=== PATIENT | female | born 1965 | race Hispanic/Latino ===

== ENCOUNTER 2017-10-03 14:13 | Observation (INO) | payer OTHER, SELFPAY ==
[2017-10-03] MEDS ORDERED: ASPIRIN 81 MG CHEWABLE TABLET ONE (14:41)
--- NOTE | 2017-10-03 14:57 | RAD REPORT ---
EXAM DESCRIPTION: RAD - Chest Single View - 10/03/2017 2:45 pm CLINICAL HISTORY: Chest pain. COMPARISON: 02/19/2015 FINDINGS: Portable technique limits examination quality. The lungs are grossly clear. The heart is normal in size. No displaced fractures. IMPRESSION: No acute intrathoracic process suspected.
[2017-10-03 15:01] LABS: Absolute Lymphocytes (CBC) 1.8 K/uL (0.7-4.9); Absolute Monocytes 0.7 K/uL (0.1-1.3); Basophils % 0.8 % (0-1.3); MCH 25.3 pg (27.0-35.0); MPV 9.6 fL (7.6-11.3); Monocytes % 6.7 % (3.3-12.3)
[2017-10-03 15:02] LABS: Protime INR 0.97
[2017-10-03 15:08] LABS: CKMB Creatine Kinase MB 1.6 ng/ml (0.3-4.0)
[2017-10-03 15:15] LABS: Potassium 3.5 mEq/L (3.6-5.0)
--- NOTE | 2017-10-03 15:52 | RAD REPORT ---
EXAM DESCRIPTION: CT - Chest For Pe Angio - 10/03/2017 3:45 pm CLINICAL HISTORY: Chest pain. COMPARISON: Recent chest radiograph. TECHNIQUE: CT angiogram of the pulmonary arteries was performed with MIP. All CT scans are performed using dose optimization technique as appropriate and may include automated exposure control or mA/KV adjustment according to patient size. FINDINGS: No evidence of pulmonary thromboembolism. No acute aortic finding demonstrated. The lungs are clear. The extreme lung bases are excluded on this study. No significant pericardial or pleural fluid. No concerning bony finding. Small hiatal hernia. IMPRESSION: No evidence of pulmonary thromboembolism.
[2017-10-03] MEDS ORDERED: NA CHLORIDE 0.9% 1,000 ML ONE (15:55)
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
--- NOTE | 2017-10-03 16:00 | ER ---
Nurse's Notes [facility] Name: Yas Fischer Age: 52 yrs Sex: Female : 1965 Arrival Date: 10/03/2017 Time: 14:16 Bed 17 Private MD: Diagnosis: Chest pain, unspecified Presentation: 10/03 14:20 Presenting complaint: Patient states: I have been having a dull chest pain since la1 yesterday, it started while I was working in the yard but went away thins morning, now its back. Transition of care: patient was not received from another setting of care. Onset of symptoms was October 03, 2017. Care prior to arrival: None. 14:20 Method Of Arrival: Ambulatory la1 14:20 Acuity: STARLA 3 la1 COPYRIGHT EXPERT: 15:16 Patient states she is experiencing menopause ae1 Historical: - Allergies: 14:21 No Known Allergies; la1 - PMHx: 14:21 Hypertension; Anxiety; la1 - Immunization history:: Adult Immunizations up to date. - Social history:: Smoking status: Patient/guardian denies using tobacco. Screenin:17 Abuse screen: Denies threats or abuse. Nutritional screening: No deficits noted. ae1 Tuberculosis screening: No symptoms or risk factors identified. Fall Risk None identified. Assessment: 13:30 General: Appears uncomfortable, Behavior is cooperative, anxious, restless. Pain: ae1 Complains of pain in chest Pain does not radiate. Quality of pain is described as aching, dull, Pain began gradually, 1 day ago. Neuro: Level of Consciousness is awake, alert, obeys commands, Oriented to person, place, time, situation. Cardiovascular: Heart tones S1 S2 present Patient's skin is warm and dry. Rhythm is regular. Respiratory: Airway is patent Respiratory effort is even, unlabored, Respiratory pattern is regular, symmetrical, Breath sounds are clear bilaterally. 13:35 Reassessment: Radiology at bedside obtaining chest x-ray. ae1 13:40 Reassessment: systems protection technician at bedside obtaining EKG reading. ae1 15:15 Reassessment: Patient states feeling better. Patient states symptoms have improved. ae1 15:53 Reassessment: Provider, Samara Holliday NP at bedside discussing plan of care. ae1 17:12 Reassessment: Patient and/or family updated on plan of care and expected duration. Pain ae1 level reassessed. Patient states "I'm feeling much better." Patient states feeling better. Patient states symptoms have improved. Vital Signs: 14:22 BP 162 / 94; Pulse 108; Resp 19; Temp 98.6(TE); Pulse Ox 98% on R/A; Weight 72.57 kg; la1 Height 5 ft. 0 in. (152.40 cm); 15:07 BP 147 / 80; Pulse 88; Resp 15; Pulse Ox 100% on R/A; mh5 15:51 BP 134 / 80; Pulse 88; Resp 15; Pulse Ox 100% on R/A; ae1 17:11 BP 152 / 79; Pulse 87; Resp 15; Pulse Ox 100% on R/A; ae1 14:22 Body Mass Index 31.25 (72.57 kg, 152.40 cm) la1 ED Course: 14:16 Patient arrived in ED. tw3 14:21 Triage completed. la1 14:22 Arm band placed on right wrist. la1 14:23 Bryant Gallego, RADHA is Primary Nurse. ae1 14:24 Clotilde Hloliday FNP-C is PHCP. kb 14:24 Jax Acosta MD is Attending Physician. kb 14:40 Initial lab(s) drawn, by me, sent to lab. Inserted saline lock: 20 gauge in right 5 antecubital area, using aseptic technique. Blood collected. 14:42 X-ray completed. Portable x-ray completed in exam room. Patient tolerated procedure sw well. 14:42 Patient has correct armband on for positive identification. Bed in low position. Side 5 rails up X 1. Warm blanket given. pvc monitor on. Pulse ox on. NIBP on. 14:43 XRAY Chest (1 view) In Process Unspecified. EDMS 14:43 Magnesium Sent. 5 14:43 Basic Metabolic Panel Sent. [facility] 14:43 BNP Sent. 5 14:43 CBC with Diff Sent. 5 14:43 Ckmb Sent. [facility] 14:43 PT-INR Sent. [facility] 14:43 Ptt, Activated Sent. [facility] 14:43 Troponin (emerg Dept Use Only) Sent. 5 14:47 EKG done, by cardiology technologist. reviewed by Clotilde Mg CONTAINER REPAIRER-C. at1 15:05 Urine collected: clean catch specimen, clear. mh5 15:06 Magnesium Sent. mh5 15:06 BNP Sent. mh5 15:16 Patient maintains SpO2 saturation greater than 95% on room air. ae1 15:44 CT Chest For PE Angio In Process Unspecified. EDMS 15:50 Patient moved back from CT. ae1 15:59 La Bryant MD is Hospitalizing Provider. kb 17:30 No provider procedures requiring assistance completed. Patient admitted, IV remains in iw place. Administered Medications: 14:42 Drug: Aspirin 162 mg Route: PO; ae1 15:50 Follow up: Response: No adverse reaction ae1 15:57 Drug: NS 0.9% 1000 ml Route: IV; Rate: 1000 ml; Site: right antecubital; ae1 17:00 Follow up: IV Status: Completed infusion iw Outcome: 15:59 Decision to Hospitalize by Provider. kb 17:30 Admitted to Tele Report called to RADHA Araujo iw 17:30 Condition: good 17:30 Discharge instructions given to patient, Instructed on the need for admit. 17:41 Patient left the ED. ae1 Signatures: Dispatcher [employer] EDLA Clotilde Holliday, CONTAINER REPAIRER-C CONTAINER REPAIRER-CkDonna Arevalo, RN RN iw Mojgan urrutia, account resolution analyst EKG TatKin Ayala RN RN Miya Villa Andrea, RN RN tate1 Brigitte Mclain 5 Stephen, Tia tw3
[2017-10-03] MEDS ORDERED: ACETAMINOPHEN 500 MG TAB PO PRN (16:45)
[2017-10-03] MEDS ORDERED: ONDANSETRON 4 MG (ODT) TAB PO PRN (16:45)
[2017-10-03 18:09] LABS: Urine Blood TRACE (NEG); Urine Glucose NEGATIVE (NEG); Urine Protein NEGATIVE (NEG); Urine Specific Gravity 1.015 (1.005-1.030)
[2017-10-03 18:10] VITALS: BMI 31.2
[2017-10-03] MEDS: NA CHLORIDE 0.9% 1,000 ML IV SCH (18:12)
--- NOTE | 2017-10-03 18:17 | P.HP ---
Certification for Inpatient Patient admitted to: Observation With expected LOS: <2 Midnights Patient will require the following post-hospital care: None Practitioner: I am a practitioner with admitting privileges, knowledge of patient current condition, hospital course, and medical plan of care. Services: Services provided to patient in accordance with Admission requirements found in Title 42 Section 412.3 of the Code of Federal Regulations Patient History Date of Service: 10/03/17 Primary Care Provider: Peg Solorio Reason for admission: Chest Pain History of Present Illness: This is a 52-year-old female with significant past medical history of anxiety and hypertension who presented to the ED complaining of having some left-sided chest pain. Patient stated that her pain started yesterday while she was mowing a lawn and she had associated symptoms of nausea. Patient stated that the chest pain was radiating down to her left arm as well. Pain was more pressure like and was 7/10 in waiting. Patient stated that she has had more episodes in the past and was told that it is her anxiety and thus was given anxiety medication. This time however she states that her chest pain is different and it is concerning for her. Currently she is compliant with her medication. Denies having any shortness of breath, vomiting abdominal pain or any other associated symptoms. Allergies No Known Drug Allergies Allergy (Unverified 03/09/15 02:01) Unknown No Known Allergies Allergy (Uncoded 10/03/17 17:44) Unknown - Past Medical/Surgical History Has patient received pneumonia vaccine in the past: No Diabetic: No -: Generalized Anxiety -: Hypertension -: Tubal Ligation - Family History Mother History Unknown: Yes -: Hypertension Father -: Hypertension Brother -: Hypertension - Social History Smoking Status: Never smoker Alcohol use: Yes CD- Drugs: No Caffeine use: No Place of Residence: Home Review of Systems General: As per HPI Physical Examination - Vital Signs Temperature: 98.6 F Blood Pressure: 152/79 Pulse: 87 Respirations: 15 - Physical Exam General: Alert, In no apparent distress, Other (Appears Anxious) HEENT: Atraumatic Neck: Supple Respiratory: Clear to auscultation bilaterally, Normal air movement Cardiovascular: Regular rate/rhythm, Normal S1 S2 Gastrointestinal: Normal bowel sounds, No tenderness Musculoskeletal: No tenderness Integumentary: No rashes Neurological: Normal speech, Normal strength at 5/5 x4 extr, Normal tone Lymphatics: No axilla or inguinal lymphadenopathy - Studies Laboratory Data (last 24 hrs) 10/03/17 14:30: PT 11.4, INR 0.97, APTT 27.5 10/03/17 14:30: WBC 10.7, Hgb 12.7, Hct 40.0, Plt Count 353 10/03/17 14:30: B-Natriuretic Peptide 11 10/03/17 14:30: Sodium 132 L, Potassium 3.5 L, BUN 12, Creatinine 1.19 H, Glucose 147 H, Magnesium 2.0 D Assessment and Plan - Problems (Diagnosis) (1) Chest pain Current Visit: Yes Status: Acute Plan: Atypical Chest pain. Most likely 2.2 to anxiety however cannot rule out ACS -Troponin x 1 negative with no EKG changes. -Echo Pending -Cardiology consulted. Awaiting reccs -Will repeat troponin -ASA, Statin and BB Qualifiers: Chest pain type: unspecified Qualified Code(s): R07.9 - Chest pain, unspecified (2) Anxiety Current Visit: Yes Status: Chronic (3) HTN (hypertension) Current Visit: Yes Status: Chronic Qualifiers: Hypertension type: essential hypertension Qualified Code(s): I10 - Essential (primary) hypertension Discharge Plan: Home Plan to discharge in: 24 Hours - Advance Directives Does patient have a Living Will: No Does patient have a Durable POA for Healthcare: No - Code Status/Comfort Care Code Status Assessed: Yes Critical Care: No
[2017-10-03] MEDS ORDERED: POTASSIUM 25 MEQ EFFERV TAB PO ONE (19:00)
[2017-10-03 20:18] VITALS: O2SAT 96
[2017-10-03] MEDS ORDERED: ATORVASTATIN 40 MG TAB PO SCH (21:00)
[2017-10-04] MEDS: NA CHLORIDE 0.9% 1,000 ML IV SCH (03:09)
[2017-10-04 05:12] LABS: Absolute Lymphocytes (CBC) 1.7 K/uL (0.7-4.9); Absolute Monocytes 0.7 K/uL (0.1-1.3); Basophils % 0.6 % (0-1.3); Lymphocytes % 19.6 % (15.3-44.8); MCV 79.6 fL (80-100); MPV 9.4 fL (7.6-11.3); Monocytes % 8.4 % (3.3-12.3); RBC Red Blood Cell Count 4.53 M/uL (3.86-4.86)
[2017-10-04 05:33] LABS: Albumin 3.7 g/dL (3.2-5.5); Bilirubin Total 0.5 mg/dL (0.3-1.2); Magnesium 2.1 mg/dL (1.8-2.5); Phosphorus 3.6 mg/dL (2.5-4.3); Potassium 4.4 mEq/L (3.6-5.0); Protein, Total 7.1 g/dL (6.0-8.3)
[2017-10-04] MEDS ORDERED: METOPROLOL TAR 25 MG TAB PO SCH (06:00)
[2017-10-04] MEDS ORDERED: ASPIRIN 81 MG CHEWABLE TABLET PO SCH (09:00)
[2017-10-04 13:15] VITALS: BP 132/77; TEMP 98.3
--- NOTE | 2017-10-04 14:32 | P.SSS ---
Patient History Date of Service: 10/04/17 Primary Care Provider: [facility] Reason for admission: Chest Pain History of Present Illness: This is a 52-year-old female with significant past medical history of anxiety and hypertension who presented to the ED complaining of having some left-sided chest pain. Patient stated that her pain started yesterday while she was mowing a lawn and she had associated symptoms of nausea. Patient stated that the chest pain was radiating down to her left arm as well. Pain was more pressure like and was 7/10 in waiting. Patient stated that she has had more episodes in the past and was told that it is her anxiety and thus was given anxiety medication. This time however she states that her chest pain is different and it is concerning for her. Currently she is compliant with her medication. Denies having any shortness of breath, vomiting abdominal pain or any other associated symptoms. Allergies No Known Drug Allergies Allergy (Verified 10/03/17 19:48) Unknown No Known Allergies Allergy (Uncoded 10/03/17 17:44) Unknown Home Medications: Amlodipine Besylate 10 mg PO DAILY 10/04/17 Aspirin Chewable [Aspirin Chewable*] 81 mg PO DAILY #30 tab.chew 10/04/17 Atorvastatin Calcium [Lipitor] 40 mg PO BEDTIME #30 tab 10/04/17 Buspirone HCl [Buspar] 10 mg PO BID 10/04/17 Lisinopril/Hydrochlorothiazide [Lisinopril-Hctz 20-12.5 mg Tab] 2 tab PO DAILY 10/04/17 Pantoprazole [Protonix Tab*] 40 mg PO DAILY 10/04/17 - Past Medical/Surgical History Has patient received pneumonia vaccine in the past: No Diabetic: No -: Generalized Anxiety -: Hypertension -: Tubal Ligation - Family History Mother History Unknown: Yes -: Hypertension Father -: Hypertension Brother -: Hypertension - Social History Smoking Status: Never smoker Alcohol use: Yes CD- Drugs: No Caffeine use: No Place of Residence: Home Review of Systems 10-point ROS is otherwise unremarkable Physical Examination - Vital Signs Temperature: 98.3 F Blood Pressure: 132/77 Pulse: 77 Respirations: 18 Pulse Ox (%): 98 - Physical Exam General: Alert, In no apparent distress, Oriented x3 HEENT: Atraumatic, PERRLA, Mucous membr. moist/pink, EOMI, Sclerae nonicteric Neck: Supple, 2+ carotid pulse no bruit, No LAD, Without JVD or thyroid abnormality Respiratory: Clear to auscultation bilaterally, Normal air movement Cardiovascular: Regular rate/rhythm, Normal S1 S2 Gastrointestinal: Normal bowel sounds, No tenderness Musculoskeletal: No tenderness Integumentary: No rashes Neurological: Normal gait, Normal speech, Normal strength at 5/5 x4 extr, Normal tone, Normal affect Lymphatics: No axilla or inguinal lymphadenopathy - Studies Laboratory Data (last 24 hrs) 10/03/17 14:30: PT 11.4, INR 0.97, APTT 27.5 10/03/17 14:30: WBC 10.7, Hgb 12.7, Hct 40.0, Plt Count 353 10/03/17 14:30: B-Natriuretic Peptide 11 10/03/17 14:30: Sodium 132 L, Potassium 3.5 L, BUN 12, Creatinine 1.19 H, Glucose 147 H, Magnesium 2.0 D - Diagnosis (Problem(s)) (1) Chest pain Status: Acute Plan: Atypical Chest pain. Most likely 2.2 to anxiety -Troponin x 3 negative with no EKG changes. -Echo WNL -Cardiology consulted. -Reccs DC home with F/u in 1 week for outpt Stress test. -ASA, Statin and BB Qualifiers: Chest pain type: unspecified Qualified Code(s): R07.9 - Chest pain, unspecified (2) Anxiety Status: Chronic (3) HTN (hypertension) Status: Chronic Qualifiers: Hypertension type: essential hypertension Qualified Code(s): I10 - Essential (primary) hypertension - Disposition Disposition: ROUTINE DISCHARGE Condition: GOOD Patient Discharge Instructions: Please f/u with Dr Kathleen in the clinic in 1 week post discharge. New medication. ASA 81mg. Lipitor 40mg daily Diet: Regular Activity: Ad elidia
--- NOTE | 2017-10-04 17:48 | CON ---
Date of Consultation: 10/04/2017 Admitted on 10/03/[address] Bryant. I saw the patient on 10/04/2017. Reason For Admission: Chest pain. History Of Present Illness: Ms. Fischer is a 52-year-old black [place] woman I have done a stress t est and echocardiogram in my office couple years ago, both of which were negative. She has a history of hypertension, gastroesophageal reflux disease. She came in with nausea, palpitation, and atypica l chest pain after walking in the yard for few hours. Denied PND, orthopnea, pedal edema, or syncope . Denied any fever or chills. Her chest pain was atypical. It was pleuritic. It increased when sh e took a deep breath. Her CPKs, troponin, MBs, chest x-ray, and EKG were all normal. Allergies: NONE. Review of Systems: Negative. Social History: Negative. Family History: Negative. Medications: At home include BuSpar, Norvasc, fluconazole, fosinopril, and hydrochlorothiazide. She is also on Bactrim for now. Physical Examination: Vital Signs: Stable. She was afebrile. HEENT: Negative. Neck: Supple. No bruit. Chest: Clear to auscultation and percussion. CARDIAC: Revealed regular rhythm and rate without any murmurs, gallops, or rubs. Abdomen: Benign. Extremities: Revealed no clubbing, cyanosis, or edema. Diagnostic Data: All normal. She had an echocardiogram yesterday, which was normal. She did have s lightly increased cholesterol of 214, LDL of 144. Impression And Plan: 1.Atypical chest pain, most likely musculoskeletal or pleuritic. 2.Palpitations that have resolved. 3.Nausea. 4.Gastroesophageal reflux disease. 5.Hypertension that is stable. The patient had a normal echo. Also had a negative cardiac workup i n the past. She has some mixed dyslipidemia, and I suggested a dietary program, but apparently she i s already on diet and has recently lost 12 pounds. I would not initiate therapy at this point. She needs to have that checked in about 3 months. I can see her in the office as needed. She can go javier e whenever it is okay with Dr. Bryant. CARLO/SHELTON Voice ID: [id number] Report ID: [id number]
--- NOTE | 2017-10-05 22:43 | EKG ---
Test Date: 2017-10-03 Test Time: 14:41:34 Drying Supervisor: DEJAN MEASUREMENT RESULTS: Intervals: Rate: 108 MN: 140 QRSD: 88 QT: 324 QTc: 434 Trail: P: 47 MN: 140 QRS: -12 T: 23 INTERPRETIVE STATEMENTS: Sinus tachycardia Otherwise normal ECG Compared to ECG 02/19/2015 22:17:42 Sinus rhythm no longer present Electronically Signed On 10-05-17 22:42:28 CDT by Mayco Rooney
--- NOTE | 2017-10-06 07:49 | ECHO ---
HEIGHT: 5 ft 0 in WEIGHT: 160 lb 0 oz DATE OF STUDY: 10/03/[address]: Clotilde Holliday 2-DIMENSIONAL: YES M.MODE: YES DOPPLER: YES COLOR FLOW: YES TDS: NO PORTABLE: NO DEFINITY: NO BUBBLE STUDY: NO DIAGNOSIS: CHEST PAIN CARDIAC HISTORY: CATHERIZATION: NO SURGERY: NO PROSTHETIC VALVE: NO PACEMAKER: NO MEASUREMENTS (cm) DIASTOLIC (NORMALS) SYSTOLIC (NORMALS) IVSd 1.0 (0.6-1.2) LA Diam 3.3 (1.9-4.0) LVEF 74% LVIDd 4.4 (3.5-5.7) LVIDs 2.5 (2.0-3.5) %FS 43% LVPWd 1.0 (0.6-1.2) Ao Diam 2.6 (2.0-3.7) 2 DIMENSIONAL ASSESSMENT: RIGHT ATRIUM: NORMAL LEFT ATRIUM: NORMAL RIGHT VENTRICLE: NORMAL LEFT VENTRICLE: NORMAL TRICUSPID VALVE: NORMAL MITRAL VALVE: NORMAL PULMONIC VALVE: NORMAL AORTIC VALVE: NORMAL PERICARDIAL EFFUSION: NONE AORTIC ROOT: NORMAL LEFT VENTRICULAR WALL MOTION: NORMAL DOPPLER/COLOR FLOW: MILD TRICUSPID REGURGITATION. COMMENTS: MILD TRICUSPID REGURGITATION. NORMAL LEFT VENTRICULAR SIZE AND FUNCTION. NO WALL MOTION ABNORMALITY. TECHNOLOGIST: Jelly CARUSO
== END 2017-10-04 13:34 | disposition home or self-care (01) ==
LOC: ER 14:13 → ERHOLD 16:00 → 4TH 17:26
PROVIDERS: ADMIT Family Medicine; ATTEND Family Medicine
DX: R07.89 Other chest pain (principal); I10 Essential (primary) hypertension; K21.9 Gastro-esophageal reflux disease without esophagitis; F41.9 Anxiety disorder, unspecified; Z79.82 Long term (current) use of aspirin
CPT/HCPCS: 36415; 71045; 71275; 80048; 80053; 80061; 81003; 81025; 82553; 83735; 83880; 84100; 84443; 84484; 85025; 85610; 85730; 93005; 93306; 96360; 99285; G0378; J7030

== ENCOUNTER 2019-03-05 13:44 | Emergency (ER) | payer BC, OTHER ==
[2019-03-05] MEDS ORDERED: MEPERIDINE HCL 25 MG/0.5 ML ONE (14:03)
[2019-03-05] MEDS ORDERED: DIAZEPAM 2 MG TABLET ONE (14:04)
[2019-03-05 14:14] LABS: Absolute Lymphocytes (CBC) 4.3 K/uL (0.7-4.9); Basophils % 0.8 % (0-1.3); Hematocrit 44.8 % (36.0-45.0); Lymphocytes % 49.4 % (15.3-44.8); MPV 10.4 fL (7.6-11.3); RBC Red Blood Cell Count 5.01 M/uL (3.86-4.86)
[2019-03-05 14:19] LABS: Protime INR 0.91
--- NOTE | 2019-03-05 14:31 | RAD REPORT ---
EXAM DESCRIPTION: Arleen Single View03/05/2019 2:18 pm CLINICAL HISTORY: Chest pain COMPARISON: 2018 FINDINGS: The lungs appear clear of acute infiltrate. The heart is normal size IMPRESSION: No acute abnormalities displayed
[2019-03-05 14:35] LABS: ALT/SGPT 241 U/L (12-78); AST/SGOT 120 U/L (15-37); Albumin 4.1 g/dL (3.4-5.0); Alkaline Phosphatase 123 U/L (45-117); BUN Blood Urea Nitrogen 13 mg/dL (7-18); Bicarbonate 26 mmol/L (21-32); Bilirubin Direct 0.1 mg/dL (0-0.2); Bilirubin Total 0.4 mg/dL (0.2-1.0); Glucose Level 157 mg/dL (74-106); Magnesium 2.1 mg/dL (1.8-2.4); NT PRO-BNP 11 pg/mL (<125); Potassium 3.5 mmol/L (3.5-5.1); Protein, Total 8.3 g/dL (6.4-8.2); Sodium Level 140 mmol/L (136-145); Troponin (Emerg Dept Use Only) < 0.02 ng/mL (0.0-0.045)
[2019-03-05 14:43] LABS: Blood Morphology Comment NOT SEEN (NOT SEEN); Platelet Estimate ADEQ
--- NOTE | 2019-03-05 16:09 | RAD REPORT ---
EXAM DESCRIPTION: US - Abdomen Exam Limited - 03/05/2019 4:02 pm CLINICAL HISTORY: chest pain, elevated LFTs COMPARISON: No comparisons FINDINGS: The gallbladder demonstrates no gallstones. No pericholecystic fluid or gallbladder wall t hickening. The common bile duct is normal measuring 4 mm. The liver demonstrates no findings of intrahepatic biliary dilatation. IMPRESSION: Unremarkable examination.
--- NOTE | 2019-03-05 16:30 | ER ---
Nurse's Notes [facility] Name: Yas Fischer Age: 54 yrs Sex: Female : 1965 Arrival Date: 03/05/2019 Time: 13:45 Bed 4 Private MD: Diagnosis: Chest pain, unspecified;Fatty (change of) liver, not elsewhere classified Presentation: 03/05 13:45 Presenting complaint: Sudden substernal chest pain that radiates to left arm and SOB hb while talking on phone to family member. Transition of care: patient was not received from another setting of care. Onset of symptoms was March 05, 2019 at 12:30. Risk Assessment: Do you want to hurt yourself or someone else? Patient reports no desire to harm self or others. Initial Sepsis Screen: Does the patient meet any 2 criteria? No. Patient's initial sepsis screen is negative. Does the patient have a suspected source of infection? No. Patient's initial sepsis screen is negative. Care prior to arrival: None. 13:45 Method Of Arrival: Ambulatory hb 13:45 Acuity: STARLA 3 hb Historical: - Allergies: 13:47 Amoxicillin; hb - Home Meds: 13:47 Lisinopril Oral [Active]; amlodipine oral [Active]; hb - PMHx: 13:47 Anxiety; Hypertension; hb - PSHx: 13:47 Tubal ligation; hb - Immunization history:: Adult Immunizations up to date. - Social history:: Smoking status: Patient/guardian denies using tobacco. - Ebola Screening: : No symptoms or risks identified at this time. - Family history:: not pertinent. - Hospitalizations: : No recent hospitalization is reported. Screenin:49 Abuse screen: Denies threats or abuse. Denies injuries from another. Nutritional mg2 screening: No deficits noted. Tuberculosis screening: No symptoms or risk factors identified. Assessment: 14:09 General: Appears in no apparent distress. comfortable, Behavior is cooperative, mg2 anxious. Pain: Complains of pain in chest Pain radiates to back Pain currently is 5 out of 10 on a pain scale. Quality of pain is described as aching, pressure, Pain began suddenly, 2 hours ago. Is continuous. Neuro: Level of Consciousness is awake, alert, obeys commands, Oriented to person, place, time, situation. Cardiovascular: Capillary refill < 3 seconds Patient's skin is warm and dry. Respiratory: Airway is patent Respiratory effort is even, unlabored, Respiratory pattern is regular, symmetrical, Breath sounds are clear bilaterally. in mediastinum, right upper lobe and left upper lobe. GI: No signs and/or symptoms were reported involving the gastrointestinal system. : No signs and/or symptoms were reported regarding the genitourinary system. EENT: No signs and/or symptoms were reported regarding the EENT system. Derm: Skin is intact, is healthy with good turgor, Skin is pink, warm \T\ dry. normal. Musculoskeletal: Circulation, motion, and sensation intact. Capillary refill < 3 seconds. 16:45 Reassessment: Patient denies pain at this time. Patient states feeling better. Patient mg2 states symptoms have improved. Vital Signs: 13:47 BP 170 / 103; Pulse 106; Resp 16; Temp 97.4; Pulse Ox 99% on R/A; Weight 74.84 kg; hb Height 5 ft. (152.40 cm); Pain 8/10; 14:11 BP 146 / 62; Pulse 103; Resp 18; Pulse Ox 97% on R/A; mg2 15:15 BP 130 / 75; Pulse 99; Resp 18; Pulse Ox 94% on R/A; mg2 16:45 BP 131 / 80; Pulse 90; Resp 18; Temp 98; Pulse Ox 100% on R/A; mg2 13:47 Body Mass Index 32.22 (74.84 kg, 152.40 cm) hb ED Course: 13:45 Patient arrived in ED. hb 13:46 Triage completed. hb 13:47 Arm band placed on. hb 13:48 Nilson Stewart, RN is Primary Nurse. mg2 13:54 Papito Estrella MD is Attending Physician. rn 13:55 EKG done, by vascular technologist. reviewed by Papito Estrella MD. at1 14:07 XRAY Chest (1 view) In Process Unspecified. EDMS 14:10 Patient has correct armband on for positive identification. alarm security or surveillance monitor on. Pulse mg2 ox on. NIBP on. Door closed. Warm blanket given. 14:10 No provider procedures requiring assistance completed. Inserted saline lock: 20 gauge mg2 in right forearm, using aseptic technique. Blood collected. Patient maintains SpO2 saturation greater than 95% on room air. 16:08 US Abdomen Limited In Process Unspecified. EDMS 16:45 IV discontinued, intact, bleeding controlled, No redness/swelling at site. Pressure mg2 dressing applied. Administered Medications: 14:09 Drug: Demerol 25 mg Route: IVP; Site: right forearm; mg2 16:34 Follow up: Response: No adverse reaction; Marked relief of symptoms mg2 14:09 Drug: Valium 2 mg Route: PO; mg2 16:34 Follow up: Response: No adverse reaction; Marked relief of symptoms mg2 Outcome: 16:28 Discharge ordered by . rn 16:45 Discharged to home ambulatory, with family. mg2 16:45 Condition: stable 16:45 Discharge instructions given to patient, family, Instructed on discharge instructions, follow up and referral plans. Demonstrated understanding of instructions, follow-up care. 16:46 Patient left the ED. mg2 Signatures: Dispatcher [employer] EDMS Papito Estrella MD MD rn Gonzales, Amanda, design engineering intern EKG Tat1 Gladys Hammonds RN RN Nilson Stewart RN RN mg2 Corrections: (The following items were deleted from the chart) 16:45 16:45 BP 131 / 80; Pulse 90bpm; Resp 18bpm; Pulse Ox 100% RA; mg2 mg2
--- NOTE | 2019-03-05 16:31 | EDPHYS ---
Physician Documentation [facility] Name: Yas Fischer Age: 54 yrs Sex: Female : 1965 Arrival Date: 03/05/2019 Time: 13:45 Bed 4 Private MD: ED Physician Papito Estrella HPI: 03/05 14:38 This 54 yrs old Female presents to ER via Ambulatory with complaints of Chest rn Pain. 14:38 The patient or guardian reports chest pain that is located primarily in the substernal rn area. Onset: 2 hour(s) ago. The pain does not radiate. Associated signs and symptoms: Pertinent negatives: abdominal pain, diaphoresis, dizziness, headache, lower extremity pain, lower extremity swelling, lightheadedness, nausea, near syncope, palpitations, recent travel, shortness of breath, syncope, vomiting. The chest pain is described as a heaviness. Duration: The patient or guardian reports a single episode, that is still ongoing. Severity of pain: At its worst the pain was moderate in the emergency department the pain has improved. The patient has not experienced similar symptoms in the past. Reports talking to family member on phone, sudden onset of chest pain, non-radiating, no fever, no trauma, no hx of dvt/pe. No abd pain. Reports has hx of anxiety and has been under a lot of stress. . Historical: - Allergies: 13:47 Amoxicillin; hb - Home Meds: 13:47 Lisinopril Oral [Active]; amlodipine oral [Active]; hb - PMHx: 13:47 Anxiety; Hypertension; hb - PSHx: 13:47 Tubal ligation; hb - Immunization history:: Adult Immunizations up to date. - Social history:: Smoking status: Patient/guardian denies using tobacco. - Ebola Screening: : No symptoms or risks identified at this time. - Family history:: not pertinent. - Hospitalizations: : No recent hospitalization is reported. ROS: 14:38 Constitutional: Negative for fever, chills, and weight loss, Eyes: Negative for injury, rn pain, redness, and discharge, Cardiovascular: Negative for palpitations, and edema, Respiratory: Negative for wheezing, and pleuritic chest pain, Abdomen/GI: Negative for abdominal pain, nausea, vomiting, diarrhea, and constipation, MS/Extremity: Negative for injury and deformity, Skin: Negative for injury, rash, and discoloration, Neuro: Negative for headache, weakness, numbness, tingling, and seizure. Exam: 14:38 Constitutional: This is a well developed, well nourished patient who is awake, alert, rn and in no acute distress. Head/Face: Normocephalic, atraumatic. ENT: MMM Cardiovascular: Tachycardic, regular, no murmur Respiratory: Lungs have equal breath sounds bilaterally, clear to auscultation. No increased work of breathing, no retractions or nasal flaring. Abdomen/GI: soft, non-tender MS/ Extremity: Pulses equal, no cyanosis. Neurovascular intact. Full, normal range of motion. Equal circumference. Neuro: Awake and alert, GCS 15, oriented to person, place, time, and situation. Cranial nerves II-XII grossly intact. Motor strength 5/5 in all extremities. Sensory grossly intact. Cerebellar exam normal. Vital Signs: 13:47 BP 170 / 103; Pulse 106; Resp 16; Temp 97.4; Pulse Ox 99% on R/A; Weight 74.84 kg; hb Height 5 ft. (152.40 cm); Pain 8/10; 14:11 BP 146 / 62; Pulse 103; Resp 18; Pulse Ox 97% on R/A; mg2 15:15 BP 130 / 75; Pulse 99; Resp 18; Pulse Ox 94% on R/A; mg2 16:45 BP 131 / 80; Pulse 90; Resp 18; Temp 98; Pulse Ox 100% on R/A; mg2 13:47 Body Mass Index 32.22 (74.84 kg, 152.40 cm) hb MDM: 13:54 Patient medically screened. rn 16:26 Differential diagnosis: acute myocardial infarction, acute pericarditis, anxiety, rn coronary artery disease chest wall pain, cholecystitis, Cholelithiasis costochondritis, esophagitis, gastritis, gastroesophageal reflux disease (GERD), pericarditis, pleurisy, pneumonia, pneumothorax. Data reviewed: vital signs, nurses notes, lab test result(s), EKG, radiologic studies, plain films, ultrasound, and as a result, I will discharge patient. Counseling: I had a detailed discussion with the patient and/or guardian regarding: the historical points, exam findings, and any diagnostic results supporting the discharge/admit diagnosis, lab results, radiology results, the need for outpatient follow up, to return to the emergency department if symptoms worsen or persist or if there are any questions or concerns that arise at home. Special discussion: Based on the patient's history, exam, and Dx evaluation, there is no indication for emergent intervention or inpatient Tx. It is understood by the patient/guardian that if the Sx's persist or worsen they need to return immediately for re-evaluation. I discussed with the patient/guardian in detail that at this point there is no indication for admission to the hospital. It is understood, however, that if the symptoms persist or worsen the patient needs to return immediately for re-evaluation. ED course: Recommend decreased ETOH intake and better diet/weight loss. Neg trop, neg u/s, no acute findings. Patient states under a lot of stress and recently diagnosed with ALS. . 03/05 13:49 Order name: Basic Metabolic Panel; Complete Time: 14:48 mg2 03/05 13:49 Order name: CBC with Diff; Complete Time: 14:48 mg2 03/05 13:49 Order name: LFT's; Complete Time: 14:48 mg2 03/05 13:49 Order name: Magnesium; Complete Time: 14:48 mg2 03/05 13:49 Order name: NT PRO-BNP; Complete Time: 14:48 mg2 03/05 13:49 Order name: PT-INR; Complete Time: 14:48 mg2 03/05 13:49 Order name: Troponin (emerg Dept Use Only); Complete Time: 14:48 mg2 03/05 13:49 Order name: XRAY Chest (1 view); Complete Time: 14:48 mg2 03/05 13:49 Order name: EKG; Complete Time: 13:50 mg2 03/05 13:49 Order name: Cardiac monitoring; Complete Time: 14:00 mg2 03/05 14:23 Order name: Manual Differential; Complete Time: 14:48 EDMS 03/05 14:49 Order name: US Abdomen Limited; Complete Time: 16:17 rn 03/05 13:49 Order name: EKG - Nurse/Tech; Complete Time: 14:00 mg2 03/05 13:49 Order name: IV Saline Lock; Complete Time: 14:00 mg2 03/05 13:49 Order name: Labs collected and sent; Complete Time: 14:00 mg2 03/05 13:49 Order name: O2 Per Protocol; Complete Time: 14:00 mg2 03/05 13:49 Order name: O2 Sat Monitoring; Complete Time: 14:00 mg2 Administered Medications: 14:09 Drug: Demerol 25 mg Route: IVP; Site: right forearm; mg2 16:34 Follow up: Response: No adverse reaction; Marked relief of symptoms mg2 14:09 Drug: Valium 2 mg Route: PO; mg2 16:34 Follow up: Response: No adverse reaction; Marked relief of symptoms mg2 Disposition: 03/05/19 16:28 Discharged to Home. Impression: Chest pain, unspecified, Fatty (change of) liver, not elsewhere classified. - Condition is Stable. - Discharge Instructions: Nonspecific Chest Pain, Nonalcoholic Fatty Liver Disease Diet. - Medication Reconciliation Form, Thank You Letter, Antibiotic Education, Prescription Opioid Use form. - Follow up: Private Physician; When: As needed; Reason: Recheck today's complaints, Re-evaluation by your physician. - Problem is new. - Symptoms have improved. Signatures: Dispatcher [employer] EDMS Papito Estrella MD MD rn Baxter, Heather, RN RN Nilson Stewart RN RN mg2 Corrections: (The following items were deleted from the chart) 16:46 16:28 03/05/2019 16:28 Discharged to Home. Impression: Chest pain, unspecified; Fatty mg2 (change of) liver, not elsewhere classified. Condition is Stable. Forms are Medication Reconciliation Form, Thank You Letter, Antibiotic Education, Prescription Opioid Use. Follow up: Private Physician; When: As needed; Reason: Recheck today's complaints, Re-evaluation by your physician. Problem is new. Symptoms have improved. rn
--- NOTE | 2019-03-05 20:18 | EKG ---
Test Date: 2019-03-05 Test Time: 13:55:34 Manager Care: [place] MEASUREMENT RESULTS: Intervals: Rate: 92 TX: 140 QRSD: 88 QT: 340 QTc: 420 [place]: P: 66 TX: 140 QRS: -6 T: 32 INTERPRETIVE STATEMENTS: Normal sinus rhythm Normal ECG Compared to ECG 10/03/2017 14:41:34 Sinus tachycardia no longer present Electronically Signed On 03-05-19 20:18:16 CDT by Nima Kathleen
== END 2019-03-05 16:46 | disposition home or self-care (01) ==
LOC: ER 13:44
DX: K76.0 Fatty (change of) liver, not elsewhere classified (principal); I10 Essential (primary) hypertension; F41.9 Anxiety disorder, unspecified; Z88.1 Allergy status to other antibiotic agents
CPT/HCPCS: 93005; 85025; 80048; 36415; 83735; 85610; 80076; 84484; 83880; 71045; 76705; 96374; 99285; J2175

== ENCOUNTER 2019-04-09 13:44 | Emergency (ER) | payer BC ==
--- NOTE | 2019-04-09 14:35 | RAD REPORT ---
EXAM DESCRIPTION: Arleen Single View04/09/2019 2:20 pm CLINICAL HISTORY: Chest pain COMPARISON: February 2019 FINDINGS: The lungs appear clear of acute infiltrate. The heart is normal size IMPRESSION: No acute abnormalities displayed
[2019-04-09 14:37] LABS: Absolute Lymphocytes (CBC) 2.3 K/uL (0.7-4.9); Basophils % 0.5 % (0-1.3); Hematocrit 43.2 % (36.0-45.0); Lymphocytes % 30.5 % (15.3-44.8); MPV 10.5 fL (7.6-11.3); RBC Red Blood Cell Count 4.84 M/uL (3.86-4.86)
[2019-04-09 14:48] LABS: ALT/SGPT 259 U/L (12-78); AST/SGOT 83 U/L (15-37); Alkaline Phosphatase 118 U/L (45-117); BUN Blood Urea Nitrogen 20 mg/dL (7-18); Bicarbonate 26 mmol/L (21-32); Bilirubin Direct 0.2 mg/dL (0-0.2); Bilirubin Total 0.4 mg/dL (0.2-1.0); Glucose Level 118 mg/dL (74-106); Magnesium 2.1 mg/dL (1.8-2.4); NT PRO-BNP 11 pg/mL (<125); Potassium 3.7 mmol/L (3.5-5.1); Sodium Level 139 mmol/L (136-145); Troponin (Emerg Dept Use Only) < 0.02 ng/mL (0.0-0.045)
[2019-04-09 14:51] LABS: Protime INR 0.95
--- NOTE | 2019-04-09 15:26 | ER ---
Nurse's Notes [facility] Name: Yas Fischer Age: 54 yrs Sex: Female : 1965 Arrival Date: 04/09/2019 Time: 13:45 Bed 6 Private MD: Diagnosis: Chest pain, unspecified Presentation: 04/09 13:52 Presenting complaint: Patient states: intermittent, sharp, L sided CP that began ss suddenly while lifting a heavy trash can to empty it 1 hour ago. Transition of care: patient was not received from another setting of care. Onset of symptoms was April 09, 2019. Risk Assessment: Do you want to hurt yourself or someone else? Patient reports no desire to harm self or others. Initial Sepsis Screen: Does the patient meet any 2 criteria? HR > 90 bpm. Does the patient have a suspected source of infection? No. Patient's initial sepsis screen is negative. 13:52 Method Of Arrival: Ambulatory ss 13:52 Acuity: STARLA 3 ss 15:09 Care prior to arrival: None. ph Historical: - Allergies: 13:54 No Known Drug Allergies; ss - Home Meds: 13:54 amlodipine 10 mg tab 1 tab once daily [Active]; lisinopril 20 mg Oral tab 1 tab once ss daily [Active]; - PMHx: 13:54 Anxiety; Hypertension; ss - PSHx: 13:54 Tubal ligation; ss - Immunization history:: Adult Immunizations up to date. - Social history:: Smoking status: Patient/guardian denies using tobacco. - Ebola Screening: : Patient denies exposure to infectious person Patient denies travel to an Ebola-affected area in the 21 days before illness onset. Screenin:03 Abuse screen: Denies threats or abuse. Denies injuries from another. Nutritional ph screening: No deficits noted. Tuberculosis screening: No symptoms or risk factors identified. Fall Risk None identified. Assessment: 14:00 General: Appears in no apparent distress. uncomfortable, Behavior is calm, cooperative, ph appropriate for age. Pain: Complains of pain in anterior aspect of left upper chest Pain does not radiate. Quality of pain is described as sharp, Pain began suddenly, 1 hour ago. Neuro: Level of Consciousness is awake, alert, obeys commands, Oriented to person, place, time, situation. Cardiovascular: Reports chest pain, Denies fatigue, lightheadedness, nausea, palpitations, shortness of breath, Capillary refill < 3 seconds in bilateral fingers Patient's skin is warm and dry. Rhythm is sinus rhythm. Respiratory: Airway is patent Respiratory effort is even, unlabored, Respiratory pattern is regular, symmetrical. GI: No signs and/or symptoms were reported involving the gastrointestinal system. Derm: Skin is intact, is healthy with good turgor, Skin is pink, warm \T\ dry. Musculoskeletal: Circulation, motion, and sensation intact. Range of motion: intact in all extremities. 15:08 Reassessment: Patient appears in no apparent distress at this time. Patient and/or ph family updated on plan of care and expected duration. Pain level reassessed. Patient is alert, oriented x 3, equal unlabored respirations, skin warm/dry/pink. Pt resting quietly, VSS. Vital Signs: 13:54 BP 144 / 91; Pulse 98; Resp 16; Temp 98.0(TE); Pulse Ox 100% on R/A; Weight 76.2 kg; ss Height 5 ft. 0 in. (152.40 cm); Pain 7/10; 14:54 BP 135 / 76; Pulse 80; Resp 18; Pulse Ox 99% on R/A; ph 13:54 Body Mass Index 32.81 (76.20 kg, 152.40 cm) ED Course: 13:45 Patient arrived in ED. as 13:47 Reece Perla PA is PHCP. jr8 13:47 Fabrice Reeves MD is Attending Physician. jr8 13:54 Triage completed. ss 13:54 Arm band placed on right wrist. ss 13:58 Brigitte Chinchilla, RN is Primary Nurse. ph 14:12 EKG done, by printer repair technician. reviewed by Reece SHARP. at1 14:19 XRAY Chest (1 view) In Process Unspecified. EDMS 14:20 Inserted saline lock: 22 gauge in right antecubital area, using aseptic technique. ph Blood collected. 15:08 No provider procedures requiring assistance completed. ph 15:09 Patient has correct armband on for positive identification. Placed in gown. Bed in low ph position. Call light in reach. Side rails up X 1. manager of quality on. Pulse ox on. NIBP on. 15:09 Patient maintains SpO2 saturation greater than 95% on room air. ph 15:40 IV discontinued, intact, bleeding controlled, No redness/swelling at site. Pressure ph dressing applied. Administered Medications: No medications were administered Outcome: 15:25 Discharge ordered by . gaurav 15:39 Discharged to home ambulatory, with family. ph 15:39 Condition: good 15:39 Discharge instructions given to patient, Instructed on discharge instructions, follow up and referral plans. Demonstrated understanding of instructions, follow-up care. 15:40 Patient left the ED. ph Signatures: Dispatcher [employer] EDLizbeth Forrest Shelby, RN RN ss Reece Perla PA PA jr8 Mojgan Leo, marketing communications coordinator EKG Tat1 Brigitte Chinchilla, RN RN ph
--- NOTE | 2019-04-09 15:27 | EDPHYS ---
Physician Documentation [facility] Name: Yas Fischer Age: 54 yrs Sex: Female : 1965 Arrival Date: 04/09/2019 Time: 13:45 Bed 6 Private MD: ED Physician Fabrice Reeves HPI: 04/09 14:00 This 54 yrs old Female presents to ER via Ambulatory with complaints of Chest jr8 Pain. 14:00 Onset: The symptoms/episode began/occurred 1 hour(s) ago. Associated signs and jr8 symptoms: Pertinent negatives: sore throat, vomiting, wheezing. Modifying factors: The patient symptoms are alleviated by nothing, the patient symptoms are aggravated by nothing. The patient has experienced similar episodes in the past. Pt reports she lifted a heavy trash can and began having pain in the left side of her chest. Denies associated SOB, dizziness, nausea, or diaphoresis. Historical: - Allergies: 13:54 No Known Drug Allergies; ss - Home Meds: 13:54 amlodipine 10 mg tab 1 tab once daily [Active]; lisinopril 20 mg Oral tab 1 tab once ss daily [Active]; - PMHx: 13:54 Anxiety; Hypertension; ss - PSHx: 13:54 Tubal ligation; ss - Immunization history:: Adult Immunizations up to date. - Social history:: Smoking status: Patient/guardian denies using tobacco. - Ebola Screening: : Patient denies exposure to infectious person Patient denies travel to an Ebola-affected area in the 21 days before illness onset. ROS: 14:01 Constitutional: Negative for fever, chills, and weight loss, Eyes: Negative for injury, jr8 pain, redness, and discharge, ENT: Negative for injury, pain, and discharge, Neck: Negative for injury, pain, and swelling, Respiratory: Negative for shortness of breath, cough, wheezing, and pleuritic chest pain, Abdomen/GI: Negative for abdominal pain, nausea, vomiting, diarrhea, and constipation, Back: Negative for injury and pain, MS/Extremity: Negative for injury and deformity, Neuro: Negative for headache, weakness, numbness, tingling, and seizure. 14:01 Cardiovascular: Positive for chest pain, Negative for edema, orthopnea, palpitations, paroxysmal nocturnal dyspnea. Exam: 14:01 Constitutional: This is a well developed, well nourished patient who is awake, alert, jr8 and in no acute distress. Head/Face: Normocephalic, atraumatic. Eyes: Pupils equal round and reactive to light, extra-ocular motions intact. Lids and lashes normal. Conjunctiva and sclera are non-icteric and not injected. Cornea within normal limits. Periorbital areas with no swelling, redness, or edema. ENT: Mucous membranes moist. Neck: Trachea midline, no thyromegaly or masses palpated, and no cervical lymphadenopathy. Supple, full range of motion without nuchal rigidity, or vertebral point tenderness. No Meningismus. Chest/axilla: Normal chest wall appearance and motion. Nontender with no deformity. No lesions are appreciated. Cardiovascular: Regular rate and rhythm with a normal S1 and S2. No gallops, murmurs, or rubs. Normal PMI, no JVD. No pulse deficits. Respiratory: Lungs have equal breath sounds bilaterally, clear to auscultation No rales, rhonchi or wheezes noted. No increased work of breathing, no retractions or nasal flaring. Abdomen/GI: Soft, non-tender, with normal bowel sounds. No distension or tympany. No guarding or rebound. No evidence of tenderness throughout. Back: No spinal tenderness. No costovertebral tenderness. Full range of motion. MS/ Extremity: Pulses equal, no cyanosis. Neurovascular intact. Full, normal range of motion. Neuro: Awake and alert, GCS 15, oriented to person, place, time, and situation. Cranial nerves II-XII grossly intact. Motor strength 5/5 in all extremities. Sensory grossly intact. Cerebellar exam normal. Normal gait. Vital Signs: 13:54 BP 144 / 91; Pulse 98; Resp 16; Temp 98.0(TE); Pulse Ox 100% on R/A; Weight 76.2 kg; ss Height 5 ft. 0 in. (152.40 cm); Pain 7/10; 14:54 BP 135 / 76; Pulse 80; Resp 18; Pulse Ox 99% on R/A; ph 13:54 Body Mass Index 32.81 (76.20 kg, 152.40 cm) MDM: 13:47 Patient medically screened. [facility] 15:24 Data reviewed: vital signs, nurses notes, old medical records, lab test result(s), EKG, jr8 radiologic studies, and as a result, I will discharge patient. Data interpreted: Pulse oximetry: on room air is 99 %. Interpretation: normal. Counseling: I had a detailed discussion with the patient and/or guardian regarding: the historical points, exam findings, and any diagnostic results supporting the discharge/admit diagnosis, the presence of at least one elevated blood pressure reading (>120/80) during this emergency department visit, lab results, radiology results, the need for outpatient follow up, a family practitioner. ED course: Pt is chest pain free, ambulatory to bathroom without assistance, normal trop, ecg, and CXR. Pt to FU with PCP. 04/09 13:58 Order name: Basic Metabolic Panel; Complete Time: 14:57 jr8 04/09 13:58 Order name: CBC with Diff; Complete Time: 14:57 jr8 04/09 13:58 Order name: LFT's; Complete Time: 14:57 jr8 04/09 13:58 Order name: Magnesium; Complete Time: 14:57 jr8 04/09 13:58 Order name: NT PRO-BNP; Complete Time: 14:57 jr8 04/09 13:58 Order name: PT-INR; Complete Time: 14:57 jr8 04/09 13:57 Order name: EKG; Complete Time: 13:57 ss 04/09 13:57 Order name: EKG - Nurse/Tech; Complete Time: 13:57 ss 04/09 13:58 Order name: Troponin (emerg Dept Use Only); Complete Time: 14:57 jr8 04/09 13:58 Order name: XRAY Chest (1 view); Complete Time: 14:38 jr8 04/09 13:58 Order name: Cardiac monitoring; Complete Time: 14:49 jr8 04/09 13:58 Order name: IV Saline Lock; Complete Time: 14:49 jr8 04/09 13:58 Order name: Labs collected and sent; Complete Time: 14:49 jr8 04/09 13:58 Order name: O2 Per Protocol; Complete Time: 14:49 jr8 04/09 13:58 Order name: O2 Sat Monitoring; Complete Time: 14:49 jr8 Administered Medications: No medications were administered Disposition: 04/10 15:08 Co-signature as Attending Physician, Fabrice Reeves MD. Disposition: 04/09/19 15:25 Discharged to Home. Impression: Chest pain, unspecified. - Condition is Stable. - Discharge Instructions: Nonspecific Chest Pain. - Medication Reconciliation Form, Thank You Letter, Family Work Release form. - Follow up: Private Physician; When: 2 - 3 days; Reason: Recheck today's complaints, Re-evaluation by your physician. - Problem is new. - Symptoms have improved. Signatures: Dispatcher [employer] EDMS Dacia Castillo RN RN ss Reece Perla PA PA jr8 Brigitte Chinchilla RN RN ph ReevesFabrice MD MD gs Corrections: (The following items were deleted from the chart) 04/09 15:40 15:25 04/09/2019 15:25 Discharged to Home. Impression: Chest pain, unspecified. ph Condition is Stable. Forms are Medication Reconciliation Form, Thank You Letter, Antibiotic Education, Prescription Opioid Use. Follow up: Private Physician; When: 2 - 3 days; Reason: Recheck today's complaints, Re-evaluation by your physician. Problem is new. Symptoms have improved. jr8
[2019-04-09 15:57] VITALS: TEMP 98
[2019-04-09 15:58] VITALS: BP 135/76; O2SAT 99
--- NOTE | 2019-04-09 17:19 | EKG ---
Test Date: 2019-04-09 Test Time: 13:50:59 Ventilating Expert: BEVERLY MEASUREMENT RESULTS: Intervals: Rate: 89 MT: 150 QRSD: 90 QT: 364 QTc: 442 [place]: P: 53 MT: 150 QRS: -31 T: 10 INTERPRETIVE STATEMENTS: Normal sinus rhythm Left axis deviation Pulmonary disease pattern Abnormal ECG Compared to ECG 03/05/2019 13:55:34 Left-axis deviation now present Electronically Signed On 04-09-19 17:18:15 CDT by Mayco Rooney
== END 2019-04-09 15:40 | disposition home or self-care (01) ==
LOC: ER 13:44
DX: R07.9 Chest pain, unspecified (principal); I10 Essential (primary) hypertension; F41.9 Anxiety disorder, unspecified
CPT/HCPCS: 36415; 71045; 80048; 80076; 83735; 83880; 84484; 85025; 85610; 93005; 99285

== ENCOUNTER 2019-07-04 13:59 | Emergency (ER) | payer BC ==
[2019-07-04] MEDS ORDERED: ASPIRIN 81 MG CHEWABLE TABLET ONE (14:53)
[2019-07-04] MEDS ORDERED: HYDROCODONE/CHLORPHEN 5 ML/OSYR ONE (14:53)
--- NOTE | 2019-07-04 15:15 | RAD REPORT ---
EXAM DESCRIPTION: RAD - Chest Pa And Lat (2 Views) - 07/04/2019 2:44 pm CLINICAL HISTORY: CHEST PAIN Chest pain. COMPARISON: Chest Single View dated 04/09/2019; Chest Single View dated 03/05/2019; Chest Single View dated 10/03/2017; CHEST SINGLE VIEW dated 02/19/2015 FINDINGS: The lungs are clear. The heart is normal in size. No displaced fractures. IMPRESSION: No acute or concerning finding suspected.
--- NOTE | 2019-07-04 16:17 | ER ---
Nurse's Notes [facility] Name: Yas Fischer Age: 54 yrs Sex: Female : 1965 Arrival Date: 07/04/2019 Time: 14:00 Bed 20 Private MD: Diagnosis: Chest pain, unspecified;Cough Presentation: 07/04 14:02 Presenting complaint: Patient states: Chest pain since yesterday. Patient reports cough aj1 and congestion for the past 2 weeks. Patient reports subjective fever. Transition of care: patient was not received from another setting of care. Onset of symptoms was July 04, 2019. Risk Assessment: Do you want to hurt yourself or someone else? Patient reports no desire to harm self or others. Initial Sepsis Screen: Does the patient meet any 2 criteria? HR > 90 bpm. No. Patient's initial sepsis screen is negative. Does the patient have a suspected source of infection? No. Patient's initial sepsis screen is negative. Care prior to arrival: None. 14:02 Method Of Arrival: Ambulatory aj1 14:02 Acuity: STARLA 3 aj1 Triage Assessment: 14:04 General: Appears in no apparent distress. comfortable, Behavior is calm, cooperative, aj1 appropriate for age. Pain: Complains of pain in chest Pain currently is 8 out of 10 on a pain scale. EENT: Reports nasal congestion nasal discharge. Neuro: Level of Consciousness is awake, alert, obeys commands, Oriented to person, place, time, situation. Cardiovascular: Reports chest pain, Patient's skin is warm and dry. Respiratory: Airway is patent Respiratory effort is even, unlabored, Respiratory pattern is regular, symmetrical. 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 - Social history:: Smoking status: Patient/guardian denies using tobacco. - Ebola Screening: : Patient denies travel to an Ebola-affected area in the 21 days before illness onset. Screenin:09 Abuse screen: Denies threats or abuse. Nutritional screening: No deficits noted. tw2 Tuberculosis screening: No symptoms or risk factors identified. Fall Risk None identified. Assessment: 14:08 Pain: Pain does not radiate. Pain Pain began 1 day ago. tw2 14:10 General: Appears in no apparent distress. comfortable, Behavior is calm, cooperative, rb1 Reports fever for. Pain: Complains of pain in chest Pain currently is 7 out of 10 on a pain scale. Aggravated by coughing. Neuro: Level of Consciousness is awake, alert, obeys commands, Oriented to person, place, time, situation. Cardiovascular: Capillary refill < 3 seconds is brisk in bilateral fingers. Respiratory: Airway is patent Respiratory effort is even, unlabored, Respiratory pattern is regular, symmetrical. Respiratory: Reports cough that is productive, green sputum Denies shortness of breath. GI: Reports diarrhea. : No signs and/or symptoms were reported regarding the genitourinary system. Derm: Skin is pink, warm \T\ dry. 15:10 Reassessment: Patient appears in no apparent distress at this time. Patient and/or rb1 family updated on plan of care and expected duration. Pain level reassessed. Patient is alert, oriented x 3, equal unlabored respirations, skin warm/dry/pink. 16:00 Reassessment: Patient appears in no apparent distress at this time. No changes from rb1 previously documented assessment. Vital Signs: 14:04 BP 157 / 89; Pulse 98; Resp 18; Temp 97.1; Pulse Ox 98% on R/A; Weight 75.75 kg (R); aj1 Height 5 ft. 0 in. (152.40 cm) (R); Pain 7/10; 15:00 BP 136 / 65; Pulse 96; Resp 17; Pulse Ox 99% on R/A; rb1 16:00 BP 144 / 82; Pulse 82; Resp 18; Pulse Ox 99% ; rb1 14:04 Body Mass Index 32.61 (75.75 kg, 152.40 cm) aj1 ED Course: 14:00 Patient arrived in ED. as 14:03 Triage completed. aj1 14:04 Arm band placed on Patient placed in an exam room. aj1 14:05 Bed in low position. Call light in reach. monitor worker on. Pulse ox on. NIBP on. tw2 14:08 Patient maintains SpO2 saturation greater than 95% on room air. tw2 14:09 Lucrecia Gonzalez, RN is Primary Nurse. rb1 14:16 Ada Aparicio FNP-C is [facility]. snw 14:16 Papito Estrella MD is Attending Physician. snw 14:41 Chest Pa And Lat (2 Views) XRAY In Process Unspecified. EDMS 16:33 No provider procedures requiring assistance completed. Patient did not have IV access rb1 during this emergency room visit. Administered Medications: 14:52 Drug: Aspirin Chewable Tablet 324 mg Route: PO; rb1 15:29 Follow up: Response: No adverse reaction rb1 14:52 Drug: Tussionex Pennkinetic ER 5 ml Route: PO; rb1 15:29 Follow up: Response: No adverse reaction rb1 Outcome: 16:16 Discharge ordered by . snw 16:33 Patient left the ED. rb1 16:33 Discharged to home ambulatory, with family. rb1 16:33 Condition: stable 16:33 Discharge instructions given to patient, Instructed on discharge instructions, follow up and referral plans. medication usage, Demonstrated understanding of instructions, follow-up care, medications, Prescriptions given X 1. Signatures: Dispatcher [employer] EDME Azalea Tilley RN RN aj1 Ada Aparicio FNP-C MATERIALS INSPECTOR-Lizbeth Henao as Lucrecia Gonzalez, RN RN rb1 Gricel Teresa RN RN tw2
--- NOTE | 2019-07-04 16:17 | EDPHYS ---
Physician Documentation [facility] Name: Yas Fischer Age: 54 yrs Sex: Female : 1965 Arrival Date: 07/04/2019 Time: 14:00 Bed 20 Private MD: ED Physician Papito Estrella HPI: 07/04 14:49 This 54 yrs old Female presents to ER via Ambulatory with complaints of Chest snw Pain. 14:49 The patient or guardian reports cough, described as moderate. Onset: The snw symptoms/episode began/occurred suddenly, 2 week(s) ago, and became persistent. Severity of symptoms: At their worst the symptoms were moderate. Associated signs and symptoms: Pertinent positives: chest pain, pt had fever at onset of cough 2 weeks ago. It is unknown whether or not the patient has had similar symptoms in the past. It is unknown whether or not the patient has recently seen a physician. 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 - Social history:: Smoking status: Patient/guardian denies using tobacco. - Ebola Screening: : Patient denies travel to an Ebola-affected area in the 21 days before illness onset. ROS: 14:48 Constitutional: Negative for fever, chills, and weight loss, Eyes: Negative for injury, snw pain, redness, and discharge, ENT: Negative for injury, pain, and discharge, Neck: Negative for injury, pain, and swelling, Abdomen/GI: Negative for abdominal pain, nausea, vomiting, diarrhea, and constipation, Back: Negative for injury and pain, : Negative for injury, bleeding, discharge, and swelling, MS/Extremity: Negative for injury and deformity, Skin: Negative for injury, rash, and discoloration, Neuro: Negative for headache, weakness, numbness, tingling, and seizure, Psych: Negative for depression, anxiety, suicide ideation, homicidal ideation, and hallucinations. 14:48 Cardiovascular: Positive for chest pain, with cough. 14:48 Respiratory: Positive for cough, with no reported sputum. Exam: 14:48 Constitutional: This is a well developed, well nourished patient who is awake, alert, snw and in no acute distress. Head/Face: Normocephalic, atraumatic. Eyes: Pupils equal round and reactive to light, extra-ocular motions intact. Lids and lashes normal. Conjunctiva and sclera are non-icteric and not injected. Cornea within normal limits. Periorbital areas with no swelling, redness, or edema. ENT: Nares patent. No nasal discharge, no septal abnormalities noted. Tympanic membranes are normal and external auditory canals are clear. Oropharynx with no redness, swelling, or masses, exudates, or evidence of obstruction, uvula midline. Mucous membranes moist. Neck: Trachea midline, no thyromegaly or masses palpated, and no cervical lymphadenopathy. Supple, full range of motion without nuchal rigidity, or vertebral point tenderness. No Meningismus. Chest/axilla: Normal chest wall appearance and motion. Nontender with no deformity. No lesions are appreciated. Cardiovascular: Regular rate and rhythm with a normal S1 and S2. No gallops, or rubs. Normal PMI, no JVD. No pulse deficits. Grade 1 systolic murmur Respiratory: Lungs have equal breath sounds bilaterally, clear to auscultation and percussion. No rales, rhonchi or wheezes noted. No increased work of breathing, no retractions or nasal flaring. Abdomen/GI: Soft, non-tender, with normal bowel sounds. No distension or tympany. No guarding or rebound. No evidence of tenderness throughout. Back: No spinal tenderness. No costovertebral tenderness. Full range of motion. Skin: Warm, dry with normal turgor. Normal color with no rashes, no lesions, and no evidence of cellulitis. MS/ Extremity: Pulses equal, no cyanosis. Neurovascular intact. Full, normal range of motion. Neuro: Awake and alert, GCS 15, oriented to person, place, time, and situation. Cranial nerves II-XII grossly intact. Motor strength 5/5 in all extremities. Sensory grossly intact. Cerebellar exam normal. Normal gait. Psych: Awake, alert, with orientation to person, place and time. Behavior, mood, and affect are within normal limits. Vital Signs: 14:04 BP 157 / 89; Pulse 98; Resp 18; Temp 97.1; Pulse Ox 98% on R/A; Weight 75.75 kg (R); aj1 Height 5 ft. 0 in. (152.40 cm) (R); Pain 7/10; 15:00 BP 136 / 65; Pulse 96; Resp 17; Pulse Ox 99% on R/A; rb1 16:00 BP 144 / 82; Pulse 82; Resp 18; Pulse Ox 99% ; rb1 14:04 Body Mass Index 32.61 (75.75 kg, 152.40 cm) aj1 MDM: 14:55 Patient medically screened. snw 16:17 Data reviewed: vital signs, nurses notes. Data interpreted: Pulse oximetry: on room air snw is 99 %. Interpretation: normal. Counseling: I had a detailed discussion with the patient and/or guardian regarding: the historical points, exam findings, and any diagnostic results supporting the discharge/admit diagnosis, the presence of at least one elevated blood pressure reading (>120/80) during this emergency department visit, lab results, radiology results, the need for outpatient follow up, to return to the emergency department if symptoms worsen or persist or if there are any questions or concerns that arise at home. Response to treatment: the patient's symptoms have markedly improved after treatment. Special discussion: Based on the patient's history, exam, and Dx evaluation, there is no indication for emergent intervention or inpatient Tx. It is understood by the patient/guardian that if the Sx's persist or worsen they need to return immediately for re-evaluation. I have referred the patient to see his PCP for further evaluation of high blood pressure. Based on the history and exam findings, there is no indication for further emergent testing or inpatient evaluation. I discussed with the patient/guardian the need to see the primary care provider for further evaluation of the symptoms. 07/04 15:17 Order name: Troponin (emerg Dept Use Only); Complete Time: 16:09 snw 07/04 14:17 Order name: Chest Pa And Lat (2 Views) XRAY; Complete Time: 15:18 snw 07/04 14:17 Order name: EKG; Complete Time: 14:17 snw 07/04 14:17 Order name: EKG - Nurse/Tech; Complete Time: 14:34 snw 07/04 15:12 Order name: Misc. Order: repeat EKG at 1600; Complete Time: 16:17 snw Administered Medications: 14:52 Drug: Aspirin Chewable Tablet 324 mg Route: PO; rb1 15:29 Follow up: Response: No adverse reaction rb1 14:52 Drug: Tussionex Pennkinetic ER 5 ml Route: PO; rb1 15:29 Follow up: Response: No adverse reaction rb1 Disposition: 16:34 Co-signature as Attending Physician, Papito Estrella MD. rn Disposition: 07/04/19 16:16 Discharged to Home. Impression: Chest pain, unspecified, Cough. - Condition is Stable. - Discharge Instructions: Nonspecific Chest Pain, Chest Wall Pain, Hypertension, Cool Mist Vaporizer, Cough, Adult, [id number], Aspirin and Your Heart. - Prescriptions for Tessalon Perles 100 mg Oral Capsule - take 1 capsule by ORAL route every 8 hours As needed; 15 capsule. - Work release form, Medication Reconciliation Form, Thank You Letter, Antibiotic Education, Prescription Opioid Use form. - Follow up: Emergency Department; When: As needed; Reason: Worsening of condition. Follow up: Private Physician; When: 2 - 3 days; Reason: Recheck today's complaints, Continuance of care, Re-evaluation by your physician. Signatures: Dispatcher [employer] Azalea Gray RN RN aj1 Ada Aparicio, NURSES AIDE-C NURSES AIDE-Csnw Papito Estrella MD MD rn Barber, Rebecca, RN RN rb1 Corrections: (The following items were deleted from the chart) 16:33 16:16 07/04/2019 16:16 Discharged to Home. Impression: Chest pain, unspecified; Cough. rb1 Condition is Stable. Forms are Medication Reconciliation Form, Thank You Letter, Antibiotic Education, Prescription Opioid Use. Follow up: Emergency Department; When: As needed; Reason: Worsening of condition. Follow up: Private Physician; When: 2 - 3 days; Reason: Recheck today's complaints, Continuance of care, Re-evaluation by your physician. snw
[2019-07-04 17:19] VITALS: TEMP 97.1
[2019-07-04 17:29] VITALS: O2SAT 99
[2019-07-04 17:30] VITALS: BP 144/82
--- NOTE | 2019-07-05 10:24 | EKG ---
Test Date: 2019-07-04 Test Time: 16:08:29 Water Commissioner: MARIAM MEASUREMENT RESULTS: Intervals: Rate: 79 TN: 152 QRSD: 88 QT: 364 QTc: 417 [place]: P: 65 TN: 152 QRS: -15 T: 17 INTERPRETIVE STATEMENTS: Normal sinus rhythm Cannot rule out Anterior infarct, age undetermined Abnormal ECG Compared to ECG 07/04/2019 14:25:58 No significant changes Electronically Signed On 07-05-19 10:24:06 MECHANOTHERAPIST by Mayco Rooney
--- NOTE | 2019-07-05 10:25 | EKG ---
Test Date: 2019-07-04 Test Time: 14:25:58 Coil Spring Assembler: MARIAM MEASUREMENT RESULTS: Intervals: Rate: 90 VT: 146 QRSD: 88 QT: 362 QTc: 442 [place]: P: 62 VT: 146 QRS: -17 T: 23 INTERPRETIVE STATEMENTS: Normal sinus rhythm Cannot rule out Anterior infarct, age undetermined Abnormal ECG Compared to ECG 04/09/2019 13:50:59 Myocardial infarct finding now present Left-axis deviation no longer present Electronically Signed On 07-05-19 10:24:29 SUPPLIER QUALITY by Mayco Rooney
== END 2019-07-04 16:33 | disposition home or self-care (01) ==
LOC: ER 13:59
DX: R05 Cough (principal); I10 Essential (primary) hypertension; F41.9 Anxiety disorder, unspecified; Z79.82 Long term (current) use of aspirin; Z88.1 Allergy status to other antibiotic agents
CPT/HCPCS: 36415; 71046; 84484; 93005; 99285

== ENCOUNTER → 2020-01-12 | Day surgery (SDC) | payer OTHER ==
--- NOTE | 2020-01-12 11:32 | RAD REPORT ---
EXAM DESCRIPTION: Ultrasound-guided vacuum assisted right breast core biopsy CLINICAL HISTORY: Breast mass N64.59 COMPARISON: No comparisons FINDINGS: Informed consent was obtained and time-out was performed. The patient's right breast was prepped and draped in the usual sterile fashion. 1% lidocaine was use d for local anesthetic purposes. Utilizing aseptic technique and ultrasound guidance, a 12 gauge vacuum assisted core biopsy device wa s used to obtain 2 core specimens through the 4 cm mass of interest 6 o'clock position right breast. A post biopsy clip was then placed. All collected material was sent for cytology. Patient tolerated procedure well. IMPRESSION: Successful ultrasound guided vacuum assisted right breast mass biopsy.
--- NOTE | 2020-01-12 11:38 | RAD REPORT ---
EXAM DESCRIPTION: Ultrasound-guided vacuum assisted left breast core biopsy CLINICAL HISTORY: Breast mass BILAT BREAST MASSES COMPARISON: Breast Vac Assist BX w/US Guid dated 01/12/2020 FINDINGS: Informed consent was obtained and time-out was performed. The patient's left breast was prepped and draped in the usual sterile fashion. 1% lidocaine was used for local anesthetic purposes. Utilizing aseptic technique and ultrasound guidance, a 12 gauge vacuum assisted core biopsy device wa s used to obtain 2 core specimens through the 15 mm mass of interest left breast 11 o'clock position. A post biopsy clip was then placed. All collected material was sent for cytology. Patient tolerated procedure well. IMPRESSION: Successful ultrasound guided vacuum assisted left breast mass biopsy.
== END ==
LOC: DS 01-10 09:19
PROVIDERS: ATTEND Specialist
PROC: 0HBV3ZX Excision of Bilateral Breast, Percutaneous Approach, Diagnostic (ICD-10-PCS; principal; 2020-01-12)
DX: C50.912 Malignant neoplasm of unspecified site of left female breast (principal); Z17.0 Estrogen receptor positive status [ER+]; N60.91 Unspecified benign mammary dysplasia of right breast
CPT/HCPCS: 76942; 88305

== ENCOUNTER 2020-05-01 22:39 | Emergency (ER) | payer OTHER, SELFPAY ==
--- OUTSIDE RECORDS SUMMARY | 2020-05-01 22:43 | XMS REPORT | Continuity of Care Document ---
:1965 Author Organization [facility] t Address [address] Andrade [address] [place] [address] Care Team Providers Name Role Phone ANNE-MARIE Primary Care Physician Unavailable ANNE-MARIE Attending Clinician Unavailable Tara LEMON Attending Clinician Unavailable SYSTEM, NOT IN Attending Clinician Unavailable Leeann Vera MD Attending Clinician Heber Ray APN Attending Clinician Vijay GARCIA, F Attending Clinician Reji SHARP Attending Clinician Avelino Mckeon MD Attending Clinician Gabriela [facility] Attending Clinician Mike GARCIA Attending Clinician Unavailable Vernon GARCIA Attending Clinician Kenny Pacheco, T Attending Clinician Annette SHARP Attending Clinician Cory GARCIA, F Attending Clinician Unavailable Levar CHRISTENSEN Attending Clinician Anne-Marie CHRISTENSEN Attending Clinician Shanno CHRISTENSEN Attending Clinician Madhu Tovar CRNA A Attending Clinician Unavailable Gil RN Attending Clinician Unavailable Jerald GARCIA, M Attending Clinician Unavailable Jarrod GARCIA, M Attending Clinician Unavailable Jag HARO Attending Clinician KAREY Attending Clinician Unavailable Karey CHRISTENSEN Attending Clinician Anthony EDWARDS Attending Clinician Jojo CHRISTENSEN Attending Clinician Sanjiv CHRISTENSEN Attending Clinician ANNETTE Attending Clinician Unavailable Carroll GARCIA M Attending Clinician Unavailable LEVAR Attending Clinician Unavailable Erica Richey Attending Clinician Unavailable Tara Lemon MD Attending Clinician Haven Rg MD Attending Clinician Malini Chatman Attending Clinician Unavailable Nicole GARCIA Attending Clinician Unavailable ANNE-MARIE Admitting Clinician Unavailable Payers Payer Name Policy Type Policy Number Effective Date Expiration Date S ource GENERIC [id number] 2019 00:00:00 Problems Condition Condition Condition Status Onset Resolution Last Treating Co mments Source Name Details Category Date Date Treatment Clinician Date 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 Sorenson outer outer Tonja quadrant quadrant Amado of right of right is a 55 female female y.o. 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 [facility] by surgical oncologis t Dr. Mauricio, and she was recommend ed a possibili ty of anterior margin re-excisi on plus chemother apy and radiation versus completio n mastectom y and chemother apy without radiation . She prefers completio n mastectom y which is currently scheduled for 03/17/2020 . She presents today as a new patient to discuss adjuvant treatment . Clinical informati on, pertinent images and pertinent pathology data was reviewed and shared with the patient. Imaging shows stable postop changes after excision. For this reason the plan for Ms. Yas Grace is to proceed with completio n mastectom y on 03/17/2020 . She will return to clinic 1 month after surgery for postop follow up with routine labs. 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 Per patient, she is nervous today. BP better controlle d at home. 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 Family History Family Member Diagnosis Comments Start Date Stop Date Source Paternal grandfather Leukemia MD Malini ray Family member Breast cancer MD Ryan son Family member Cancer MD Guerra Family member Ovarian cancer MD Wilfredo randolph Social History Social Habit Start Date Stop Date Quantity Comments Source History [facility] MD Guerra Alcohol Std Drinks History [facility] MD Guerra Alcohol Binge Sex Assigned At MD Lyle on Exposure to Not sure MD Guerra SARS-CoV-2 (event) Tobacco use and 2020-04-17 2020-04-17 Never used MD Lyle on exposure 00:00:00 00:00:00 Alcohol intake 2020-04-17 2020-04-17 Lifetime MD Stephanie hansen 00:00:00 00:00:00 non-drinker (finding) History [facility] 2020-01-27 2020-01-27 1 MD Guerra Alcohol Frequency 00:00:00 00:00:00 Smoking Status Start Date Stop Date Source Never smoker MD Guerra Medications Ordered Filled Start Stop Current Ordering Indication Dosage Frequency Signature Comments Components Source Medication Medication Date Date Medication? Clinician (SIG) Name Name amLODIPine 2019-06 Yes 10mg Take 10 mg M D (NORVASC) 0-28 by mouth Valdo o 10 mg 10:23: daily. n tablet 43 multivitami 2019-06 Yes 1{tbl} Take 1 MD n 0-28 tablet by Andersmelissa (THERAGRAN) 10:23: mouth n tablet 43 daily. busPIRone 2019-06 Yes 10mg Take 10 mg MD (BUSPAR) 10 0-28 by mouth 2 An derso mg tablet 10:23: (two) n 43 times a day as needed (for anxiety). acetaminoph 2019-06 Yes 500mg Take 500 M D en 0-28 mg by Andersmelissa (TYLENOL) 10:23: mouth as n 500 mg 43 needed. tablet ondansetron 2019-06 Yes [facility] of 8mg Take 1 MD (Zofran) 8 0-26 central tablet (8 A nderso mg tablet 00:00: portion of mg) by n 00 right mouth female every 8 breast (eight) hours as needed for nausea or vomiting. prochlorper 2019-06 Yes [facility]coma of 10mg Take 1 MD azine 0-26 central tablet (10 Connor so (Compazine) 00:00: portion of mg) by n 10 mg 00 right mouth tablet female every 6 breast (six) hours as needed for nausea or vomiting. sodium 2019-06 Yes Sarcoma of 10mL Swish and MD chloride-so 0-26 central spit 10 mL Anderso dium 00:00: portion of every 4 n bicarbonate 00 right (four) (SALT AND female hours SODA) breast while mouthwash awake. Dissolve 2 teaspoon in 1 quart of water. sodium 2019-06 Yes [facility]coma of 10mL Infuse 10 MD chloride 0-26 central mL Anderso (NS) 0.9% 00:00: portion of intravenou n injection 00 right sly daily. flush female Use 10 mL syringe breast to flush each lumen of central venous catheter daily as directed. sucralfate 2019-06 Yes Sarcoma of 1000mg Swish and MD (Carafate) 0-26 central swallow 10 Anderso 100 mg/mL 00:00: portion of mL (1,000 n suspension 00 right mg) 4 female (four) breast times a day. senna-docus 2019-06 Yes Sarcoma of 2{tbl} Take 2 MD ate 0-26 central tablets by Valdo o (SENOKOT-S) 00:00: portion of mouth n 8.6 mg-50 00 right twice mg tablet female daily. breast May adjust dose based on bowel function. oxyCODONE 2019-06 Yes Neoplasm 5mg Take 1 MD (Roxicodone 0-26 related tablet (5 Anderso ) 5 mg 00:00: pain mg) by n immediate 00 (acute) mouth release (chronic) every 6 tablet (six) hours as needed for severe pain. lidocaine 2019-06 Yes Neoplasm of Apply MD (XYLOCAINE) 0-07 uncertain topically Anderso 2% jelly 00:00: behavior of to n 00 connective affected tissue of area(s) right every 8 breast (eight) hours as needed for moderate pain. traMADol Yes Infiltratin 50mg Take 1 MD (ULTRAM) 50 8-20 g duct tablet (50 Anderso mg tablet 00:00: carcinoma mg) by n 00 of upper mouth inner every 6 quadrant of (six) left female hours as breast needed for severe pain. Please do not take this until after surgery on 02/18/20. aspirin 81 Yes DAILY MD mg chewable 4-14 Anderso tablet 00:00: n 00 lisinopriL- Yes 2{tbl} Take 2 MD hydrochloro 4-14 tablets by An derso thiazide 00:00: mouth n (PRINZIDE,Z 00 every ESTORETIC) morning. 20-12.5 mg per tablet pantoprazol Yes 40mg Take 40 mg MD e 4-14 by mouth Anderso (PROTONIX) 00:00: daily. n 40 mg EC 00 tablet Vital Signs Vital Name Observation Time Observation Value Comments Source HEIGHT 2020-01-27 10:48:00 154 cm WEIGHT 2020-01-27 10:48:00 82.1 kg HEIGHT 2020-01-27 10:48:00 154 cm WEIGHT 2020-01-27 10:48:00 82.1 kg Systolic blood pressure 2020-05-01 13:55:08 139 mm[Hg] MD Guerra Diastolic blood pressure 2020-05-01 13:55:08 85 mm[Hg] MD Guerra Heart rate 2020-05-01 13:55:08 84 /min MD yRan son Body temperature 2020-05-01 13:55:08 36.78 Zahra MD Malini ray Respiratory rate 2020-05-01 13:55:08 20 /min MD Malini ray Oxygen saturation in 2020-05-01 13:55:08 96 /min MD Guerra Arterial blood by Pulse oximetry Body height 2020-05-01 13:52:00 152.5 cm MD Connor urena Body weight 2020-05-01 13:52:00 83.6 kg MD Connor urena BMI 2020-05-01 13:52:00 35.95 kg/m2 MD Connor urena Procedures Procedure Date / Time Performed Performing Clinician [facility] e XR CHEST 2 VW POST IMPLANT 2020-04-28 19:45:31 Tasha Ray MD XR CHEST 2 VW 2020-04-27 21:19:58 Yumiko Mendoza MD VASCULAR ACCESS ULTRASOUND 2020-04-27 19:27:39 Yumiko Mendoza [place] CHG US GUIDE, VASCULAR 2020-04-27 18:40:00 Herb Mckeon MD ACCESS Avelino COMPLETE BLOOD COUNT W/ 2020-04-27 18:34:00 Herb Mckeon MD DIFFERENTIAL Avelino COMPREHENSIVE METABOLIC PANEL 2020-04-27 18:34:00 Herb Mckeon MD PROTHROMBIN TIME 2020-04-27 18:34:00 Herb Mckeon MD PARTIAL THROMBOPLASTIN TIME 2020-04-27 18:34:00 Herb Mckeon MD Results CBC 2020-04-27 18:34:00 Brigitte Vera MD MANUAL DIFFERENTIAL 2020-04-27 18:34:00 Brigitte Vera MD And erson GLUCOSE LEVEL 2020-04-27 18:34:00 Brigitte Vera MD n ELECTROLYTE PANEL 2020-04-27 18:34:00 Brigitte Vera MD SERUM CREATININE 2020-04-27 18:34:00 Brigitte Vera MD Valdo on .GLOMERULAR FILTRATION RATE 2020-04-27 18:34:00 Brigitte Vera MD CALCIUM LEVEL TOTAL 2020-04-27 18:34:00 Brigitte Vera MD And erson ALBUMIN LEVEL 2020-04-27 18:34:00 Brigitte Vera MD ALKALINE PHOSPHATASE 2020-04-27 18:34:00 Brigitte Vera MD ALANINE AMINOTRANSFERASE 2020-04-27 18:34:00 Brigitte Vera ASPARTATE AMINOTRANSFERASE 2020-04-27 18:34:00 Brigitte Vera MD TOTAL PROTEIN 2020-04-27 18:34:00 Brigitte Vera MD Andtariqo jade FRACTIONATED BILIRUBIN 2020-04-27 18:34:00 Brigitte Vera MD BLOOD UREA NITROGEN 2020-04-27 18:34:00 Brigitte Vera MD And erson MRI ABDOMEN W WO CONTRAST 2020-04-17 14:41:00 Tasha Ray MD COMPREHENSIVE METABOLIC PANEL 2020-04-17 12:26:00 Yusuf Ray MD PHOSPHORUS LEVEL 2020-04-17 12:26:00 Tasha Ray MD Valdo on MAGNESIUM LEVEL 2020-04-17 12:26:00 Tasha Ray MD Andtariqo jade COMPLETE BLOOD COUNT W/ 2020-04-17 12:26:00 Tasha Ray MD DIFFERENTIAL GLUCOSE LEVEL 2020-04-17 12:26:00 Tasha Ray MD Andtariqo jade BLOOD UREA NITROGEN 2020-04-17 12:26:00 Tasha Ray MD And erson ELECTROLYTE PANEL 2020-04-17 12:26:00 Tasha Ray MD Connor son SERUM CREATININE 2020-04-17 12:26:00 Tasha Ray MD Valdo on .GLOMERULAR FILTRATION RATE 2020-04-17 12:26:00 Tasha Ray MD CALCIUM LEVEL TOTAL 2020-04-17 12:26:00 Tasha Ray MD And erson ALBUMIN LEVEL 2020-04-17 12:26:00 Tasha Ray MD Andtariqo n ALKALINE PHOSPHATASE 2020-04-17 12:26:00 Tasha Ray MD ALANINE AMINOTRANSFERASE 2020-04-17 12:26:00 Tasha Ray ASPARTATE AMINOTRANSFERASE 2020-04-17 12:26:00 Tasha Ray MD TOTAL PROTEIN 2020-04-17 12:26:00 Tasha Ray MD Andtariqo n FRACTIONATED BILIRUBIN 2020-04-17 12:26:00 Tasha Ray MD Results CBC 2020-04-17 12:26:00 Tasha Ray MD Andtariqo jade MANUAL DIFFERENTIAL 2020-04-17 12:26:00 Tasha Ray MD And erson PATHOLOGY SURGICAL 2020-03-17 19:51:00 Naveed Mauricio MD Connor son INTERPRETATION TOTAL MASTECTOMY 2020-03-17 18:15:00 Naveed Mauricio MD ECHOCARDIOGRAM 2D COMPLETE 2020-03-16 15:24:17 Nuzhat Cristobal HC COVID19 AUTOMATED PCR 2020-03-16 12:24:00 Gómez Marques NM BONE SCAN WHOLE BODY 2020-03-08 16:33:19 Nuzhat Cristobal MD nderson CT CHEST ABDOMEN PELVIS W 2020-03-08 14:41:30 Nuzhat Cristobal MD CONTRAST POC GLUCOSE SCREEN 2020-02-18 20:39:00 Naveed Mauricio MD Connor son NM DOSING APPOINTMENT 2020-02-18 17:54:40 Heaven Bryant MD And erson PATHOLOGY SURGICAL 2020-02-18 17:49:49 Naveed Mauricio MD Connor son INTERPRETATION SEGMENTAL MASTECTOMY - SEED 2020-02-18 16:37:00 Naveed Mauricio MD LOC INTRAOPERATIVE LYMPHATIC 2020-02-18 16:37:00 Naveed Mauricio MD MAPPING ISOTOPE INJECTION FOR 2020-02-18 16:37:00 Naveed Mauricio MD SENTINEL NODE BIOPSY SENTINEL NODE BIOPSY - AXILLA 2020-02-18 16:37:00 Radha Mauricio MD EXCISIONAL BIOPSY OF BREAST 2020-02-18 16:37:00 Naveed Mauricio MD LESION BREAST SPECIMEN RADIOGRAPH 2020-02-18 14:30:11 Heaven Bryant BREAST SPECIMEN RADIOGRAPH 2020-02-18 14:30:10 Heaven Bryant XR CHEST 2 VW 2020-02-16 14:41:19 Heaven Bryant MD MAMMO POST PROCEDURE RIGHT 2020-02-16 14:25:55 Heaven Bryant MAMMO GUIDED SEED PLACEMENT 2020-02-16 14:25:38 Heaven Bryant MD LEFT US GUIDED BREAST SEED 2020-02-16 13:45:00 Heaven Bryant MD And erson PLACEMENT RIGHT HC COVID19 AUTOMATED PCR 2020-02-16 12:16:00 Anne-Marie, Naveed Guerra COMPLETE BLOOD COUNT W/ 2020-02-10 16:55:00 Anne-Marie, Naveed Guerra DIFFERENTIAL BASIC METABOLIC PANEL, 2020-02-10 16:55:00 Miggins, Naveed Nayak nderson CALCIUM IONIZED HEPATIC FUNCTION PANEL 2020-02-10 16:55:00 Dontes, Naveed hustonrson PROTHROMBIN TIME 2020-02-10 16:55:00 Miggins, Naveed hansen HEMOGLOBIN A1C 2020-02-10 16:55:00 Heaven Bryant MD Results CBC 2020-02-10 16:55:00 Dontes, Naveed Guerra MANUAL DIFFERENTIAL 2020-02-10 16:55:00 Robbiegins, Naveed Villalobos rson GLUCOSE LEVEL 2020-02-10 16:55:00 Miggins, Naveed Guerra BLOOD UREA NITROGEN 2020-02-10 16:55:00 Miggins, Naveed CHRISTENSEN Wilfredo rson ELECTROLYTE PANEL 2020-02-10 16:55:00 Miggins, Naveed Royers on SERUM CREATININE 2020-02-10 16:55:00 Miggins, Naveed Lyleo n .GLOMERULAR FILTRATION RATE 2020-02-10 16:55:00 Robbiegins, Naveed Guerra ALBUMIN LEVEL 2020-02-10 16:55:00 Miggins, Naveed Guerra ALKALINE PHOSPHATASE 2020-02-10 16:55:00 Miggins, Naveed Roy ersnoemi ALANINE AMINOTRANSFERASE 2020-02-10 16:55:00 Miggins, Naveed Guerra ASPARTATE AMINOTRANSFERASE 2020-02-10 16:55:00 Miggins, Naveed Guerra TOTAL PROTEIN 2020-02-10 16:55:00 Miggins, Naveed Guerra FRACTIONATED BILIRUBIN 2020-02-10 16:55:00 Anne-Marie, Naveed hustonrson US CHEST 2020-01-26 19:06:16 Heaven Bryant MD US BREAST COMPLETE BILATERAL 2020-01-26 19:06:16 Heaven Bryant MD MAMMO DIGITAL DIAGNOSTIC 2020-01-26 17:24:16 Heaven Bryant MD BILATERAL W [facility] 2019-NCOV COVID-19 2020-01-24 23:27:00 Naveed Mauricio MD OSI US BREAST BIOPSY 2020-01-12 17:32:31 Naveed Mauricio MD And erson PATHOLOGY OUTSIDE 2020-01-12 00:00:00 Indu Rg MD INTERPRETATION OSI MAMMO BILATERAL 2020-01-05 17:33:01 Naveed Mauricio MD Wilfredo rson OSI US BREAST 2020-01-05 17:32:47 Naveed Mauricio MD Charlie Encounters Start End Encounter Admission Attending Care Care Encounter Source Date/Time Date/Time Type Type Clinicians Facility Department ID 2020-02-07 Outpatient ANNE-MARIE, [facility] Breast Kwadwo [id number] 12:19:36 NAVEED hansen 2020-02-02 Outpatient BIA LEMON, MDA MDA [id number] 13:19:19 ESTHER hansen 2020-01-21 Outpatient [facility], MDA MDA [id number] 16:39:13 PROVIDER Valdo hansen 2020-03-02 2020-03-02 Outpatient KAREY, MDA MDA [id number] 00:00:00 00:00:00 KUSH Lyle o jade 2020-02-17 2020-02-17 Outpatient EL IRENEUTU, MDA MDA [id number] MD 00:00:00 00:00:00 HEAVEN Ryan so jade 2020-02-17 2020-02-17 Outpatient EL IRENEUTU, MDA MDA [id number] MD 00:00:00 00:00:00 HEAVEN Ryan so jade 2020-02-17 2020-02-17 Outpatient EL SZUTU, MDA MDA [id number] MD 00:00:00 00:00:00 HEAVEN Ryan so jade 2020-02-17 2020-02-17 Outpatient EL SZUTU, MDA MDA [id number] MD 00:00:00 00:00:00 HEAVEN hansen 2020-02-17 2020-02-17 Outpatient EL SZUTU, MDA MDA [id number] MD 00:00:00 00:00:00 HEAVEN hansen 2020-02-16 2020-02-16 Outpatient EL LEVAR, MDA MDA [id number] MD 00:00:00 00:00:00 NUZHAT hansen 2020-02-10 2020-02-10 Outpatient EL MIGGINS, MDA MDA [id number] MD 00:00:00 00:00:00 NAVEED Curryers o n 2020-02-10 2020-02-10 Outpatient EL MIGGINS, MDA MDA [id number] MD 00:00:00 00:00:00 NAVEED Curryers o n 2020-02-02 2020-02-02 Outpatient LEVAR, MDA MDA [id number] MD 00:00:00 00:00:00 NUZHAT Curryers o n 2020-01-28 2020-01-28 Outpatient EL TASHIU, MDA MDA [id number] MD 13:00:16 13:00:16 HEAVEN Ryan so jade 2020-01-27 2020-01-27 Outpatient EL MIGGINS, MDA MDA [id number] MD 10:35:15 12:08:54 NAVEED Lyle o n 2020-01-27 2020-01-27 Outpatient EL MDA MDA [id number] MD 10:31:52 10:32:00 Valdo o jade 2020-01-26 2020-01-26 Outpatient EL MDA MDA [id number] MD 12:35:52 12:35:52 Valdo o jade 2020-01-26 2020-01-26 Outpatient EL MIGGINS, MDA MDA [id number] MD 12:31:31 12:31:31 NAVEED Curryers o n 2020-01-26 2020-01-26 Outpatient EL MIGGINS, MDA MDA [id number] MD 12:31:27 12:31:27 NAVEED Curryers o n 2020-01-26 2020-01-26 Outpatient EL MIGGINS, MDA MDA [id number] MD 12:31:19 12:31:19 NAVEED Valdo o n 2020-01-26 2020-01-26 Outpatient EL MIGGINS, MDA MDA [id number] MD 12:31:13 12:31:13 NAVEED Valdo o n 2020-01-26 2020-01-26 Outpatient EL MDA MDA [id number] MD 11:32:56 11:32:56 Valdo o jade 2020-01-26 2020-01-26 Outpatient EL MDA MDA [id number] MD 11:32:31 11:32:39 Valdo o n 2020-01-26 2020-01-26 Outpatient EL MDA MDA [id number] 00:00:00 00:00:00 Valdo hansen 2020-01-24 2020-01-24 Outpatient [facility] [id number] 18:16:51 18:16:51 Valdo hansen Results Test Description Test Time Test Comments Results Result Sourc e Comments XR Chest 2 View 2020-04-28 No complication MD Nayak nderson Post Implant 19:46:47 associated with central venous catheter placement. Interface, Radiology Results In - 04/28/2020 1:49 PM CSTFULL RESULT:Examination : XR CHEST 2 VW POST IMPLANT, 04/28/2020 1:45 PM.Clinical History: Breast malignancy.Indicat ion: Central venous catheter placement.Comparis on: Chest 04/27/2020.Techniqu e: Posteroanterior, lateral and dual-energy radiographs of the chest.Findings:1. A right peripherally inserted central venous catheter has its tip in the superior vena cava.2. The mediastinal contours and cardiac silhouette are normal.3. There are no focal abnormal pulmonary opacities.IMPRESSI ON:No complication associated with central venous catheter placement. XR Chest 2 Views 2020-04-27 Increased opacity MD Guerra 21:24:08 in the left lower thorax is likely partly atelectasis although more diffuse opacity is suspected to be due to asymmetric overlying soft tissues. No central venous access catheter appreciated. Clinical correlation advised. Interface, Radiology Results In - 04/27/2020 3:26 PM CSTFULL RESULT:Examination : XR CHEST 2 VW, 04/27/2020 3:19 PMClinical History: Encounter for adjustment and management of vascular access deviceIndication: Check Central Line placementCompariso n: 02/16/2020Technique : Posteroanterior, lateral and dual-energy radiographs of the chest.Findings:Pos toperative changes of the left breast. Interval right mastectomy.Left retrocardiac atelectasis is suspected. More diffuse increased opacity over the left hemithorax inferiorly is suspected to reflect overlying soft tissue thickening.There is no pleural effusion or pneumothorax. There is no mediastinal or hilar adenopathy. Cardiac silhouette is normal. No central venous access catheter is appreciated.IMPRES URSZULA:Increased opacity in the left lower thorax is likely partly atelectasis although more diffuse opacity is suspected to be due to asymmetric overlying soft tissues. No central venous access catheter appreciated. Clinical correlation advised. Fractionated Bilirubin 2020-04-27 19:40:40 Test Item Value Reference Range Interpretation Comme nts Bili Total (test code = 0.6 mg/dL <=1.2 Indo cyanine Green (ICG) may cause 5096) falsely elevate d bilirubin results. Total and direct bilirubin must not be measured from samples co ntaining indocyanine gre en. False elevation of to johnnie bilirubin can be seen in clayton ents with IgG concentrations above 28 g/L. Bili Direct (test code = <0.2 <=0.3 mg/dL Ind ocyanine Green (ICG) may cause 5094) falsely elevate d bilirubin results. Total and direct bilirubin must not be measured from samples co ntaining indocyanine gre en. Bili Indirect (test code = See Note 0-0.9 U nable to calculate Indirect 5095) Bilirubin resul t due to some parameters are outside reportable range MD GuerraTotal [id number] 19:40:39 Test Item Value Reference Range Interpretation Comments Total Protein (test code = 7649) 8.1 g/dL 6.4-8.3 MD GuerraCalcium [id number] 19:40:38 Test Item Value Reference Range Interpretation Comments Calcium Lvl (test code = 5258) 9.9 mg/dL 8.4-10.2 MD [id number] 19:40:37 Test Item Value Reference Range Interpretation Comments ALT (test code = 4705) 204 U/L <=33 H Lab Interpretation (test code = Abnormal 85612-2) MD [id number] 19:40:36 Test Item Value Reference Range Interpretation Comments BUN (test code = 5055) 15 mg/dL 6-23 MD GuerraGlucose [id number] 19:40:35 Test Item Value Reference Range Interpretation Comments Glucose Level (test code 114 mg/dL 70-99 H Ref erence range is = 5699) valid for fasti ng specimens only. Guidelines established by the [place] [employer]ab[employer] es [employer] guidelines (Standards of Medical Care in Diabetes 2016. Diabetes Care 2 016; 39: S13-22) are that a fasting gluco se of greater than or equal to 126 mg /dL or a random glu cose greater than or equal to 200 mg /dL with symptoms, that are confirmed b y repeat testing on a different day, meet the criteria fo r diabetes mellit us. Lab Interpretation (test Abnormal code = 95757-9) MD GuerraGlomerular Filtration [id number] 19:40:33 Test Item Value Reference Range Interpretation Comments eGFR-AA (test 80 >=60 mL/min/1.73 sq. Normal eGFR: >= 60 code = 8062) m mL/min/1.73 m2N ote: The eGFR is calcula filiberto using the CKD-EPI equ ation. The eGFR declines w ith age. eGFR <60 mL/min /1.73 m2 is considered as " decreased". This equation s hould only be used for pat ients 18 and older. Acco rding to the National dney Foundation's dney Disease Outcome Quality Initiative (KDO QI) classification and 2012 Kidney Disease Improving Global Outcomes (KDIGO) Clinical Practi ce Guideline, the stage of CKD should be c ategorized based on estima filiberto GFR. Stage Descripti on GFR mL/min/1.73 m21 Normal or high GFR >=902 Mildly de creased GFR 60-893a Mildly to moder ately decreased GFR 45-593b Moderately to s everely decreased GFR 30-444 Severely decrea sed GFR 15-295 Kidney failure <15 eGFR-LUIS ALBERTO (test 69 >=60 mL/min/1.73 sq. Brittney l eGFR: >= 60 code = 8063) m mL/min/1.73 m2N ote: The eGFR is calcula filiberto using the CKD-EPI equ ation. The eGFR declines w ith age. eGFR <60 mL/min /1.73 m2 is considered as " decreased". This equation s hould only be used for pat ients 18 and older. Acco rding to the National dney Foundation's dney Disease Outcome Quality Initiative (KDO QI) classification and 2012 Kidney Disease Improving Global Outcomes (KDIGO) Clinical Practi ce Guideline, the stage of CKD should be c ategorized based on estima filiberto GFR. Stage Descripti on GFR mL/min/1.73 m21 Normal or high GFR >=902 Mildly de creased GFR 60-893a Mildly to moder ately decreased GFR 45-593b Moderately to s everely decreased GFR 30-444 Severely decrea sed GFR 15-295 Kidney failure <15 MD GuerraAlkaline [id number] 19:40:32 Test Item Value Reference Range Interpretation Comments Alk Phos (test code = 4768) 104 U/L 35-104 MD GuerraAlbumin [id number] 19:40:30 Test Item Value Reference Range Interpretation Comments Albumin Lvl (test code = 4763) 4.6 3.5- 5.2 gm/dL MD GuerraElectrolyte [id number] 19:40:29 Test Item Value Reference Range Interpretation Comments Sodium Lvl (test code = 7355) 140 136- 145 mEq/L Potassium Lvl (test code = 6854) 3.7 3.5- 5.1 mEq/L Chloride (test code = 5279) 101 98- 107 mEq/L CO2 (test code = 5227) 26 22- 29 mEq/L Anion Gap (test code = 9325) 13 4- 14 mEq/L MD GuerraAspartate Ikgbfnbndehuibnf9546-55-17 19:40:28 Test Item Value Reference Range Interpretation Comments AST (test code = 4731) 182 U/L <=32 H Lab Interpretation (test code = Abnormal 38912-3) MD Guerra.Serum Ezwhlfuqmm8174-44-20 19:40:26 Test Item Value Reference Range Interpretation Comments Creatinine (test code = 5399) 0.93 mg/dL 0.51-0.95 MD GuerraVascular Access [id number] 19:27:39This procedure requires no interpretation from the radiologist.MD GuerraPartial Thromboplastin Time 2020-04-27 19:24:32 Test Item Value Reference Range Interpretation Comments PTT (test code = 27.5 24.2- 36.0 second(s) 6773) JONO (test code = This lab cannot be JONO) scheduled at the following locations due to collection/proccessing restrictions: [facility] and [facility]. MD GuerraProthrombin Time with [id number] 19:24:31 Test Item Value Reference Range Interpretation Comments PT (test code = 12.6 12.0- 14.3 second(s) 6746) INR (test code = 1.00 0.90-1.10 5973) JONO (test code = This lab cannot be JONO) scheduled at the following locations due to collection/proccessing restrictions: [facility] and [facility]. MD GuerraVhwbjttqElzktgqkgmfc8873-83-08 19:01:19 Test Item Value Reference Range Interpretation Comments Neutrophil % (test code = 49.1 % 42-66 67455-3) Lymphocyte % (test code = 39.3 % 24-44 737-7) Monocyte % (test code = 8.7 % 2-7 H 744-3) Eosinophil % (test code = 2.1 % 1-4 713-8) Basophil % (test code = 0.5 % 0-1 707-0) IGRE % (test code = 0.3 % 0-0.4 IGRE % c ount 66674-1) includes Metamyelocytes, Myelocytes, and Promyelocytes. Neutrophil Abs (test code 3.78 K/uL 1.7-7.3 = 753-4) Lymphocyte Abs (test code 3.02 K/uL 1-4.8 = 732-8) Monocyte Abs (test code = 0.67 K/uL 0.08-0.7 743-5) Eosinophil Abs (test code 0.16 K/uL 0.04-0.4 = 712-0) Basophil Abs (test code = 0.04 K/uL 0-0.1 705-4) IG Abs (test code = 0.02 K/uL 0-0.04 80053-7) Lab Interpretation (test Abnormal code = 65316-6) MD Guerra.[id number] 19:01:14 Test Item Value Reference Range Interpretation Comments WBC (test code = 7.7 K/uL 4-11 6690-2) RBC (test code = 789-8) 5.16 4.00- 5.50 M/uL Hgb (test code = 718-7) 14.9 12.0- 16.0 gm/dL Hct (test code = 45.4 % 37-47 4544-3) MPV (test code = 787-2) 11.5 fL 4-10.4 H MCH (test code = 785-6) 28.9 pg 27-31 MCHC (test code = 32.8 31.0- 36.0 gm/dL 786-4) RDW-SD (test code = 44.7 fL 35.1-46.3 86959-3) RDW-CV (test code = 13.9 % 12-15.5 788-0) Platelet count (test 228 K/uL 140-440 code = 777-3) INRBC (test code = 0.0 % <=0.0 The INRBC (instrument 5974) NRBC) value ref lects the enumeration of nucleated red b lood cells contained in a 200uL sampleof whole blood analyzed by the instrument. Thi s value maydiffer from the NRBC value reported in a m anual differential,wh ich is based on a 100 cell differential. Lab Interpretation Abnormal (test code = 46288-4) MD Pabon Vascular Access Device: Non-Tunneled [id number] 18:40:00 ARON Escobar 04/27/2020 3:46 PMProcedure: central venous catheter placement Date/Time: 04/27/2020 1:43 PM Provider Information:Performed by: FAINA Escobaruthorized by: Herb Mckeon MD Silk Soaker present: no Patient Diagnosis:Pre-operative diagnosis: Breast CaPost-operative diagnosis: unchanged Indications:Indications: vascular access Pre-Procedure Note:Patient examined pre-procedure: yesChart reviewed pre-procedure, including labs, images, history and physical exam: yesMedical paraprofessional interpreter: paraprofessional interpreter not needed Pre- procedure patient condition: alert Anesthesia:Anesthesia: local infiltrationLocal anesthetic: lidocaine 1% without epinephrineAnesthetic total (ml): 6 Sedation:Patient sedated?: no Central Venous Catheter Placement:Preparation: equipment and IV tubing prepared, patient ready for procedure, insertion site prepped and cleaned with aseptic technique and insertion site area shavedSkin prep agent dried: skin prep agent completely dried prior to procedureSterile barriers: maximum sterile barriers were used: cap, mask, sterile gown, sterile gloves, and large sterilesheetHand hygiene: hand hygiene performed prior to central venous catheter insertionLocation: right subclavianPatient position: TrendelenburgCatheter type: double lumenInstruments used: central venous catheter trayPre-procedure: landmarks identifiedUltrasound guidance: yesSterile ultrasound techniques: sterile gel and probe cover used in ultrasound-guided central venous catheter insertionNeedle introduced into anesthetized area: yesSterile Seldinger technique used: Seldinger technique usedMicroIntroducer with sheath inserted: yesDrip test performed: yesDilator inserted gently over guidewire: yesDilator with peel away sheath inserted: yesCatheter inserted: yesIV tubing attached to catheter: yesReverse Trendelenburg position discontinued: yes Each lumen evacuated of air and flushed with sterile saline: yesCatheter size: 6 Fr (@ 19 cm)Number of attempts: 1Successful placement: noEstimated blood loss: none Post-procedure:Patient condition: patient tolerated the procedure well with no immediate complications, patient remained hemodynamically stable throughout the procedure, patient is warm and wellperfused and patient does not report adverse symptomsResponsiveness: awake and alertPatient disposition: discharge to home Comments:I attempted to access the SC vessel however, I was unsuccessful at pl acing my wire. When attempting a second time to access the vessel, the vessel was smaller and difficult to observe on US. The pt also had low pulse ox reading of 88-89% which was likely caused by herthickened nail. A pulsometer was placed on pt forehead and her O2 was 100% on room air. A decision was made by Noah Rivas NP and I to abort and attempt Rt IJ tomorrow. A CXR was obtained and a b/l USwas ordered prior to CVC insertion. The CXR showed no pneumothorax. MD [facility] Abdomen with and without [id number] 20:01:021. Baseline [facility] MRI evaluation.2. 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 Scattered subcentimeter hepatic cysts. Background of hepatic steatosis.3. No definite evidence of metastatic disease. [This document was created using a voice recognition transcribingsystem. Incorrect words or phrases may have been missed during proof reading. 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 Right mastectomy, 03/17/2020.Indication: Evaluation Comparison: No previous MRI for comparison. Comparison was made to a preoperative contrast-enhanced CT dated 03/08/2020.Technique: Coronal SSFSE, axial T2-weighted fat-suppressed, axial diffusion-weighted, axial in/out of pha se, axial T1-weighted without and with IV gadolinium, the latter employing a 3-D dynamic protocol, images of the abdomen.Findings: There is loss of signal on out of phase images in the liver, consistent with fatty infiltration. There are scattered subcentimeter nonenhancing T2 hyperintensities in the liver (series 5 image 12, 32), consistent with cysts. There is a 1.5 cm hypervascular focus in segment VIII (dynamic series 100 image 28), not clearly appreciated on other sequences, likely related to FNH. There are multiple other tiny hypervascular foci in the liver (for example series 100 image 20, 32, 35, 57), again not appreciated on other sequences, likely other foci of FNH and/or perfusion change s. The spleen and pancreas remain unremarkable. No focal splenic lesions or splenomegaly. The gallbladder appears grossly unremarkable. No evidence of biliary or pancreatic duct dilatation.The adrenals remain unremarkable.Both kidneys remain unremarkable. No hydronephrosis.No abnormally enlarged retro crural, anterior diaphragmatic, retroperitoneal, or mesenteric nodes are identified.A previous rightmastectomy is noted.The visualized skeleton is unremarkable.IMPRESSION:1. Baseline [facility] MRI evaluation.2. 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 Scattered sub centimeter hepatic cysts. Background of hepatic steatosis.3. No definite evidence of metastatic disease.[This document was created using a voice recognition transcribing system. Incorrect words or phrases may have been missed during proof reading. Please interpret accordingly or contact me for clarifi cation if necessary.][facility] [id number] 20:21:00 Test Item Value Reference Range Interpretation Comments Diagnosis (test code = 34) a3vmqZEyXFWnnTP9MWO zAYZpj0pgt4LojJVrlT VyBUtblKCxnfMeqq54p VO7mG25ZD9jZXLbWyR1 FOBuokC1Iqh4VMUeBYW ibQSqQ558w5mnf6iosg VlxBG4bVjxEFMbEJGpD YefMQDtQrCeXQ3jPbYj BMC8BXSWsAsdgRbvNS7 HCUurLACEHICKHP8QCE pccGFyXGxpNzIwXGxpb cdzJZENPY9pR42vFtNs LRD7IODkw4G5JZP7rEE tMGItdAF5SGUgGKUlwL MgbWludXRlIGludHJhZ ZRdrDUaDRCtuEzugY7x HO0ewNPvHFHdo1VzsPD whXCilpKovSUsS4MdCV qrS0o8JWnaDuAiZIGmk mBwyt4nyJPxWKmxFK83 mPX5rW0lCYCse4D8JQs cXgnzxs6oiPXdSERalu KNhGXdc3CatMBiOpieB SVxs75sDFYdPWCafjNu tL9jIDCsh8VkLVDny47 hg8m9xRZnUR0jS76wUy TdAJX2QDFph0H5VL1zk KBvEP0ugGMjFUKlvyIz x8ztjcokguSqXQVmqxU wZd1wBWYkmgCxyr4bHQ 5ccGFyIFNrZWxldGFsI G17b0ExRUigbdQaCEKc vlWtVl9bWWSudhEjsg4 mCE3bcJDzETjdHWlckP 4wIEIuIEJyZWFzdCwgU ekclDYfBECTYIFDWS5O INRHFLFRAMIGWY7EEUV KF6gCZFXJYYCCTVEMYQ MUGZR8XJWomamqjPwgX XwvbY33CpUlRgcewd4d QBmvs8CcKJQty2X1YPq jmbWpLSTglgFnQa0iZH LkrhEcqq7nOI1mlZGfH HBhclxsaTBcbGluMFxw YXJ9 Gross Description (test z8ahpHHoFROch9upPCO code = [id number]) hNbXzWCFOv4sis635cO YzAPoxMqWnBmC5jXOlH DWfvYRjk7Z1CSrepQHt IrJZsloirVc0a3tbZ9k cte8jDN0oRnShEYIqVW QwXGZwcnEyIFRpbWVzI U9gyuWEn95bcuf9w3aw DGsrtN8hZDBjBKSkxTA wq6T9GIqelOUnPNNLl9 EidZLrOH6nltp7f5glL Hatr5nnf8RcNbXrAOMq ZXQwXGZwcnEyIEFyaWF kHZ6qtdYmtwq2e6brRK AgNs8gPKMtkposW2tcn jSjiREmXkFeyVRkC381 vvqqlgb2f6pbMRDxBu1 uxTneN3kxvzVyzQRzSp BycTIgVHJveSBNaWNyb mQgaAD7bCybQaLqINCl g31ubhtqF9fyzqCpcPZ iYqFbwIQbL3igKr2bI9 37BRAuEWcwt6bse8ZpU mNoYXJzZXQwXGZwcnEy HDIqC06cBDWQC674MXH jFFSkHMEeg9wpx6hkI2 hhcnNldDBcZnBycTIgQ EJsLCk9cJ1Yl9ffg8cy siMyiLU6MPHdPGFdV3J eIL1xAURmtLTzK9guUH EhTRweszXbpjJ8CXNjg QJoWLupetMkHqQvS9Lf VN7sQRkhsBHoCsS8DRR uNZX0SSaaHGJjHCjvCk w2KGI5D2ajLHH7B7nph sZwbdBdWETgeHL5Gjqj hyXxRgkwI4VgUE82DQy dsUFvOhm5KQUfPRq1II ccKKKwFCGjQuv7RRk7M 4uxZQJnVJVzJ5KqMR5q LDXgBlm1PVJwJCpdqxX yLTE4NBxsNLFuXAU3KQ GkiPPiZud4YLHsNFU0L 0ykglRimlD2C8sxbVCn TFBwN5noMLLfAAuiA7W gKV5eTOmvEoc5KYB5JJ bgodFnQWt1MVbeYBEvI En9ZEMroVEaApL0LZEw LLE0WLzwgiUyhzU3FJs apDEaGQuwM1hrNPTxYB jyP8JxXL9dXTbaRki6C TIwNztccmVkMjIzXGdy ZWVuMjIzXGJsdWUyMjM 7XHJlZDIzOVxncmVlbj AvZOnlgJWpEiI4U9xdG JBjQBNuD0NuBK8hLYIm Rbr2MRQ9AEteihRbENx rtyQawjQdGpi0DIW4ZQ y3Mpdkn3S3tSIqkCHtv HtcczEgaGVhZGluZyAx H345PKOjWBabCUXathd vRvp9k0qaWfEnOZWmeP 6iQVE0sZanwlUhpNCiU IgpWqM1Y517UZZ3TCiv COPnvuugREb6r5ouSjL yJCJnuK5eNVZ1gL3SLx uwJQIzofolYYn1PFmdL DZyrclvZbB5EMkhQRHd jVo3LSkkOMSxreR9Dbv tYXJndDcyMFxtYXJnYj omPBznJWNlTHH3EdCcP LKta9Udpzc6JmPtGyAa HYMYFnjpjSHrRLO8ZMN 0ZjFcZXBpYzkxMDFcYW 3ynDvuwDh3zXdkNTJdu cN0sVBkLYhpn9ywYIW5 a9lwpcvsEQTyKJpeTu3 udHRibHtcZjAgQXJpYW w0fR19DDYfyA3uwWQlX Zx8IEHgfvFipXxvdO9w KzYnPORWFbDDizAxz4F iTDJdB4g4OGIWXTxUVV HWC4IYBMVQSHBSNSUGY 12MUWRhgS2klTRxaGr9 O2sft6FlXAQea6PpGPy skolku9GkeDGwNKegtX VyYWwgICAgIEFDQiBPU jImJMR7COPjoWPdlUDe iE0xyOSuqCUebI7rqiR 1xBC1DY7kVZY3vcGjGW B3ArObY84pGkYapABel IKpvzneuxH7akWetsHd evqukzkkXy18LSZuVZI me59yaGOhqGItMUPjLV retOEvYVqiAUKlVSN2D kqqO04gTeBluQWpayVt drgvdbK4mjPvd7D3XJW ig0IvQW7oCLxkEH0frB IrtLSnQPU5HTCyUCEye KUnDI0tFCcitAbbAJUs aC0jiHFapGt6R6giaRR nx3Nfs8PeBPWiq1WeFV qxstcbb3McyFZjUR9sd mtzIGxhdGVyYWwuIFRo CUBwiLJoeL1dofV5DHt cfGUqDBRbZXsnAG4iSu QYxDAas1OpT8yzHR6bs OHyaKXieJp3JGK3qkIt L2DhTZQ6AVHmDSxxWWW 8WGQfSaSvH45ySAbfoQ BzZSBvZiBwYWxlXGVuZ BLeaJAawiD6UNdzcD9c iDPiFHGowA0sCTpiU5Z 8XHMld61hmBdcUAR2zh NfS7Lwx9BnxMspSPOdi C5jtYKiAM0dKGGudvDi DWUloKJjtVJdy9Nrtb7 1bmRlZCBieSBhIHJpbS BvZiBhcmVvbGEgdGhhd CBtZWFzdXJlIDEuNCBh tcNpXs9gSRRoTJfbLCM gBJ0vnUXsJTDvVJGwMG O5pHRihQtrVALAgSTwg 5TaG2izYV1fhREkv1Gv aXQehFrat6OqkYgjzjJ fPMAhc70gePU4CLKbqO W1ssIxSWDcTVsusP23i yAxNyBzbGljZXMuICBU aGUgbmlwcGxlIGlzIGx aU1P9AVRztH2tl4roW6 UgIzEwLiBcbGluZVxsa N9vEZefjSacxbIwbYxx LYXnEnUuOW3qMUFvFBK xDDDyaHC1dQGcCsbnsy Vrl8bjIvNaP7Fsy7VuS PGhj9o4iE9pZAZnIBDl KDM2VHUtMVK0FDFkFgI oaPZ3DOppb5ppCI0uET MfWHyaPQopRmgmjq96f OCbMPWwXNZlp24ibEN3 HJ67IEuywIrbjHQktsn uaWOdt9LgwPCeeASwDW 9fh9MlR7OmwEohqZggu LTao41axcT6mzR9cXEo uH4iZj2nIYGiUSNcu68 osBkfMEZ0vHWifP2eLS 9ydbnejxageOStnuD5m EWdCPAqYRUonGIazs8p IHRoZSBpbmZlcmlvciB dYHTqkQ0uSPItCEVaJb usB49jUeXghVC6oAChB CBwtHEzXBJpzU0kICJH iOBsV4D9YZY3fyUxC9U sn1KuaZtrGFFeJuPmjR ljIGFyZWEgaXMgeWVsb Z72ROKkMWZcwIRewvO6 BBoptDqltE9bw9dgiXZ nCp7vJPswnmEufv1xwR MuXHBhclxwYXIgUmVtY LtuzA6hIXT8gQZgePMt MRXvmtZqbeGhS30piM4 fXDRng7ZiEgThUTeklL qaevIaz4R0oLE6KYLlE FTbgH5pBCM2uQOsmWJi LW8jRCA8UJHjJR3vAJN 2vTm7HIRleRJkn7BuRB Ijq0Z2JY1aDNpjeS5rO YowoeIbK46cXUM0aPDo kAJkoWMmVTAeVQ8yW5y 3XI9cyF2pqROee9NaLv IafxBym9GznsYyQXHnW 1osbGMzuG8dLTYmNGnw rpGjtTgcIGQXEfpwQ35 UZQyyVze5RK6uL6ZxJC Bbq7O0FW7iTO2oAV0nX R8kGQFey7B6KYLkDHOx LSBEZWVwXGxpbmVccGF oUNQZG4QKH91bJ16TPB ogQTEsIHNsaWNlICMxM CwgbmlwcGxlLCBzZXJp YWrqrDSqLHH9eL0sAlP FJasvl5pcE6KiZrEtKQ Q2uYIbSlLqTCSmBgY4d GUgbmlwcGxlOyBBMywg e5kqL3WhLSBhBNVdKsG krXIzcDsri4CyTRLplf BbzEtvgLltHX2owWDyQ FreFTSzGM3mFBHfCKD4 LCBzbGljZSAjMTAsIG1 fIPjgtIQam8G4oN8rGM HjsKAny5CykUF1sIJlU RUrb5ZzPWKuP9Vup21c y9UdcVanZMNnZeWzpBe jIGFyZWEgZnJvbSBhbn GpnqgxohS4deTbs5L6E MUdd8GjDUxwGQX8tM4d IHdpdGggdGhlIGluZmV zdO0yZT1yxxnadjzxXC csIHNsaWNlICMxMCwgZ wydzw13dADhPFHeCLV2 bWOiLQRuf1XgntzvvtL uTXRbkX55UXD6JORxxI ljZSAjMTEsIGluZmVya B9iTLIkstWki89eUBJm N8Xeu12mSZMuLGAtejB vjE2uiPnkTGIqRoKufE ljIGFyZWEgYXQgdGhlI HNwZWNpbWVuIHNsaWNl JKPnBTejVEG4IXHkILU zaCBBIDEwLCBzbGljZS HyNMnswE5uTVBom7Ndo G8zyMugkjhvcpAdojAn OK87VVQahiCnZ0Byj5Q ga0AfeErifkJxKeB2rW WvWwhdin06yDWpWZCkR SP1jLMsWHykKeZglX7h QZ2xdixwmqbiSXIfHHf xqxIwx7uyYGUvRmxko2 pjC9CoTkliSCjzZqIhs A9uVQDubxRmd73dUCWz tDVdb7QrdGZ3hYHjXGP pn9BxESUyO7Gjg34wa1 YgdGhlIGZpYnJvdGljI EJmPKT1DNKaLHAwDU9d YXNoIEEgMTQsIHNsaWN zWCY1ACEkifLolesjvk Qzz6X6tX5aQJBulQJii 5McbID3vJEjQPHkO3Xv d01ls5FobCfqLPOaZrL uvZiqYCQdVLL6RNNyBL MqVV9bQQKzGTSzLTLaU HXahZJtHMY8GYOwhvYl edywanYje6S7rQ5pTKO gHILiHNBgmiAacUl7CS Fhcr9oyx8eBQU1yQ4kU C4qYGIeJPAsqYFlr6Jw JqEsfpCnXwHKTIB5QSZ nnFnuXIUxRJddpN4oMW Lpl3VlfQ3rpDhdiqjnT YJcNTIzzuPtkR7bcPwe IGZpYnJvdGljIGFyZWE gb0tzW4VxUfZ1STQwYY xsAVHfhKPeLTV5JTPzb iHtludhfqFhh7P9fS5j WAVimZKtq9EdCUKkl6Q 3YXduIRNjMBpzj5mxZ6 KvIzSvOAV0wACffG4sK WLxeaOgr87tNRXthLIa NC15rHKsNKE4COUvDM1 0OyBBIDIwLCBzbGljZS OpAWRzQXJ9tBIotE0eC RBvneMnn95fFYErgMIf CLmbpbNmJDZ3NUKkBF2 0LlxwYXJccHJvdGVjdF oriu43ODV6QDHJPAhyu b93ROK9CGUpdAtixN2j XgCnTOkcRCV7TGStal1 9AEXcntFud9libRElBQ VwqGD4ZTZbVBXvf5amn 3BsdHBncGFyXGpleHBh roMzyw86aVN7mK43FU7 wJKDwQfS7VZAjguT9Aw q4KHSoZSZzvLWxW529m 0wna6sgpkLrbBA5iSwy YXJkXHBsYWluXGZzMjA rId7hKmPbNDA2HGZMaZ auaEmgCHINUSEjC3JQP VIgUVVBRFJBTlQgUklH CYOpIwRBINBTYUZSA0E VRSxjbGlwcyBtYXJrIH SjfXPnkDXmI5rkKXQ7F YGxUK07GZqxKs1eGLsj Xc7oBPGzQJTgqeKkl56 lp1UaSmxpzx8tJNquj5 LrILBro3R1NWS6rSF9A RdgME0rgZDloZHlJQQ8 KNRrCVRbmDMoIJ8qTYo ssYxpY4lxuROms25cjQ pfAHQrtWRqjPPzR1jcP iAgVGhlIHRydWUgbWFy X5otBDyaAVmci0PwVVK csHKcPV4xRYJuVNIzxX ZwuG8lnuUzlqRwVDH1r X4eFLFmILDKnFRgj9Mf ZmFjZXMgYXJlIGNvbXB yh2SoWJ3wHDEiUIJpuB mqZW66vDitiORidK57P GxvYnVsYXRlZCBhZGlw x6LlBHSic1M3NXW6vMV lJTAjJBIrAH9wKXDjwh NlIHdoaXRlIGZpYnJvd EUefPdaa0MeFipsnQ5x FTzyuwQkK7BRDAuJEeQ NF7UIYwDNVXgmmgCeb6 ytQpWlWIGpySKsf9Vfd OU1wUIkWIZlI0Iea12f b1JqtJizSSNkFGPbyMA qBQQwQOTzSF5hnAU3wD JtOGFsJCXbVTC9wtPpP I4mrijkzxwbINQouLNd MBKqdlxxuq31OEW1FLJ tf4FpQ0FyJMaNBWSsq7 YyR7BpIUoprOMshlkxk bIlMCJvme7heQEmkWi6 Food Preparation Supervisor(s) (test code = p1yauDLeEFKnlWZ2IRG 9833) jBCRjj5qnm9CumYZnqG SaTRipxRAxhaKmeg96x CO2rD64NQ5xABCjXgX0 NGUnehL7Xzl9YUUcAJE rcKBaR006u7fmq1zoei RggRD7jPnkSNSaUIEvY WluXGZzMjAgWVdccGFy fQ== Disclaimer (test code = g4gilWMeVJLdoMRzRiW 9844) vBXSoWDKtk3udWQDcoC FuZzEwMzNcZnRuYmpcd LFwUHElUkDbm0cpu454 oLPsb0nrEORjUjO1qSZ dIQLbuPHhV522LCZjGO uqa5bbz0RaUUOcsEAfs 0J9HNCPgigfrUx3yEhu I14fk6J3XsmrQ8dtQVY tZLBfQ3WwGS0pRBZzCt r6SII1UZN0CBUsUYFeA 8BsIS2nPYXpqDDhWKf2 r1xniQmkZXToBZI8b4c qHCdpdvEoDU9bje0pnU n1b6fnhhKcJMNsCNCxw SMKXMJcX7NjlLwcFe6i tJi2hWixTdkbABR3Ods 9TJ8yzb08gpa7nNenPN EdxlkqArP3VUlqOMRzw hbhSTn7JNgiLRTdnDW6 EMComOZfV2GhLNWrMN4 vwvn5FIG2DXsfCYPmJw H5KFBtaLMmROYtgYruC Lnpq828STQ5PyTcAN8o F3Iib1I8oT7vfOKoQUE kgUCcJfZoWKJdum8xwL XfMIdnp0KsDNB5meY3o PYsdFXtFRHuSG20Sddp x5TvEkphDSI7EYVylaO mn0Lxe5ynKjOsqcIeW6 xjY1DeIIOgJYZfOUUcA tMocqShy8Qqq7GooUMi kOp3o6cbUBOiBTQlsKz kp3fxNVZ5TSStF3O1iP Ytq4myNMguBAEgmGO4j zC8RPHktLEqM8LzqX0e EDYuLY1pkxu3f9rxUFJ 6XFrnVBPgVvO9yqE0JQ BcaGVhZGVyeTcyMFxmb 827NGC3WcYqRETam1Hv N5PaoHphK97aaYfiT46 uNLXpdGiltO6pbWautU 5cZjBcZnMyNFxxbFxwb ZOyqzseHNgvrzP5ERgr mixuKDJqVXcbO3abShN eSVDdeVhvUEpeg2RyMB FvQULbQmxzezR9YOHYv 41aQCQap4YxCOPluX1g bBCkHAvrtqRhaHW9WVk hdmUgYmVlbiBkZXZlbG 5yVOLdTE9lQGXeblBcq k7nkmZwAHQxZJYeU8Of cmlzdGljcyBkZXRlcm1 ncoSxLVE3TOQXZQ5KPY FjHHWcu78rGIGruGorl E4avZMylfNkNUIdb0Lf hH8vzDBUSGKpU2gmUR4 uNHscn6DrfGSyjDTlxW B8XUFiv7IlHuKkcuIsz PEsnTJiZ5GxqHroM3hb RLEqJXOmbjPscKYrz4N lHBAjlHA9iVOtEU0YNg VDk12pDZDcTIVCahSuQ CUmwZcalXH1epQ4kV6m LiBJZiBhcHBsaWNhYmx dRZVvm702in7senH6TX LnXFRxcegpg0QwIEDbD IYwpB08DUOrRMTjqy9h vqnxiAWqbnJwM1Toeti 8qR7lSUFjRFtjBAFxKD ZzMjJcbGFuZzEwMzNca GljaFxmMVxkYmNoXGYx ZIiyH1zfYbUhMvFcYse wYXJ9 MD GuerraCOVID-19 (SARS-CoV-2) PCR-Asymptomatic [id number] 20:19:42 Test Item Value Reference Range Interpretation Comments COVID19 (SARS Not Detected Not Detected This test is a CoV-2) Result qualitative (test code = reverse-transcr iptase 83175-5) polymerase carlos n reaction (RT-PC R) developed for t he [employer]ARST[employer] 680 0 system and inte nded for the detecti on of SARS CoV-2 RNA in human nasophary ngeal specimens from patients who me et COVID-19 clinic al and/or epidemiological criteria. This assay has been approv ed by the FDA for use only under Emergency Use Authorization ( EUA) in laboratories that have been CLIA-certified to perform moderate-comple xity and high-comple xity tests. The performance characteristics of this assay were verified by the Microbiology Laboratory at [facility] [place], CLIA Accreditation # : [id number] and CAP Accreditation # : [id number]. Result s must be interpreted within the context of all relevant clinic al and laboratory find ings and should not form the sole basis for a diagnosis or treatment decis ion. "Presumptive Positive" resul ts are due to partial amplification o f SARS-CoV-2 targ ets and indicates l ow amounts of viru s present in the specimen at or near the limit of detection. Regardless, individuals wit h "Presumptive Positive" resul ts should be manag ed per institutional guidelines as individuals pos itive for SARS-CoV-2 virus, including use o f appropriate inf ection control protoco ls. Internal contro ls are included to ass ess for possible amplification inhibitors. If inhibition is detected, testi ng is repeated and if inhibition is confirmed the specimen is res ulted as "Invalid". W hen an "Invalid" resul t occur, it is recommended to wait 3 days before submitting a ne w specimen for te sting if clinically indicated. COVID19 SARS BAKELITE [employer]OL[employer] Swab Source (test code = 05520) COVID19 SARS Pre-OR Procedure Indication (test code = 26584) MD GuerraCT Chest Abdomen Pelvis with [id number] 22:25:06 The mass is within the breasts have been removed. Nonspecific right axillary lymph nodes are noted.There is diffuse hepatic steatosis. Perfusion abnormalities noted within the liver. Indeterminate low-attenuation lesion is noted within the liver, for which an MRI is recommended to exclude metastaticdisease. Interface, Radiology Results In - 03/09/2020 5:27 PM CDTFULL RESULT:Examination: CT CHESTABDOMEN PELVIS W CONTRAST, 03/08/2020 9:41 AMClinical History: Infiltrating duct carcinoma of bilateral female breastsInfiltrating duct carcinoma of bilateral female breastsIndication: bi lateral breastcancers for stagingComparison: NoneTechnique: CT of the chest, abdomen, and pelvis was performed with intravenous contrast.Findings: Chest: The heart is normal size. There is no hilar adenopathy. Diffuse thickening of the left breast skin is noted. Clips are noted within the left breast. Small amount of fluid is noted within the left axillary region. Postoperative changes are noted within the right breast. Nonspecific prominent right axillary and retropectoral lymph nodes are noted and measure less than 5 mm. No lung nodules are noted to suggest metastatic disease.Abdomen and pelvis: There is diffuse hepatic steatosis. Perfusion changes are noted within the right liver. There is no intrahepatic or extrahepatic biliary ductal dilation. A low-attenuation lesion is noted within the liver (series 3 image 175) and represents a cyst. A low-attenuation lesion is noted within the liver (series 3 image 137) is indeterminate and MRI is recommended for further evaluation and exclude metastatic disease. The spleen the adrenal glands are normal. A tiny cystic lesion is noted within the pancreas (series 3 image 166).The kidneys demonstrate symmetric contrast enhancement and there is no evidence of hydronephrosis. There is no retroperitoneal adenopathy.Sections through the pelvis demonstrate no fluid collections. There is no pelvic or inguinal adenopathy. The uterus is identified. No adnexal masses are noted.IMPRESSION:The mass is within the breasts have been removed. Nonspecific right axillary lymph nodes are noted.There is diffuse hepatic steatosis.Perfusion abnormalities noted within the liver.Indeterminate low- attenuation lesion is noted within the liver, for which an MRI is recommended to excludemetastatic disease.MD GuerraGA Bone Scan Whole [id number] 16:40:51 1. No evidence of osseous metastatic disease. Interface, Radiology Results In 03/08/2020 11:43AM CDTFULL RESULT:Examination: Whole-Body Bone Scan, 03/08/2020 11:33 AMClinical History: A 55-year-old female with breast cancerIndication: Staging for osseous metastatic diseaseComparison: CT chest abd omen and pelvis dated 03/08/2020Technique: Following the intravenous administration of 20.3 mCi of technetium-99m MDP, anterior and posterior delayed whole body planar images were acquired.Findings: There is expected and normal biodistribution of radiotracer uptake in the axial and appendicular skeleton. Physiologic uptake and excretion are seen in the kidneys and bladder.No focal abnormal radiotraceruptake is seen to suggest osseous metastatic disease. Diffusely increased radiotracer uptake in the frontal skull is seen, likely hyperostosis. IMPRESSION:1. No evidence of osseous metastatic disease. [facility] Glucose [id number] 20:40:27 Test Item Value Reference Range Interpretation Comments POC Glucose (test code = 127 mg/dL 70-99 H [place] blood 55659-0) samples, e.g. obtained by fingerstick, ma y have inaccurate results in [place] ents with decreased peripheral bloo d flow. PO Sample Type (test Capillary code = 9554) Lab Interpretation (test Abnormal code = 91069-7) MD GuerraMammography Breast [id number] 18:53:43removal of the localized lesion(s). Radiography confirms removal of 1 [employer] localizer. [facility], Radiology Results In 02/18/2020 1:53 PM CDTExamination: Specimen Radiograph Right 02/18/2020.Indication: Breast Mass Technique: Right breast specimen submitted for review. There is a total of 2radiographic images. The en bloc specimen is imaged on the first radiographicimage. There are 6 sliced specimens on the second radiographic image. Findings: Findings were electronically annotated and discussed with thepathologist Dr. Curiel at the time of this dictation. IMPRESSION: As discussed above, the specimen radiographs confirm the surgicalIMPRESSION:removal of the localized lesion(s). Radiography confirms removal of 1 [employer] Operator localizer.MD GuerraNM Dosing [id number] 17:56:47Radiocolloid injection for intraoperative sentinel lymph node localization. Interface, Radiology Results In 02/18/2020 12:58 PM CDTFULL RESULT:Examination: Dosing Appointment, 02/18/2020 12:54 PMClinical History: Breast cancerIndication: Lymphatic mapping for intraoperative sentinel lymph node localization.Comparison: None.Technique: Filtered technetium-99m sulfur colloid, 0.55 mCi, was dispensed to Dr. Naveed Mauricio for injection into the left breast.Findings: No imaging was acquired.IMPRESSION:Radiocolloid injection for intraoperative sentinel lymph node localization.MD GuerraMammography Guided Seed Placement [id number] 17:06:01Interface, Radiology Results In 02/16/2020 12:31 PM CDTClinical Indication: Patient is a 55 year old female seen for left breast cancer. MAMMO GUIDED [employer] APPRENTICE PLACEMENT LEFT Comparison: Serial breast ultrasound and mammograms dating back to 01/05/2020 Technique: The patient was positioned in the mammography unit and the lesion inquestion was identified on one view. Findings: Mass in the left breast 11 o'clock position, 8 cm from the nipple. Procedures(s): Mammography-Guided [employer] Operator Reflector L ocalization - left breast Primary Proceduralist: Dr. Mabel Rubio Silk Soaker(s): None Consent: The consent for [employer] reflector placement was performed by thereferring surgical team. The presence of the signed consent form in thepatient's electronic health record was confirmed prior to the proce dure. Theconsent includes a written commitment to have the reflector(s) surgicallyremoved. Procedure(s) in Detail: A time-out was performed prior to the start of theprocedure and the correct patient, procedure, presence of consent, site, andside were confirmed with all members of the team. The skin was prepped in theusual sterile fashion with chlorhexidine. Lidocaine 1% was administered forlocal anesthesia. Two [employer] Operator reflectors were advanced into the targetedarea, bracketing the mass and associated calcifications. The approach was medialto lateral. After adjustment of the needle tip(s), reflector deployment wasperformed. After the procedure, a console and a handheld probe were used toconfirmdetectable signal from the implanted reflector(s). Post- procedure Mammography: Post-procedure mammography was performed andreflector locations were confirmed. A diagram was drawn depicting therelationship of the two reflectors to the localized lesion. The diagram wasuploaded in the patient's electronic health record. Estimated Blood Loss: Minimal Specimen(s) Removed: No Immediate Complications: NonePost-procedure diagnosis: Breast cancer Disposition: The patient was discharged from Breast Imaging to the next clinicalappointment in good condition. Impression: Technically successful mammography guided [employer] Operator reflector localization ofthe mass in the left breast 11 o'clock position, 8 cm from the nipple. 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 ULTRASOUND GUIDED [employer] APPRENTICE PLACEMENT RIGHT Comparison: Review is made of serial breast and mammography examinations datingback to 01/05/2020 Technique: Targeted ultrasound was performed of the lesion(s) of interest toguide localization. Findings: Mass in the right breast 6 to 7 o'clock position, 7 cm from the nipple. Procedures(s): Ultrasound-Guided [employer] Operator Reflector Localization - right breast Primary Proceduralist: Dr. Mabel Rubio Silk Soaker(s): None Consent: The consent for [employer] Operator reflector placement was performed by thereferringsurgical team. The presence of the signed consent form in thepatient's electronic health record was confirmed prior to the procedure. Theconsent includes a written commitment to have the reflector(s)surgicallyremoved. Procedure(s) in Detail: A time-out was performed prior to the start of theprocedure and the correct patient, procedure, presence of consent, site, andside were confirmed with all members of the team. The skin was prepped in theusual sterile fashion with chlorhexidine. Lidocaine 1% was administered forlocal anesthesia. One [employer] Operator reflector was advanced into the lesion ofinterest. After adjustment of the needle tip(s), reflector deployment wasperformed. After the procedure, a co nsole and a handheld probe were used toconfirm detectable signal from the implanted reflector(s). Post-procedure Mammography: Post-procedure mammography was performed andreflector location(s) was confirmed. A diagram was drawn depicting therelationship of the reflector(s) and the localized lesion(s). The diagram wasuploaded in the patient's electronic health record. Estimated Blood Loss: Minimal Specimen(s) Removed: No Immediate Complications: None Disposition: The patient was discharged from Breast Imaging to the next clinicalappointment in good condition. Impression: Technically successful ultras ound guided [employer] Operator reflector localization ofthe mass in the right breast 6 to 7 o'clock position, 7 cm from the nipple. Onereflector was placed at the time of localization. Examination: Post Procedure Mammogram <> 02/16/2020. Clinical Indication: Patient is a 55 years old female and is seen for postprocedure mammogram. 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 ULTRASOUND GUIDED [employer] APPRENTICE PLACEMENT RIGHT Comparison: Review is made of serial breast and mammography examinations datingback to 01/05/2020 Technique: Targeted ultrasound was performed of the lesion(s) of interest toguide localization. Findings: Mass in the right breast 6 to 7 o'clock position, 7 cm from the nipple. Procedures(s): Ultrasound-Guided [employer] Operator Reflector Localization - right breast Primary Proceduralist: Dr. Mabel Rubio Silk Soaker(s): None Consent: The consent for [employer] Operator reflector placement was performed by thereferringsurgical team. The presence of the signed consent form in thepatient's electronic health record was confirmed prior to the procedure. Theconsent includes a written commitment to have the reflector(s)surgicallyremoved. Procedure(s) in Detail: A time-out was performed prior to the start of theprocedure and the correct patient, procedure, presence of consent, site, andside were confirmed with all members of the team. The skin was prepped in theusual sterile fashion with chlorhexidine. Lidocaine 1% was administered forlocal anesthesia. One [employer] Operator reflector was advanced into the lesion ofinterest. After adjustment of the needle tip(s), reflector deployment wasperformed. After the procedure, a co nsole and a handheld probe were used toconfirm detectable signal from the implanted reflector(s). Post-procedure Mammography: Post-procedure mammography was performed andreflector location(s) was confirmed. A diagram was drawn depicting therelationship of the reflector(s) and the localized lesion(s). The diagram wasuploaded in the patient's electronic health record. Estimated Blood Loss: Minimal Specimen(s) Removed: No Immediate Complications: None Disposition: The patient was discharged from Breast Imaging to the next clinicalappointment in good condition. Impression: Technically successful ultras ound guided [employer] Operator reflector localization ofthe mass in the right breast 6 to 7 o'clock position, 7 cm from the nipple. Onereflector was placed at the time of localization. Examination: Post Procedure Mammogram <> 02/16/2020. Clinical Indication: Patient is a 55 years old female and is seen for postprocedure mammogram. Findings: See <> biopsy report done same date.MD GuerraPathology Outside [id number] 17:26:00 Test Item Value Reference Range Interpretation Comments Materials Received (test [id number] code = 9973) TVQtCZCym4hrUXSbzEIx ZzEwMzNcZnRuYmpcdWMx TKDqLpJcd4oxl294wWMo g8vrAKZgXtI4sSJjCMWe uLXaC531LRZyQLeuv9fi p0BaUQHnuEWwy6X1TOOF gmpwhGc2tPrhR71nb2F1 WihuO7liXIKpDFKtE4Wp BM9pSGHtTjb7ZZD0CKW4 OSAwJMZqS4YsHG0eNNIe oVWbJMf3m6marIkhVJWz QDO4i2icDBqrnbXaZS4q jm1fwBo2s0tsbwYsQKKg VKGicUSHJFHcI5IlpYag Yq9aoKl9yTseUxslKNS9 Nvy9IN2slg04hcf1yAoo SRKynfkrBzF1FJcjHJNo wqdxWOc5WLhuIYRflGxf MFxtYXJncjcyMFxtYXJn xNA5QPZpeQEwT5HiPXOd AVfmPMDlqns7VvCwQd2p kWPgrUzuMZdfn3lbx4tt iZPpIbh1KKNyKzPeRnih ESyfa0Xuc5ixGEJzsz4t OZO0qYCrpYlhu1I8fSBu QLUsbHPxshWxVYXgkg63 ePPyiSPogEGioy7ruyGn oWFwuXQjJEN8rGQyytJo NLGxbXXbHFNpVN1ydNPx CARfmQ2tdvjrJLQgHgNe yejpGRYzzJvjuzYuSk2k yZscTET3YXahI5nnaE9o QaY3AXtjP1tgrF5yOGe7 WMsaoVC3KXNfzN7jGG9u zvzhv8krKlMlCK0gijhk m8xdNcTgBW0aald4m0ww QKK8IIjhFLMoGnG7qnK6 NDBcaGVhZGVyeTcyMFxm m255GYI1RaNbDDEqh9Fa Q6BjoUpgL54bdUyoE87e CAKnkIpfkZ0phCdctC2h HuTtThNjMJa0wn33SIe6 jlpdhOrlOBn8zzSaXSDe MOD1UOUsiBKxYNEbS4m5 dtTjZMRsEKO5KSAdsIQh RPBlQ5r9zzIwROR8WRi0 cnBhZGRmdDNcdHJwYWRk YjBcdHJwYWRkZmIzXHRy zNHwdDBavZTkyY0hmNen PRTdpDBkkE6mJKM7CQFj cmgzMjBcdHJoZHJcbHRy gg16EBPfitEhcJFpbCmh cFYrFRQ8QFJlSPHeIMZz NKX9YNUgFhUkgxIoQRwn bGJyZHJiXGJyZHJzXGJy BFC5FPEoPyVnncGrMRpq bGJyZHJsXGJyZHJzXGJy RHZ0AMYyEbLwrfWuOCsj bGJyZHJyXGJyZHJzXGJy IMF0ODVcQpRrbfXoBJrx bHBhZHQxMFxjbHBhZGZ0 H3yydGJfXGGpGFyemJDi RASeX6fplLJsQAtiOWUy cGFkZmwzXGNscGFkYjBc D6rsTNNwScZdY9OkzGv6 MDAwXGNsdmVydGFsdFxj mXWzTCW2QGEiGBMoFPCn MMQ7ZRCtXdHqddYgDLtr bGJyZHJiXGJyZHJzXGJy OTP4XHWsNuEshfArWXlr bGJyZHJsXGJyZHJzXGJy AUE7JMTcWgEyqhKxURll bGJyZHJyXGJyZHJzXGJy CWF7OICwKqMmzoEuJGkf bHBhZHQxMFxjbHBhZGZ0 O8oqjXTsSCBrUNvndKTc MGFyQ5theMYzOOeyHYPq cGFkZmwzXGNscGFkYjBc K6shVFXpOsGfG0QkbSq2 NjAwXGNsdmVydGFsdFxj uYVvHON3IALdTTXrRKZv IIO6XSScLxPgsgBqTTbc bGJyZHJiXGJyZHJzXGJy LXM6ECJjNyXaykIyLEwl bGJyZHJsXGJyZHJzXGJy MJK7BZAyCfVexfArMFan bGJyZHJyXGJyZHJzXGJy TOC5MQLyHbZujnPpNHui bHBhZHQxMFxjbHBhZGZ0 W8ujbVZpEMHlLSrprQIr OQJjS1nspGWiMXxpULYr cGFkZmwzXGNscGFkYjBc L6vwRKMxXiWnE8LqqXe5 RrKxPYMogeWsdD26Pctl q9HzNIVhVUW5WSpkQWcc bFxwbGFpblxmMVxmczIw LDxrzoewNZJbKGmoW5gd WgEzZSMaiQorZZdib9Hb XGYxXGNmMlxmczIwXGIg XPUbLDZbzV7zTxxbX8Tk gU3kBXhsVdcoS4mxYMXt c7GxqO7yHFwrwGPlyevp MVxmczIwXGxhbmcxMDMz NUixV5wsUgRxKCRxfHro GQvjl7ZlETKeNJRsEodu waCbLRj3zkNiICOxnZug dUWtGWgseyVrvQzqa2Mv ivMseMarXFQdZEs2gdAr ypjkzFd4xJVbkNneLCEv pLrkmO7aZqYcHlEiHFeq bGFpblxmMVxmczIwXGxh yguwRTKoXVpdC1plWaGh YERkfLfkLPjqd8GaWNDl XOJgKlnlqdCaRHWbF36k bGVjdGVkXHBsYWluXGYx XGZzMjBcbGFuZzEwMzNc aGljaFxmMVxkYmNoXGYx XCdyQ6ckFaOsC4HuFJQo CrItqMXvD5dnO7YmvCsn YXJkXGludGJsXHNzcGFy QAU5eFUmhqCvpCLwtIIb SKShWGciPXA1gIByhyzc dEGwowjeYDvflwP7STDs YWluXGYxXGZzMjBcbGFu ZzEwMzNcaGljaFxmMVxk YrUrGVXaXNfaB2mfCrSp I5EdLGRmBsDwOjMFSAWp aXZlZFxwbGFpblxmMVxm czIwXGxhbmcxMDMzXGhp J3ulHlTxJOWfzYtjEKss o1SzWUUkOXOcCtntwwFb LDo0uyIqCGYlwGblpJ88 Elzmqe46DYZll4zvQYMz I2XwaWQhWFTdsVRoHLcl MDhcdHJwYWRkZmwzXHRy cGFkZHIxMDhcdHJwYWRk ZnIzXHRycGFkZHQwXHRy sQGuOEK8F2e7xkZmJIHm GAs2bfIsOJRiHsLsjFAa YIH9SYc4VcncgxU7fTEv Z6m9LipoehFoMFfefWXy zg44PWEolbFrxYQhhBhp pLVxQJQ8IKSjOOWgESGz XAJ2FPQgZrEnbsDaMZfs bGJyZHJiXGJyZHJzXGJy BAV6FDBoNaIadaFoRAii bGJyZHJsXGJyZHJzXGJy OQM1OTMjZvPnwrBbHWeh bGJyZHJyXGJyZHJzXGJy DHY2HTSgHmRpttKcGJhh bHBhZHQxMFxjbHBhZGZ0 G3rllIShGXCqIHmumMRh VYSoZ9mmuEJdDExiJPPo cGFkZmwzXGNscGFkYjBc F7flVECsTnFtZ0DsmEb4 MDAwXGNsdmVydGFsdFxj eTLfLNB0NDJwNCJlUUWa RMT2YZRlMxCtdyFbLBxn bGJyZHJiXGJyZHJzXGJy KGJ6WCVdPcKysmJzECnu bGJyZHJsXGJyZHJzXGJy SMT8KXGbIrFxrfTuSQpf bGJyZHJyXGJyZHJzXGJy JFK5KWXnUvMmpmTpSFua bHBhZHQxMFxjbHBhZGZ0 W2hxdBMaOGNsVCiuyCRh NQRlI0zbgIChOYsbXWFa cGFkZmwzXGNscGFkYjBc Z1bqGCApPdNaF3ZxbQd1 NjAwXGNsdmVydGFsdFxj rTAyQZE9VDKeECMsXCUe OBI7MQLxKcFdajSyZIyy bGJyZHJiXGJyZHJzXGJy MRD5YFNkWdDeafQkBYay bGJyZHJsXGJyZHJzXGJy IOA2MJIuOfRvsvHjOIzu bGJyZHJyXGJyZHJzXGJy DRS0UAMjSgPdgfOvMUlo bHBhZHQxMFxjbHBhZGZ0 V3ctwZDoGXXsPItcmILv DDHoT8jakQKeAXffALIt cGFkZmwzXGNscGFkYjBc C7uxQXFvIkXtM0PuwAm1 FdJiSUGjrtPxhJ87Qikm k9TqABWiNEV4ZQvgUKgx bFxwbGFpblxmMFxmczI0 XHBsYWluXGYxXGZzMjBc bGFuZzEwMzNcaGljaFxm QPjeZkInQHFaCPtdO3iz LsPfY1FeRLPaKcUjHC2m MpJ9MMD6STDxEXA8TVHL MQQxCAGIS7AYOysaZRBI T9OceLamoA1qFzPjCkFn QXvsBL3tIDBlL9tkfOLf TAHwPPBtA2bhZtPtbM6r aFxmMVxjZjJcZnMyMFxs dHJjaFxjZWxsXHBhcmRc vI06Rpsij0XqZGOlXLI0 MFxzMFxxbFxwbGFpblxm MVwrlxE1YZXkFWneOFFe XGZzMjBcbGFuZzEwMzNc aGljaFxmMVxkYmNoXGYx BOwtE9qlZdOqB1CmYVQi KoGuIz7sUh9hRSYcIZXa YWluXGYxXGZzMjBcbGFu ZzEwMzNcaGljaFxmMVxk UcHgAPGeEJvhR6zlDgFn H5LeXYAlReAuxRMwL6zv V0OojEspJHGmBJnpcFJm BOWtoZRpZUK2vZGcydTz pHnllTzeuB3rFvXbLmOv NFxwbGFpblxmMVxmczIw NEpjrcisODLdGYtrT6vy RrQsHNEhzUajTFkwo3Cs XGYxXGNmMlxmczIwIDgv MTIvMjAyMFxwbGFpblxm MVxmczIwXGxhbmcxMDMz SVnfK4lcFrVlBVUinDnv FVnkp9NhTZMpDBCqHsdx xuJtPKc0uaXjQEXgfCrd mU86Hnambc75OFXsobPb b5LcKPEzNOT0GEnpJDyv bFxwbGFpblxmMFxmczI0 XHBsYWluXGYxXGZzMjBc bGFuZzEwMzNcaGljaFxm GQqhKgHkYWLuHMblY4fq ZjFcZnMyMFxwYXJ9 Diagnosis (test code = d1qobOXzWLKrjRU0FWNc 34) SJJip1nij0YjsYWtjYAn TCdveBScqxEzop66hVL9 dC35CP5aVIDcXsC1DBIs rjH9Bef7XIOyWJGbcSHi O967i1cpl4wykzGsmVW5 xXnxUUNmXQG3GqsbNQyx fMZeqskdrvHePN7nkcE7 ENObTK01tAPdHJBli3kl BWZrUXqxJDzHDtu8Uarq ZGVzaWduYXRlZCBhcyBm b8oxr1yaTygdXKKemUSt XGxpNzIwXGxpbjcyMCBB LiAgUmlnaHQgYnJlYXN0 UVG8lVVvJNPfnK7rOIa0 lICiCTQwg4XlQWLim6Sf eTpccGFyXHBhclxsaTIx NjBcZmktNzIwXGxpbjIx BfTbS0KSHxLYKZFMKCoQ LJASHQ5FGSjMSEHpB12p bWVudCAjMSlccGFyXHBh clxsaTcyMFxmaTBcbGlu YeZoGYVjELJOCMY4DEVv ZGNizHkytRf8dbTfw2Nu OE7vzUflHJGqC88tWEJi oL7eb3f6MRCeatgdMBXq bGkyMTYwXGZpLTcyMFxs sU6kWTEmTJfPPrIEROBK GIPRD6YJPYLTIMTUDG1Q LIVdFBrBC2rbSaGHWIKL HzUNAjQRCYvsXr4PEQzA O8oESADRUWMCL8yFB1nJ IEdSQURFIDMuXHBhclxs tAT1SIRwMbffBWjasuD4 JQWysHNvEYefBjP4IEaw jB38OhVkgZqwUoK2OTPQ CPVAKIulP8BVX4rIZ87H IElOIFNJVFUgKERDSVMp VHVKQYfKWR6JY1yNWBYp L9QSLFUyHZBTOKKTSOPY Vw2mGI8FPKYHFObBIEDQ NHYVEv7VDEyXJIdoN51K JJYFGkIMFh5SARYgKJ1O JT7HA3TAK5NZF6uNCQTJ QKpSWqFrNAsOPJQsU72B TUVOVCAjMilccGFyXHBh yiIJCP2JGB1RMPJDNOhY LbAMLgROQ8nDPqQVFPDV VElGSUVELiBccGFyXGxp MFxmaTBcbGluMFxwYXJc kQCkOSk4gPefRYn1nPP8 IPGczGvcMAKkVAH2Ulq2 IAg0xQI0ZSQejQl8RoIx QIC6HSM7OMa6uQZ6BlGn hVx9DWpyWVN9ZsIqGHl7 oOi6LjQoxPz9OhNfREI6 PEL7WBw2bECbOXocGBsL AX0QEFktGEIceTJyWYqj pPSboqkvIGrdgzPqVU7e Gx7nLMWbJUO1YKagJX2n cGFyfQ== Comment (test code = u3qgbGPeKFHgpDB8NXTl 9898) NUJau3uaj2CnnLQkbBWy VPuxkFWhdbStsn13eDW3 fV17TL0bJMXcEuA1RMRt esO1Dmf6PIDbBZWwkPSx S989o2lip6ylrxVypYK0 zJboKdewkJO0rFVqsLY1 HJljl1VwtIdeaHmsHPrx sJV7uOJoiGtlrIGuAA2e b0duiTB9laGsWBL9eGlt iXG9nPitheyhq9tbwVR5 jTQ8XDspjHW2ZEotBcAc XGxldmVsbmZjbjBcbGV2 CJdlTsZfuSX0ERxbmZIu jLT0XUumwSN3CXp2BJu0 LLvbSyytOCHaJ513VVwr mhDmecFbVmXmx1adYIZ2 zOsdlUL1GGdffE3jOdM3 g0tzcOG3jTN1TWdtlBP9 NPmaQjA8LXynbcEhobZv ibMbxEX4ZTvxIdTcuYF5 RRapoNMicSG2EKtgeKH6 OXm3KDw4MZrjHlnrULDr O532WLkiokVxpuUbWtYm n4pgNJA5oUhouLFjKLUi ZmktMzYwfXtcbGlzdGxl dmVsXGxldmVsbmZjMlxs HCRjaM3cE01xXPxmreBj xfGpBXeubeQtr2YjtvXg zYQ9YMwgfwQekQI4wWcs QCXbPlQvSpa7j4fwENAu tW25xBEdcfQbMsOoH09c pAxuRYRmIUMtAUK1QL43 JKenp6KbELBixWicWIXz oR0cHnPncPQ5CJwlNvRa MFxsZXZlbGpjMFxsZXZl kQY6GSF2LUOiy5anTKCr kDFfiNEjDcNkDUybLp24 lToydON4DItlxL3vKCGl TSwqJWn8XSylOoNnQWbg wX1xBiJ6l7orjDG9iWY3 ZQjyfQB0UFezWcR7EKtv ksYnqvHamoHmlQT4SAyw HbKtcSR1AFtobQUxxYQ7 FAnhwEX3DFj7FXh4VSdx OmqhRIVrI268LCxgcnTq zhFdQyUpx0xfNCB7fRwz aTMyNDBcZmktMzYwfXtc bGlzdGxldmVsXGxldmVs omHrFkorLQErmD0jJ37s XGxldmVsamMyXGxldmVs c1EguxZoyKT6HQkcejJl eNI9eQipMRStQqO6Eei1 y8omRQWoiC08mPKzbhMy XkRxO19ffHymITOcMBYr GSU5VK40VRgqa8QgFKQs oYsuZRGshO5nXmUbbMJ1 ZWxuZmNuMFxsZXZlbGpj UWcmALZwrMV2BJX8AKRz o8esCEShaVKyyIRuEeVp VRtoPu81qNdmqVP1BOhd hJ9lWZTeHVpdLMj3EXap JXT9LKemmD6zLtH7i0rd yZW3hOQ4JIbprSG7MXbk XvB2EFxbbwUqdbTmubKq mPL6HKjvIuUcgQT5XVrr iGSxzBG0UMishLS2WJh6 DYn0UBkvDvxsMNjdF299 XEyrgcRbegCbAvQax4rj LMA0mEwlwXR3HOClWhel MzYwfXtcbGlzdGxldmVs XGxldmVsbmZjMlxsZXZl pC1pW48aPQkuefAqohEl WVskfhSaj8VakaVkpES1 UIxdysYmzVE4gLduWUFs DkZ0Xgz8k7qtFHTqxC20 pIOxosWqXbArR56iuIu3 XYZoTCDxQEN7DP14eTxr EhcdaFA2g8JglpCrLZX4 DXZqYTshLcymjLS8t3Dk cnJpZGVcbGlzdGlkMFxs tOT6o8IhuwUjDRFen1Yl rJKunVBovD2piDQuPIoa wGE6DPtstN4xQfXfsVgm MzYwXGxzMVxwbGFpblxm yfCoAAN8Ko3qnTIoIQJs wS81kq5tcUD6k3LpEH3g C6SxLVT3LVdsORBls6mu LVZhDF1lTCEuh8XbWIMq LDAzNLUiplctd8KqUrCV gIBwi6HbujVfOFPwCZtb ERJ3fC0gNTxrVUHph6r2 aXZlIGZvciBiZXRhLWNh eOEudX6bPLUcQAD3MTDp HVKrcXYdXSGsEWO2NKil yH2wRAaxi5cajHNsumOc OPEcrsZrXm2cFHVazuT3 dL8uYYQolDhdQAQFFP2j EW3lOBDSTST7LHLIMABn LCBTMTAwIGFuZCBEZXNt iY0zBDTdnzYpKEAlteDj IEhNVyBDSyBhbmQgRVJH MUJaTUUsKNnwtKo4WAHg ciJmWJ5ppQHbcDftPQEp fZumBJShz64xPP8niFUw vt92jWIqMPNlj5IcayD6 uRG5QW7cUKrqEH9mxG74 aWMgZmlndXJlcyBpcyB1 nQY7pbQ1XpPsMBnFWoEh HABncMKiN7U4QV4acuOd dMKkYRJbOUU5iFGbd5Go a11yjUGaIKPqk53vj92j ZmVhdHVyZSBpbiBmaWJy t52ltQ8mZLQcUZ9yMPaq IHRoZSBzdHJvbWFsIGNv bXBvbmVudCBvZiBwaHls rD9pJVSkjODdl8Eidfwd QmU6EG0qpDHidKIfOSTn VY7qx4AybiRgAPpnVH2z dGFwbGFzdGljIGJyZWFz gKWpUHRhrT5miIEtIim+ BLCYITQkspn6fLXgRObc s1HrnL1clSCrN6rae1Mo XdsjYHCwi31bxMQxVCZn NDYhVQFwuR39jWgrobE1 nEM3JQ0wRNPiWBPepYPg j4WyUMGnHUZgyFAiSFXe zkEPoEHcoTC0VGKczL5x vH0lxHtimD1plICkrAHh bCBzdGFpbmVkIHNsaWRl euRuaxRxrZ7rnaWEPWKd JAJbNIHhCTzgIM8nCIpm WIqxkvTjrBCiIDV2kL4y IZvrYDM9ak4rA2s7QFIs WOQlmFZleGYzsHnkcH9a jZDpghCnHz0lFZAwuJMg U9OoZDLyX6TfqG0uYCta TNUrJQNynhUiwVLfJ0Bl xOWjm76fMSZkE4HyaD1k KAr4DXGhPKU4sFhpJEZr mINngx6uEHqyMb7xETgC Rd4xEPsaWmpsYOdNSdZv RklTSCBpcyBuZWdhdGl2 DURyAVEQYtceEr6oX7Gn pBm0YLeOFmPkE5LYRPzz atS7zR13JFRdCMjsXQZy EIUvnu9tjVFddiM6gX6u IHJhdGUgYXMgYXNzZXNz VAVuWovzK2rdNlevi8Ig jL1yfhpnoNKeaKspdGJm SDBwma84eE4jgZPlvHL0 DOPdRdUSYuMgJU6rDZWc s721qRGwcZMviJWazRcn a2mpSCszX0rboGhysLYi dG3nyTh2hOWxmARsVKDk bGxzLiBccGFyfQ== Disclaimer (test code = [id number] [id number]) HVVmPBHwm5inOOEsoZTo ZzEwMzNcZnRuYmpcdWMx ULBcRnEuj6ybl099wRGl e1vhHREwTmG7lSWbPKLd qNUwS281GIIrRIxbc8lx r9KjXQLouALon6E8XZJE vwdilOw2hPioU93sf9I7 WlusW0kfQBOaGKJuC9Be YJ1pILUpIlr1STA8JKY4 ICPoRYBiC6QzSW6tSSKp wIEuPXa8d7tdyOhqTSVw VFK3v3giAXssuyFnZZ9z ze3ppXs0e5gsevIvVPBb SWJmeRUQSCDbP6BxlMqt Qo2hqRh3xQeiLfjdKUW3 Vfg9AQ4wrs97hog6bRgq XXJdrepxSnP7ZQcgBISs grmmOVv3INkuAUMidGT2 CKWcmBJzU0OtRJEjVF0d pja2CTG2ULeqZIEyWxP9 NDBcaGVhZGVyeTcyMFxm n548EXA0QlCmEW6vH8Vv z4M0eF4jrEJcZPFstDJy KzGdDDMiro5rmYLaKMno r2WgKLB8uiS4zUGxzSKt TXTjEM16Zrzco5KhLbky JBC2GVEnieTwz4Odc6lu DzHmzcAeB5loP9UrBGZa VTWuRLSoSbJasvJtq4Ej b0BjfAGktOs1d4prQVLb BWZhcNoww0apYEJ1FKQr S8Z5vNIgf4zrNIlaHPUx hHN6laA0JHPxlXIcF0Hz pC2dWTZdAA2tgbg8v5mr WZX5OLjdUNYdKrZ1ibW6 NDBcaGVhZGVyeTcyMFxm x198GIL2ZbJdJNFzp1Cu D4AgvOiiW66vaHnfW21g ZCWodEynpO8isTkkwL3v ZjBcZnMyNFxxbFxwbGFp yclmIZjrarX6WNxqeffw BTKuYJleW2foBcZqVVWl pLqgPQaug2LcCKFpCGZq BjgxfvA7UUPFi64zRIQh l8XqHGHurJ3voKLeICzc gwSlfPR8VYbfauGyLuKj obCiBFYwjE8sQXHmJI2k NRVluhCass2dwpFcZERe CZYfL3EiqbnatIauvmZw XBAbgb4bbrFvAKC3BDPG EF0MQBSuUBTot92gLUXt wRaksV7rqTJospCxGMHb g8DtiA4swJFJGCDfC2wv PK2qJGiqg7CkxOTinOBs vZR1MJUpe5VoCuVzboCr lKMgbEUcD0KtuVgjI2ix WUIrLPNqymHnfMVpv5Vx KKCazWH9nSWzLY8LYxNQ w18bVQYuUIBAbeWbFTCq lEusuYA2csU7jD1iXsTN ZiBhcHBsaWNhYmxlLCBj d232po7ockP0OPYcNCIf ozzmv6YcPPOvYNZztE19 LVOzCNLgvo2mtejsuQTc lhFxO2Kqlgs5nX3aASZu YWluXGYxXGZzMjJcbGFu ZzEwMzNcaGljaFxmMVxk GcGxTLLoDDgtG7maNcFx ZnMyMlxwYXJ9 MD [facility] Breast Complete - [id number] 19:07:03 Test Item Value Reference Interpretation Comments Range IMP (test code = 1: Mass in the right IMP) breast lower hemisphere at 6 to 7 o'clock located 7centimeters from the nipple is known biopsy-proven malignancy. 2: Mass in the left breast upper inner quadrant at 11 o'clock located 7centimeters from the nipple is known biopsy-proven malignancy. BI-RADS Category 6:Known Biopsy Proven Malignancy PXN (test code = Interface, Radiology PXN) Results In - 01/26/2020 2:07 PM CDTCLINICAL INDICATION:Patient is a 55 year old female and is seen for new bilateral malignancy, leftIDC and right spindle cell neoplasm. FILMS COMPAREDPrior imaging studies performed at an outside location on 03/30/2018 and01/05/2020, and at [facility] on 01/26/2020 werereviewed. Images were obtained in multiple scanning planes. The breast tissue composition shows a homogeneous background echotexture whichis almost entirely fat. Real-time sonographic imaging of both breasts (including all 4 quadrants andretroareolar region) was performed. Real-time sonographic imaging of bilateralregional mino basins including the axillary (level I,II,III) and internalmammary regions was performed. 1: There is a mass measuring 4 x 3.9 x 3 centimeters in the right breast lowerhemisphere at 6 to 7 o'clock located 7 centimeters from the nipple. Associatedfindings include clip. This mass represents the spindle cell neoplasm atoutside facility biopsy. Right regional mino basin:No suspicious axillary levels I, II, III(infraclavicular) or internal mammary lymph node is identified. 2: There is an irregular mass measuring 1.6 x 1.6 x 1.4 centimeters in the leftbreast upper inner quadrant at 11 o'clock located 7 centimeters from the nipple.The clip placed at outside facility biopsy is not visible sonographically and onmammography is anterior to the mass. Mammography also demonstrates associatedpleomorphic calcifications within the mass as well as in the surrounding breasttissue, both anterior and posterior to the mass. Total extent is givendescribed in today's mammography report. The index carcinoma measures 1.6 x1.6 x 1.4 centimeters on today's ultrasound. Left regional mino basin: No suspicious axillary levels I, II, III(infraclavicular) or internal mammary lymph node is identified. IMPRESSION:1: Mass in the right breast lower hemisphere at 6 to 7 o'clock located 7centimeters from the nipple is known biopsy-proven malignancy. 2: Mass in the left breast upper inner quadrant at 11 o'clock located 7centimeters from the nipple is known biopsy-proven malignancy. BI-RADS Category 6:Known Biopsy Proven Malignancy Lab Interpretation Abnormal (test code = 56929-7) [facility] [id number] 19:07:03 Test Item Value Reference Interpretation Comments Range IMP (test code = 1: Mass in the right IMP) breast lower hemisphere at 6 to 7 o'clock located 7centimeters from the nipple is known biopsy-proven malignancy. 2: Mass in the left breast upper inner quadrant at 11 o'clock located 7centimeters from the nipple is known biopsy-proven malignancy. BI-RADS Category 6:Known Biopsy Proven Malignancy PXN (test code = Interface, Radiology PXN) Results In - 01/26/2020 2:07 PM CDTCLINICAL INDICATION:Patient is a 55 year old female and is seen for new bilateral malignancy, leftIDC and right spindle cell neoplasm. FILMS COMPAREDPrior imaging studies performed at an outside location on 03/30/2018 and01/05/2020, and at [facility] on 01/26/2020 werereviewed. Images were obtained in multiple scanning planes. The breast tissue composition shows a homogeneous background echotexture whichis almost entirely fat. Real-time sonographic imaging of both breasts (including all 4 quadrants andretroareolar region) was performed. Real-time sonographic imaging of bilateralregional mino basins including the axillary (level I,II,III) and internalmammary regions was performed. 1: There is a mass measuring 4 x 3.9 x 3 centimeters in the right breast lowerhemisphere at 6 to 7 o'clock located 7 centimeters from the nipple. Associatedfindings include clip. This mass represents the spindle cell neoplasm atoutside facility biopsy. Right regional mino basin:No suspicious axillary levels I, II, III(infraclavicular) or internal mammary lymph node is identified. 2: There is an irregular mass measuring 1.6 x 1.6 x 1.4 centimeters in the leftbreast upper inner quadrant at 11 o'clock located 7 centimeters from the nipple.The clip placed at outside facility biopsy is not visible sonographically and onmammography is anterior to the mass. Mammography also demonstrates associatedpleomorphic calcifications within the mass as well as in the surrounding breasttissue, both anterior and posterior to the mass. Total extent is givendescribed in today's mammography report. The index carcinoma measures 1.6 x1.6 x 1.4 centimeters on today's ultrasound. Left regional mino basin: No suspicious axillary levels I, II, III(infraclavicular) or internal mammary lymph node is identified. IMPRESSION:1: Mass in the right breast lower hemisphere at 6 to 7 o'clock located 7centimeters from the nipple is known biopsy-proven malignancy. 2: Mass in the left breast upper inner quadrant at 11 o'clock located 7centimeters from the nipple is known biopsy-proven malignancy. 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 2: Mass in the left breast upper inner quadrant at 11 o'clock is knownbiopsy-proven IDC malignancy. BI-RADS Category 6:Known biopsy-proven Malignancy PXN (test code = PXN) Interface, Radiology Results In - 01/26/2020 1:39 PM CDTCLINICAL INDICATION:Patient is a 55 year old female and is seen for staging of new bilateral breastcancer. MAMMO DIGITAL DIAGNOSTIC BILATERAL W TOMODigital Mammogram evaluated with Computer Aided Detection (CAD). COMPARISON:The present examination has been compared to prior imaging studies performed atan outside location on 03/30/2018 and 01/05/2020. FINDINGS:There are scattered areas of fibroglandular density. 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. On subsequently performedultrasound, this mass measures 4.0 x 3.9 x 3.0 cm with no associated regionaladenopathy on the right side. 2: In the left breast upper inner quadrant at 11 o'clock, 8 cm from the nipple,there is an irregular mass with associated pleomorphic calcifications. Thebiopsy clip from outside facility is anterior to the mass. The area ofcalcifications, both anterior and posterior to the mass extend over an areameasuring 3.9 cm x 3.7 cm x 2.4 centimeters. 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 Thepathology has not been reviewed at [facility] On subsequently performed ultrasound, this mass measures 1.6 x 1.6x 1.4 cmwith no associated regional adenopathy. Please see separate ultrasound report. Tomosynthesis performed in CC and MLO projections. 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 2: Mass in the left breast upper inner quadrant at 11 o'clock is knownbiopsy-proven IDC malignancy. BI-RADS Category 6:Known biopsy-proven Malignancy Lab Interpretation Abnormal (test code = 65044-3) MD Garcia [id number] 17:33:09For comparison only. No interpretation requested.MD Garcia US [id number] 17:32:54For comparison only. No interpretation requested.MD Radha NO Breast [id number] 17:32:39For comparison only. No interpretation requested.MD Cheng COVID-19 (ASHLEY-CoV-2) PCR [id number] 21:36:39 Test Item Value Reference Interpretation Comments Range COVID19 SARS New Patient Indication (test code = 32672) COVID19 SARS Result Not Detected Not Detected (test code = 54178-2) COVID19 SARS SARS-CoV-2 NOT Detected. Interpretation (test Reference Range: Not code = 92429) Detected Methodology: The Mustafa RealTime SARS-CoV-2 assay is a qualitative real-time reverse electric arc furnace operator polymerase chain reaction (child care attendant [employer]-PCR) test to detect RNA from SARS-CoV-2 in nasal, nasopharyngeal and oropharyngeal swabs from patients with signs and symptoms of infection who are suspected of COVID-19 by their health care provider. The Mustafa RealTime SARS-CoV-2 performed on the Validas000 System is a dual target assay with primers and probes for the RdRp and N genes. Results must be interpreted within the context of all relevant clinical and laboratory findings, and epidemiological risk factors. Positive results are indicative of the presence of SARS-CoV-2 RNA; clinical correlation with patient history and other diagnostic information is necessary to determine patient infection status. Positive results do not rule out bacterial infection or co-infection with other viruses. Negative results do not preclude SARS-CoV-2 infection and should not be used as the sole basis for patient management decisions. The Must[employer] RealTime SARS-CoV-2 assay is for in vitro diagnostic use under FDA Emergency Use Authorization only. Testing is limited to laboratories certified under the Clinical Laboratory Improvement Amendments of 1988 (CLIA), 42U.S.C. 263a, to perform high complexity tests. The Test was performed by the CLIA-certified, high-complexity Molecular Diagnostics Laboratory (M[facility]) at [facility] under the Food and Drug Administration (FDA) s Emergency Use Authorization. Factsheet for patients: https://www.[facility].org/ AbbottFactSheetPatientsFact sheet for healthcare providers: [email or web address] AbbottFactSheetHCP Test performed by:[facility] [place] [facility] [id number] [place] [address] MD [facility]
[2020-05-01] MEDS ORDERED: NA CHLORIDE 0.9% 1,000 ML ONE (23:29)
[2020-05-01] MEDS ORDERED: METOPROLOL TARTRATE 5 MG/5 ML INJ IV ONE (23:29)
[2020-05-01 23:30] LABS: Absolute Lymphocytes (CBC) 1.1 K/uL (0.7-4.9); Basophils % 0.5 % (0-1.3); Hematocrit 43.1 % (36.0-45.0); Lymphocytes % 14.9 % (15.3-44.8); MPV 10.6 fL (7.6-11.3); RBC Red Blood Cell Count 4.91 M/uL (3.86-4.86)
[2020-05-01 23:33] LABS: Protime INR 0.94
[2020-05-01 23:35] LABS: Arterial Blood Carboxyhemoglob 1.2 % (0-1.5); Blood Gas Oxyhemoglobin 95.3 % (94-97); Blood O2 Saturation 97.2 % (92-98.5)
[2020-05-01 23:47] LABS: ALT/SGPT 145 U/L (12-78); AST/SGOT 43 U/L (15-37); Albumin 3.9 g/dL (3.4-5.0); Alkaline Phosphatase 106 U/L (45-117); BUN Blood Urea Nitrogen 15 mg/dL (7-18); Bicarbonate 23 mmol/L (21-32); Bilirubin Direct < 0.1 mg/dL (0-0.2); Bilirubin Total 0.3 mg/dL (0.2-1.0); Glucose Level 187 mg/dL (74-106); Magnesium 2.4 mg/dL (1.8-2.4); NT PRO-BNP 98 pg/mL (<125); Potassium 3.9 mmol/L (3.5-5.1); Protein, Total 8.2 g/dL (6.4-8.2); Sodium Level 138 mmol/L (136-145); Troponin (Emerg Dept Use Only) < 0.02 ng/mL (0.0-0.045)
--- NOTE | 2020-05-02 00:08 | EDPHYS ---
Physician Documentation [facility] Name: Yas Fischer Age: 55 yrs Sex: Female : 1965 Arrival Date: 05/01/2020 Time: 22:40 Bed 7 Private MD: ED Physician Darwin Lemus HPI: 05/01 23:09 This 55 yrs old Female presents to ER via Ambulatory with complaints of pkl Breathing Difficulty, Chest Pain, Reaction to chemo. 23:09 The patient has shortness of breath at rest. Onset: The symptoms/episode began/occurred pkl just prior to arrival, 2 hour(s) ago. Associated signs and symptoms: Pertinent positives: chest pain, palpitations. Patient had her first chemo at [facility] this morning for bilateral breast cancer. Historical: - Allergies: 22:54 Amoxicillin; mg2 - Home Meds: 22:54 amlodipine 10 mg tab 1 tab once daily [Active]; aspirin 81 mg Oral chew 1 tab once mg2 daily [Active]; lisinopril 20 mg Oral tab 1 tab once daily [Active]; pantoprazole oral oral [Active]; - PMHx: 22:54 Anxiety; Hypertension; right breast cancer; mg2 - PSHx: 22:54 right breast mastectomy; mg2 - Immunization history:: Flu vaccine is not up to date. - Social history:: Smoking status: Patient denies any tobacco usage or history of. Patient uses alcohol, occasionally. Patient/guardian denies using street drugs, IV drugs. ROS: 23:09 Eyes: Negative for injury, pain, redness, and discharge, ENT: Negative for injury, pkl pain, and discharge, Neck: Negative for injury, pain, and swelling. 23:09 Cardiovascular: Positive for chest pain. 23:09 Respiratory: Positive for shortness of breath. 23:09 Abdomen/GI: Negative for abdominal pain, nausea, vomiting, and diarrhea. 23:09 Back: Negative for acute changes. 23:09 : Negative for urinary symptoms. 23:09 MS/extremity: Negative for acute changes. 23:09 Skin: Negative for rash. 23:09 Neuro: Negative for altered mental status, loss of consciousness. Exam: 23:09 Head/Face: Normocephalic, atraumatic. Eyes: Pupils equal round and reactive to light, pkl extra-ocular motions intact. Lids and lashes normal. Conjunctiva and sclera are non-icteric and not injected. Cornea within normal limits. Periorbital areas with no swelling, redness, or edema. ENT: Nares patent. No nasal discharge, no septal abnormalities noted. Tympanic membranes are normal and external auditory canals are clear. Oropharynx with no redness, swelling, or masses, exudates, or evidence of obstruction, uvula midline. Mucous membranes moist. Neck: Trachea midline, no thyromegaly or masses palpated, and no cervical lymphadenopathy. Supple, full range of motion without nuchal rigidity, or vertebral point tenderness. No Meningismus. Chest/axilla: Normal chest wall appearance and motion. Nontender with no deformity. No lesions are appreciated. Cardiovascular: Regular rate and rhythm with a normal S1 and S2. No gallops, murmurs, or rubs. Normal PMI, no JVD. No pulse deficits. Respiratory: Lungs have equal breath sounds bilaterally, clear to auscultation and percussion. No rales, rhonchi or wheezes noted. No increased work of breathing, no retractions or nasal flaring. Abdomen/GI: Soft, non-tender, with normal bowel sounds. No distension or tympany. No guarding or rebound. No evidence of tenderness throughout. Back: No spinal tenderness. No costovertebral tenderness. Full range of motion. Skin: Warm, dry with normal turgor. Normal color with no rashes, no lesions, and no evidence of cellulitis. MS/ Extremity: Pulses equal, no cyanosis. Neurovascular intact. Full, normal range of motion. Neuro: Awake and alert, GCS 15, oriented to person, place, time, and situation. Cranial nerves II-XII grossly intact. Motor strength 5/5 in all extremities. Sensory grossly intact. Cerebellar exam normal. Normal gait. Vital Signs: 22:52 BP 147 / 104; Pulse 109; Resp 18; Temp 97.9; Pulse Ox 100% on R/A; Weight 72.57 kg; mg2 Height 5 ft. 0 in. (152.40 cm); 23:27 BP 147 / 73; Pulse 74; Resp 18; Pulse Ox 98% on R/A; mg2 22:52 Body Mass Index 31.25 (72.57 kg, 152.40 cm) mg2 MDM: 22:44 Patient medically screened. pkl 05/02 00:01 Data reviewed: vital signs, nurses notes, lab test result(s), EKG, radiologic studies, pkl plain films. ED course: Patient feeling better. Discussed lab, EKG and X"rays results with patient. Advised patient to keep her appt. with her Oncologist tomorrow. Patient understood instructions. 05/01 22:51 Order name: Basic Metabolic Panel; Complete Time: 23:59 mg2 05/01 22:51 Order name: CBC with Diff; Complete Time: 23:42 mg2 05/01 22:51 Order name: LFT's; Complete Time: 23:59 mg2 05/01 22:51 Order name: Magnesium; Complete Time: 23:59 mg2 05/01 22:51 Order name: NT PRO-BNP; Complete Time: 23:59 mg2 05/01 22:51 Order name: PT-INR; Complete Time: 23:42 mg2 05/01 22:51 Order name: Troponin (emerg Dept Use Only); Complete Time: 23:59 mg2 05/01 22:51 Order name: XRAY Chest (1 view) mg2 05/01 22:51 Order name: EKG; Complete Time: 22:52 mg2 05/01 22:51 Order name: Cardiac monitoring; Complete Time: 23:14 mg2 05/01 22:51 Order name: EKG - Nurse/Tech; Complete Time: 23:14 mg2 05/01 23:08 Order name: ABG; Complete Time: 23:42 pkl 05/01 22:51 Order name: IV Saline Lock; Complete Time: 23:14 mg2 05/01 22:51 Order name: Labs collected and sent; Complete Time: 23:14 mg2 05/01 22:51 Order name: O2 Per Protocol; Complete Time: 23:14 mg2 05/01 22:51 Order name: O2 Sat Monitoring; Complete Time: 23:14 mg2 Administered Medications: 05/01 23:26 Drug: NS 0.9% 1000 ml Route: IV; Rate: 125 ml/hr; Site: right forearm; mg2 05/02 00:15 Follow up: Response: No adverse reaction; IV Status: Completed infusion; IV Intake: ea 100ml 05/01 23:26 Drug: Lopressor 5 mg Route: IVP; Site: right forearm; mg2 05/02 00:15 Follow up: Response: No adverse reaction ea Disposition: 05/02/20 00:06 Discharged to Home. Impression: Chest pain. Dyspnea. Bilateral breast cancer. - Condition is Stable. - Medication Reconciliation Form, Thank You Letter, Antibiotic Education, Prescription Opioid Use form. - Follow up: Private Physician; When: Tomorrow; Reason: Re-evaluation by your physician. - Problem is new. - Symptoms have improved. Signatures: Dispatcher [employer] EDLA Darwin Lemus MD MD pkl Antunez, Elena, RN RN ea Gardose, Michele, RN RN mg2 Corrections: (The following items were deleted from the chart) 00:15 00:06 05/02/2020 00:06 Discharged to Home. Impression: Chest pain. Dyspnea. Bilateral ea breast cancer. Condition is Stable. Forms are Medication Reconciliation Form, Thank You Letter, Antibiotic Education, Prescription Opioid Use. Follow up: Private Physician; When: Tomorrow; Reason: Re-evaluation by your physician. Problem is new. Symptoms have improved. pkl
--- NOTE | 2020-05-02 00:08 | ER ---
Nurse's Notes [facility] Name: Yas Fischer Age: 55 yrs Sex: Female : 1965 Arrival Date: 05/01/2020 Time: 22:40 Bed 7 Private MD: Diagnosis: Chest pain. Dyspnea. Bilateral breast cancer Presentation: 05/01 22:52 Chief complaint: Patient states: i began to have chest pain and shortness of breath 2 mg2 hours ago. i had my first chemo thru my PICC line this morning at [facility] for right breast Cancer. Coronavirus screen: Client denies travel out of the [place] in the last 14 days. Ebola Screen: No symptoms or risks identified at this time. Initial Sepsis Screen: Does the patient meet any 2 criteria? No. Patient's initial sepsis screen is negative. Does the patient have a suspected source of infection? No. Patient's initial sepsis screen is negative. Risk Assessment: Do you want to hurt yourself or someone else? Patient reports no desire to harm self or others. Onset of symptoms was May 01, 2020 at 21:00. 22:52 Method Of Arrival: Ambulatory mg2 22:52 Acuity: STARLA 3 mg2 Triage Assessment: 22:55 General: Appears in no apparent distress. comfortable, Behavior is calm, cooperative. mg2 Pain: Complains of pain in chest. EENT: No signs and/or symptoms were reported regarding the EENT system. Neuro: Level of Consciousness is awake, alert, obeys commands, Oriented to person, place, time, situation. Cardiovascular: Capillary refill < 3 seconds Patient's skin is warm and dry. Respiratory: Reports shortness of breath at rest Onset: The symptoms/episode began/occurred gradually, the patient has mild shortness of breath. GI: No signs and/or symptoms were reported involving the gastrointestinal system. : No signs and/or symptoms were reported regarding the genitourinary system. Derm: Skin is intact, is healthy with good turgor, Skin is pink, warm \T\ dry. normal. Musculoskeletal: Circulation, motion, and sensation intact. Capillary refill < 3 seconds. Historical: - Allergies: 22:54 Amoxicillin; mg2 - Home Meds: 22:54 amlodipine 10 mg tab 1 tab once daily [Active]; aspirin 81 mg Oral chew 1 tab once mg2 daily [Active]; lisinopril 20 mg Oral tab 1 tab once daily [Active]; pantoprazole oral oral [Active]; - PMHx: 22:54 Anxiety; Hypertension; right breast cancer; mg2 - PSHx: 22:54 right breast mastectomy; mg2 - Immunization history:: Flu vaccine is not up to date. - Social history:: Smoking status: Patient denies any tobacco usage or history of. Patient uses alcohol, occasionally. Patient/guardian denies using street drugs, IV drugs. Screenin:55 Abuse screen: Denies threats or abuse. Denies injuries from another. Nutritional mg2 screening: No deficits noted. Tuberculosis screening: No symptoms or risk factors identified. Fall Risk IV access (20 points). Assessment: :55 Reassessment: see triage note. mg2 22:56 Cardiovascular: Rhythm is. Respiratory: Airway is patent Respiratory effort is even, mg2 unlabored, 23:26 Reassessment: RT at bedside doing ABG. mg2 05/02 00:13 Reassessment: Patient and/or family updated on plan of care and expected duration. Pain ea level reassessed. Patient is alert, oriented x 3, equal unlabored respirations, skin warm/dry/pink. Discharge instruction given to patient, verbalized the understanding of instruction. Vital Signs: 05/01 22:52 BP 147 / 104; Pulse 109; Resp 18; Temp 97.9; Pulse Ox 100% on R/A; Weight 72.57 kg; mg2 Height 5 ft. 0 in. (152.40 cm); 23:27 BP 147 / 73; Pulse 74; Resp 18; Pulse Ox 98% on R/A; mg2 22:52 Body Mass Index 31.25 (72.57 kg, 152.40 cm) mg2 ED Course: 22:40 Patient arrived in ED. bp1 22:44 Darwin Lemus MD is Attending Physician. pkl 22:51 Nilson Stewart, RADHA is Primary Nurse. mg2 22:53 Triage completed. mg2 22:55 Arm band placed on. mg2 22:56 Patient has correct armband on for positive identification. aging department supervisor on. Pulse mg2 ox on. NIBP on. 22:56 No provider procedures requiring assistance completed. EKG done, by ED staff, reviewed mg2 by Darwin Lemus MD. 23:15 Inserted saline lock: 20 gauge in right antecubital area, using aseptic technique. ds4 Blood collected. 23:44 XRAY Chest (1 view) In Process Unspecified. EDMS 05/02 00:00 IV discontinued, intact, bleeding controlled, No redness/swelling at site. Pressure ea dressing applied. Administered Medications: 05/01 23:26 Drug: NS 0.9% 1000 ml Route: IV; Rate: 125 ml/hr; Site: right forearm; mg2 05/02 00:15 Follow up: Response: No adverse reaction; IV Status: Completed infusion; IV Intake: ea 100ml 05/01 23:26 Drug: Lopressor 5 mg Route: IVP; Site: right forearm; mg2 05/02 00:15 Follow up: Response: No adverse reaction ea Intake: 00:15 IV: 100ml; Total: 100ml. ea Outcome: 00:06 Discharge ordered by . cortez 00:13 Discharged to home ambulatory, with family. ea 00:13 Condition: stable 00:13 Discharge instructions given to patient, Instructed on discharge instructions, follow up and referral plans. Demonstrated understanding of instructions, follow-up care. 00:15 Patient left the ED. ea Signatures: Dispatcher [employer] Darwin Krause MD MD pkl Swanson, Donovan ds4 Bertha White RN RN Nilson Altamirano RN RN mg2 Paniauga, Brittany bp1
--- NOTE | 2020-05-02 08:29 | RAD REPORT ---
EXAM DESCRIPTION: RAD - Chest Single View - 05/01/2020 11:43 pm CLINICAL HISTORY: CHEST PAIN Chest pain. COMPARISON: Chest Pa And Lat (2 Views) dated 07/04/2019; Chest Single View dated 04/09/2019; Chest Si ngle View dated 03/05/2019; Chest Single View dated 10/03/2017; 3D DIAG [place] BILAT W/CAD dated 01/05/2020 ; Follow Up Breast Axilla Comp dated 01/05/2020 FINDINGS: Portable technique limits examination quality. The lungs are grossly clear. The heart is normal in size. No displaced fractures.Right PICC line has tip in the SVC. IMPRESSION: No acute intrathoracic process suspected.
[2020-05-02 08:40] VITALS: TEMP 97.9
[2020-05-02 08:42] VITALS: BP 147/73; O2SAT 98
--- NOTE | 2020-05-02 12:04 | EKG ---
Test Date: 2020-05-01 Test Time: 22:53:17 Statistics Intern: BUTCH MEASUREMENT RESULTS: Intervals: Rate: 116 ME: 174 QRSD: 86 QT: 326 QTc: 453 [place]: P: 52 ME: 174 QRS: -24 T: 9 INTERPRETIVE STATEMENTS: Sinus tachycardia Otherwise normal ECG Compared to ECG 07/04/2019 16:08:29 Sinus rhythm no longer present Myocardial infarct finding no longer present Electronically Signed On 05-02-20 12:03:04 PHYSICAL EDUCATION PROFESSOR by Nima Kathleen
== END 2020-05-02 00:15 | disposition home or self-care (01) ==
LOC: ER 22:39
DX: R07.9 Chest pain, unspecified (principal); C50.912 Malignant neoplasm of unspecified site of left female breast; C50.911 Malignant neoplasm of unspecified site of right female breast; I10 Essential (primary) hypertension; F41.9 Anxiety disorder, unspecified; Z79.82 Long term (current) use of aspirin; Z88.1 Allergy status to other antibiotic agents; Z90.11 Acquired absence of right breast and nipple
CPT/HCPCS: 36415; 71045; 80048; 80076; 82805; 83735; 83880; 84484; 85025; 85610; 93005; 96361; 96374; 99284; J7030

== ENCOUNTER 2020-05-10 13:15 | Emergency (ER) | payer OTHER, SELFPAY ==
--- OUTSIDE RECORDS SUMMARY | 2020-05-10 13:19 | XMS REPORT | Continuity of Care Document ---
:1965 Author Organization [facility] t Address [address] [place] [address] Dr. Andrade [address] [place] [id number] Care Team Providers Name Role Phone ANNE-MARIE Primary Care Physician Unavailable ANNE-MARIE Attending Clinician Unavailable Tara LEMON Attending Clinician Unavailable SYSTEM, NOT IN Attending Clinician Unavailable Do GARCIA, Amber Newell Attending Clinician Cory LEE M Attending Clinician Leeann Vera MD Attending Clinician Gabriela VALLEJO Attending Clinician Vijay GARCIA, F Attending Clinician Reji SHARP Attending Clinician Avelino Mckeon MD Attending Clinician Mike GARCIA Attending Clinician Unavailable Vernon GARCIA Attending Clinician Kenny HannonD, T Attending Clinician Annette SHARP Attending Clinician Cory GARCIA, F Attending Clinician Unavailable Levar CHRISTENSEN Attending Clinician Anne-Marie CHRISTENSEN Attending Clinician Shanon CHRISTENSEN Attending Clinician Madhu Tovar CRNA A Attending Clinician Unavailable Gil GARCIA Attending Clinician Unavailable Jerald GARCIA, M Attending Clinician Unavailable Jarrod GARCIA, M Attending Clinician Unavailable Jag HARO Attending Clinician KAREY Attending Clinician Unavailable Karey CHRISTENSEN Attending Clinician Anthony EDWARDS Attending Clinician Jojo CHRISTENSEN Attending Clinician Sanjiv CHRISTENSEN Attending Clinician ANNETTE Attending Clinician Unavailable Carroll GARCIA, M Attending Clinician Unavailable LEVAR Attending Clinician Unavailable Erica Richey Attending Clinician Unavailable Tara Lemon MD Attending Clinician Haven Rg MD Attending Clinician Malini Chatman Attending Clinician Unavailable Nicole GARCIA Attending Clinician Unavailable ANNE-MARIE Admitting Clinician Unavailable Payers Payer Name Policy Type Policy Number Effective Date Expiration Date S lise GENERIC [id number] 2019 00:00:00 Problems Condition Condition Condition Status [...] Conferenc e by surgical oncologis t Dr. Xie, and she was recommend ed a possibili [...] d at home. 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 Family History Family Member Diagnosis Comments Start Date Stop Date Source Paternal grandfather Leukemia MD Nayak ndeagustín Family member Breast cancer MD Ryan son Family member Cancer MD Guerra Family member Ovarian cancer MD Villalobos rsnoemi Social History Social Habit Start Date Stop Date Quantity Comments Source History [facility] MD Guerra Alcohol Std Drinks History [facility] MD uGerra Alcohol Binge Sex Assigned At MD Lyle on Exposure to Not sure MD Guerra SARS-CoV-2 (event) Tobacco use and 2020-04-17 2020-04-17 Never used MD Lyle on exposure 00:00:00 00:00:00 Alcohol intake 2020-04-17 2020-04-17 Lifetime MD Stephanie hansen 00:00:00 00:00:00 non-drinker (finding) History [facility] 2020-01-27 2020-01-27 1 MD Guerra Alcohol Frequency 00:00:00 00:00:00 Smoking Status Start Date Stop Date Source Never smoker MD Guerra Medications Ordered Filled Start Stop Current Ordering Indication Dosage Frequency Signature Comments Components Source Medication Medication Date Date Medication? Clinician (SIG) Name Name sodium 2019-06 Yes Malignant 650mg Take 1 MD bicarbonate 1-17 phyllodes tablet A nderso 650 mg 00:00: tumor of (650 mg) n tablet 00 lower outer by mouth 4 quadrant of (four) right times a female day. breast amLODIPine 2019-06 Yes 10mg Take 10 mg M D (NORVASC) 0-28 by mouth Valdo o 10 mg 10:23: daily. n tablet 43 multivitami 2019- Yes 1{tbl} Take 1 MD n 0-28 tablet by Anderso (THERAGRAN) 10:23: mouth n tablet 43 daily. busPIRone 2019-06 Yes 10mg Take 10 mg MD (BUSPAR) 10 0-28 by mouth 2 An derso mg tablet 10:23: (two) n 43 times a day as needed (for anxiety). acetaminoph 2019-06 Yes 500mg Take 500 M D en 0-28 mg by Anderso (TYLENOL) 10:23: mouth as n 500 mg [...] 1 MD azine 0-26 central tablet (10 Ocnnor so (Compazine) 00:00: portion of mg) by [...] 2020-01-27 10:48:00 82.1 kg Systolic blood pressure 2020-05-05 19:44:00 112 mm[Hg] MD Guerra Diastolic blood pressure 2020-05-05 19:44:00 76 mm[Hg] MD Guerra Heart rate 2020-05-05 19:44:00 95 /min MD Connor urena Body temperature 2020-05-05 19:44:00 36.78 Zahra MD Malini ray Respiratory rate 2020-05-05 19:44:00 18 /min MD Malini ray Oxygen saturation in 2020-05-05 19:44:00 99 /min MD Guerra Arterial blood by Pulse oximetry Body weight 2020-05-05 19:41:00 84.7 kg MD Connor urena BMI 2020-05-05 19:41:00 36.42 kg/m2 MD Connor urena Body height 2020-05-01 13:52:00 152.5 cm MD Connor urena Procedures Procedure Date / Time Performed Performing Clinician [facility] e COMPLETE BLOOD COUNT W/ 2020-05-09 15:24:00 Herb Mckeon MD DIFFERENTIAL Avelino COMPREHENSIVE METABOLIC PANEL 2020-05-09 15:24:00 Herb Mckeon MD Results CBC 2020-05-09 15:24:00 Herb Mckeon MD MANUAL DIFFERENTIAL 2020-05-09 15:24:00 Herb Mckeon MD GLUCOSE LEVEL 2020-05-09 15:24:00 Herb Mckeon MD BLOOD UREA NITROGEN 2020-05-09 15:24:00 Herb Mckeon MD ELECTROLYTE PANEL 2020-05-09 15:24:00 Herb Mckeon MD SERUM CREATININE 2020-05-09 15:24:00 Herb Mckeon MD .GLOMERULAR FILTRATION RATE 2020-05-09 15:24:00 Herb Mckeon MD CALCIUM LEVEL TOTAL 2020-05-09 15:24:00 Herb Mckeon MD ALBUMIN LEVEL 2020-05-09 15:24:00 Herb Mckeon MD ALKALINE PHOSPHATASE 2020-05-09 15:24:00 Herb Mckeon MD ALANINE AMINOTRANSFERASE 2020-05-09 15:24:00 Herb Mckeon MD ASPARTATE AMINOTRANSFERASE 2020-05-09 15:24:00 Herb Mckeon TOTAL PROTEIN 2020-05-09 15:24:00 Herb Mckeon MD FRACTIONATED BILIRUBIN 2020-05-09 15:24:00 Herb Mckeon MD COMPLETE BLOOD COUNT W/ 2020-05-04 16:22:00 Brigitte Vera MD DIFFERENTIAL COMPREHENSIVE METABOLIC PANEL 2020-05-04 16:22:00 Brigitte Vera MD MAGNESIUM LEVEL 2020-05-04 16:22:00 Brigitte Vera MD PHOSPHORUS LEVEL 2020-05-04 16:22:00 Brigitte Vera MD Valdo on Results CBC 2020-05-04 16:22:00 Brigitte boothe MD Andnataly hansen MANUAL DIFFERENTIAL 2020-05-04 16:22:00 Brigitte Vera MD And erson GLUCOSE LEVEL 2020-05-04 16:22:00 Brigitte Vera MD Andtariqo n BLOOD UREA NITROGEN 2020-05-04 16:22:00 Brigitte Vera MD And erson ELECTROLYTE PANEL 2020-05-04 16:22:00 Brigitte Vera MD Connor son SERUM CREATININE 2020-05-04 16:22:00 Brigitte Vera MD Valdo on .GLOMERULAR FILTRATION RATE 2020-05-04 16:22:00 Brigitte Vera MD CALCIUM LEVEL TOTAL 2020-05-04 16:22:00 Brigitte Vera MD And erson ALBUMIN LEVEL 2020-05-04 16:22:00 Brigitte Vera MD ALKALINE PHOSPHATASE 2020-05-04 16:22:00 Brigitte Vera MD ALANINE AMINOTRANSFERASE 2020-05-04 16:22:00 Brigitte Vera ASPARTATE AMINOTRANSFERASE 2020-05-04 16:22:00 Brigitte Vera MD TOTAL PROTEIN 2020-05-04 16:22:00 Brigitte Vera MD FRACTIONATED BILIRUBIN 2020-05-04 16:22:00 Brigitte Vera MD COMPLETE BLOOD COUNT W/ 2020-05-02 12:55:00 Herb Mckeon MD DIFFERENTIAL Avelino COMPREHENSIVE METABOLIC PANEL 2020-05-02 12:55:00 Herb Mckeon MD Results CBC 2020-05-02 12:55:00 Herb Mckeon MD MANUAL DIFFERENTIAL 2020-05-02 12:55:00 Herb Mckeon MD GLUCOSE LEVEL 2020-05-02 12:55:00 Herb Mckeon MD BLOOD UREA NITROGEN 2020-05-02 12:55:00 Herb Mckeon MD ELECTROLYTE PANEL 2020-05-02 12:55:00 Herb Mckeon MD SERUM CREATININE 2020-05-02 12:55:00 Herb Mckeon MD .GLOMERULAR FILTRATION RATE 2020-05-02 12:55:00 Herb Mckeon MD CALCIUM LEVEL TOTAL 2020-05-02 12:55:00 Herb Mckeon MD ALBUMIN LEVEL 2020-05-02 12:55:00 Herb Mckeon MD ALKALINE PHOSPHATASE 2020-05-02 12:55:00 Herb Mckeon MD ALANINE AMINOTRANSFERASE 2020-05-02 12:55:00 Herb Mckeon MD ASPARTATE AMINOTRANSFERASE 2020-05-02 12:55:00 Herb Mckeon TOTAL PROTEIN 2020-05-02 12:55:00 Herb Mckeon MD FRACTIONATED BILIRUBIN 2020-05-02 12:55:00 Herb Mckeon MD XR CHEST 2 VW POST IMPLANT 2020-04-28 19:45:31 Tasha Ray MD VERIFY CATHETER TIP PLACEMENT 2020-04-28 13:20:00 Hussain Villatoro MD XR CHEST 2 VW 2020-04-27 21:19:58 Yumiko Mendoza MD VASCULAR ACCESS ULTRASOUND 2020-04-27 19:27:39 Yumiko Mendoza [place] CHG US GUIDE, VASCULAR 2020-04-27 18:40:00 Herb Mckeon MD COMPLETE BLOOD COUNT W/ 2020-04-27 18:34:00 Herb Mckeon MD DIFFERENTIAL Avelino COMPREHENSIVE METABOLIC PANEL 2020-04-27 18:34:00 Herb Mckeon MD PROTHROMBIN TIME 2020-04-27 18:34:00 Herb Mckeon MD PARTIAL THROMBOPLASTIN TIME 2020-04-27 18:34:00 Herb Mckeon MD Results CBC 2020-04-27 18:34:00 Brigitte Vera MD MANUAL DIFFERENTIAL 2020-04-27 18:34:00 Brigitte Vera MD And erson GLUCOSE LEVEL 2020-04-27 18:34:00 Brigitte Vera MD ELECTROLYTE PANEL 2020-04-27 18:34:00 Brigitte Vera MD Connor son SERUM CREATININE 2020-04-27 18:34:00 Brigitte Vera MD Valdo on .GLOMERULAR FILTRATION RATE 2020-04-27 18:34:00 Brigitte Vera MD CALCIUM LEVEL TOTAL 2020-04-27 18:34:00 Brigitte Vera MD And erson ALBUMIN LEVEL 2020-04-27 18:34:00 Brigitte Vera MD ALKALINE PHOSPHATASE 2020-04-27 18:34:00 Brigitte Vera MD ALANINE AMINOTRANSFERASE 2020-04-27 18:34:00 Brigitte Vera ASPARTATE AMINOTRANSFERASE 2020-04-27 18:34:00 Brigitte Vera MD TOTAL PROTEIN 2020-04-27 18:34:00 Brigitte Vera MD FRACTIONATED BILIRUBIN 2020-04-27 18:34:00 Brigitte Vera MD BLOOD UREA NITROGEN 2020-04-27 18:34:00 Brigitte Vera MD And erson MRI ABDOMEN W WO CONTRAST 2020-04-17 14:41:00 Tasha Ray MD COMPREHENSIVE METABOLIC PANEL 2020-04-17 12:26:00 Yusuf Ray MD PHOSPHORUS LEVEL 2020-04-17 12:26:00 Tasha Ray MD Valdo on MAGNESIUM LEVEL 2020-04-17 12:26:00 Tasha Ray MD COMPLETE BLOOD COUNT W/ 2020-04-17 12:26:00 Tasha Ray MD DIFFERENTIAL GLUCOSE LEVEL 2020-04-17 12:26:00 Tasha Ray MD BLOOD UREA NITROGEN 2020-04-17 12:26:00 Tasha Ray MD And erson ELECTROLYTE PANEL 2020-04-17 12:26:00 Tasha Ray MD Connor son SERUM CREATININE 2020-04-17 12:26:00 Tasha Ray MD Valdo on .GLOMERULAR FILTRATION RATE 2020-04-17 12:26:00 Tasha Ray MD CALCIUM LEVEL TOTAL 2020-04-17 12:26:00 Tasha Ray MD And erson ALBUMIN LEVEL 2020-04-17 12:26:00 Tasha Ray MD ALKALINE PHOSPHATASE 2020-04-17 12:26:00 Tasha Ray MDson ALANINE AMINOTRANSFERASE 2020-04-17 12:26:00 Tasha Ray ASPARTATE AMINOTRANSFERASE 2020-04-17 12:26:00 Tasha Ray MD TOTAL PROTEIN 2020-04-17 12:26:00 Tasha Ray MD FRACTIONATED BILIRUBIN 2020-04-17 12:26:00 Tasha Ray MD Results CBC 2020-04-17 12:26:00 Tasha Ray MD MANUAL DIFFERENTIAL 2020-04-17 12:26:00 Tasha Ray MD And erson PATHOLOGY SURGICAL 2020-03-17 19:51:00 Naveed Xie MD Connor son INTERPRETATION TOTAL MASTECTOMY 2020-03-17 18:15:00 Naveed Xie MD ECHOCARDIOGRAM 2D COMPLETE 2020-03-16 15:24:17 Nuzhat Cristobal HC COVID19 AUTOMATED PCR 2020-03-16 12:24:00 Gómez Marques NM BONE SCAN WHOLE BODY 2020-03-08 16:33:19 Nuzhat Cristobal MD nderson CT CHEST ABDOMEN PELVIS W 2020-03-08 14:41:30 Nuzhat Cristobal MD CONTRAST POC GLUCOSE SCREEN 2020-02-18 20:39:00 Naveed Xie MD Connorpamela urena NM DOSING APPOINTMENT 2020-02-18 17:54:40 Heaven Bryant MD And erson PATHOLOGY SURGICAL 2020-02-18 17:49:49 Naveed Xie MD Connorpamela urena INTERPRETATION SEGMENTAL MASTECTOMY - SEED 2020-02-18 16:37:00 Naveed Xie MD LOC INTRAOPERATIVE LYMPHATIC 2020-02-18 16:37:00 Naveed Xie MD MAPPING ISOTOPE INJECTION FOR 2020-02-18 16:37:00 Naveed Xie MD SENTINEL NODE BIOPSY SENTINEL NODE BIOPSY - AXILLA 2020-02-18 16:37:00 Radha Xie MD EXCISIONAL BIOPSY OF BREAST 2020-02-18 16:37:00 Naveed Xie MD LESION BREAST SPECIMEN RADIOGRAPH 2020-02-18 14:30:11 Heaven Bryant BREAST SPECIMEN RADIOGRAPH 2020-02-18 14:30:10 Heaven Bryant XR CHEST 2 VW 2020-02-16 14:41:19 Heaven Bryant MD MAMMO POST PROCEDURE RIGHT 2020-02-16 14:25:55 Heaven Bryant MAMMO GUIDED SEED PLACEMENT 2020-02-16 14:25:38 Heaven Bryant MD LEFT US GUIDED BREAST SEED 2020-02-16 13:45:00 Heaven Bryant erson PLACEMENT RIGHT HC COVID19 AUTOMATED PCR 2020-02-16 12:16:00 Naveed Xie MD COMPLETE BLOOD COUNT W/ 2020-02-10 16:55:00 Naveed Xie MD DIFFERENTIAL BASIC METABOLIC PANEL, 2020-02-10 16:55:00 Naveed Xie MDrson CALCIUM IONIZED HEPATIC FUNCTION PANEL 2020-02-10 16:55:00 Naveed Xie MD nderson PROTHROMBIN TIME 2020-02-10 16:55:00 Naveed Xie MD HEMOGLOBIN A1C 2020-02-10 16:55:00 Heaven Bryant MD Results CBC 2020-02-10 16:55:00 Naveed Xie MD MANUAL DIFFERENTIAL 2020-02-10 16:55:00 Naveed Xie MD rson GLUCOSE LEVEL 2020-02-10 16:55:00 Naveed Xie MD BLOOD UREA NITROGEN 2020-02-10 16:55:00 Naveed Xie MD rson ELECTROLYTE PANEL 2020-02-10 16:55:00 Naveed Xieers on SERUM CREATININE 2020-02-10 16:55:00 Naveed Xie MD n .GLOMERULAR FILTRATION RATE 2020-02-10 16:55:00 Naveed Xie MD ALBUMIN LEVEL 2020-02-10 16:55:00 Naveed Xie MD ALKALINE PHOSPHATASE 2020-02-10 16:55:00 Naveed Xie MD And erson ALANINE AMINOTRANSFERASE 2020-02-10 16:55:00 Naveed Xie MD ASPARTATE AMINOTRANSFERASE 2020-02-10 16:55:00 Naveed Xie MD TOTAL PROTEIN 2020-02-10 16:55:00 Naveed Xie MD FRACTIONATED BILIRUBIN 2020-02-10 16:55:00 Naveed Xie MD nderson US CHEST 2020-01-26 19:06:16 Heaven Bryant MD US BREAST COMPLETE BILATERAL 2020-01-26 19:06:16 Heaven Bryant MD MAMMO DIGITAL DIAGNOSTIC 2020-01-26 17:24:16 Heaven Bryant MD BILATERAL W [facility]MER HC 2019-NCOV COVID-19 2020-01-24 23:27:00 Naveed Xie MD An derson OSI US BREAST BIOPSY 2020-01-12 17:32:31 Naveed Xie MD And erson PATHOLOGY OUTSIDE 2020-01-12 00:00:00 Indu Rg MD Andnataly n INTERPRETATION OSI MAMMO BILATERAL 2020-01-05 17:33:01 Naveed Xie MD Wilfredo rson OSI US BREAST 2020-01-05 17:32:47 Naveed Xie MD Encounters Start End Encounter Admission Attending Care Care Encounter Source Date/Time Date/Time Type Type Clinicians Facility Department ID 2020-02-07 Outpatient ANNE-MARIE, MDA Breast Kwadwo [id number] 12:19:36 NAVEED hansen 2020-02-02 Outpatient BIA LEMON, MDA MDA [id number] 13:19:19 ESTHER hansen 2020-01-21 Outpatient AME, MDA MDA [id number] 16:39:13 OPAL hansen 2020-03-02 2020-03-02 Outpatient BIA DODSON, MDA MDA [id number] 00:00:00 00:00:00 KUSH hansen 2020-02-17 2020-02-17 Outpatient EL TASHIU, MDA MDA [id number] MD 00:00:00 00:00:00 HEAVEN hansen 2020-02-17 2020-02-17 Outpatient EL ANNETTE, MDA MDA [id number] MD 00:00:00 00:00:00 HEAVEN Connorpamela hansen 2020-02-17 2020-02-17 Outpatient EL ANNETTE, MDA MDA [id number] MD 00:00:00 00:00:00 HEAVEN hansen 2020-02-17 2020-02-17 Outpatient EL ANNETTE, MDA MDA [id number] MD 00:00:00 00:00:00 HEAVEN hansen 2020-02-17 2020-02-17 Outpatient EL ANNETTE, MDA MDA [id number] MD 00:00:00 00:00:00 HEAVEN hansen 2020-02-16 2020-02-16 Outpatient LEVAR, MDA MDA [id number] MD 00:00:00 00:00:00 NUZHAT hansen 2020-02-10 2020-02-10 Outpatient EL MARICHUYS, MDA MDA [id number] MD 00:00:00 00:00:00 NAVEED Lyle o jade 2020-02-10 2020-02-10 Outpatient EL KOLEGINS, MDA MDA [id number] MD 00:00:00 00:00:00 NAVEED Lyle o jade 2020-02-02 2020-02-02 Outpatient LEVAR, MDA MDA [id number] MD 00:00:00 00:00:00 NUZHAT hansen 2020-01-28 2020-01-28 Outpatient TASHIU, MDA MDA [id number] MD 13:00:16 13:00:16 HEAVEN hansen 2020-01-27 2020-01-27 Outpatient EL MARICHUYS, MDA MDA [id number] MD 10:35:15 12:08:54 NAVEED Lyle o jade 2020-01-27 2020-01-27 Outpatient EL MDA MDA [id number] MD 10:31:52 10:32:00 Valdo hansen 2020-01-26 2020-01-26 Outpatient EL MDA MDA [id number] MD 12:35:52 12:35:52 Valdo hansen 2020-01-26 2020-01-26 Outpatient EL MIGGINS, MDA MDA [id number] 12:31:31 12:31:31 NAVEED Valdo o n 2020-01-26 2020-01-26 Outpatient BIA XIE, MDA MDA [id number] 12:31:27 12:31:27 NAVEED Valdo o n 2020-01-26 2020-01-26 Outpatient BIA XIE, MDA MDA [id number] 12:31:19 12:31:19 NAVEED Valdo o n 2020-01-26 2020-01-26 Outpatient BIA XIE, MDA MDA [id number] 12:31:13 12:31:13 NAVEED Valdo o n 2020-01-26 2020-01-26 Outpatient EL MDA MDA [id number] 11:32:56 11:32:56 Valdo o n 2020-01-26 2020-01-26 Outpatient EL MDA MDA [id number] MD 11:32:31 11:32:39 Valdo o n 2020-01-26 2020-01-26 Outpatient EL MDA MDA [id number] MD 00:00:00 00:00:00 Valdo o n 2020-01-24 2020-01-24 Outpatient EL MDA MDA [id number] MD 18:16:51 18:16:51 Valdo o n Results Test Description Test Test Results Result Source Time Comments Comments XR Chest 2 View 2020-04- No complication MD Malini hustonrson Post Implant 06 associated with central 19:46:47 venous catheter placement. Interface, Radiology Results In - 04/28/2020 1:49 PM CSTFULL RESULT:Examination: XR CHEST 2 VW POST IMPLANT, 04/28/2020 1:45 PM.Clinical History: Breast malignancy.Indication: Central venous catheter placement.Comparison: Chest 04/27/2020.Technique: Posteroanterior, lateral and dual-energy radiographs of the chest.Findings:1. A right peripherally inserted central venous catheter has its tip in the superior vena cava.2. The mediastinal contours and cardiac silhouette are normal.3. There are no focal abnormal pulmonary opacities.IMPRESSION:No complication associated with central venous catheter placement. Tip Verification 2020-04- Hussain Villatoro RN MD [facility] 06 05/10/2020 2:08 Access Device 13:20:00 [facility] Vascular Access Device Tip Verification Performed by: Hussain Villatoro, RNAuthorized by: Tasha Ray APN CVAD PropertiesDate device placed: 04/28/2020 Placed by: Ginger Kimball placement location: [facility] Type: PICC Catheter lumen: Double lumenVein location: BasilicLaterality: Right Tip Verification PropertiesDiagnostic image available: Chest xrayWritten diagnostic report available: Yes Tip location per report: Superior vena cava Tip in good position and cleared for infusion XR Chest 2 Views 2020-04- Increased opacity in MD Charlie 05 the left lower thorax is 21:24:08 likely partly atelectasis although more diffuse opacity is suspected to be due to asymmetric overlying soft tissues. No central venous access catheter appreciated. Clinical correlation advised. Interface, Radiology Results In - 04/27/2020 3:26 PM CSTFULL RESULT:Examination: XR CHEST 2 VW, 04/27/2020 3:19 PMClinical History: Encounter for adjustment and management of vascular access deviceIndication: Check Central Line placementComparison: 02/16/2020Technique: Posteroanterior, lateral and dual-energy radiographs of the chest.Findings:Postopera tive changes of the left breast. Interval right mastectomy.Left retrocardiac atelectasis is suspected. More diffuse increased opacity over the left hemithorax inferiorly is suspected to reflect overlying soft tissue thickening.There is no pleural effusion or pneumothorax. There is no mediastinal or hilar adenopathy. Cardiac silhouette is normal. No central venous access catheter is appreciated.IMPRESSION:I ncreased opacity in the left lower thorax is likely partly atelectasis although more diffuse opacity is suspected to be due to asymmetric overlying soft tissues. No central venous access catheter appreciated. Clinical correlation advised. Vascular Access 2020-04- This procedure requires MD Guerra Ultrasound 05 no interpretation from 19:27:39 the radiologist. Partial Thromboplastin Time 2020-04-27 19:24:32 Test Item Value Reference Range Interpretation Comme nts PTT (test code = 6773) 27.5 24.2- 36.0 second(s) JONO (test code = JONO) This lab cannot be scheduled at the following locations due to collection/proccessing restrictions: [facility] and [facility]. MD GuerraProthrombin Time with [id number] 19:24:31 Test Item Value Reference Range Interpretation Comments PT (test code = 12.6 12.0- 14.3 second(s) 6746) INR (test code = 1.00 0.90-1.10 5973) JONO (test code = This lab cannot be JONO) scheduled at the following locations due to collection/proccessing restrictions: [facility] and [facility]. MD Pabon Vascular Access Device: Non-Tunneled [id number] 18:40:00 ARON Escobar 04/27/2020 3:46 PMProcedure: central venous catheter placement Date/Time: 04/27/2020 1:43 PM Provider Information:Performed by: FAINA Escobaruthorized by: Herb Mckeon MD Heel Scorer present: no Patient Diagnosis:Pre-operative diagnosis: Breast CaPost-operative diagnosis: unchanged Indications:Indications: vascular access Pre-Procedure Note:Patient examined pre-procedure: yesChart reviewed pre-procedure, including labs, images, history and physical exam: yesMedical sorting and folding supervisor: sorting and folding supervisor not needed Pre- procedure patient condition: alert [...] insertion. The CXR showed no pneumothorax. [facility] Abdomen with and without [id number] 20:01:021. [facility]. Scattered small hypervascular foci in [...] is noted.The visualized skeleton is unremarkable.IMPRESSION:1. Baseline [facility] MRI evaluation.2. 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 Scattered sub centimeter hepatic cysts. Background of hepatic steatosis.3. No definite evidence of metastatic disease.[This document was created using a voice recognition transcribing system. Incorrect words or phrases may have been missed during proof reading. Please interpret accordingly or contact me for clarifi cation if necessary.][facility] [id number] 20:21:00 Test Item Value Reference Range Interpretation Comments Diagnosis (test code = 34) g4ximHHkEKWpqTT3SLR fBSMiy6qxs8JpzSZljF TmOKessHRperEgrh71u RS4cX72HO1lDHRoQaA0 MGPuqyO3Kgx9OJJgTET faQLzO720c3lfd3hwxc IewFR4lGjmTVAbAXYdL OueFHEeQyCzML5yHfZq HZH5SMCKvHzluGduDL1 FTVvuPSQSWADFFT4ZLK pccGFyXGxpNzIwXGxpb lhxBRHHXM4xL16wJhPo JQM7SNKaa8V7BVC0pMZ jTZJskMQ4OMLgQMVbbD MgbWludXRlIGludHJhZ ERqsIOwWYKriPxysI4l VM6xxJUyBKOvn6YzaQG qjYNhqwPduZSqL3RjRV foL1b2GHunXrVuVYTeq yDamr0qbUHpAQbbWQ87 bAM5uH5cARXnx5Y1HSa aOdogbd5mdJThYQMetd QBhLYzb7PlhWPnOorsJ AMqe65lLXQzTOGflrWx vM3jFRAul9IxELKjr54 ti5w0qXPjFZ7mM05cJr UvGPH4DQVdo2P5JI5hm MGqIQ9jlYLoFRWxquBm w9rjmybqrzKfMONtniO eYv1mXCNmwxAkag8fUP 5ccGFyIFNrZWxldGFsI I63t7BuJYvrnuIdJTSb lrDoHh7eIDNaboAtny7 xZU1xlDHqNXdxFJwnfB 4wIEIuIEJyZWFzdCwgU fleyXJvPLQCRKOUVR1I BPPRAHVGCRRJKI1BKHD PM1eMTPWBWWRWUSMLNV XNNPQ8XNYsxpvizNtmR XsjeI62IcSvFhnxyz0h KCxsl9BqVTVvw7D9OLz mznLfAMKxxfPdRw4wKM FvyuMvuj8kHL0knEGpA HBhclxsaTBcbGluMFxw YXJ9 Gross Description (test d7uvrQIgXKBdo3ocUXB code = [id number]) xKpPqBBKNy1vwx996gP PqJIpxGrYpMrI0aADqU OZfaUBig6R2NAcyvELo NxDBwfsuhFm6z7viZ5r zvb4dSX3tAwCwHLKsTK QwXGZwcnEyIFRpbWVzI A1mgrWJy22lwph0j0mb FChjlD9qRUXbSBSkrOX ew5V3DUwxgIJtTIDBh7 ItpJBlVE6yaum6s2cjS Ciha7wyy5XwStJrDYLb ZXQwXGZwcnEyIEFyaWF qMJ0pvbClsnk9m7lwGN BfQv5tZZRolzpkF2hfr lAyeBXsQyCebUFhK755 zwtialw7t2yfEXFhXa7 qmNwvJ4evhzMpeQEtOs BycTIgVHJveSBNaWNyb vBqnEU6kCzzEqEdYNOc j43uiwtvV2ycbxMjaGI rYpEaaTCdI3lqHu1fD0 02TRWqNFrbu0chq7YrP mNoYXJzZXQwXGZwcnEy ROFgQ53aKWRAJ850LNF uMXOnXTDqf6whc6rbN3 hhcnNldDBcZnBycTIgQ AAhDRa7aO3Wi7lhq3fg vuKbwKB2IYSbMKKdF9I eCA7dVBUptRApH6niFA UtAYcfgfCngdV9PROuk VNcOSqszeIkQfShQ6Fa RD2rWTcqhSVuWcZ5BZC bJMF4ZNjzGIEtILbuYm w1DAT1A4avJFK1X6nsl kYmdwFxKFFsoOP2Hrsn ayHgVemkV4JdLN10QFx iaYJaHba3ZKYbXBl4XH gmKNVkJTZgQki6RMd8B 0irURUqLGGsO2DiYB4c VCSeXdr3XLRdBSjsndC oOMT2RBdlPJSjYUZ7LY MmvCVmMpq6SGGzKNB9X 5rzugNljuZ3B1pnpLOj BKCfL7dwOSVmMPpsN3L kMK1yZZttAox8TRB2IS tknuJsZZb5UWiiFNVsI Ms1QXLmbSSeGrX1HGMn GJN1LOhewtStxoU8TCw kpSDfSJghB0cyJDWkGP jsH0JqZZ9jWGfyAhl7S TIwNztccmVkMjIzXGdy ZWVuMjIzXGJsdWUyMjM 7XHJlZDIzOVxncmVlbj VvVTwoeVGhDcA8J5znA WKgHXUtL4LaVT5pOFGs Hhq5KUK0AJrpxzJmVBg geoKjwmYxGkx6LJF9FN o5Kaoif3N0sFXypIHou HtcczEgaGVhZGluZyAx G610HVDvGWmkGTAymte iShe9p1poSiIaGATbbV 3sUGR4aPnrtdVjiDCfP BfeZtJ1R656ZSY5HIem OUMyxlpcBQw7q4joDqJ qQHYreE8zNUM5wG9DBk ldLBGsoopdAGp1XGkoN CUvrgyeJoO5DAkiEMSc fXw3MAbxAVJmhxN5Jom tYXJndDcyMFxtYXJnYj rnVCkeNWYrKPE1LtXzG OKdf6Rozrl6IyIuDqPu PUETNozylDUcRCN6DSY 0ZjFcZXBpYzkxMDFcYW 2wvAijhGj7aAvqTSMew wW2oTJzPSlqu5olPPK3 z5qvcqdaOTRaUCkeIx5 udHRibHtcZjAgQXJpYW c8oJ76YYFfbN8kjOOwX Ei7GDQtwpNbbOxhiC2l GkOzBDTOPxPPdyVrl8F zWZDpG6p7TUXCUTjEGW EIZ3IDIKBBTEFEQQXJQ 68WTMNceV6hjJFgnOi9 N3ewx0CvCJAbe6IaGDy fzmuyv8NkhIDmZRbzaE VyYWwgICAgIEFDQiBPU xYeEXN2OVSdlFPffEHt aI8zmXJmmXDsqW5kzeU 6rHZ0TF5rTTX1blDtUI C5RiJdG35iVqOfyGAsi ZCokidwvbY7ynBsehXw wtpdoajvUq91YENzZBP dk89nuBZajXUvCHPqKD cvnFUgJIcvPWLaRXE9V dluN12fYrFyvNWyjaJe ugegeaZ2vmFun5Y9RAN bw7LzBV4iXYqzVA0khN KrxJVlSVO3STDpOPQxn YHmFS4vGZpbfYyqRQGv kQ0lfMAlwKn4A4ikhTF dq2Bjy8YyRLIyu8ZnPB yfdynjn1NzbNWfZU6oh mtzIGxhdGVyYWwuIFRo LQOjdTChgL8bidE1PCu guGVvMOBcJWrzMI1cBz SZpNGwr9CiR4orXE5ih KMypQQveXf5JEH5ipGq A7GuSSH1NQBePKwgNHK 8JHMfGfPwM45kJPilwY BzZSBvZiBwYWxlXGVuZ WAjpBJtbqQ7NVjzcE5s gLBiCTCliO7xODtrE7J 7SEMru77hbZpeVDV0ep RpN0Guw0QqlDhyEFVpn E1qrPLmLD8bVCEzxoEq LNQrfXAycIDea7Rnym4 1bmRlZCBieSBhIHJpbS BvZiBhcmVvbGEgdGhhd CBtZWFzdXJlIDEuNCBh rgHiJq9vSCWjAGxhAHB hSN0tuRUlKOWpJEOvMO T4yMZaiGsoZCBQdISty 6ImX2lmFX9pqBPwo2Rm eEDmkUljg7YwpJmhzeC aYAIiv81gmFP4COZzdP F0hbUtQPJhOUmszR39u yAxNyBzbGljZXMuICBU aGUgbmlwcGxlIGlzIGx lP8I6QLBrsF9km2juJ4 UgIzEwLiBcbGluZVxsa J4eDDvsqWmeheJzeHzr VJFvNfEcHU2bBBIgMCQ oZSVuiXU5eLTfXvzjib Eyo0frFaVuV3Mdy1FhE INsh2l7dE0jEFAdLYHp THN0UPVdMPZ6FFNyLcQ ybYT9XOkpe6msBC9hTG JwLBikCJulQcexaw54s ZZuCUCoYTMnq38wpPW5 MW10HVfasPntwAVjsth iyNQsh2IbuZJirUHrXY 5hh3ZlF0PvfNovhOjpz UBlp30cuiJ1jlQ3xMVx zM2fQk4sOYMsBWYdj07 xzFpmHTD2gLMifS8tCD 3eosietxvfeEBwzgW1e EUlSVTqNLVrlFKkab8c IHRoZSBpbmZlcmlvciB bAYNjpL0kJRNoAGDhNn eyB51iYuUwcCN0pSTyT QOfmPBiYCSnoO8hSTUX dIVzX6Z9OEG7jnWvW0A ns6SxqRobOVGfEaOnxI ljIGFyZWEgaXMgeWVsb O89NNVdXCQlaMPhcwX7 AMfnsOaxwE3co3oojBY wWr8zETiznoYuoc5qxB MuXHBhclxwYXIgUmVtY KkbqJ8sBSA5dAJwaMZr RPExpyYtiySkE22rxX2 oBYOlt5WmEqRyHDpexS tenjQyr3T4mRD3FJEcJ ZZcxA9yKBK1yCXhsBFd HM4bQEX0VDLzLE4wTIA 1wFs6DPOszLIhp0HkRO Wks9D4ZY9zGJwgeO6eO HncurYlT28gMWI7mZIy qAVqrCSbIJMcTR1jT5n 5TP6tgO7ceDYgm3GuOm XuzeXde3SavgQiYTCiS 3gdwTDecJ7bHJUjOQzu ekQtfYpqISXNRvasY69 BMWdcHjx8JW1eW0ZbOM Klz6M3BS3fAK0vKE5oQ L7nCGNga8C7DWIaXROs LSBEZWVwXGxpbmVccGF dAMDXO3PJH73gA36WOK ogQTEsIHNsaWNlICMxM CwgbmlwcGxlLCBzZXJp INregYQsOUA1eC2pKnP ZHdohi0ebB9HrClYeMV U4wWOmYaMrLTQoEpS6d GUgbmlwcGxlOyBBMywg y6nbO2AiZMBnGJGtBcY vhFNcoPdos6TyACVvax ZwdHskiNnsCU5tgXYfM LfzZZHqPF2eWIZzNCZ1 LCBzbGljZSAjMTAsIG1 sOVjsbBZll0P4aQ0qUV MyfTQpq1KmySX3mFBvI WAua0ZcKBXhC7Lbs61d f5NivDvbPMGuXfHyfGw jIGFyZWEgZnJvbSBhbn YnsarsqcN2tmWin0F7F BRim6AuZBmhGGE2xX7j IHdpdGggdGhlIGluZmV enG2jEX8ajhfllulcEK csIHNsaWNlICMxMCwgZ leczs88nPRdBXTmRMM1 gLUwAOQso1SqaxlilaQ kQJEgnJ10CUZ1RKMuxI ljZSAjMTEsIGluZmVya X4zPRQzguAme84dYIFj D2Acf74rSQVkOCYrjkB neE3qjYgoUFYkPbFfcD ljIGFyZWEgYXQgdGhlI HNwZWNpbWVuIHNsaWNl CKPhGFewZMO5GADiJNW zaCBBIDEwLCBzbGljZS XfOBbapP9tBKQuv7Ixb Q9tmZsgthfiqnKfsuEu OP31DRFgqvQjK4Lit1I lp9PowYbowyGgJtG8oO XoNnifhx12iQXjSEZpW NW7fQByVTcbTmZmqE4w DD4kdoaeptzbQNWjPDq oqyBqf5dgSJZmCctme4 umK1UoXzesNPllZxFsz A0gYBZrveNxy67yVMJc eSPhy0KxiHR0fWKkQLM od2DaUZTgX5Euy07qs7 YgdGhlIGZpYnJvdGljI TWqLOM6HOVrPEEcTO7r YXNoIEEgMTQsIHNsaWN rWLR4SQGpkmKnshvpha Jab5O4bN8sGBKqcGOnn 2NbrJN7zWYqUWBiX4Qv g53ia8VokFjwIXDfWsS wxIjgQXOrGRP6YJDwEC YbSM6lCAWyXIYaILUuA VTqkUPgZGG8FNKlykMv sxndwyWlk6E5sL8fFPV sIMHvNSSwdrHqwFm0NV Luob1nab2wOMM4zU9sR W2rWNOaXSIbcJMyb2Fq BvBopqXaFzCHOEZ6ZYE bkVpvICOpUCzzuU6hSM Gow9ObmC7wlHkzfdhaX POoCROpvbQytB8qtKwj IGZpYnJvdGljIGFyZWE ov6upU0PkYcH6ENDiDK mtJGKhyAIkHXM5FYIyz sWycypewuFtt4G4oL3c MYIswWUwo5WuCZAoh6U 3FHkzSSDoJVvss1lrA0 OaRsJnVYT9wKDzrC1fN FJavuZaj67gHNGwtKYo IY40fQRrKMT7GIPpNH5 0OyBBIDIwLCBzbGljZS QiOJHmVKI3rDNmsO5rZ OQjxuQzx93fNJXizOBs FFvbotKhHAH2JCGmTN5 0LlxwYXJccHJvdGVjdF wwgi49FKJ6HVYWZYypz p84XNF2QAWsuScdaM4f CiFlFOztSTF6TOUdvg0 3RZCebyAng0rboWTuPL PcmNS0NQVmUHYul2oms 3BsdHBncGFyXGpleHBh oiBghl94iZS8hJ18XP4 pELDuIwY7OADmuaN9My e2IGQwKZApuHCpG913u 5mis0yngcFsxSW3mDfk YXJkXHBsYWluXGZzMjA aHp9sGeLrRDW0LJZYaV vrzUshOBLZGUXzJ5QLA VIgUVVBRFJBTlQgUklH FNJaFaVVZJFMZINWO5Z VRSxjbGlwcyBtYXJrIH MnhBYfoUSlQ6erVUB4F NSsZO98HRfcIo3aMBxz Gg7qSFLcJNExmwTod83 rb3ArPvbqcq1mUXpvw1 CrULWwt1P5YOB4fLU6L NdeMU6wnUFwpOAoBCF4 JWLoXDDsmQBkNM8gZJx csVezO4kiwQEiw69rzG wnYTVsvGJcxQMfA9prB iAgVGhlIHRydWUgbWFy H0xcMIncMWmoo9QlRJG uzSPhCA1uLFTxQBOboB RzsS9tdoVvamHtBYW6w M9mJRHpEYWVlEVil3Zt ZmFjZXMgYXJlIGNvbXB mm7UxWF1uRJZoLAKwvT daMA31jAmddJPzdJ11Y GxvYnVsYXRlZCBhZGlw h4KxVTHiv0F8JXZ4wFY iQNEcCHRcDK1lWFKosw NlIHdoaXRlIGZpYnJvd TNmjNins1OtIvomfV6l XOjyfnIpL4KBHOxFLhR PC3QQSdXOPOvznwGol7 vbDkNmEJHyxHGkm9Yyh IS0vMVnJDYbP5Cnz20u e6CxvDavGEWoIFIrnZW qGSOiOUOhOY6niFM9aH KhVRCzFXDhPGI0rpPlA E1hyxubxrwjXGWpmFPl XGAfbikzkp92DBW0BYL tx0AjS1OzKAoPTJMrs4 ZhH2TqFTrzyVMljugot kSoLVZkjd5anMYsfFo4 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(s) (test code = h8qwsZZvRHVsuOD1SJI 9886) wNLInn8thu6SljDHaqZ YmGXnouEImtcBvte60e VY5eD54QQ3xOKUdAiB6 EVRgwxU0Ncs8PGEaVSU yrUPlL809v9tok0svik QfuKJ1uLdlYQByZQFoI WluXGZzMjAgWVdccGFy fQ== Disclaimer (test code = o0vecFFpGYPpqLYjDeD 9800) tUVCvDWWoh5tjOIRcaN FuZzEwMzNcZnRuYmpcd TFcLJYpCfBvg1ooa160 oBHgy0gwJLToNyU5pIJ nTVTwzWXkR557YQNnOT ful0xeh1AiGIMlgKUka 3U6ZFUFrimzvAe3eCxy U22kz1Z5BuzoQ0yiEAW kKOJtN3SsSV1cDMIgUw j1LVY6FJN1VYDoZTGhV 8GvIS0uBZMwrOOeBSv9 z6vsjWslCROpTQN5p2h uKVlwxyPxKU8npb6quQ c6k9ihxsRkLQNoNEFhn DGNEVAtY0IsqXftVl1r rDe0jUjxDlhySIC9Sqo 6BH9mcz84swm0mXalNH QvzcjiVdI9ZZlyBSOct btlKQq0NRzkPGWapQQ4 YORvnWAlU2XmMWZmQD7 tnfd3IMV0SFveKSIiRg R2LXLzbRKfQAMsnDhrJ Aacd350JVJ2MdJdUF3u E8Ukn3W8hG0sqQAqODS fgTTqGnMuXNXbov1xsR HcRYaob9IaCUM9acE4o ATbuBAhSZHoKL90Rvgj g1ZsXkhnCGO1GGFfuwV sy4Aub7jsPbOqtpKoS1 zfI6VmFKAeXTWcFUCkE mRdpmFpp9Kvh9GckTHu pUl9r1hoPOXpTCNkrSo hv4fiPGH9DNLdQ2E4oT Jpe9kwHZnuCLSrxNP9z cY2RWZsbRIhT5XavP3g ZITcSN6trfp5j3goQDA 3TCssUHIlTkU6tnX7DV BcaGVhZGVyeTcyMFxmb 188MDV2DvMfCFOgb0Et B3MuaWtmG16etVmqA45 gCJBaiFbarP1iaSbmrC 5cZjBcZnMyNFxxbFxwb JAfpdwtRJxoeaG1KJse lfjrSBWnJRdwT8keZqV gVYXicWccQSxsm4UrUL QfMABjLcfanlF5TLBSn 27uDBOfe9QlYAOnjV7m cIXwUVoaahIoaKB5IJq hdmUgYmVlbiBkZXZlbG 0jYBZtDJ4sJTMnchEht u3cmfUcXGBjDCZzT2Zs cmlzdGljcyBkZXRlcm1 bbkElFGM2MLSAKD0VNH YfSMFfw00hJJVgqVxhg Y4ifKQyqzKgQGWjh9Xh uD8noTDBBKRkC2bnGV9 uSXqdl9RvhPFpiBCyaG K5YXQls8CrAiDrzxWyk ZOcwOPpS1XojUouO5tz VRNqDYXmzqWguFPge2D rLIPgbAX1kOSdOE1SOh DYn35mBIUeOCSVpzJpI VAezTtcrKN5poW5kI3i LiBJZiBhcHBsaWNhYmx yBACwl772fk4jbiX7RW WhEMEyeaiwz3PrGDZwP MVwmM20MYBiECKcuq0i npkcxMPlurBdJ2Eicsc 2wL6wSLUvSIpaZSHiZR ZzMjJcbGFuZzEwMzNca GljaFxmMVxkYmNoXGYx ZEsyR1diWkHuMeUuUhl wYXJ9 MD GuerraCOVID-19 (SARS-CoV-2) PCR-Asymptomatic [id number] 20:19:42 Test Item Value Reference Range Interpretation Comments COVID19 (SARS Not Detected Not Detected This test is a CoV-2) Result qualitative (test code = reverse-transcr iptase 31812-4) polymerase carlos n reaction (RT-PC R) developed [...] were verified by the Microbiology Laboratory at [facility], CLIA Accreditation # : [id number] and CAP Accreditation # : [id number]. Result s must be interpreted within the [...] te sting if clinically indicated. 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 No evidence of osseous metastatic [...] hyperostosis. IMPRESSION:1. No evidence of osseous metastatic disease.MD [facility] Glucose [id number] 20:40:27 Test Item Value Reference Range Interpretation Comments POC Glucose (test code = 127 mg/dL 70-99 H [facility] blood 68092-5) samples, e.g. obtained by fingerstick, ma y have inaccurate results in [place] ents with decreased peripheral bloo d flow. PO Sample Type (test Capillary code = 9554) Lab Interpretation (test Abnormal code = 38201-4) MD GuerraMammography Breast [id number] 18:53:43removal of the localized lesion(s). Radiography confirms removal of 1 [employer] Community Engagement Representative localizer. Interface, Radiology Results In 02/18/2020 1:53 PM CDTExamination: [...] lesion(s). Radiography confirms removal of 1 [employer] Community Engagement Representative localizer.MD GuerraNM Dosing [id number] 17:56:47Radiocolloid injection for intraoperative sentinel lymph node localization. Interface, Radiology Results In 02/18/2020 12:58 PM CDTFULL RESULT:Examination: Dosing Appointment, 02/18/2020 12:54 PMClinical History: Breast cancerIndication: Lymphatic mapping for intraoperative sentinel lymph node localization.Comparison: None.Technique: Filtered technetium-99m sulfur colloid, 0.55 mCi, was dispensed to Dr. Naveed Xie for injection into the left breast.Findings: No imaging was acquired.IMPRESSION:Radiocolloid injection for intraoperative sentinel lymph node localization.MD GuerraMammography Guided Seed Placement [id number] 17:06:01Interface, Radiology Results In 02/16/2020 12:31 PM CDTClinical Indication: Patient is a 55 year old female seen for left breast cancer. MAMMO GUIDED JOVANY YARN WASHER PLACEMENT LEFT Comparison: Serial breast ultrasound and mammograms dating back to 01/05/2020 Technique: The patient was positioned in the mammography unit and the lesion inquestion was identified on one view. Findings: Mass in the left breast 11 o'clock position, 8 cm from the nipple. Procedures(s): Mammography-Guided Jov[employer] Community Engagement Representative Reflector L ocalization - left breast Primary Proceduralist: Dr. Mabel Rubio Heel Scorer(s): None Consent: The consent for [employer] Community Engagement Representative reflector placement was performed by thereferring surgical [...] 1% was administered forlocal anesthesia. Two Jov[employer] Community Engagement Representative reflectors were advanced into the targetedarea, bracketing [...] condition. Impression: Technically successful mammography guided J[employer] Community Engagement Representative reflector localization ofthe mass in the left breast 11 o'clock position, 8 cm from the nipple. 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 ULTRASOUND GUIDED JOVANY YARN WASHER PLACEMENT RIGHT Comparison: Review is made of serial breast and mammography examinations datingback to 01/05/2020 Technique: Targeted ultrasound was performed of the lesion(s) of interest toguide localization. Findings: Mass in the right breast 6 to 7 o'clock position, 7 cm from the nipple. Procedures(s): Ultrasound-Guided J[employer] Community Engagement Representative Reflector Localization - right breast Primary Proceduralist: Dr. Mabel Rubio Heel Scorer(s): None Consent: The consent for Jov[employer] Community Engagement Representative reflector placement was performed by thereferringsurgical team. [...] 1% was administered forlocal anesthesia. One [employer] Community Engagement Representative reflector was advanced into the lesion ofinterest. [...] Impression: Technically successful ultras ound guided Jov[employer] Community Engagement Representative reflector localization ofthe mass in the right breast 6 to 7 o'clock position, 7 cm from the nipple. Onereflector was placed at the time of localization. Examination: Post Procedure Mammogram <> 02/16/2020. Clinical Indication: Patient is a 55 years old female and is seen for postprocedure mammogram. 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 ULTRASOUND GUIDED JOVANY YARN WASHER PLACEMENT RIGHT Comparison: Review is made of serial breast and mammography examinations datingback to 01/05/2020 Technique: Targeted ultrasound was performed of the lesion(s) of interest toguide localization. Findings: Mass in the right breast 6 to 7 o'clock position, 7 cm from the nipple. Procedures(s): Ultrasound-Guided Jov[employer] Community Engagement Representative Reflector Localization - right breast Primary Proceduralist: Dr. Mabel Rubio Heel Scorer(s): None Consent: The consent for [employer] Community Engagement Representative reflector placement was performed by thereferringsurgical team. [...] 1% was administered forlocal anesthesia. One [employer] Community Engagement Representative reflector was advanced into the lesion ofinterest. [...] Impression: Technically successful ultras ound guided J[employer] Community Engagement Representative reflector localization ofthe mass in the right breast 6 to 7 o'clock position, 7 cm from the nipple. Onereflector was placed at the time of localization. Examination: Post Procedure Mammogram <> 02/16/2020. Clinical Indication: Patient is a 55 years old female and is seen for postprocedure mammogram. Findings: See <> biopsy report done same date.MD GuerraPathology Outside [id number] 17:26:00 Test Item Value Reference Range Interpretation Comments Materials Received (test r0mljTKuYVMumRCrLaTe code = 9973) VSYdVMHiw7coNLIriDYd ZzEwMzNcZnRuYmpcdWMx LPUsHpTth5ney704aXZx o2iuKIYvPcC4cHWqZLCg zUIyL411FJCiDMptl0km e3AnJKPvtNFeq2I5KTVV crmqpQa0dTpeH07xw4E7 HepbO9epOLQoXOKyS2Wy OE1xXIUgWfr5YKQ3SSR7 BLNxCEFoP3XtBZ2xPIYm eOQfGYd3a8ilrDlcFZAl NUX0k6nqCTkmlxEoBD9y st0xyHt6q0lefzLcYVYt SFNseWSLUQVyP5YiyOuv Wj4jeXv9wZwtNfmrCHN0 Egz1NS3ezd00nmt3iSyp ACWbwivgJlB9EViaYLDs rxltXPj7VPfwWPRuzPcj MFxtYXJncjcyMFxtYXJn uGK4SJYdyUSyK9IeOFTn KJnjYAKzgtk0AtUcKk1l pNPtiMiaMVmvo5bdb1ln rPDfVsc3NYYgLkFhXhiv UPlbl8Epk1nnITSypj6u XUX3xEMvlWsqn5A4lCAr VLTavJGogfEpIOLruq22 fPHabTQzcTQsas3mkxIv yXMmwJMsLWO6lJMsurRu DCGqiBQyEEDiOD3lwEYf KANunZ9lbasaGFOsMtUm uwcrXMTftRdoiiPrLo8i qHztRCY9WTomW6lorT9o KdR0HSueH6qscT4lJTk5 IEnujWZ2LJBmwN4hGS1q zdhnk0abFjQfJA6wtmsi m8baXoPpJZ2hkna2d2ks MQB5MWrvWOKcNqR6mmZ7 NDBcaGVhZGVyeTcyMFxm e159GQE5UmDbUYHyl9Rz A8MrkVnrB58hlJjiQ80h GWUkrUxuiF4jwLkpxY4f DwOxDhBtOHs1ay62OEl7 npzyeJliEMt0zzDvYXYu GJM1PZWloZRuLPZtH7s2 vmUwVHVtPIP7EXAmjUVb WLRdG1j3yuSmNHN0FHi2 cnBhZGRmdDNcdHJwYWRk YjBcdHJwYWRkZmIzXHRy pGOlpRCgoMFayQ6imPoi AQWlgXVpwA8aNAZ7LCDs cmgzMjBcdHJoZHJcbHRy dw98HTOgaaGcdNBdaRbp kYKeLPP6XRLwRNYaRJBc JON8NHZwOpMazwBwGOjv bGJyZHJiXGJyZHJzXGJy ULG5OLVqSoStgcMtHPuz bGJyZHJsXGJyZHJzXGJy IWP7ZZBbHoJlcgKkYEnc bGJyZHJyXGJyZHJzXGJy ZCN4UPLfSpLuvpMzJUmz bHBhZHQxMFxjbHBhZGZ0 Q5jomMMjKULyRPssxVLa LCYuT6vemMDvVHolBRUd cGFkZmwzXGNscGFkYjBc V9arQEVxBiIrJ0DhlEa8 MDAwXGNsdmVydGFsdFxj cHCcGFE7NOBgLZXvJXWt JUR9SOTkHzFvwrYyQYzo bGJyZHJiXGJyZHJzXGJy VZK9UIUiEwSfupOtQEhc bGJyZHJsXGJyZHJzXGJy NFZ7XEIvQoHpjcStOUpn bGJyZHJyXGJyZHJzXGJy VST5EPNiRuMjreTbLSqe bHBhZHQxMFxjbHBhZGZ0 C2wymLAcIJRcNTnewFYs MBGkV8djkYVdCYprOJTi cGFkZmwzXGNscGFkYjBc N3clKWRwElOmZ2RxzZr7 NjAwXGNsdmVydGFsdFxj qLUhDFE7XKYaSWLqEFUs NCE0ZKPpYdNyywJfSMea bGJyZHJiXGJyZHJzXGJy EPC2HAXgToEvkhTxZZun bGJyZHJsXGJyZHJzXGJy VUV9DOJqQcGtacJmNExe bGJyZHJyXGJyZHJzXGJy FVN7MDJpQmKtqhHrZPxf bHBhZHQxMFxjbHBhZGZ0 W7uvkEQcQILlPOjpyQFf MDKsP4chqHZcBSqwUNRx cGFkZmwzXGNscGFkYjBc E7piBSWsGyQxV8MqaTm0 LvOkZHVvpoZbyL69Cncw a0ZaMTCoEYH2HOfgPCuh bFxwbGFpblxmMVxmczIw UZdqpexqQWTkSDeaH3xr UoXrLRHtbNbcXKnuv7At XGYxXGNmMlxmczIwXGIg PFNwGCXsfF7dEskiY0Ge zY6mUUecAfbcA4wfSOFc r9RbnB9mKVlphKDfkqjm MVxmczIwXGxhbmcxMDMz BKezE5omGtWxZNSxnLzo BSsqz1QhWZXxTACvHpev vlYpRTt6dfMgLBHxkYbs aBPuKAsybmRzuEpfx4Kd caLsxQnmAFEyRZv9vqYy evmgfKh3hDIskGdxNVJu wXvafQ9sRmHxFeGoVRxs bGFpblxmMVxmczIwXGxh sfswAYRvLZlpG2ugFgIz ODArfUsoTWxjy1OqIRNv GLIeZgbgovTrGCPhU21w bGVjdGVkXHBsYWluXGYx XGZzMjBcbGFuZzEwMzNc aGljaFxmMVxkYmNoXGYx QYutL1ayFhUtY7BbIOWr XpCbqGOeA8etX2EasZac YXJkXGludGJsXHNzcGFy YEF1uTVkwoPerUDcsUJs RRIhPLnnDWU2yLHllwkw xNBsdlnyOYgwhwJ6LQMn YWluXGYxXGZzMjBcbGFu ZzEwMzNcaGljaFxmMVxk XkKyNRUkBGsfD2peElNq G4SdHEJgXkSwUuTMKAGv aXZlZFxwbGFpblxmMVxm czIwXGxhbmcxMDMzXGhp D1ndWiIcMBGnhXpeULrp j3BhJOYvLAPdJupgbcKr HEn5ugSaHWBmiHvobV11 Dcwqla40PARgf8dvFQPv B5WyaIUyCANdnPQtPAps MDhcdHJwYWRkZmwzXHRy cGFkZHIxMDhcdHJwYWRk ZnIzXHRycGFkZHQwXHRy rVYxXWH5S3t6yyMgYFLy UOa5nwEnZJBrYoRcwTOv BXN8JXw5ZjjorvQ8jMGe A4l8LityouDtKIkkhJWf ox75CDBltpIgaUSqpUtr qPQoYQS7MEQhQHKvZHBz SWJ4QFFlSjZarwWvSNps bGJyZHJiXGJyZHJzXGJy SJE2JMPpGuXlbzOiUQoe bGJyZHJsXGJyZHJzXGJy KET6JAIaSgMvyeByOHgx bGJyZHJyXGJyZHJzXGJy TBX1BXQfShItmrCjGNdk bHBhZHQxMFxjbHBhZGZ0 H5yemLDqJZSaAVasgAOp XIKjT8myrBPoZHtwYNCc cGFkZmwzXGNscGFkYjBc G2fcZRNdJfGmL9LmvNw6 MDAwXGNsdmVydGFsdFxj mGYwGXQ0YIRjTUWeFICh BIO5CYRxWlSysgAkXMad bGJyZHJiXGJyZHJzXGJy SAK4DVUiVbTdeqJqRYdf bGJyZHJsXGJyZHJzXGJy VVG8HLFfAwOqilSyTQyw bGJyZHJyXGJyZHJzXGJy WIS8LJZzRlMmncLkVUoy bHBhZHQxMFxjbHBhZGZ0 X8hajBMpNVQoGDyppISe PCDtX3vcxJClSIxkMAAf cGFkZmwzXGNscGFkYjBc N2rdTZKcAaWnW5QmuKo5 NjAwXGNsdmVydGFsdFxj xQMnRYU3POLpFFLbGVHc USW0WSDyLrVwlnOsDSht bGJyZHJiXGJyZHJzXGJy DKW1HSNjCmPchmTjDYsx bGJyZHJsXGJyZHJzXGJy FXN0EUDkHaQgwaGmQBls bGJyZHJyXGJyZHJzXGJy WDU7QNOxHdKaklUtOXhn bHBhZHQxMFxjbHBhZGZ0 J9seqHMpDODvXVkuxJLt TDBeE8dfnMMvDVehUGYd cGFkZmwzXGNscGFkYjBc Q9ovREVwZbFrS3SgwFk7 VsOsCLDyfpXxeS17Woot n4LxVMQqNZX9OJdyLOfv bFxwbGFpblxmMFxmczI0 XHBsYWluXGYxXGZzMjBc bGFuZzEwMzNcaGljaFxm XYvpRwLtEVLgJMhfF5ov LfDjM5TrRYYmNlVhVJ8k LmT6IJJ3IIUjUHI8EORE DVSkCBXDX8NBWmtyXZWV Y3AkvPpkrN3wZzLzOkVx LNvfUY0jVHEcH4wjnYQl KJPgENOmF3geFjEzvK0u aFxmMVxjZjJcZnMyMFxs dHJjaFxjZWxsXHBhcmRc oJ19Pxqbb7JnULLzJSJ8 MFxzMFxxbFxwbGFpblxm FJxmnjW2PBYbLTdyVKTp XGZzMjBcbGFuZzEwMzNc aGljaFxmMVxkYmNoXGYx LThvT4kkJaKeO0LdQHFr WnGyBt9rKi2wYDYzPIGd YWluXGYxXGZzMjBcbGFu ZzEwMzNcaGljaFxmMVxk BiMaYMFfQBjuB0imGhZx T2IhEFHiThSgmRNfD4ed X0WqrAxkQYOzDRxteUIf KLKhvLIrBLU7pJGevpOp mSyuuLewlU3lMbJiGmHz NFxwbGFpblxmMVxmczIw LSxzgraaAZEnPRkaD8sf UiDvKDXobAjgJNuze9Wa XGYxXGNmMlxmczIwIDgv MTIvMjAyMFxwbGFpblxm MVxmczIwXGxhbmcxMDMz PZifO3haWbBuTDSigVcv WVwqb6OdEQOgFVBsFjlt sxRzHTf3qmFnQSDesZjy qP27Itvzfv82XTLhekMd h0FlJDEaUGQ9HLclHMsn bFxwbGFpblxmMFxmczI0 XHBsYWluXGYxXGZzMjBc bGFuZzEwMzNcaGljaFxm VEwmGjQkEOWbAIizJ2bh ZjFcZnMyMFxwYXJ9 Diagnosis (test code = i3uyjCNdEHHmsLX2UUHx 34) ILPqi1fmz8JveGYwvPVc AKxktKXsulOasa19vGT1 vL27NL9uYRKlAiU5DVMs bjK7Kmi1REYwIVCktHYg K789i0ubo6idhbBjkKT0 wRplWWGhLBW2EipdKKxl oRTjkjvgxeXtNN8fpiI1 CENuHL20sTPvYSAav7nk DWVqSQuyYUoLDzw8Yush ZGVzaWduYXRlZCBhcyBm i2gme6meKgbaIARcdNWl XGxpNzIwXGxpbjcyMCBB LiAgUmlnaHQgYnJlYXN0 CKZ0lBYgECRhaM1uLJc3 gGHiGUWlw4DnWZNbn7Wl eTpccGFyXHBhclxsaTIx NjBcZmktNzIwXGxpbjIx ZxUuL4LKRgVGEXBNWPhQ OKADXG4BRXjVXYOcC29h bWVudCAjMSlccGFyXHBh clxsaTcyMFxmaTBcbGlu GmPgKPCdVTDLZBG5JAXt WNDhdUjsrNc0pyYcu3Qh TU0rsUsaIBQlH03dUUZu cG0vm9p6UBYvxjcqNGIh bGkyMTYwXGZpLTcyMFxs cQ5iCLTdRHyBNmCGJCHC SHCNP0MQYUJJZMKDZM3Z SJIhRLyJQ1zpOdLGMMKC LrFHClFDFAvxXz4FNIdS J5vDRJFMMUVFB8nZG2nG IEdSQURFIDMuXHBhclxs uTO7GUSeNirfQXydreM9 EAYvoRKbKQntSdB7EOet iW19LhEcfKrgQgR9NWQX BBXAGYcdK1MEO7rLK76O IElOIFNJVFUgKERDSVMp IJJWMPfBYJ1WU3tYWYDl M5SKURSwTTDRSIKVCGEZ At6uWU9PKPZRJKkAMJQQ MNPANy7BSTuFBGrxQ19E VUBXRpTTHf8HERPvQL1B GI6VA7BMI8MZD8aYOZJX VLbZOjRpNCdMWNNlN28Q TUVOVCAjMilccGFyXHBh ysSWSH2AGX4APJBYRHgM MhPTWiDTZ5bJYuWDBYBL VElGSUVELiBccGFyXGxp MFxmaTBcbGluMFxwYXJc nSDrFFa3yTfbHVp1fVM4 CSBeeOypRNUcNIR1Wgt8 KBu7vCE4IAMxdNf6PcJs WFF1RXK8BLa3wKF2AeYh wPh8AIwmKPU2VwTpBQl3 uRq5KtNcfBk3MlOsQKV6 DEN5URg5yXKcFZqrTGlU AX8PFQpgZHWesZCsQVpw nRDyjmohTQxfwtIcMQ7z So0sYOOtTVH4UAsrMW9y cGFyfQ== Comment (test code = o4troTAjHCBmwLM4YZGp 9859) FKAdc0fyr4IudAWjmCLc YXwotFOwboVcup37wZA3 nX80NC1sGJNgEjF4ARWs prD5Lmr1PRMjTXXkuVOv W950a8mjd7nvruOalIV6 aVecLrkvsVH7kCJsxDF0 ALuto3DxvOkeoApzJJbc jQQ6jZUtwZxptOGyLV4q y4gddNM0uySpUNC1iOoa xPX3qCgyedpaq2ulbHS0 aIB7MCzgsIF1NAlpChKw XGxldmVsbmZjbjBcbGV2 GAmlDiHstKN1BDqvfMMp bHR2BKxjuUH0CTt2VJn9 XKrjMfvjKGAkT300GPea idUbmaZsKgGgr0xlJTE0 kLvbmNC2RGzojB2dCfZ5 z6tdyKI0rSS3GXbcaSZ6 NKodSnF6WVasrpAnpcFp wzUvhBQ7PHvuRyShqWK5 EFimyGTpnVD2HVbobCU8 KCh8PJo2ZYpvLyehCIIn S373OGhvuoBwmnMiPdHx p7diUFR5kSjcsPDpIQLz ZmktMzYwfXtcbGlzdGxl dmVsXGxldmVsbmZjMlxs QGKlsE8zW62uKZepruRu rmIrQRxuowLpe1OeqbXl yQB0HVwvspIukUB8eSpq AGLdKfEsJpj9c1kxGIYn qH11wZLvgwDnLsBfP73q cEjeNNFwFYPkHUB0RF74 XKfqz7CuNSIgkVrtAJSb kJ3yQbJaxMO0AHfnRgRw MFxsZXZlbGpjMFxsZXZl yMO1QDO5KFPfz7hjZKRm gSFdeYNlDfRfOChxWr49 kMghqQD3SJvudS8wGJIy HStcHLp1NHgkIlJjOKzg iR7zCjG1s8cscFR0yTR2 XEtogFN1RWojZxA4GQvm eiIsklGjxzVoxPD1IGil NxEvlNF5IFjgqYOloZH2 ZCwsqTF0SCv4GTu6LYvy PtliPQXyW723SMhqxoEv biWfRoOzw7cvGRP5rYzs aTMyNDBcZmktMzYwfXtc bGlzdGxldmVsXGxldmVs mgZdQbgmKSYxjH8xB69g XGxldmVsamMyXGxldmVs i9XxjeDqmFX0JWtnfwAm fZJ8cAtyOVKzIuR4Emz0 e5fuBPChvS54uWHaygFq NzAoI70beVerSYBjTJKs DLG6OZ44YGifi7GzMRGq vVwkWUHtlA0iExXncFW3 ZWxuZmNuMFxsZXZlbGpj DAdmYWAzoHG7JJX9VUAc m6eoYRTwaXYahNXeWcKn RDwpEa94cRtoaVU2TNqa vB6zQYJlQKenBNr4CCbk ACA5TOuliZ8kCjS1d7zw iSP0iFZ5VEkswYK6NKeo PxR0CLjbgeAqvtDhliFx nMP8ZYulMiGriWC6ILyy gCWkmYB7FTnetCP0XZj6 LWt5KAwuGgexLAqjR384 ESzqwrSbymOgVzVms1ao GLL8qFrzdCQ6HDReVykm MzYwfXtcbGlzdGxldmVs XGxldmVsbmZjMlxsZXZl fG7pM94zOIiyqcClckSq UExqskCxh9AugvYavTJ8 AAfntsIddDD0hAtkQTGm DkM2Lyf2q4kzLWXppR20 oJSiasWfObAnA31qcVa1 QKXhAQYmFPF8HO58iUzi NvpzoCV8k5FualXdBAG3 TIOcXFdsWqeelGG7q7Zd cnJpZGVcbGlzdGlkMFxs fBL4t4SzpwQuLRFnr3Mt pRVocDWekT6eiQRhIDmz qYS5CDuuzI9iPsGmyFou MzYwXGxzMVxwbGFpblxm qmChYHC7Ut0yuUOuKZBf mT81go9nuMS7c3BvMI3j Z7AqTTF9NYbrZPKzi4rl ZUCwIE0wKUEwm4IlXIEj IOZnACZgbrwnl3WmWdME dEHlv3UypmXlDMKkAKrv IZX6pZ8iWYsgADSql3b8 aXZlIGZvciBiZXRhLWNh iIQpqR9aFLEcSGF6VTCz KPPhmQLuBQKeRCM0FCdn oU1kSNevs1kjeBQpmcNb AVHwvfGpNg6hBELwypU6 lD8wOLXvwNvcAEDUHE9l RX0vZITMPQV7UAOSMMKh LCBTMTAwIGFuZCBEZXNt zZ1oLGYlpnLnPFMcazZk IEhNVyBDSyBhbmQgRVJH DVDjHDCiLPcsgEe3BYWh vjXpFV7inWMvlVshUWCv tWeoQZFpg58sPU4rwTQk pu68wIAhKENvx2HmwpB9 rIK2VU2dWWtzTV7mrS88 aWMgZmlndXJlcyBpcyB1 gCA2pbJ9TwIqONgHYjVa KPDfxYBwI9E3BZ9dvcYf rLJxLKVcYUY7lYUzk2Qi t52esFZyGPLge39wg13d ZmVhdHVyZSBpbiBmaWJy q76ugB5mRHBgPN4fZAsd IHRoZSBzdHJvbWFsIGNv bXBvbmVudCBvZiBwaHls uZ0sOCBdyMRia9Cuivhj IvK8KW6bwJAjuPEkDEWk VT7db4AljvFtAChjJL4g dGFwbGFzdGljIGJyZWFz mCGwLXCfcM2bsCRzDnr+ OCNZNPTevro7wPLxTCtu t1EevJ6yuAFqG1kgo7Cr DgazOFAny45mhKEbHLMp LZYePARuaZ63sRjphcX8 cQQ0BC3xPVSpNGDvsSOu p8ZcIAEuRYSbzQThEBGu eiTMnTQgwDD5XWWgrU1t lF8njMgzcQ6scFKvuGXy bCBzdGFpbmVkIHNsaWRl ceUrfkUxhO1lyeTOKPMl FYQzUJSyCTwhRH2kVNxy LMgsrjDqiCViUHU0xU6j IPscRMB3wb0eP7l3VHIr SFMdzQJmlAGvfNmgyY2w sSHhxvJbNk1aJXNakGVd W4IvNKThH8BefZ8oSTqv GXMpQOUcngLfhYJjB7Ws tQNyd36pKMKlQ9VdhK9y JAf7NHKtGNJ5lXvcKJCi jAXpsi4gMWeiTd3cAPbQ Ec7pIGebMsreQWhSMxBu RklTSCBpcyBuZWdhdGl2 HCGvPEXGKfabUw8vE0Xb yPj7IXbMTbCcX6WPRBin djX0gT99MQZtXLqwTXTn GQRfxz6fbQFkwaO5gG8i IHJhdGUgYXMgYXNzZXNz KOWeFahjF0zjBfwmy5Md aK6moacjrEUtzIktvJFy IYJoki20hZ4flZEzdLX1 FMXbCtYWGpDaWS6jGPFb f497kTEptCAhxEYwnGmy l1rmCGzkH4knsTjtcXCs qS1ycLx4wRBekZFrCSUn bGxzLiBccGFyfQ== Disclaimer (test code = n7zzgNNmNMZhsQOsWqFc 9844) VPCtNDPlp2mwMJXeyEIz ZzEwMzNcZnRuYmpcdWMx SECgHjZfg3lvm142uDZk x8fkKGRrLhQ3kLYnWNZn pOOnB031ALGdQExhb6qh d4ZbIXCcqIZgz7G1FGFH yewzvBv5uQivM52gu8Q9 OagcG6ghEFEwDYXnY4Ge TJ4kWMBtZov4FBL9JGJ0 DFJmBTBkC1KdIA2kAXCb rIGhVOa1t7okfVizXBJj WOB5c6yoYRasqtMcIZ7j cg8nsDm5t9niloYrQBFx LFLwyMRNMBJnW7VenZqw Ow3lqAi2vYcsVwanKIC9 Ynh8NA4tau42mqd1cJml LPVhzufnTwC8IFsyRRFb sqijLJm9OGciNGYanDQ7 VCFcxSZdN1UtLAGbOA6s pdj2EZE8EDkcNYOjKrD0 NDBcaGVhZGVyeTcyMFxm z221TPA9CbQuBD1aR6An y7R1yW7bmDSoKTSboBEi ZhQsFZWomn6vlUPzHTqq c9LoYHG7ddO5lHSxkHDk LSOfJE48Biikf2HcYmay HHH4AIAoxtKmh8Ekt9ds ZvFyblKiK7vyU1OrIEUn GEUoBIWmQnYvpfStj2Nf s1OtlJSfoPx5p2jqNEAt GKMujNztt7niAWU3LTKu W7A4fYNvp5ldRHlmHXIx kYL3cpW0JEFjgWPzU2Lx mR2eGALlJZ4aiux3j0uz VWG3MPbaGUBqWkD6gdZ2 NDBcaGVhZGVyeTcyMFxm u044DYU8LmCmVGZkv9Rn E2OobDrmZ03nsLzbV09s GALchSmdxR2sjBxpoD2a ZjBcZnMyNFxxbFxwbGFp uxzsQDvphgP9EKyfchwn HZUpLYoxW4cpLeKuPAZx yAbpDLqxg8BnCRIbWVMd TvkxjsY9MNLYf30iUKSq u1ZdIIWweB7ebAGdKLbz brTwePU5SJzqltIbMwOm skQcRKAjaE6uLKRtDX8y WHLnwkGohq6gdyRnRKWs JZUoP6DxzdhrbGebicCf SISpkk3jmqKaMBY5MAHO QF2GEWVsXKZje01fVTHj vHgquK7giLFqbnZtCGPq t2XefS2huVQHVJBnJ6uh MH9hNSraf6EslIJrkJZa sIB1SKIlk3VkEhXfduQd kEFazAYfY6LxyDlmE4fj YFUzAFMpcfVsaVAgr2Ba JYRdpBS8vQZoXY8IGtNT w17fANFzNCHTtwCkKAJo xNuvwUF8qxZ2rB7dGySB ZiBhcHBsaWNhYmxlLCBj q853ji6lvzE3VCEkKEHf mfmhq3VzRROhMRPenF14 CMZvYTWivs3lgftwxRXv tiKxB1Ojvet2bS1oXFJu YWluXGYxXGZzMjJcbGFu ZzEwMzNcaGljaFxmMVxk RlTvASOrDDssB4roYnGd ZnMyMlxwYXJ9 MD [facility] Breast Complete - [id number] 19:07:03 Test Item Value Reference Interpretation Comments [...] outside location on 03/30/2018 and01/05/2020, and at [facility] on 01/26/2020 werereviewed. Images were obtained in [...] [facility] Right [place]:No suspicious [...] Malignancy Lab Interpretation Abnormal (test code = 50459-5) [facility] [id number] 19:07:03 Test Item Value Reference Interpretation Comments [...] location on 03/30/2018 and01/05/2020, and at [facility] on 01/26/2020 werereviewed. Images were obtained [...] Malignancy Lab Interpretation Abnormal (test code = 62393-2) MD GuerraMammography Digital Diagnostic Bilateral with [id number] 18:29:43 Test Item Value Reference Range Interpretation [...] necrosis.The pathology has not been reviewed at [facility]. On subsequently performedultrasound, this mass measures [...] DCIS. Thepathology has not been reviewed at [facility] On subsequently performed ultrasound, this mass [...] Malignancy Lab Interpretation Abnormal (test code = 46277-5) MD Garcia [id number] 17:33:09For comparison only. No interpretation requested.MD Garcia US [id number] 17:32:54For comparison only. No interpretation requested.MD Garcia US Breast [id number] 17:32:39For comparison only. No interpretation requested.MD AndersonMD COVID-19 (ASHLEY-CoV-2) PCR [id number] 21:36:39 Test Item Value Reference Interpretation Comments Range COVID19 SARS New Patient Indication (test code = 14730) COVID19 SARS Result Not Detected Not Detected (test code = 79335-4) COVID19 SARS SARS-CoV-2 NOT Detected. Interpretation (test Reference Range: Not code = 44526) Detected Methodology: The Mustafa RealTime SARS-CoV-2 assay is a qualitative real-time reverse wigs salesperson polymerase chain reaction (car refinisher-PCR) test to detect RNA from SARS-CoV-2 in nasal, nasopharyngeal and oropharyngeal swabs from patients with signs and symptoms of infection who are suspected of COVID-19 by their health care provider. The Mustafa RealTime SARS-CoV-2 performed on the Jigsaw Meeting System is a dual target assay with [...] CLIA-certified, high-complexity Molecular Diagnostics Laboratory (MDL) at [facility] under the Food and Drug Administration (FDA) s Emergency Use Authorization. Factsheet for patients: https://www.[facility].org/ AbbottFactSheetPatientsFact sheet for healthcare providers: https://www.[facility].org/ AbbottFactSheetHCP Test performed by:[facility] Molecular Diagnostic [id number] [place] [address] MD Guerra
--- NOTE | 2020-05-10 14:58 | RAD REPORT ---
EXAM DESCRIPTION: Arleen Single View05/10/2020 2:47 pm CLINICAL HISTORY: Cough COMPARISON: May 01, 2020 FINDINGS: The lungs appear clear of acute infiltrate. The heart is normal size. A central venous ca theter has its tip in the superior vena cava IMPRESSION: No acute abnormalities displayed
[2020-05-10 15:13] LABS: Absolute Lymphocytes (CBC) 0.4 K/uL (0.7-4.9); Basophils % 0.6 % (0-1.3); Hematocrit 35.8 % (36.0-45.0); Lymphocytes % 85.9 % (15.3-44.8); MPV 9.7 fL (7.6-11.3); RBC Red Blood Cell Count 4.12 M/uL (3.86-4.86)
[2020-05-10 15:15] LABS: Protime INR 1.04
[2020-05-10 15:35] LABS: ALT/SGPT 93 U/L (12-78); AST/SGOT 19 U/L (15-37); Albumin 4.1 g/dL (3.4-5.0); Alkaline Phosphatase 93 U/L (45-117); Amylase 58 U/L (25-115); BUN Blood Urea Nitrogen 14 mg/dL (7-18); Bicarbonate 26 mmol/L (21-32); Bilirubin Direct 0.1 mg/dL (0-0.2); Bilirubin Total 0.6 mg/dL (0.2-1.0); CKMB Creatine Kinase MB < 1.0 ng/mL (0.3-3.6); Creatine Phosphokinase 45 U/L (26-192); Glucose Level 115 mg/dL (74-106); Lipase 180 U/L (73-393); Potassium 3.3 mmol/L (3.5-5.1); Sodium Level 133 mmol/L (136-145); Troponin (Emerg Dept Use Only) < 0.02 ng/mL (0.0-0.045)
[2020-05-10] MEDS ORDERED: ACETAMINOPHEN 500 MG TAB ONE (15:49)
[2020-05-10 15:59] LABS: Urine Bacteria <20 /HPF (<20); Urine Culture Reflex Order NOT NEEDED; Urine RBC <5 /HPF (NONE SEEN)
[2020-05-10 16:22] LABS: Urine Blood 1+ (NEG); Urine Glucose NEGATIVE (NEG); Urine Protein NEGATIVE (NEG); Urine Specific Gravity <1.005 (1.005-1.030); Urine pH 5.5 (5.0-7.0)
[2020-05-10 16:24] LABS: Blood Morphology Comment NOT SEEN (NOT SEEN); Platelet Estimate DECR
--- NOTE | 2020-05-10 16:27 | EDPHYS ---
Physician Documentation [facility] Name: Yas Fischer Age: 55 yrs Sex: Female : 1965 Arrival Date: 05/10/2020 Time: 13:16 Bed 18 Private MD: ED Physician Papito Estrella HPI: 05/10 16:24 This 55 yrs old Female presents to ER via Ambulatory with complaints of Fever. kb 16:24 The patient or guardian reports cough, that is intermittent, described as mild, with no kb sputum, flu symptoms, low-grade fever. Onset: The symptoms/episode began/occurred today. Severity of symptoms: At their worst the symptoms were mild, in the emergency department the symptoms are unchanged. Modifying factors: The symptoms are alleviated by nothing, the symptoms are aggravated by nothing. Associated signs and symptoms: Pertinent positives: fever, sore throat, Pertinent negatives: chest pain, diarrhea, ear ache, nausea, rhinorrhea, vomiting. The patient has not experienced similar symptoms in the past. The patient has been recently seen by a physician:. Pt reports she started running fever of 101 this morning. States she finished her first round of chemo for breast cancer 6 days ago. Was recently around grandson who had a cold. . 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 - Social history:: Smoking status: Patient denies any tobacco usage or history of. ROS: 16:24 Cardiovascular: Negative for chest pain, palpitations, and edema, Abdomen/GI: Negative kb for abdominal pain, nausea, vomiting, diarrhea, and constipation, Back: Negative for injury and pain, MS/Extremity: Negative for injury and deformity, Skin: Negative for injury, rash, and discoloration, Neuro: Negative for headache, weakness, numbness, tingling, and seizure. 16:24 Constitutional: Positive for fever, Negative for body aches, chills, fatigue, malaise, poor PO intake, weight loss. 16:24 ENT: Positive for sore throat. 16:24 Respiratory: Positive for cough, Negative for dyspnea on exertion, hemoptysis, orthopnea, pleurisy, shortness of breath, sputum production, wheezing. Exam: 16:24 Constitutional: This is a well developed, well nourished patient who is awake, alert, kb and in no acute distress. Head/Face: Normocephalic, atraumatic. ENT: Nares patent. No nasal discharge, no septal abnormalities noted. Tympanic membranes are normal and external auditory canals are clear. Oropharynx with no redness, swelling, or masses, exudates, or evidence of obstruction, uvula midline. Mucous membranes moist. Neck: Trachea midline, no thyromegaly or masses palpated, and no cervical lymphadenopathy. Supple, full range of motion without nuchal rigidity, or vertebral point tenderness. No Meningismus. Chest/axilla: Normal chest wall appearance and motion. Nontender with no deformity. No lesions are appreciated. Cardiovascular: Regular rate and rhythm with a normal S1 and S2. No gallops, murmurs, or rubs. Normal PMI, no JVD. No pulse deficits. Respiratory: Lungs have equal breath sounds bilaterally, clear to auscultation and percussion. No rales, rhonchi or wheezes noted. No increased work of breathing, no retractions or nasal flaring. Abdomen/GI: Soft, non-tender, with normal bowel sounds. No distension or tympany. No guarding or rebound. No evidence of tenderness throughout. Skin: Warm, dry with normal turgor. Normal color with no rashes, no lesions, and no evidence of cellulitis. MS/ Extremity: Pulses equal, no cyanosis. Neurovascular intact. Full, normal range of motion. Neuro: Awake and alert, GCS 15, oriented to person, place, time, and situation. Cranial nerves II-XII grossly intact. Motor strength 5/5 in all extremities. Sensory grossly intact. Cerebellar exam normal. Normal gait. Vital Signs: 13:42 BP 131 / 87; Pulse 129; Resp 22; Temp 100.6(O); Pulse Ox 99% on R/A; Weight 81.65 kg; dm5 Height 5 ft. 0 in. (152.40 cm); Pain 0/10; 15:03 BP 126 / 79; Pulse 110; Resp 20; Temp 102(O); Pulse Ox 100% on R/A; ca1 16:27 BP 124 / 78; Pulse 98; Resp 19 S; Temp 100.8(O); Pulse Ox 100% on R/A; ca1 17:21 BP 116 / 65; Pulse 100; Resp 18 S; Temp 98.5(O); Pulse Ox 95% on R/A; ca1 13:42 Body Mass Index 35.15 (81.65 kg, 152.40 cm) dm5 MDM: 13:58 Patient medically screened. kb 16:06 Data reviewed: vital signs, nurses notes. Data interpreted: Pulse oximetry: on room air kb is 100 %. Interpretation: normal. 16:22 Counseling: I had a detailed discussion with the patient and/or guardian regarding: the kb historical points, exam findings, and any diagnostic results supporting the discharge/admit diagnosis, lab results, radiology results, the need for outpatient follow up, oncologist, to return to the emergency department if symptoms worsen or persist or if there are any questions or concerns that arise at home. ED course: Consulted pt's oncologist, DR Vera, at [facility]. [facility] pt be given IV fluids [phone]. 05/10 14:09 Order name: Amylase, Serum; Complete Time: 15:36 kb 05/10 14:09 Order name: Basic Metabolic Panel; Complete Time: 15:36 kb 05/10 14:09 Order name: Blood Culture Adult (2) kb 05/10 14:09 Order name: CBC with Diff; Complete Time: 16:26 kb 05/10 14:09 Order name: Ckmb; Complete Time: 15:36 kb 05/10 14:09 Order name: CPK; Complete Time: 15:36 kb 05/10 14:09 Order name: Lactate; Complete Time: 16:22 kb 05/10 14:09 Order name: LFT's; Complete Time: 15:36 kb 05/10 14:09 Order name: Lipase; Complete Time: 15:36 kb 05/10 14:09 Order name: Procalcitonin; Complete Time: 15:53 kb 05/10 14:09 Order name: Protime (+inr); Complete Time: 15:19 kb 05/10 14:09 Order name: Ptt, Activated; Complete Time: 15:19 kb 05/10 14:09 Order name: Troponin (emerg Dept Use Only); Complete Time: 15:36 kb 05/10 14:09 Order name: Urine Microscopic Only; Complete Time: 16:00 kb 05/10 14:09 Order name: Chest Single View XRAY; Complete Time: 15:11 kb 05/10 14:09 Order name: Accucheck; Complete Time: 14:53 kb 05/10 14:09 Order name: Cardiac monitoring; Complete Time: 15:00 kb 05/10 14:09 Order name: EKG - Nurse/Tech; Complete Time: 15:00 kb 05/10 14:09 Order name: IV Saline Lock - Large Bore; Complete Time: 14:53 kb 05/10 14:09 Order name: Labs collected and sent; Complete Time: 14:53 kb 05/10 14:09 Order name: Flu; Complete Time: 15:31 kb 05/10 14:09 Order name: Strep; Complete Time: 15:31 kb 05/10 15:03 Order name: Glucose, Ancillary Testing; Complete Time: 15:11 EDMS 05/10 15:09 Order name: Urine Dipstick--Ancillary (enter results); Complete Time: 16:26 bd 05/10 15:31 Order name: Throat Culture EDMS 05/10 16:19 Order name: COVID-19 kb 05/10 16:24 Order name: Manual Differential; Complete Time: 16:26 EDMS 05/10 14:09 Order name: O2 Per Protocol; Complete Time: 14:53 kb 05/10 14:09 Order name: O2 Sat Monitoring; Complete Time: 14:53 kb 05/10 14:09 Order name: Urine Dipstick-Ancillary (obtain specimen); Complete Time: 15:00 kb Administered Medications: 15:39 Drug: Tylenol 1000 mg Route: PO; ca1 17:15 Follow up: Response: No adverse reaction; Temperature is decreased ca1 16:19 Drug: NS 0.9% 1000 ml Route: IV; Rate: 1000 ml; Site: left forearm; ca1 17:16 Follow up: Response: No adverse reaction; IV Status: Completed infusion; IV Intake: ca1 1000ml 16:27 Drug: Cipro 500 mg Route: PO; ca1 17:15 Follow up: Response: No adverse reaction ca1 Disposition: 18:59 Co-signature as Attending Physician, Papito Estrella MD. rn Disposition: 05/10/20 16:26 Discharged to Home. Impression: Fever, unspecified, Neutropenia. - Condition is Stable. - Discharge Instructions: Viral Respiratory Infection, Rfrh-Lc-Ayfe, Fever, Adult, Almg-kq-Iywa. - Prescriptions for Cipro 500 mg Oral Tablet - take 1 tablet by ORAL route every 12 hours for 7 days; 14 tablet. - Medication Reconciliation Form, Thank You Letter, Antibiotic Education, Prescription Opioid Use form. - Follow up: Emergency Department; When: As needed; Reason: Worsening of condition. Follow up: Private Physician; When: 2 - 3 days; Reason: Recheck today's complaints, Continuance of care, Re-evaluation by your physician. Signatures: Dispatcher [employer] EDMS Clotilde Holliday, EGG BUYER-C EGG BUYER-Ckb Papito Estrella MD MD rn AcobAbi RN RN ca1 Corrections: (The following items were deleted from the chart) 17:22 16:26 05/10/2020 16:26 Discharged to Home. Impression: Fever, unspecified; Neutropenia. ca1 Condition is Stable. Forms are Medication Reconciliation Form, Thank You Letter, Antibiotic Education, Prescription Opioid Use. Follow up: Emergency Department; When: As needed; Reason: Worsening of condition. Follow up: Private Physician; When: 2 - 3 days; Reason: Recheck today's complaints, Continuance of care, Re-evaluation by your physician. kb
--- NOTE | 2020-05-10 16:27 | ER ---
Nurse's Notes [facility] Name: Yas Fischer Age: 55 yrs Sex: Female : 1965 Arrival Date: 05/10/2020 Time: 13:16 Bed 18 Private MD: Diagnosis: Fever, unspecified;Neutropenia Presentation: 05/10 13:42 Chief complaint: Patient states: recently had first dose of Chemo that ended on last dm5 . Pt states she started running fever at home was highest recorded at home. Coronavirus screen: cough unrelated to allergies, sore throat. Ebola Screen: Patient negative for fever greater than or equal to 101.5 degrees Fahrenheit, and additional compatible Ebola Virus Disease symptoms Patient denies exposure to infectious person. Patient denies travel to an Ebola-affected area in the 21 days before illness onset. No symptoms or risks identified at this time. Initial Sepsis Screen: Does the patient meet any 2 criteria? HR > 90 bpm. Does the patient have a suspected source of infection? Yes: Other: immunocompromised, cough. Risk Assessment: Do you want to hurt yourself or someone else? Patient reports no desire to harm self or others. Onset of symptoms was May 10, 2020. 13:42 Method Of Arrival: Ambulatory dm5 13:42 Acuity: STARLA 2 dm5 Triage Assessment: 15:01 General: Appears in no apparent distress. comfortable, Behavior is calm, cooperative, ca1 appropriate for age. General: Reports fever for 0-12 hours. Pain: Denies pain. EENT: No signs and/or symptoms were reported regarding the EENT system. Neuro: Level of Consciousness is awake, alert, obeys commands, Oriented to person, place, time, situation. Cardiovascular: Heart tones S1 S2 present Capillary refill < 3 seconds Patient's skin is warm and dry. Rhythm is sinus tachycardia. Respiratory: Airway is patent Respiratory effort is even, unlabored, Respiratory pattern is regular, symmetrical, Breath sounds are clear bilaterally. GI: Abdomen is round non-distended, Bowel sounds present X 4 quads. Abd is soft and non tender X 4 quads. : No signs and/or symptoms were reported regarding the genitourinary system. Derm: Skin is intact, is healthy with good turgor, Skin is pink, warm \T\ dry. Musculoskeletal: Circulation, motion, and sensation intact. Capillary refill < 3 seconds. 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 - Social history:: Smoking status: Patient denies any tobacco usage or history of. Screenin:02 Abuse screen: Denies threats or abuse. Denies injuries from another. Nutritional ca1 screening: No deficits noted. Tuberculosis screening: No symptoms or risk factors identified. Fall Risk IV access (20 points). Assessment: 15:02 Reassessment: see triage notes. ca1 15:42 Reassessment: Patient appears in no apparent distress at this time. Patient and/or ca1 family updated on plan of care and expected duration. Pain level reassessed. Patient is alert, oriented x 3, equal unlabored respirations, skin warm/dry/pink. 16:27 Reassessment: Patient appears in no apparent distress at this time. Patient and/or ca1 family updated on plan of care and expected duration. Pain level reassessed. Patient is alert, oriented x 3, equal unlabored respirations, skin warm/dry/pink. For Discharged once IVF is completed. Vital Signs: 13:42 BP 131 / 87; Pulse 129; Resp 22; Temp 100.6(O); Pulse Ox 99% on R/A; Weight 81.65 kg; dm5 Height 5 ft. 0 in. (152.40 cm); Pain 0/10; 15:03 BP 126 / 79; Pulse 110; Resp 20; Temp 102(O); Pulse Ox 100% on R/A; ca1 16:27 BP 124 / 78; Pulse 98; Resp 19 S; Temp 100.8(O); Pulse Ox 100% on R/A; ca1 17:21 BP 116 / 65; Pulse 100; Resp 18 S; Temp 98.5(O); Pulse Ox 95% on R/A; ca1 13:42 Body Mass Index 35.15 (81.65 kg, 152.40 cm) dm5 ED Course: 13:16 Patient arrived in ED. ag5 13:44 Clotilde Holliday FNP-C [facility]. kb 13:44 Papito Estrella MD is Attending Physician. kb 13:46 Triage completed. dm5 14:22 Abi Caputo, RN is Primary Nurse. ca1 14:45 Initial lab(s) drawn, by me, sent to lab. First set of blood cultures drawn by me. ca1 14:48 Chest Single View XRAY In Process Unspecified. EDMS 14:53 Inserted saline lock: 22 gauge in left forearm, using aseptic technique. Blood ca1 collected. 15:00 Flu Sent. ca1 15:00 Strep Sent. ca1 15:01 Arm band placed on right wrist. ca1 15:02 Patient has correct armband on for positive identification. Placed in gown. Bed in low ca1 position. Call light in reach. Side rails up X2. chemical engineering technologist on. Pulse ox on. NIBP on. 17:21 No provider procedures requiring assistance completed. IV discontinued, intact, ca1 bleeding controlled, No redness/swelling at site. Pressure dressing applied. Administered Medications: 15:39 Drug: Tylenol 1000 mg Route: PO; ca1 17:15 Follow up: Response: No adverse reaction; Temperature is decreased ca1 16:19 Drug: NS 0.9% 1000 ml Route: IV; Rate: 1000 ml; Site: left forearm; ca1 17:16 Follow up: Response: No adverse reaction; IV Status: Completed infusion; IV Intake: ca1 1000ml 16:27 Drug: Cipro 500 mg Route: PO; ca1 17:15 Follow up: Response: No adverse reaction ca1 Intake: 17:16 IV: 1000ml; Total: 1000ml. ca1 Outcome: 16:26 Discharge ordered by . kb 17:21 Discharged to home ambulatory. ca1 17:21 Condition: stable 17:21 Discharge instructions given to patient, Instructed on discharge instructions, follow up and referral plans. medication usage, Demonstrated understanding of instructions, follow-up care, medications, Prescriptions given X 1. 17:22 Patient left the ED. ca1 Addendum: 05/13/2020 10:34 Addendum: COVID-19 Result: Negative result given to RN to notify pt. Left voice mail. s v 10:43 Addendum: COVID-19 Result: Negative result given to RN to notify pt. Contacted by: SV. s v Notified pt of negative COVID 19 swab results. Pt advised that even with a negative test result they should remain in isolation until symptom free for 3 days without medication. Pt also advised to return to the ED for worsening symptoms. Signatures: Dispatcher [employer] EDClotilde Jerry, CASHIER CREDIT-C CASHIER CREDIT-Winifred Ashby RN RN dm5 Linda Le RN RN sv Abi Caputo RN RN ca1 Jasiel, Birgit ag5 Corrections: (The following items were deleted from the chart) 05/10 15:08 15:03 BP 126 / 79; Pulse 110bpm; Resp 20bpm; Pulse Ox 100% RA; ca1 ca1
[2020-05-10] MEDS ORDERED: NA CHLORIDE 0.9% 1,000 ML ONE (16:30)
[2020-05-10] MEDS ORDERED: CIPROFLOXACIN HCL 500 MG TAB ONE (16:35)
[2020-05-10 22:25] VITALS: BP 116/65; TEMP 98.5; O2SAT 95
== END 2020-05-10 17:22 | disposition home or self-care (01) ==
LOC: ER 13:15
DX: D70.9 Neutropenia, unspecified (principal); Z20.828 Contact with and (suspected) exposure to other viral communicable diseases; C50.919 Malignant neoplasm of unspecified site of unspecified female breast; I10 Essential (primary) hypertension; Z88.1 Allergy status to other antibiotic agents; Z90.11 Acquired absence of right breast and nipple
CPT/HCPCS: 93005; 87040 ×2; 87070; 85025; 80048; 36415; 82150; 82550; 85610; 82947; 80076; 87081; 83605; 85730; 84484; 82553; 83690; 84145; 87804 ×2; 71045; 96360; 99284; U0002; J7030; 81003; 81015

== ENCOUNTER 2021-08-08 11:52 | Emergency (ER) | payer OTHER ==
--- OUTSIDE RECORDS SUMMARY | 2021-08-08 11:55 | XMS REPORT | Clinical Summary ---
:1965 Author Organization [facility] MD Ryan [facility] Address [address] [place] [address] Care Team Providers Name Role Phone Terrence Eagle MD Unavailable MD Hang Primary Care Provider Allergies Active Allergy Reactions Severity Noted Date Comments Adhesive Other (See Comments) 02/18/2020 redness Latex, Natural Rubber Rash Low 02/18/2020 Medications Medication Sig Dispensed Refills Start Date End Date Status aspirin 81 mg chewable DAILY 0 10/04/2017 Active tablet lisinopriL-hydrochlorot Take 2 tablets by 0 10/05/19 18 Active hiazide mouth every (PRINZIDE,ZESTORETIC) morning. 20-12.5 mg per tablet pantoprazole (PROTONIX) Take 40 mg by 0 10/04/2017 Active 40 mg EC tablet mouth daily. amLODIPine (NORVASC) 10 Take 10 mg by 0 Active mg tablet mouth daily. multivitamin Take 1 tablet by 0 Active (THERAGRAN) tablet mouth daily. traMADol (ULTRAM) 50 mg Take 1 tablet (50 10 tablet 0 02/10/20 20 Active tabletIndications: mg) by mouth Infiltrating duct every 6 (six) carcinoma of upper hours as needed inner quadrant of left for severe pain. female breast Please do not take this until after surgery on 02/18/20. Additional Information Patient not taking. Reason: No longer taking, Informant: Self, Reported on 05/24/2020 busPIRone (BUSPAR) 10 mg tablet Take 10 mg by mouth 2 (two) 0 Active times a day as needed (for anxiety). acetaminophen (TYLENOL) 500 mg Take 500 mg by mouth as 0 Active tablet needed. lidocaine (XYLOCAINE) 2% Apply topically to affected 5 mL 0 03/29/2020 Active jellyIndications: Neoplasm of area(s) every 8 (eight) uncertain behavior of hours as needed for connective tissue of right moderate pain. breast Additional Information Patient not taking. Reason: Not available, Reported on 04/05/2020 ondansetron (Zofran) 8 mg Take 1 tablet (8 mg) 30 tablet Active tabletIndications: Sarcoma of by mouth every 8 central portion of right female (eight) hours as breast needed for nausea or vomiting. prochlorperazine (Compazine) 10 Take 1 tablet (10 mg) 50 tablet 04/17/2020 Active mg tabletIndications: Sarcoma by mouth every 6 of central portion of right (six) hours as needed female breast for nausea or vomiting. sodium chloride-sodium Swish and spit 10 mL 120 g 2019 Active bicarbonate (SALT AND SODA) every 4 (four) hours mouthwashIndications: Sarcoma while awake. of central portion of right Dissolve 2 teaspoon female breast in 1 quart of water. senna-docusate (SENOKOT-S) 8.6 Take 2 tablets by 120 tablet 04/17/2020 Active mg-50 mg tabletIndications: mouth twice daily. Sarcoma of central portion of May adjust dose based right female breast on bowel function. oxyCODONE (Roxicodone) 5 mg Take 1 tablet (5 mg) 60 tablet 0 1 Active immediate release by mouth every 6 tabletIndications: Neoplasm (six) hours as needed related pain (acute) (chronic) for severe pain. Additional Information Patient not taking. Reason: Per patient request, Reported on 05/15/2020 sodium bicarbonate 650 Take 1 tablet (650 120 tablet 3 020 Active mg tabletIndications: mg) by mouth 4 Malignant phyllodes (four) times a tumor of lower outer day. quadrant of right female breast ciprofloxacin HCl Take 500 mg by 0 Active (CIPRO) 500 mg mouth twice daily. tabletIndications: Febrile neutropenia sucralfate (Carafate) 1 Take 1 tablet 120 tablet 5 05/15/2020 Active g tabletIndications: (1,000 mg) by Ulcerative oral mouth 4 (four) mucositis due to times a day. antineoplastic therapy Crush 1 tablet & mix with with 10mL of water. Swish and swallow. potassium chloride Take 1 capsule (10 30 capsule 0 05/15/2020 Active (MICRO-K) 10 mEq CR mEq) by mouth capsuleIndications: twice daily. Hypokalemia sodium chloride (NS) Infuse 10 mL 60 Syringe 6 08/31/2020 Active 0.9% flush syringe 10 intravenously mLIndications: Sarcoma daily. Use 10 mL of central portion of to flush each right female breast lumen of central venous catheter daily as directed. sodium chloride (NS) Infuse 10 mL 60 Syringe 6 06/26/202008/21 Discontinued 0.9% flush syringe 10 intravenously 07/12 (Reorder) mLIndications: Sarcoma daily. Use 10 mL 21 of central portion of to flush each right female breast lumen of central venous catheter daily as directed. Active Problems Problem Noted Date Serum creatinine raised 05/15/2020 Last Assessment & Plan: Creatinine 1.07. Pretreatment baseline 0 .83. During cycle roberta to 1.20. Patient is advised to limit caffeine intake, and maintain adequate hydration. She will receive 2 days of 2L IV hydration. Electrolyte and fluid disorders not elsewhere classifi ed 05/15/2020 Last Assessment & Plan: Hypokalemia - potassium 3.0. Patient kaci l receive IV replacement as well as prescription for KCL. Will recheck labs on tomorrow. Ulcerative oral mucositis due to antineoplastic therap y 05/15/2020 Last Assessment & Plan: Mucositis during the cycle. Patient to s tart carafate tablets for relief. She will continue salt/soda rinses. Doxorubicin changed to bolus plus zinecard. Elevated liver enzymes level 05/15/2020 Last Assessment & Plan: ALT 106, AST 67, improved. Previous MRI abdomen pelvis demonstrated hepatic steatosis. Will obtain hepatitis for evaluation as well. Febrile neutropenia 05/15/2020 Last Assessment & Plan: Fever during cycle on 05/10. Seen at Counts include [facility] beds at the [facility]. Patient to complete ciprofloxacin as prescribed. 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 Yas Fischer is a 55 y.o. 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 Overall C1 was tolerated well al though she did experience mucositis, elevated creatinine, and EC visit due to neutropenic fever. ECOG Performance Status: 0. The clinical and diagnostic information was discussed with the patient. The plan is for Ms. Yas Fischer is to receive IV hydration x 2 days due to elevated creatinine, she will have lab monitoring and plan to proceed with C2 on 05/22. Due to mucositis she will have obed julia doxorubicin plus zinecard. Due to ne phrotoxicity during the cycle she will receive ifosfamide over 5 days. She will have interim laboratory monitoring and return to clinic at end of the cycle for restaging assessment with CT CAP. 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 Per patient, she is nervous today. BP better controlled at home. 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 01/26/2020 Encounters Date Type Specialty Care Team Description 03/20/2021 Documentation Stem Cell Pasquale Molina r Transplant S, RN 10/02/2020 Orders Only Breast Surgical Heaven Bryant, Oncology PA 10/02/2020 Orders Only Radiation Oncology Selina Thakkar PA 08/31/2020 Orders Only Sarcoma [place], Sarcoma of cent ral ARON [place] portion of right female breast 08/17/2020 Clinical Support Infusion Services Tevin Mauricio MD 08/17/2020 Travel after 08/08/2020 Surgical History Surgery Date Site/Laterality Comments TUBAL LIGATION W[place] MASTECTOMY, PARTIAL 02/18/2020 Breast/Left Procedure : Left JOVANY segmental mastec dawn; Surgeon: Tevin Mauricio MD; Location: [facility]; Service: BREAST W[place] INTRAOPERATIVE SENTINEL 02/18/2020 Left Proce dure: INTRAOPERATIVE LYMPH NODE ID W DYE INJECTION LY MPHATIC MAPPING; Surgeon: Tevin Mauricio MD; Location: [facility] ; Service: BREAST W[place] IDENTIFY SENTINEL NODE 02/18/2020 Left Proced ure: ISOTOPE INJECTION FOR SENTINEL NOD E BIOPSY; Surgeon: Tevin Mauricio MD; Location: [facility]; Service: BREAST [place] BX/REMV,LYMPH NODE,DEEP 02/18/2020 Axilla/Left Proce dure: SENTINEL NODE AXILL BIOPSY - AXILLA; Surgeon: Tevin Mauricio MD; Location: [facility] ; Service: BREAST W[place] EXCISE BREAST LES W XRAY 02/18/2020 Breast/Right Proc edure: JOVANY guided MARKER EXCISIONAL BIOPS Y OF RIGHT BREAST LESION; Surgeon: Tevin Mauricio MD; Location: [facility] ; Service: BREAST W[place] MASTECTOMY, SIMPLE, 03/17/2020 Breast/Right Procedure : TOTAL MASTECTOMY; COMPLETE Surgeon: Tevin Mauricio MD; Location: [facility]; Service: BREAST Medical History Medical History Date Comments Hypertension Cancer Gastroesophageal reflux disease Family History Medical History Relation Name Comments Leukemia Paternal Grandfather dx. 80s Breast cancer Neg Hx Cancer Neg Hx Ovarian cancer Neg Hx Relation Name Status Comments Brother 1 Alive Brother 2 Alive Father Alive Maternal Aunt 1 Alive Maternal Aunt 2 Alive Maternal Cousin 1 Alive Maternal Cousin 2 Alive Maternal Cousin 3 Alive Maternal Cousin 4 Alive Maternal Cousin 5 Alive Maternal Grandfather (Age 87) Maternal Grandmother (Age 85) Maternal Uncle 1 Alive Maternal Uncle 2 Alive Maternal Uncle 3 (Age 59) d. heart iss ues Mother Alive Niece/Nephew 1 Alive Niece/Nephew 2 Alive Niece/Nephew 3 Alive Niece/Nephew 4 Alive Other 1 Alive Other 2 Alive Other 3 Alive Other 4 Alive Paternal Grandfather (Age 80s) Paternal Grandmother Alive Sister 1 Alive Sister 2 Alive Son 1 Alive Son 2 Alive Son 3 Alive Son 4 Alive Social History Tobacco Use Types Packs/Day Years Used Date Never Smoker Smokeless Tobacco: Never Used Alcohol Use Standard Drinks/Week Comments Never 0 (1 standard drink = 0.6 oz pure alcoho l) Alcohol Habits Answer Date Recorded How often do you have a drink containing alcohol? Never 01/27/2020 How many drinks containing alcohol do you have on a typical Not asked day when you are drinking? How often do you have six or more drinks on one occasion? No t asked Comment: Not asked Sex Assigned at Date Recorded Not on file Job Start Date Occupation Industry Not on file Not on file Not on file Obstetrics History Para Term AB IAB SAB Ectopic Multiple Living Live Births 5 4 Date Outcome GA Total Labor/2nd/3rd Weight Sex Delivery Anes PTL Rachel A 1 A5 Name Clin Labor Para Para Para Para Comments Age of parity: 20 Age of menarche: 12 OCP: 1 year intermittently HRT: none Fertility treatments: none : none Menopausal status: natural menopause@53y o Bra Size: 36B Last Filed Vital Signs Vital Sign Reading Time Taken Comments Blood Pressure 145/90 08/17/2020 12:05 PM [employer] Pulse 100 08/17/2020 12:05 PM [employer] Temperature 36.9 C (98.5 F) 08/17/2020 12:05 PM [employer] Respiratory Rate 20 08/17/2020 12:05 PM [employer] Oxygen Saturation 96% 08/17/2020 12:05 PM [employer] Inhaled Oxygen Concentration - - Weight - - Height - - Body Mass Index - - Plan of Treatment Health Maintenance Due Date Last Done Comments COVID-19 Vaccination (1) 1977 Results Not on fileafter 08/08/2020 Advance Directives Code Status Date Activated Date Inactivated Comments Full Code 03/17/2020 1:31 PM 03/18/2020 12:38 PM Full Code 02/18/2020 3:28 PM 02/18/2020 7:32 PM Care Teams Software Development Manager Relationship Specialty Start Date End Date Tyree Eagle PCP - External Referring Obstetrics/Gynecology 1989 MD Terrence [address] [place] [id number] Tevin Mauricio MD PCP - General Breast Surgery 01/26/[address] [place] [id number]
--- OUTSIDE RECORDS SUMMARY | 2021-08-08 11:55 | XMS REPORT | Continuity of Care Document ---
:1965 Author Organization [facility] t Address [address] [place] [address] Care Team Providers Name Role Phone [phone] Primary Care Physician Unavailable ANNE-MARIE Attending Clinician Unavailable Tara MORALES Attending Clinician Unavailable SYSTEM, NOT IN Attending Clinician Unavailable Danielito Molina RN Attending Clinician Unavailable Will KELLEY Attending Clinician Unavailable Annette SHARP Attending Clinician Bijan SHARP Attending Clinician Nurse, Surgery Faculty Attending Clinician Unavailable Will Kelley MD Attending Clinician Doctor Unassigned, Name Attending Clinician Unavailable Haven Nicole Attending Clinician Anne-Marie CHRISTENSEN Attending Clinician IVORY Attending Clinician Unavailable ANNETTE Attending Clinician Unavailable HERMAN Attending Clinician Unavailable ANNE-MARIE Admitting Clinician Unavailable Payers Payer Name Policy Type Policy Number Effective Date Expiration Date S ource GENERIC [id number] 2019 00:00:00 MULTIPLAN GENERIC [id number] 2019 00:00:00 Problems Condition Condition Condition Status Onset Resolution Last Treating Co mments Source Name Details Category Date Date Treatment Clinician Date Serum Serum Disease Active 2019-06 Last creatinine creatinine 07-15 Assessmen Valdoo raised raised 00:00: t & Plan: n 00 Formattin g of this note might be different from the original. Creatinin e 1.07. Pretreatm ent baseline 0.83. During cycle roberta to 1.20. Patient is advised to limit caffeine intake, and maintain adequate hydration . She will receive 2 days of 2L IV hydration . Electrolyt Electrolyt Disease Active 2019-06 Last M D e and e and 07-15 Assessmen Stephanie fluid fluid 00:00: t & Plan: n disorders disorders 00 Formattin not not g of this elsewhere elsewhere note classified classified might be different from the original. Hypokalem ia - potassium 3.0. Patient will receive IV replaceme nt as well as prescript ion for KCL. Will recheck labs on tomorrow. Ulcerative Ulcerative Disease Active 2019-06 Last M D oral oral 07-15 Assessmen Andtariqo mucositis mucositis 00:00: t & Plan: n due to due to 00 Formattin antineopla antineopla g of this stic stic note therapy therapy might be different from the original. Mucositis during the cycle. Patient to start carafate tablets for relief. She will continue salt/soda rinses. Doxorubic in changed to bolus plus zinecard. Elevated Elevated Disease Active 2019-06 Last liver liver 07-15 Assesssean Bronw enzymes enzymes 00:00: t & Plan: n level level 00 Formattin g of this note might be different from the original. ALT 106, AST 67, improved. Previous MRI abdomen pelvis demonstra filiberto hepatic steatosis . Will obtain hepatitis for evaluatio n as well. Febrile Febrile Disease Active 2019-06 Last neutropeni neutropeni 07-15 Assesssean Brown a a 00:00: t & Plan: n 00 Formattin g of this note might be different from the original. Fever during cycle on 05/10. Seen at local EC. Patient to complete ciproflox acin as prescribe d. Malignant Malignant Disease Active Last phyllodes phyllodes 03-13 Assessmen A nderso tumor of tumor of 00:00: t & Plan: n lower lower 00 Formattin outer outer g of this quadrant quadrant note is of right of right different female female from the breast breast original. Ms. Yas Grace is a 55 y.o. 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 Overall C1 was tolerated well although she did experienc e mucositis , elevated creatinin e, and EC visit due to neutropen ic fever. ECOG Performan ce Status: 0. The clinical and diagnosti c informati on was discussed with the patient. The plan is for Ms. Yas Grace is to receive IV hydration x 2 days due to elevated creatinin e, she will have lab monitorin g and plan to proceed with C2 on 05/22. Due to mucositis she will have bolus doxorubic in plus zinecard. Due to nephrotox icity during the cycle she will receive ifosfamid e over 5 days. She will have interim laborator y monitorin g and return to clinic at end of the cycle for restaging assessmen t with CT CAP. 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 BP 149/94 today, on Norvasc and Lisinopri l. Per patient, she is nervous today. BP better controlle d at home. Anxiety Anxiety Disease Active MD 8-10 Anderso 00:00: n 00 Infiltrati Infiltrati Disease [...] of tissue of right right breast breast No known No known Disease Unive rs active active ity of problems problems [facility] Allergies, Adverse Reactions, Alerts Allergy Allergy Status Severity Reaction(s) Onset Inactive Treating Comm ents Source Name Type Date Date Clinician Adhesive Drug Active Other - See redness Un katie Allergy comments 02-17 ity of 00:00: [address] Latex, Drug Active Rash Univers Natural Intolera 02-17 ity of Rubber nce 00:00: [address] ADHESIVE Drug Active Other-Cmnt Univ ers Class 02-17 ity of 00:00: [address] LATEX, Drug Active Low Rash Univers NATURAL Class 8-28 ity of RUBBER 00:00: [address] NO KNOWN Drug Active Univers ALLERGIE Class ity of S [facility] Family History Family Member Diagnosis Comments Start Date Stop Date Source Family member Breast cancer MD Ryan son Family member Cancer MD Guerra Family member Ovarian cancer MD Villalobos rsnoemi Paternal grandfather Leukemia MD Malini ray Social History Social Habit Start Date Stop Date Quantity Comments Source History [facility] MD Guerra Alcohol Std Drinks History [facility] MD Guerra Alcohol Binge History [facility] MD Guerra Alcohol Comment Exposure to Not sure University SARS-CoV-2 [facility] (event) Priddy Alcohol intake 2020-04-17 2020-04-17 Lifetime MD Brown n 00:00:00 00:00:00 non-drinker (finding) Tobacco use and 2020-01-27 2020-01-27 Smokeless tobacco MD Guerra exposure 00:00:00 00:00:00 non-user History [facility] 2020-01-27 2020-01-27 1 MD Guerra Alcohol Frequency 00:00:00 00:00:00 [birth year] MD Lyle on 00:00:00 00:00:00 Smoking Status Start Date Stop Date Source Unknown [facility] Never smoked tobacco MD Guerra Medications Ordered Filled Start Stop Current Ordering Indication Dosage Frequency Signature Comments Components Source Medication Medication Date Date Medication? Clinician (SIG) Name Name pantoprazol Yes 20mg Take 20 mg Univers e 3-16 by mouth ity of (PROTONIX) 18:35: daily. [place] 20 mg EC 19 Medical tablet Branch BABY Yes Take by Univers ASPIRIN 3-16 mouth. ity of ORAL 18:35: [address] pantoprazol Yes 20mg Take 20 mg Univers e 3-16 by mouth ity of (PROTONIX) 18:35: daily. [place] 20 mg EC 19 Medical tablet Branch BABY Yes Take by Univers ASPIRIN 3-16 mouth. ity of ORAL 18:35: [place] [facility] busPIRone Yes 10mg Take 10 mg Un katie 10 mg 3-16 by mouth. ity of tablet 18:27: [address] amLODIPine Yes 10mg Take 10 mg U nivers 10 mg 3-16 by mouth. ity of tablet 18:27: [address] multivitami Yes 1{tbl} Take 1 Un katie n tablet 3-16 tablet by ity of 18:27: mouth. [address] busPIRone Yes 10mg Take 10 mg Un katie 10 mg 3-16 by mouth. ity of tablet 18:27: [address] amLODIPine Yes 10mg Take 10 mg U nivers 10 mg 3-16 by mouth. ity of tablet 18:27: [address] multivitami Yes 1{tbl} Take 1 Un katie n tablet 3-16 tablet by ity of 18:27: mouth. [address] sodium Yes Sarcoma of Infuse 10 MD chloride 3-11 central mL Anderso (NS) 0.9% 00:00: portion of intravenou n flush 00 right sly daily. syringe 10 female Use 10 mL mL breast to flush each lumen of central venous catheter daily as directed. sodium Sarcoma of Infuse 10 MD chloride 1-04 03-11 central mL Anderso (NS) 0.9% 00:00: 00:00 portion of intravenou n flush 00 :00 right sly daily. syringe 10 female Use 10 mL mL breast to flush each lumen of central venous catheter daily as directed. amLODIPine 2019-06 Yes 10mg Take 10 mg M D (NORVASC) 2-02 by mouth Valdo o 10 mg 09:43: daily. n tablet 19 multivitami 2019-06 Yes 1{tbl} Take 1 MD n 2-02 tablet by Anderso (THERAGRAN) 09:43: mouth n tablet 19 daily. busPIRone 2019-06 Yes 10mg Take 10 mg MD (BUSPAR) 10 2-02 by mouth 2 An derso mg tablet 09:43: (two) n 19 times a day as needed (for anxiety). acetaminoph 2019-06 Yes 500mg Take 500 M D en 2-02 mg by Anderso (TYLENOL) 09:43: mouth as n 500 mg 19 needed. tablet ciprofloxac 2019-06 Yes Febrile 500mg Take 500 MD in HCl 2-02 neutropenia mg by Connor so (CIPRO) 500 09:43: mouth n mg tablet 19 twice daily. sucralfate 2019-06 Yes Ulcerative 1000mg Take 1 MD (Carafate) 1-23 oral tablet Anderso 1 g tablet 00:00: mucositis (1,000 mg) n 00 due to by mouth 4 antineoplas (four) tic therapy times a day. Crush 1 tablet & mix with with 10mL of water. Swish and swallow. potassium 2019-06 Yes Hypokalemia 10meq Take 1 MD chloride 1-23 capsule Anderso (MICRO-K) 00:00: (10 mEq) n 10 mEq CR 00 by mouth capsule twice daily. sodium 2019-06 Yes Malignant 650mg Take 1 MD bicarbonate 1-17 phyllodes tablet A nderso 650 mg 00:00: tumor of (650 mg) n tablet 00 lower outer by mouth 4 quadrant of (four) right times a female day. breast ondansetron 2019-06 Yes Sarcoma of 8mg Take [...] 2 teaspoon in 1 quart of water. senna-docus 2019-06 Yes Sarcoma of 2{tbl} Take [...] (six) hours as needed for severe pain. sennosides- 2019-06 Yes 2{tbl} Take 2 Un katie docusate 0-26 tablets by ity o f sodium 00:00: mouth. [place] 8.6-50 mg 00 Medical per tablet Branch sennosides- 2019-06 Yes 2{tbl} Take 2 Un katie docusate 0-26 tablets by ity o f sodium 00:00: mouth. [place] 8.6-50 mg 00 Medical per tablet Branch lidocaine 2019-06 Yes Neoplasm of Apply MD [...] until after surgery on 02/18/20. aspirin 81 2017-0 Yes DAILY MD mg chewable 4-14 Anderso [...] Name Observation Time Observation Value Comments Source Body height 2020-09-22 18:37:00 165.1 cm [facility] Body weight 2020-09-22 18:37:00 84.278 kg [facility] BMI 2020-09-22 18:37:00 30.92 kg/m2 [facility] HEIGHT 2020-01-27 10:48:00 154 cm WEIGHT 2020-01-27 10:48:00 82.1 kg Systolic blood 2020-08-17 18:05:00 145 mm[Hg] MD And erson pressure Diastolic blood 2020-08-17 18:05:00 90 mm[Hg] MD Nguyen derson pressure Heart rate 2020-08-17 18:05:00 100 /min MD Ryan son Body temperature 2020-08-17 18:05:00 36.94 Zahra MD Malini [place]on Respiratory rate 2020-08-17 18:05:00 20 /min MD Malini cov[place]on Oxygen saturation in 2020-08-17 18:05:00 96 /min MD Guerra Arterial blood by Pulse oximetry Procedures Procedure Date / Time Performed Performing Clinician Sourc e CONSENT/REFUSAL FOR 2020-09-05 18:06:24 Doctor Unassigned, No Un [facility] DIAGNOSIS AND Name [facility] TREATMENT Plan of Care Planned Activity Planned Date Details Comments Source Future Scheduled Test 1977 00:00:00 COVID-19 Vaccination MD Guerra (1) [code = COVID-19 Vaccination (1)] Encounters Start End Encounter Admission Attending Care Care Encounter Source Date/Time Date/Time Type Type Clinicians Facility Department ID 2020-02-07 Outpatient WADE XIE Breast Kwadwo [id number] 12:19:36 NAVEED hansen 2020-02-02 Outpatient EL MORALES, WADE OLVERA [id number] 13:19:19 ESTHER hansen 2020-01-21 Outpatient SYSTEM, WADE OLVERA [id number] 16:39:13 PROVIDER Valdo hansen 2021-02-13 2021-02-13 Outpatient Rosetta KELLEY [facility] [id number] Univers 13:00:00 13:00:00 [id number] 2021-02-13 Outpatient Rosetta KELLEY [facility] [id number] Univers 13:00:00 13:00:00 ADNA [facility] 2020-09-29 2020-09-29 Nurse Nurse, [facility] Surgery Faculty [facility] [id number] Univers 10:02:54 10:21:25 [id number] Gentry Snatos [id number] [address] 2020-09-29 2020-09-29 Outpatient R [facility] [id number] Univers 08:00:00 08:00:00 [id number] ity [facility] 2020-09-29 2020-09-29 Outpatient R WARREN [facility] [id number] Univers 08:00:00 08:00:00 DANA itamalia [facility] 2020-09-22 2020-09-22 Nurse Nurse, [facility] Surgery Faculty [facility] [id number] Univers 13:30:06 14:03:57 Visit Dana Kelley [id number] ity [facility] [id number] [id number] dical nal [address] [place] [address] 2020-09-22 2020-09-22 Outpatient R [facility] [id number] Univers 14:00:00 14:00:00 [id number] ity [facility] 2020-09-22 2020-09-22 Outpatient R [facility] [id number] Univers 14:00:00 14:00:00 ity [facility] 2020-09-05 2020-09-05 [facility] [id number] Univers 13:30:00 13:30:00 DANA [facility] 2020-09-05 2020-09-05 Orders Doctor BOYKIN [id number] Univers 00:00:00 00:00:00 Only Unassigned, ESTHELA [id number] ity of [facility] [id number] Michael as [id number] [address] 2020-03-02 2020-03-02 Outpatient BIA DODSON MDA MDA [id number] 00:00:00 00:00:00 KUSH hansen 2020-02-17 2020-02-17 Outpatient BIA GALAN MDA MDA [id number] 00:00:00 00:00:00 DESTINI hansen 2020-02-17 2020-02-17 Outpatient BIA GALAN MDA MDA [id number] 00:00:00 00:00:00 DESTINI hansen 2020-02-17 2020-02-17 Outpatient EL ANNETTE, MDA MDA [id number] MD 00:00:00 00:00:00 DESTINI Connorpamela hansen 2020-02-17 2020-02-17 Outpatient EL ANNETTE, MDA MDA [id number] MD 00:00:00 00:00:00 DESTININI Currypamela hansen 2020-02-17 2020-02-17 Outpatient EL ANNETTE, MDA MDA [id number] MD 00:00:00 00:00:00 DESTINI hansen 2020-02-16 2020-02-16 Outpatient EL HERMAN, MDA MDA [id number] MD 00:00:00 00:00:00 CLARE hansen 2020-02-10 2020-02-10 Outpatient EL ANNE-MARIE, MDA MDA [id number] MD 00:00:00 00:00:00 NAVEED Lyle o jade 2020-02-10 2020-02-10 Outpatient EL ANNE-MARIE, MDA MDA [id number] MD 00:00:00 00:00:00 NAVEDE Lyle o jade 2020-02-02 2020-02-02 Outpatient HERMAN, MDA MDA [id number] MD 00:00:00 00:00:00 CLARE hansen 2020-01-28 2020-01-28 Outpatient EL ANNETTE, MDA MDA [id number] MD 13:00:16 13:00:16 DESTINI hansen 2020-01-27 2020-01-27 Outpatient EL ANNE-MARIE, MDA MDA [id number] MD 10:35:15 12:08:54 NAVEED Lyle o jade 2020-01-27 2020-01-27 Outpatient EL MDA MDA [id number] MD 10:31:52 10:32:00 Valdo hansen 2020-01-26 2020-01-26 Outpatient EL MDA MDA [id number] MD 12:35:52 12:35:52 Valdo hansen 2020-01-26 2020-01-26 Outpatient EL MIGGINS, MDA MDA [id number] MD 12:31:31 12:31:31 NAVEED Lyle o jade 2020-01-26 2020-01-26 Outpatient EL KOLEGINS, MDA MDA [id number] MD 12:31:27 12:31:27 NAVEED hansen 2020-01-26 2020-01-26 Outpatient EL MIGCORNELLS, MDA MDA [id number] 12:31:19 12:31:19 NAVEED hansen 2020-01-26 2020-01-26 Outpatient EL MIGCORNELLS, MDA MDA [id number] 12:31:13 12:31:13 NAVEED hansen 2020-01-26 2020-01-26 Outpatient EL MDA MDA [id number] 11:32:56 11:32:56 Valdo hansen 2020-01-26 2020-01-26 Outpatient EL MDA MDA [id number] 11:32:31 11:32:39 Valdo hansen 2020-01-26 2020-01-26 Outpatient EL MDA MDA [id number] 00:00:00 00:00:00 Valdo hansen 2020-01-24 2020-01-24 Outpatient EL MDA MDA [id number] MD 18:16:51 18:16:51 Valdo hansen Results This patient has no known results.
--- NOTE | 2021-08-08 14:11 | RAD REPORT ---
EXAM DESCRIPTION: RAD - Chest Single View - 08/08/2021 2:02 pm CLINICAL HISTORY: CHEST PAIN COMPARISON: Chest Single View dated 05/10/2020; Chest Single View dated 05/01/2020; Chest Pa And Lat (2 Views) dated 07/04/2019; Chest Single View dated 04/09/2019; C Spine Wo Con dated 08/08/2021 FINDINGS: Lines: None. Lungs: No evidence of edema or pneumonia. Pleural: No significant pleural effusions or pneumothorax. Cardiac: Mild cardiomegaly. Bones: No acute fractures. Surgical clips in the left axilla. Other: IMPRESSION: No acute cardiopulmonary disease.
--- NOTE | 2021-08-08 14:12 | RAD REPORT ---
EXAM DESCRIPTION: CT - C Spine Wo Con - 08/08/2021 2:04 pm CLINICAL HISTORY: PAIN COMPARISON: No comparisons TECHNIQUE CT Scan was obtained of the cervical spine without contrast. Reformats were provided in th e sagittal and coronal plane. FINDINGS: No acute fracture of the cervical spine. No traumatic malalignment. No prevertebral edema. Mild to moderate degenerative changes are present at C4-5 secondary to disc height loss and uncovert ebral joint hypertrophy. Mild neural foraminal narrowing is noted. No central spinal stenosis is appr eciated. No suspicious thyroid nodules or lymphadenopathy. The lung apices are clear. IMPRESSION: No fracture or traumatic malalignment of the cervical spine.
[2021-08-08] MEDS ORDERED: methocarbamoL 500 MG TAB ONE (14:13)
[2021-08-08] MEDS ORDERED: KETOROLAC 30 MG/ML INJ ONE (14:14)
[2021-08-08] MEDS ORDERED: TRAMADOL HCL 50 MG TAB ONE (14:14)
[2021-08-08 14:29] LABS: Protime INR 0.99
[2021-08-08 14:35] LABS: Absolute Lymphocytes (CBC) 1.6 K/uL (0.7-4.9); Hematocrit 44.8 % (36.0-45.0); Lymphocytes % 17.5 % (15.3-44.8); MPV 8.2 fL (7.6-11.3); RBC Red Blood Cell Count 5.12 M/uL (3.86-4.86)
[2021-08-08 14:56] LABS: Albumin 3.9 g/dL (3.4-5.0); Bilirubin Direct 0.1 mg/dL (0-0.2); Bilirubin Total 0.4 mg/dL (0.2-1.0); Magnesium 2.2 mg/dL (1.8-2.4); Potassium 3.5 mmol/L (3.5-5.1); Protein, Total 8.4 g/dL (6.4-8.2)
--- NOTE | 2021-08-08 16:46 | EDPHYS ---
Physician Documentation [facility] Name: Yas Fischer Age: 56 yrs Sex: Female : 1965 Arrival Date: 08/08/2021 Time: 11:53 Bed 11 Private MD: ED Physician Pasquale Jackson HPI: 08/09 12:17 This 56 yrs old Female presents to ER via Ambulatory with complaints of Chest kdr Pain. 12:17 The patient or guardian reports chest pain that is located primarily in the anterior kdr chest wall, left. Onset: suddenly, Last few days. The pain radiates to the left shoulder. Associated signs and symptoms: Pertinent positives: Pertinent negatives: abdominal pain, cough, diaphoresis, dizziness, headache, lower extremity pain, lightheadedness, nausea, near syncope, palpitations. The chest pain is described as aching, dull. Duration: The patient or guardian reports a single episode, that is still ongoing, The patient or guardian reports multiple episodes, that are intermittent, that wax and wane, with no pattern. Severity of pain: At its worst the pain was mild moderate in the emergency department the pain is unchanged. The patient has experienced similar episodes in the past, several times. The patient has not recently seen a physician. Patient states that they have been having chest pain since yesterday. She thought it may have been related to lifting her who has ALS. Unfortunately the pain has become worse with movement and breathing. Patient has recently finished treatment for bilateral breast cancer with right breast mastectomy. She also has reconstructive surgery. She denies any other associated symptoms. Historical: - Allergies: 08/08 12:13 Amoxicillin; jg9 - PMHx: 12:13 Anxiety; Hypertension; right breast cancer; jg9 - Immunization history:: Client reports having NOT received the Covid vaccine. - Social history:: Smoking status: Patient denies any tobacco usage or history of. ROS: 08/09 12:17 Constitutional: Negative for fever, chills, and weight loss, Eyes: Negative for injury, kdr pain, redness, and discharge, Neck: Negative for injury, pain, and swelling, Respiratory: Negative for shortness of breath, cough, wheezing, and pleuritic chest pain, Abdomen/GI: Negative for abdominal pain, nausea, vomiting, diarrhea, and constipation, Back: Negative for injury and pain, : Negative for injury, bleeding, discharge, and swelling, MS/Extremity: Negative for injury and deformity, Skin: Negative for injury, rash, and discoloration, Neuro: Negative for headache, weakness, numbness, tingling, and seizure activity. Psych: Negative for depression, anxiety, suicide ideation, homicidal ideation, and hallucinations, Allergy/Immunology: Negative for hives, rash, and allergies, Endocrine: Negative for neck swelling, polydipsia, polyuria, polyphagia, and marked weight changes, Hematologic/Lymphatic: Negative for swollen nodes, abnormal bleeding, and unusual bruising. Cardiovascular: Positive for chest pain, Negative for edema, orthopnea, palpitations, paroxysmal nocturnal dyspnea. Exam: 12:17 Constitutional: This is a well developed, well nourished patient who is awake, alert, kdr and in no acute distress. Head/Face: Normocephalic, atraumatic. Eyes: Pupils equal round and reactive to light, extra-ocular motions intact. Lids and lashes normal. Conjunctiva and sclera are non-icteric and not injected. Cornea within normal limits. Periorbital areas with no swelling, redness, or edema. Neck: Trachea midline, no thyromegaly or masses palpated, and no cervical lymphadenopathy. Supple, full range of motion without nuchal rigidity, or vertebral point tenderness. No Meningismus. Cardiovascular: Regular rate and rhythm with a normal S1 and S2. No gallops, murmurs, or rubs. Normal PMI, no JVD. No pulse deficits. Respiratory: Lungs have equal breath sounds bilaterally, clear to auscultation and percussion. No rales, rhonchi or wheezes noted. No increased work of breathing, no retractions or nasal flaring. Abdomen/GI: Soft, non-tender, with normal bowel sounds. No distension or tympany. No guarding or rebound. No evidence of tenderness throughout. Back: No spinal tenderness. No costovertebral tenderness. Full range of motion. Skin: Warm, dry with normal turgor. Normal color with no rashes, no lesions, and no evidence of cellulitis. MS/ Extremity: Pulses equal, no cyanosis. Neurovascular intact. Full, normal range of motion. Neuro: Awake and alert, GCS 15, oriented to person, place, time, and situation. Cranial nerves II-XII grossly intact. Motor strength 5/5 in all extremities. Sensory grossly intact. Cerebellar exam normal. Normal gait. Psych: Awake, alert, with orientation to person, place and time. Behavior, mood, and affect are within normal limits. 12:17 Chest/axilla: Inspection: normal, Palpation: tenderness, that is mild, of the right lateral posterior chest and right lateral anterior chest. Vital Signs: 08/08 12:05 BP 149 / 101; Pulse 108; Resp 17 S; Temp 98.3(O); Pulse Ox 100% ; Weight 72.57 kg (R); jg9 Height 5 ft. 0 in. (152.40 cm) (R); 14:51 BP 136 / 94; Pulse 99; Resp 16; Pulse Ox 97% on R/A; ab2 16:54 BP 127 / 79; Pulse 94; Resp 16; Pulse Ox 99% on R/A; ab2 12:05 Body Mass Index 31.25 (72.57 kg, 152.40 cm) jg9 MDM: 16:46 Patient medically screened. [facility] 08/09 12:17 Data reviewed: vital signs, nurses notes, old medical records, lab test result(s), EKG, kdr radiologic studies. Counseling: I had a detailed discussion with the patient and/or guardian regarding: the historical points, exam findings, and any diagnostic results supporting the discharge/admit diagnosis, lab results, radiology results, the need for outpatient follow up. 08/08 12:43 Order name: Basic Metabolic Panel; Complete Time: 16:40 kdr 08/08 12:43 Order name: CBC with Diff; Complete Time: 16:40 kdr 08/08 12:43 Order name: LFT's; Complete Time: 16:40 kdr 08/08 12:43 Order name: Magnesium; Complete Time: 16:40 kdr 08/08 12:43 Order name: NT PRO-BNP; Complete Time: 16:40 kdr 08/08 12:43 Order name: PT-INR; Complete Time: 16:40 kdr 08/08 12:16 Order name: EKG - Nurse/Tech; Complete Time: 12:16 jg9 08/08 12:42 Order name: EKG; Complete Time: 12:43 cp 08/08 12:43 Order name: Troponin HS; Complete Time: 16:40 kdr 08/08 12:43 Order name: XRAY Chest (1 view); Complete Time: 16:40 [facility] 08/08 13:25 Order name: CT C Spine; Complete Time: 16:40 [facility] 08/08 12:43 Order name: Cardiac monitoring; Complete Time: 13:04 [facility] 08/08 12:43 Order name: IV Saline Lock; Complete Time: 13:04 [facility] 08/08 12:43 Order name: Labs collected and sent; Complete Time: 13:04 [facility] 08/08 12:43 Order name: O2 Per Protocol; Complete Time: 13:04 [facility] 08/08 12:43 Order name: O2 Sat Monitoring; Complete Time: 13:04 kdr Administered Medications: 08/08 14:18 Drug: Ketorolac 15 mg Route: IVP; Site: right hand; ab2 14:18 Drug: traMADol 50 mg Route: PO; ab2 14:18 Drug: Robaxin (methocarbamol) 750 mg Route: PO; ab2 Disposition Summary: 08/08/21 16:46 Discharge Ordered Location: Home kdr Problem: new kdr Symptoms: have improved kdr Condition: Stable kdr Diagnosis - Chest pain, unspecified kdr - Unspecified symptoms and signs involving the musculoskeletal system kdr - Left lateral neck pain kdr - Cervical disc disorder with radiculopathy kdr Followup: kdr - With: Private Physician - When: 2 - 3 days - Reason: If symptoms return, Further diagnostic work-up, Recheck today's complaints, Continuance of care, Re-evaluation by your physician Discharge Instructions: - Discharge Summary Sheet kdr - Chest Wall Pain, [id number] kdr - Nonspecific Chest Pain, Adult, [id number] kdr - Cervical Radiculopathy, [id number] kdr Forms: - Medication Reconciliation Form kdr - Thank You Letter kdr - Prescription Opioid Use kdr Prescriptions: - Ibuprofen 600 mg Oral Tablet - take 1 tablet by ORAL route every 6 hours As needed take with food; 30 tablet; kdr Refills: 0, Product Selection Permitted - Cyclobenzaprine 10 mg Oral Tablet - take 1 tablet by ORAL route every 8 hours As needed; 15 tablet; Refills: 0, kdr Product Selection Permitted - Tramadol 50 mg Oral Tablet - take 1 tablet by ORAL route every 8 hours as needed; 12 tablet; Refills: 0, kdr Product Selection Permitted - Medrol (Db) 4 mg Oral Tablets, Dose Pack - take 1 tablet by ORAL route as directed - follow package instructions; 1 kdr packet; Refills: 0, Product Selection Permitted Signatures: Dispatcher [employer] EDMS Pasquale Jackson MD MD kdr Heaven Peralta RN RN jg9 Lloyd Powers ab2 Corrections: (The following items were deleted from the chart) 12:14 12:13 Social history: Smoking status: Patient/guardian denies using tobacco, jg9 jg9 13:45 12:44 BASIC METABOLIC PANEL+C.LAB.BRZ ordered. EDMS EDMS 13:45 12:44 CBC+H.LAB.BRZ ordered. EDMS EDMS 13:45 12:44 HEPATIC FUNCTION+C.LAB.BRZ ordered. EDMS EDMS 13:45 12:44 MAGNESIUM+C.LAB.BRZ ordered. EDMS EDMS 13:45 12:44 PROBNP+C.LAB.BRZ ordered. EDMS EDMS 13:45 12:44 PROTIME (+INR)+COAG.LAB.BRZ ordered. EDMS EDMS 13:45 12:44 Troponin High Sensitivity+C.LAB.BRZ ordered. EDMS EDMS
--- NOTE | 2021-08-08 16:46 | ER ---
Nurse's Notes [facility] Name: Yas Fischer Age: 56 yrs Sex: Female : 1965 Arrival Date: 08/08/2021 Time: 11:53 Bed 11 Private MD: Diagnosis: Chest pain, unspecified;Unspecified symptoms and signs involving the musculoskeletal system;Left lateral neck pain;Cervical disc disorder with radiculopathy Presentation: 08/08 12:05 Chief complaint: Patient states: I started having chest pain yesterday but I thought it jg9 may have been related to me lifting and moving my who has ALS, pain is worse with movement and breathing, patient recently finished [place] for bilateral breast CA with r breast mastectomy-denied any other symptoms. Coronavirus screen: Vaccine status: Patient reports being unvaccinated. Ebola Screen: Patient negative for fever greater than or equal to 101.5 degrees Fahrenheit, and additional compatible Ebola Virus Disease symptoms Patient denies exposure to infectious person. Patient denies travel to an Ebola-affected area in the 21 days before illness onset. Initial Sepsis Screen: Does the patient meet any 2 criteria? HR > 90 bpm. Yes Does the patient have a suspected source of infection? No. Patient's initial sepsis screen is negative. Risk Assessment: Do you want to hurt yourself or someone else? Patient reports no desire to harm self or others. 12:05 Method Of Arrival: Ambulatory jg9 12:05 Acuity: STARLA 3 jg9 Triage Assessment: 12:14 General: Appears uncomfortable, Behavior is anxious. Pain: Complains of pain in chest. jg9 Cardiovascular: Reports chest pain, shortness of breath. Historical: - Allergies: 12:13 Amoxicillin; jg9 - PMHx: 12:13 Anxiety; Hypertension; right breast cancer; jg9 - Immunization history:: Client reports having NOT received the Covid vaccine. - Social history:: Smoking status: Patient denies any tobacco usage or history of. Screenin:14 Abuse screen: Denies threats or abuse. Denies injuries from another. Nutritional jg9 screening: No deficits noted. Tuberculosis screening: No symptoms or risk factors identified. Fall Risk None identified. Assessment: 13:45 General: Appears in no apparent distress. comfortable, Behavior is calm, cooperative, ab2 appropriate for age. Pain: Complains of pain in left clavicle and anterior aspect of left upper chest Pain does not radiate. Pain currently is 6 out of 10 on a pain scale. Pain began 1 day ago. Neuro: No deficits noted. Level of Consciousness is awake, alert, obeys commands, Oriented to person, place, time, situation, Appropriate for age Marine Water Tender are equal bilaterally Moves all extremities. Gait is steady, Speech is normal. Cardiovascular: No deficits noted. Reports Denies shortness of breath, Heart tones S1 S2 present Patient's skin is warm and dry. Rhythm is sinus rhythm. Respiratory: No deficits noted. Airway is patent Respiratory effort is even, unlabored, Respiratory pattern is regular, symmetrical. GI: No deficits noted. No signs and/or symptoms were reported involving the gastrointestinal system. Abdomen is round non-distended. : No deficits noted. No signs and/or symptoms were reported regarding the genitourinary system. EENT: No deficits noted. No signs and/or symptoms were reported regarding the EENT system. Derm: No deficits noted. No signs and/or symptoms reported regarding the dermatologic system. Skin is intact, is healthy with good turgor. Musculoskeletal: Reports pain in left clavicle and anterior aspect of left upper chest. 14:52 Reassessment: Patient appears in no apparent distress at this time. Pt states the pain ab2 medication seemed to really help a lot. Awaiting results for disposition Patient states feeling better. Patient states symptoms have improved. Vital Signs: 12:05 BP 149 / 101; Pulse 108; Resp 17 S; Temp 98.3(O); Pulse Ox 100% ; Weight 72.57 kg (R); jg9 Height 5 ft. 0 in. (152.40 cm) (R); 14:51 BP 136 / 94; Pulse 99; Resp 16; Pulse Ox 97% on R/A; ab2 16:54 BP 127 / 79; Pulse 94; Resp 16; Pulse Ox 99% on R/A; ab2 12:05 Body Mass Index 31.25 (72.57 kg, 152.40 cm) jg9 ED Course: 11:53 Patient arrived in ED. mr 12:13 Triage completed. jg9 12:14 Arm band placed on right wrist. jg9 12:43 Pasquale Jackson MD is Attending Physician. kdr 13:04 Lloyd Powers is Primary Nurse. ab2 13:46 No provider procedures requiring assistance completed. Missed attempt(s): 22 gauge in ab2 right hand. Patient maintains SpO2 saturation greater than 95% on room air. 13:47 Patient has correct armband on for positive identification. Bed in low position. Call ab2 light in reach. Side rails up X2. account planner on. Pulse ox on. NIBP on. 14:02 XRAY Chest (1 view) In Process Unspecified. EDMS 14:03 CT C Spine In Process Unspecified. EDMS 16:55 Patient did not have IV access during this emergency room visit. ab2 Administered Medications: 14:18 Drug: Ketorolac 15 mg Route: IVP; Site: right hand; ab2 14:18 Drug: traMADol 50 mg Route: PO; ab2 14:18 Drug: Robaxin (methocarbamol) 750 mg Route: PO; ab2 Outcome: 16:46 Discharge ordered by MD. kdr 16:55 Discharged to home ambulatory. ab2 16:55 Condition: good 16:55 Discharge instructions given to patient, Instructed on discharge instructions, follow up and referral plans. medication usage, Demonstrated understanding of instructions, follow-up care, medications, Prescriptions given X 4. 16:55 Patient left the ED. ab2 Signatures: Dispatcher [employer] EDMS Pasquale Jackson MD MD kdr Rivera, Malinda mr PeraltaHeaven, RN RN jg9 Lloyd Powers ab2 Corrections: (The following items were deleted from the chart) 12:14 12:13 Social history: Smoking status: Patient/guardian denies using tobacco, jg9 jg9 13:45 13:05 Troponin High Sensitivity+C.LAB.BRZ drawn and sent. ab2 EDMS 13:45 13:05 PROTIME (+INR)+COAG.LAB.BRZ drawn and sent. ab2 EDMS 13:45 13:05 PROBNP+C.LAB.BRZ drawn and sent. ab2 EDMS 13:45 13:05 MAGNESIUM+C.LAB.BRZ drawn and sent. ab2 EDMS 13:45 13:05 HEPATIC FUNCTION+C.LAB.BRZ drawn and sent. ab2 EDMS 13:45 13:05 CBC+H.LAB.BRZ drawn and sent. ab2 EDMS 13:45 13:05 BASIC METABOLIC PANEL+C.LAB.BRZ drawn and sent. ab2 EDMS
[2021-08-08 17:09] VITALS: TEMP 98.3
[2021-08-08 17:11] VITALS: BP 127/79; O2SAT 99
== END 2021-08-08 16:55 | disposition home or self-care (01) ==
LOC: ER 11:52
DX: R07.9 Chest pain, unspecified (principal); R29.898 Other symptoms and signs involving the musculoskeletal system; M50.10 Cervical disc disorder with radiculopathy, unspecified cervical region; I10 Essential (primary) hypertension; Z88.1 Allergy status to other antibiotic agents
CPT/HCPCS: 36415; 71045; 72125; 80048; 80076; 83735; 83880; 84484; 85025; 85610; 93005; 96374; 99285

== ENCOUNTER 2021-09-30 07:57 | Emergency (ER) | payer OTHER, SELFPAY ==
--- OUTSIDE RECORDS SUMMARY | 2021-09-30 08:32 | XMS REPORT | Clinical Summary ---
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 neutropenia sucralfate (Carafate) 1 g Take 1 tablet (1,000 120 tablet 5 Active tabletIndications: Ulcerative mg) by mouth 4 (four) oral mucositis due to times a day. Crush 1 antineoplastic therapy tablet & mix with with 10mL of water. Swish and swallow. potassium chloride (MICRO-K) Take 1 capsule (10 mEq) 30 capsule 0 05/15/2020 Active 10 mEq CR capsuleIndications: by mouth twice daily. Hypokalemia sodium chloride (NS) 0.9% Infuse 10 mL 60 Syringe 6 08/31/2020 Active flush syringe 10 intravenously daily. mLIndications: Sar[place] of Use 10 mL to flush each central portion of right lumen of central venous female breast catheter daily as directed. Active Problems Problem [...] Fever during cycle on 05/10. Seen at [facility]. Patient to complete ciprofloxacin as prescribed. Malignant [...] Care Team Description 03/20/2021 Documentation Stem Cell Transplant Pasquale Molina RN LDA cutover 10/02/2020 Orders Only Breast Surgical Oncology Heaven Bryant PA 10/02/2020 Orders Only Radiation Oncology Selina Thakkar PA after 09/30/2020 Surgical History Surgery Date Site/Laterality Comments TUBAL LIGATION ND MASTECTOMY, PARTIAL 02/18/2020 Breast/Left Procedure : Left JOVANY segmental mastec dawn; Surgeon: Tevin Mauricio MD; Location: [facility]; Service: BREAST ND INTRAOPERATIVE SENTINEL 02/18/2020 Left Proce dure: INTRAOPERATIVE LYMPH NODE ID W DYE INJECTION LY MPHATIC MAPPING; Surgeon: Tevin Mauricio MD; Location[facility]; Service: BREAST ND IDENTIFY SENTINEL NODE 02/18/2020 Left Proced ure: ISOTOPE INJECTION FOR SENTINEL NOD E BIOPSY; Surgeon: Tevin Mauricio MD; Location: [facility]; Service: BREAST ND BX/REMV,LYMPH NODE,DEEP 02/18/2020 Axilla/Left Proce dure: SENTINEL NODE AXILL BIOPSY - AXILLA; Surgeon: Tevin Mauricio MD; Location: [facility] ; Service: BREAST ND EXCISE BREAST LES W XRAY 02/18/2020 Breast/Right Proc edure: JOVANY guided MARKER EXCISIONAL BIOPS Y OF RIGHT BREAST LESION; Surgeon: Tevin Mauricio MD; Location: [facility] ; Service: BREAST ND MASTECTOMY, SIMPLE, 03/17/2020 Breast/Right Procedure : TOTAL MASTECTOMY; COMPLETE Surgeon: Tevin Mauricio MD; Location: [facility]; Service: BREAST Medical History Medical History Date [...] Bra Size: 36B Last Filed Vital Signs Not on file Plan of Treatment Health Maintenance Due Date Last Done Comments COVID-19 Vaccination (1) 1977 Results Not on fileafter 09/30/2020 Advance Directives Code Status Date Activated Date Inactivated Comments Full Code 03/17/2020 1:31 PM 03/18/2020 12:38 PM Full Code 02/18/2020 3:28 PM 02/18/2020 7:32 PM Care Teams Health Policy Manager Relationship Specialty Start Date End Date Tyree Eagle PCP - External Referring Obstetrics/Gynecology 1989 MD [address] [place] [address] Tevin Mauricio MD PCP - General Breast Surgery 01/26/[address] [place] [id number]
--- OUTSIDE RECORDS SUMMARY | 2021-09-30 08:33 | XMS REPORT | Continuity of Care Document ---
:1965 Author Organization [facility] t Address [address] [place] [address] Care Team Providers Name Role Phone [phone] Primary Care Physician Unavailable ANNE-MARIE Attending Clinician Unavailable Tara MORALES Attending Clinician Unavailable SYSTEM, NOT IN Attending Clinician Unavailable Danielito Molina RN Attending Clinician Unavailable Will KELLEY Attending Clinician Unavailable Annette SHARP Attending Clinician Bijan SHARP Attending Clinician Nurse, Surgery Faculty Attending Clinician Unavailable Will Kelley MD Attending Clinician Doctor Unassigned, Name Attending Clinician Unavailable IVORY Attending Clinician Unavailable ANNETTE Attending Clinician Unavailable HERMAN Attending Clinician Unavailable ANNE-MARIE Admitting Clinician Unavailable Payers Payer Name Policy Type Policy Number Effective Date Expiration Date S ource GENERIC [id number] 2019 00:00:00 MULTIPLAN GENERIC [id number] 2019 00:00:00 Problems Condition Condition Condition Status Onset Resolution Last Treating Co mments Source Name Details Category Date Date Treatment Clinician Date Serum Serum Disease Active 2019-06 Last MD creatinine creatinine 07-15 Assessmen Anderso raised raised 00:00: t & Plan: n [...] D e and e and 07-15 Assessmen Anderso fluid fluid 00:00: t & Plan: n disorders disorders 00 Formattin not not g of this elsewhere elsewhere note classified classified might be different from the original. Hypokalem ia - potassium 3.0. Patient will receive IV replaceme nt as well as prescript ion for KCL. Will recheck labs on tomorrow. Ulcerative Ulcerative Disease Active 2019-06 Last M D oral oral 07-15 Assesssaen Andnataly mucositis mucositis 00:00: t & Plan: n due to due to 00 Formattin antineopla antineopla g of this stic stic note therapy therapy might be different from the original. Mucositis during the cycle. Patient to start carafate tablets for relief. She will continue salt/soda rinses. Doxorubic in changed to bolus plus zinecard. Elevated Elevated Disease Active 2019-06 Last liver liver 07-15 Assesssean Andnataly enzymes enzymes 00:00: t & Plan: n level level 00 Formattin g of this note might be different from the original. ALT 106, AST 67, improved. Previous MRI abdomen pelvis demonstra filiberto hepatic steatosis . Will obtain hepatitis for evaluatio n as well. Febrile Febrile Disease Active 2019-06 Last neutropeni neutropeni 07-15 Assessmen Anderso a a 00:00: t & Plan: n [...] CAP. 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 Anxiety Anxiety Disease Active MD 8- Anderso 00:00: n 00 Infiltrati Infiltrati Disease [...] rs active active ity of problems problems [facility] Allergies, Adverse Reactions, Alerts Allergy Allergy Status Severity Reaction(s) Onset Inactive Treating Comm ents Source Name Type Date Date Clinician Adhesive Drug Active Other - See 0 redness Un katie Allergy comments 02-17 ity of 00:00: [place] [facility] Latex, Drug Active Rash 2019-0 Univers Natural Intolera 02-17 ity of Rubber nce 00:00: [place] [facility] ADHESIVE Drug Active Other-Cmnt 2019-0 Univ ers Class - ity of 00:00: [address] LATEX, Drug Active Low Rash 2020-0 Univers NATURAL Class 8- ity of RUBBER 00:00: [address] NO KNOWN Drug Active Univers ALLERGIE Class ity of S [facility] Family History Family Member Diagnosis Comments Start Date Stop Date Source Paternal grandfather Leukemia MD Malini ary Family member Breast cancer MD Ryan son Family member Cancer MD Guerra Family member Ovarian cancer MD Wilfredo randolph Social History Social Habit Start Date Stop Date Quantity Comments Source History [facility] MD Guerra Alcohol Std Drinks History [facility] MD Guerra Alcohol Binge History [facility] MD Guerra Alcohol Comment Exposure to Not sure University of SARS-CoV-2 [facility] (event) Branch Alcohol intake 2020-04-17 2020-04-17 Lifetime MD Brown n 00:00:00 00:00:00 non-drinker (finding) Tobacco use and 2020-01-27 2020-01-27 Smokeless tobacco MD Guerra exposure 00:00:00 00:00:00 non-user History [facility] 2020-01-27 2020-01-27 1 MD Guerra Alcohol Frequency 00:00:00 00:00:00 Sex [birth year] MD Lyle on 00:00:00 00:00:00 Smoking Status Start Date Stop Date Source Unknown if ever smoked Universit y [facility] Never smoked tobacco MD Guerra Medications Ordered [...] ASPIRIN 3-16 mouth. ity of ORAL 18:35: [address] pantoprazol Yes 20mg Take 20 mg Univers e 3-16 by mouth ity of (PROTONIX) 18:35: daily. [place] 20 mg EC 19 Medical tablet Branch BABY Yes Take by Univers ASPIRIN 3-16 mouth. ity of ORAL 18:35: [address] busPIRone Yes 10mg Take 10 mg Un katie 10 mg 3-16 by mouth. ity of tablet 18:27: [address] amLODIPine Yes 10mg Take 10 mg U nivers 10 mg 3-16 by mouth. ity of tablet 18:27: [address] multivitami Yes 1{tbl} Take 1 Un katie n tablet 3-16 tablet by ity of 18:27: mouth. [address] busPIRone Yes 10mg Take 10 mg Un katie 10 mg 3-16 by mouth. ity of tablet 18:27: [address] amLODIPine Yes 10mg Take 10 mg U nivers 10 mg 3-16 by mouth. ity of tablet 18:27: [address] multivitami Yes 1{tbl} Take 1 Un katie n tablet 3-16 tablet by ity of 18:27: mouth. [address] sodium Yes Sarcoma of Infuse 10 [...] Branch lidocaine 2019-06 Yes Neoplasm of Apply (XYLOCAINE) 0-07 uncertain topically Anderso 2% jelly [...] Source Body height 2020-09-22 18:37:00 165.1 cm [facility] Body weight 2020-09-22 18:37:00 84.278 kg [facility] BMI 2020-09-22 18:37:00 30.92 kg/m2 [facility] HEIGHT 2020-01-27 10:48:00 154 cm WEIGHT 2020-01-27 10:48:00 82.1 kg Procedures Procedure Date / Time Performed Performing Clinician [facility] CONSENT/REFUSAL FOR 2020-09-05 18:06:24 Doctor Unassigned, No Un [facility] DIAGNOSIS AND Name [facility] TREATMENT Plan of Care Planned Activity Planned Date Details Comments Source Future Scheduled Test 1977 00:00:00 COVID-19 Vaccination MD Guerra (1) [code = COVID-19 Vaccination (1)] Encounters Start End Encounter Admission Attending Care Care Encounter Source Date/Time Date/Time Type Type Clinicians Facility Department ID 2020-02-07 Outpatient WADE XIE Breast Kwadwo [id number] 12:19:36 NAVEED hansen 2020-02-02 Outpatient BIA MORALES, MDA MDA [id number] 13:19:19 ESTHER hansen 2020-01-21 [facility]patient [facility], MDA MDA [id number] 16:39:13 PROVIDER Valdo hansen 2021-02-13 2021-02-13 [facility] [id number] Univers 13:00:00 13:00:00 DANA [id number] [facility] 2021-02-13 2021-02-13 [facility] [id number] Univers 13:00:00 13:00:00 DANA [facility] 2020-09-29 2020-09-29 Nurse Nurse, [facility] Surgery Faculty [facility] [id number] Univers 10:02:54 10:21:25 Visit Dana Kelley [id number] ity [id number] [phone] [address] 2020-09-29 2020-09-29 Outpatient [facility] [id number] Univers 08:00:00 08:00:00 [id number] [facility] 2020-09-29 2020-09-29 [facility] [id number] Univers 08:00:00 08:00:00 DANA [facility] 2020-09-22 2020-09-22 Nurse Nurse, [facility] Surgery Faculty [facility] [id number] Univers 13:30:06 14:03:57 Visit Dana Kelley [id number] ity [id number] [phone] [place] [address] 2020-09-22 2020-09-22 Outpatient [facility] [id number] Univers 14:00:00 14:00:00 [id number] [facility] 2020-09-22 2020-09-22 Outpatient [facility] [id number] Univers 14:00:00 14:00:00 ity [facility] 2020-09-05 2020-09-05 Outpatient R WARREN [facility] [id number] Univers 13:30:00 13:30:00 [facility] 2020-09-05 2020-09-05 Orders Doctor BOYKIN [id number] Univers 00:00:00 00:00:00 Only Unassigned, ESTHELA [id number] ity [facility] [id number] Michael as [phone] [address] 2020-03-02 2020-03-02 Outpatient EL IVORY, MDA MDA [id number] MD 00:00:00 00:00:00 KUSH hansen 2020-02-17 2020-02-17 Outpatient EL IRENEUTU, MDA MDA [id number] MD 00:00:00 00:00:00 DESTINI hansen 2020-02-17 2020-02-17 Outpatient EL SZUTU, MDA MDA [id number] MD 00:00:00 00:00:00 DESTINI hansen 2020-02-17 2020-02-17 Outpatient EL SZUTU, MDA MDA [id number] MD 00:00:00 00:00:00 DESTINI hansen 2020-02-17 2020-02-17 Outpatient EL IRENEUTU, MDA MDA [id number] MD 00:00:00 00:00:00 DESTINI hansen 2020-02-17 2020-02-17 Outpatient EL IRENEUTU, MDA MDA [id number] MD 00:00:00 00:00:00 DESTINI hansen 2020-02-16 2020-02-16 Outpatient EL HERMAN, MDA MDA [id number] MD 00:00:00 00:00:00 CLARE hansen 2020-02-10 2020-02-10 Outpatient EL MIGGINS, MDA MDA [id number] MD 00:00:00 00:00:00 NAVEED hansen 2020-02-10 2020-02-10 Outpatient EL MIGGINS, MDA MDA [id number] MD 00:00:00 00:00:00 NAVEED hansen 2020-02-02 2020-02-02 Outpatient HERMAN, MDA MDA [id number] MD 00:00:00 00:00:00 CLARE Curryers o jade 2020-01-28 2020-01-28 Outpatient EL ANNETTE, MDA MDA [id number] MD 13:00:16 13:00:16 DESTINI Connor so jade 2020-01-27 2020-01-27 Outpatient EL KOLEGINS, MDA MDA [id number] MD 10:35:15 12:08:54 NAVEED Curryers o n 2020-01-27 2020-01-27 Outpatient EL MDA MDA [id number] MD 10:31:52 10:32:00 Valdo o n 2020-01-26 2020-01-26 Outpatient EL MDA MDA [id number] MD 12:35:52 12:35:52 Valdo o jade 2020-01-26 2020-01-26 Outpatient EL MIGGINS, MDA MDA [id number] MD 12:31:31 12:31:31 NAVEED Lyle o n 2020-01-26 2020-01-26 Outpatient EL MIGGINS, MDA MDA [id number] MD 12:31:27 12:31:27 NAVEED Lyle o n 2020-01-26 2020-01-26 Outpatient EL MIGGINS, MDA MDA [id number] MD 12:31:19 12:31:19 NAVEED Curryers o n 2020-01-26 2020-01-26 Outpatient EL MIGGINS, MDA MDA [id number] MD 12:31:13 12:31:13 NAVEED Curryers o n 2020-01-26 2020-01-26 Outpatient EL MDA MDA [id number] MD 11:32:56 11:32:56 Valdo o n 2020-01-26 2020-01-26 Outpatient EL MDA MDA [id number] MD 11:32:31 11:32:39 Valdo o n 2020-01-26 2020-01-26 Outpatient EL MDA MDA [id number] MD 00:00:00 00:00:00 Valdo o jade 2020-01-24 2020-01-24 Outpatient EL MDA MDA [id number] MD 18:16:51 18:16:51 Valdo o n Results This patient has no known results.
[2021-09-30 09:12] LABS: SARS-COV-2 RT PCR NEGATIVE (NEGATIVE)
--- NOTE | 2021-09-30 09:42 | RAD REPORT ---
EXAM DESCRIPTION: RAD - Chest Single View - 09/30/2021 9:10 am CLINICAL HISTORY: cough. sob COMPARISON: Chest Single View dated 08/08/2021; Chest Single View dated 05/10/2020; Chest Single View dated 05/01/2020; Chest Pa And Lat (2 Views) dated 07/04/2019 FINDINGS: Widened superior mediastinum which is eccentric to the left extends down to the medial irish g base. The aortic knob is widened. The right lung is clear. Hazy opacities in the left lung. Heart s ize is partially obscured. IMPRESSION: Findings concerning for thoracic aortic dissection. Recommend emergent CTA of the chest, abdomen, and pelvis. Discussed with Deedee Han by Dr. Baldwin at [id number]
[2021-09-30 10:00] LABS: Absolute Lymphocytes (CBC) 1.2 K/uL (0.7-4.9); Hematocrit 42.1 % (36.0-45.0); Lymphocytes % 10.5 % (15.3-44.8); MPV 8.2 fL (7.6-11.3); RBC Red Blood Cell Count 4.82 M/uL (3.86-4.86)
[2021-09-30 10:06] LABS: Protime INR 1.12
[2021-09-30 10:19] LABS: Albumin 3.6 g/dL (3.4-5.0); Bilirubin Total 0.7 mg/dL (0.2-1.0); Potassium 3.4 mmol/L (3.5-5.1); Protein, Total 8.5 g/dL (6.4-8.2); Troponin High Sensitivity 8.7 pg/mL (<58.9)
--- NOTE | 2021-09-30 10:42 | RAD REPORT ---
EXAM DESCRIPTION: CTAngio Aorta For Dissection - 09/30/2021 10:03 am CLINICAL HISTORY: abnormal cxr COMPARISON: Chest Abdomen Pelvis W Cont dated 11/03/2020; C Spine Wo Con dated 08/08/2021 TECHNIQUE: CTA of the chest, abdomen, and pelvis was performed using a dissection protocol with cont rast. Reformats were performed. . All CT scans are performed using dose optimization technique as appropriate and may include automated exposure control or mA/KV adjustment according to patient size. FINDINGS: Thorax: Chest Wall: Postoperative changes in the left breast. Right mastectomy. Lungs: Interval development of a highly vascular mass almost dumbbell-shaped mass in the left upper l obe measuring approximately 13 cm by 7.4 cm. 7 mm right lower lobe pulmonary nodule on image 35, seri es for 2. Pleura: Small left effusion which is nonspecific but could be malignant. . Carol/Mediastinum: No lymphadenopathy. Mild circumferential thickened distal esophagus may reflect eso phagitis. Aorta/Pulmonary Arteries: Unremarkable Heart: Normal size. Abdomen/Pelvis: Liver: Hepatic steatosis. Too small to characterize liver lesions which are likely benign. Biliary: No biliary ductal dilatation. Stomach: No significant focal abnormality. Duodenum: No significant focal abnormality. Pancreas: No significant abnormality. Spleen: No significant abnormality. Adrenal: No suspicious lesions. Kidney/ureter: No hydronephrosis. No renal calculi. Retroperitoneum: No retroperitoneal adenopathy. Vascular: No aneurysm. Bowel: No significant focal abnormality. Normal appendix. Peritoneum: No ascites or free air. Bladder: Grossly unremarkable. Reproductive: No adnexal masses. Bones: No acute fracture. Multilevel degenerative changes are present in the spine. Other: n/a IMPRESSION: 1. No evidence of aortic dissection, aneurysm, or pulmonary embolus. 2. New large hypervascular left upper lobe lung mass. Though the patient has history breast cancer, t his is an atypical appearance of a metastatic lesion. It was not present in the July 2021 and so is likely highly aggressive. This could represent either a primary lung neoplasm or possibly a less c ommon neoplasm such as a sarcoma or neurogenic tumor. 3. New right lower lobe pulmonary nodule is suspicious for metastatic disease. This would be more typ ical of the patient's breast cancer. 4. Small nonspecific left pleural effusion which could be malignant. .
--- NOTE | 2021-09-30 11:28 | ER ---
Nurse's Notes [facility] Name: Yas Fischer Age: 56 yrs Sex: Female : 1965 Arrival Date: 09/30/2021 Time: 07:59 Bed 5 Private MD: Diagnosis: Thoracic Mass Presentation: 09/30 08:02 Chief complaint: Patient states: Cough for 5-6 days. No fever, some diarrhea. Family ll1 members also had a cough. Coronavirus screen: Vaccine status: Patient reports being unvaccinated. Client denies travel out of the [place] in the last 14 days. cough unrelated to allergies, diarrhea, fatigue, muscle pain, Client presents with at least one sign or symptom that may indicate coronavirus-19. Standard/surgical mask placed on the client. Ebola Screen: Patient denies travel to an Ebola-affected area in the 21 days before illness onset. Initial Sepsis Screen: Does the patient meet any 2 criteria? HR > 90 bpm. No. Patient's initial sepsis screen is negative. Does the patient have a suspected source of infection? Yes: Productive cough/pneumonia. Risk Assessment: Do you want to hurt yourself or someone else? Patient reports no desire to harm self or others. Onset of symptoms was September 25, 2021. 08:02 Method Of Arrival: Ambulatory ll1 08:02 Acuity: STARLA 3 ll1 Triage Assessment: 08:09 General: Appears in no apparent distress. Behavior is calm, cooperative, appropriate ll1 for age. Pain: Complains of pain in trunk Quality of pain is described as aching. Neuro:. Neuro: No deficits noted. Respiratory: Reports cough that is pain with cough Airway is patent Trachea midline Respiratory effort is even, unlabored, Respiratory pattern is regular, symmetrical. Historical: - Allergies: 08:06 Amoxicillin; ll1 - PMHx: 08:06 Anxiety; Hypertension; right breast cancer; ll1 - PSHx: 08:06 R mastectomy; ll1 - Immunization history:: Client reports having NOT received the Covid vaccine. - Social history:: Smoking status: Patient denies any tobacco usage or history of. Screenin:31 Abuse screen: Denies threats or abuse. Denies injuries from another. Nutritional ph screening: No deficits noted. Tuberculosis screening: No symptoms or risk factors identified. Fall Risk None identified. Assessment: 08:47 General: Appears in no apparent distress. comfortable, Behavior is calm, cooperative, ph appropriate for age. Pain: Denies pain. Neuro: Level of Consciousness is awake, alert, obeys commands, Oriented to person, place, time, situation. Cardiovascular: Capillary refill < 3 seconds in bilateral fingers Patient's skin is warm and dry. Respiratory: Reports cough that is non-productive, Airway is patent Respiratory effort is even, unlabored, Breath sounds are clear bilaterally. GI: Reports diarrhea, Patient currently denies abdominal pain, nausea. Derm: Skin is intact, is healthy with good turgor, Skin is pink, warm \T\ dry. Musculoskeletal: Circulation, motion, and sensation intact. Range of motion: intact in all extremities. 09:19 Reassessment: Patient appears in no apparent distress at this time. No changes from vg1 previously documented assessment. Patient and/or family updated on plan of care and expected duration. Pain level reassessed. Patient is alert, oriented x 3, equal unlabored respirations, skin warm/dry/pink. 10:14 Reassessment: Patient appears in no apparent distress at this time. Patient and/or ph family updated on plan of care and expected duration. Pain level reassessed. Patient is alert, oriented x 3, equal unlabored respirations, skin warm/dry/pink. Pt returned from CT, awaiting results. 10:53 Reassessment: Patient appears in no apparent distress at this time. Patient and/or vg1 family updated on plan of care and expected duration. Pain level reassessed. Patient is alert, oriented x 3, equal unlabored respirations, skin warm/dry/pink. Rome SHARP at pt bedside, gave pt CT results of possible malignant mass and the need to be transfer to another hospital; pt upset of results. Patient denies pain at this time. 12:17 Reassessment: Attempted to call report to [facility], receiving nurse unavailable, ph transfer center said that she will call back. 13:06 Reassessment: Report called to RADHA Cancino. 13:36 Reassessment: Patient appears in no apparent distress at this time. Patient and/or ph family updated on plan of care and expected duration. Pain level reassessed. Patient is alert, oriented x 3, equal unlabored respirations, skin warm/dry/pink. Pt transferred to [facility] in the [facility]. Vital Signs: 08:02 BP 131 / 88; Pulse 117; Resp 18; Temp 97.7; Pulse Ox 95% on R/A; Weight 72.57 kg; ll1 Height 5 ft. 0 in. (152.40 cm); Pain 2/10; 09:19 BP 116 / 52; Pulse 103; Resp 17; Pulse Ox 95% on R/A; vg1 10:45 BP 124 / 86; Pulse 120; Resp 20; Pulse Ox 100% ; vg1 12:18 BP 132 / 88; Pulse 124; Resp 21; Temp 97.4; Pulse Ox 97% on R/A; ph 13:05 BP 121 / 80; Pulse 109; Resp 20; ss 08:02 Body Mass Index 31.25 (72.57 kg, 152.40 cm) ll1 Vitals: 12:18 Cardiac Rhythm Assessment Sinus tach. ph ED Course: 07:59 Patient arrived in ED. rg4 08:00 Arm band placed on Patient placed in an exam room, on a stretcher. ll1 08:01 Rome Han PA is PHCP. [facility] 08:02 Derrick Guerra MD is Attending Physician. [facility] 08:09 Triage completed. ll1 08:31 Brigitte Chinchilla, RADHA is Primary Nurse. ph 08:32 Patient has correct armband on for positive identification. Bed in low position. Call ph light in reach. Side rails up X 1. Pulse ox on. NIBP on. Door closed. Noise minimized. 09:11 Chest Single View XRAY In Process Unspecified. EDMS 09:55 Inserted saline lock: 20 gauge in left forearm, using aseptic technique. Blood mb7 collected. 09:56 Warm blanket given. mb7 10:00 CBC with Diff Sent. mb7 10:00 CMP Sent. mb7 10:00 Troponin High Sensitivity Sent. mb7 10:00 PT-INR Sent. mb7 10:00 EKG done, by endoscope technician. reviewed by Rome SHARP. mb7 10:05 CT Aorta for Dissection In Process Unspecified. EDMS 10:54 initiated a transfer with Koko from the [facility]. eb 11:34 administrative approval given by Koko Avina Rn/ patient has been accepted to [facility] bed 1111/ Dr. Torres Martinez has accepted the patient in transfer/ report to be called to [phone]. 13:36 No provider procedures requiring assistance completed. Patient transferred, IV remains ph in place. Administered Medications: 11:57 Drug: Lactated Ringers Solution 1000 ml Route: IV; Rate: 150 ml/hr; Site: left antecubital; 12:08 Follow up: IV Status: Infusion continued upon transfer ph 11:58 Not Given (Hemodynamic Parameters): Esmolol 0.25 mg/kg IV at calculated rate once ph Outcome: 11:28 ER care complete, transfer ordered by MD. wiseman 13:36 Transferred by ground EMS [facility]. ph 13:36 Condition: stable 13:36 Instructed on the need for transfer. 13:37 Patient left the ED. ph Signatures: Dispatcher [employer] EDMS Rome Han PA PA jmm Smirch, Shelby, RN RN Brigitte Rincon RN RN Jemma Orosco4 Teresa John Victoria RN RN vg1 Adolfo Ghosh RN RN ll1 Malinda Mojica mb7 Corrections: (The following items were deleted from the chart) 10:56 10:53 Reassessment: Patient appears in no apparent distress at this time. Patient vg1 and/or family updated on plan of care and expected duration. Pain level reassessed. Patient is alert, oriented x 3, equal unlabored respirations, skin warm/dry/pink. Patient denies pain at this time. vg1
--- NOTE | 2021-09-30 11:28 | EDPHYS ---
Physician Documentation [facility] Name: Yas Fischer Age: 56 yrs Sex: Female : 1965 Arrival Date: 09/30/2021 Time: 07:59 Bed 5 Private MD: Derrick Estevez HPI: 09/30 08:19 This 56 yrs old Female presents to ER via Ambulatory with complaints of Cough. [facility] 08:19 The patient or guardian reports cough. Onset: The symptoms/episode began/occurred jmm gradually, 6 day(s) ago. Modifying factors: The symptoms are alleviated by nothing, the symptoms are aggravated by nothing. Associated signs and symptoms: Pertinent positives: sore throat. It is unknown whether or not the patient has had similar symptoms in the past. Historical: - Allergies: 08:06 Amoxicillin; ll1 - PMHx: 08:06 Anxiety; Hypertension; right breast cancer; ll1 - PSHx: 08:06 R mastectomy; ll1 - Immunization history:: Client reports having NOT received the Covid vaccine. - Social history:: Smoking status: Patient denies any tobacco usage or history of. ROS: 08:19 Constitutional: Negative for fever, chills, and weight loss. jmm 08:19 ENT: Positive for sore throat. 08:19 Respiratory: Positive for cough. 08:19 Abdomen/GI: Negative for vomiting. 08:19 All other systems are negative. Exam: 08:19 Constitutional: This is a well developed, well nourished patient who is awake, alert, jmm and in no acute distress. Head/Face: atraumatic. Eyes: EOMI, no conjunctival erythema appreciated 08:19 Neck: Trachea midline, Supple Chest/axilla: Normal chest wall appearance and motion. Cardiovascular: Regular rate and rhythm. No edema appreciated Respiratory: Normal respirations, no respiratory distress appreciated Abdomen/GI: Non distended, soft Back: Normal ROM Skin: General appearance color normal MS/ Extremity: Moves all extremities, no obvious deformities appreciated, no edema noted to the lower extremities Neuro: Awake and alert Psych: Behavior is normal, Mood is normal, Patient is cooperative and pleasant 08:19 ENT: Posterior pharynx: erythema, that is mild. Vital Signs: 08:02 BP 131 / 88; Pulse 117; Resp 18; Temp 97.7; Pulse Ox 95% on R/A; Weight 72.57 kg; ll1 Height 5 ft. 0 in. (152.40 cm); Pain 2/10; 09:19 BP 116 / 52; Pulse 103; Resp 17; Pulse Ox 95% on R/A; vg1 10:45 BP 124 / 86; Pulse 120; Resp 20; Pulse Ox 100% ; vg1 12:18 BP 132 / 88; Pulse 124; Resp 21; Temp 97.4; Pulse Ox 97% on R/A; ph 13:05 BP 121 / 80; Pulse 109; Resp 20; ss 08:02 Body Mass Index 31.25 (72.57 kg, 152.40 cm) ll1 MDM: 08:07 Patient medically screened. [facility] 11:25 Data reviewed: vital signs, nurses notes. Counseling: I had a detailed discussion with [facility] the patient and/or guardian regarding: the historical points, exam findings, and any diagnostic results supporting the discharge/admit diagnosis, radiology results, the need to transfer to another facility. ED course: I discussed the patient with Dr. Martinez and Dr. Solis whom accepted the patient for transfer. . 09/30 08:06 Order name: COVID-19/FLU A+B (Document "Date of Onset" if Symptomatic); Complete Time: [facility] 09:15 09/30 08:06 Order name: Strep; Complete Time: 09:54 [facility] 09/30 09:36 Order name: CBC with Diff; Complete Time: 10:06 [facility] 09/30 09:36 Order name: CMP; Complete Time: 10:20 [facility] 09/30 09:36 Order name: Troponin High Sensitivity; Complete Time: 10:20 [facility] 09/30 09:36 Order name: PT-INR; Complete Time: 10:06 [facility] 09/30 08:15 Order name: Chest Single View XRAY; Complete Time: 09:46 [facility] 09/30 09:36 Order name: Saline Lock; Complete Time: 10:07 [facility] 09/30 09:36 Order name: CT Aorta for Dissection; Complete Time: 10:47 [facility] 09/30 09:36 Order name: EKG - Nurse/Tech; Complete Time: 10:00 [facility] 09/30 09:52 Order name: Throat Culture [facility] 09/30 10:00 Order name: Cardiac monitoring; Complete Time: 10:53 jmm Administered Medications: 11:57 Drug: Lactated Ringers Solution 1000 ml Route: IV; Rate: 150 ml/hr; Site: left ph antecubital; 12:08 Follow up: IV Status: Infusion continued upon transfer ph 11:58 Not Given (Hemodynamic Parameters): Esmolol 0.25 mg/kg IV at calculated rate once ph Disposition Summary: 09/30/21 11:28 Transfer Ordered Transfer Location: [facility] Reason: Higher level of care jmm Condition: Stable jmm Problem: new jmm Symptoms: are unchanged jmm Accepting Physician: Dr. Martinez(09/30/21 13:37) ph Diagnosis - Thoracic Mass jmm Forms: - Medication Reconciliation Form jmm - SBAR form [facility] Addendum: 10/04/2021 18:34 Co-signature as Attending Physician, Derrick Guerra MD I agree with the assessment and c white plan of care. Signatures: Dispatcher [employer] EDDerrick Mcmahon MD MD cha Mickail, Joel, PA PA jmm Hall, Patricia RN RN ph Adolfo Ghosh RN RN ll1 Corrections: (The following items were deleted from the chart) 09/30 13:37 11:28 Dr. Michelle diaz ph
[2021-09-30] MEDS ORDERED: Ringers Lactate 1,000 ML IV ONE (11:54)
[2021-09-30 13:57] VITALS: TEMP 97.4; O2SAT 97
[2021-09-30 13:59] VITALS: BP 121/80
--- NOTE | 2021-10-01 09:38 | EKG ---
Test Date: 2021-09-30 Test Time: 09:52:14 Mine Wedge Sawyer: MARIAM MEASUREMENT RESULTS: Intervals: Rate: 119 PA: 178 QRSD: 86 QT: 300 QTc: 422 [place]: P: 60 PA: 178 QRS: -41 T: 48 INTERPRETIVE STATEMENTS: Sinus tachycardia Left axis deviation Anterior infarct, age undetermined Abnormal ECG Compared to ECG 08/08/2021 12:10:03 Left-axis deviation now present Left posterior fascicular block no longer present Myocardial infarct finding still present Electronically Signed On 10-01-21 09:35:43 CDT by Nima Kathleen
== END 2021-09-30 13:37 | disposition short-term general hospital (02) ==
LOC: ER 07:57
DX: R22.2 Localized swelling, mass and lump, trunk (principal); R07.0 Pain in throat; I10 Essential (primary) hypertension; Z20.822 Contact with and (suspected) exposure to COVID-19; Z85.3 Personal history of malignant neoplasm of breast; Z90.11 Acquired absence of right breast and nipple; Z88.1 Allergy status to other antibiotic agents
CPT/HCPCS: 0240U; 36415; 71045; 71275; 74175; 80053; 82565; 84484; 85025; 85610; 87070; 87081; 93005; 99285; J7120; Q9967

== ENCOUNTER 2021-11-16 08:11 | Day surgery (SDC) | payer OTHER, SELFPAY ==
[2021-11-14 15:01] LABS: Absolute Lymphocytes (CBC) 1.2 K/uL (0.7-4.9); Lymphocytes % 6.1 % (15.3-44.8); MPV 7.7 fL (7.6-11.3)
[2021-11-14 15:12] LABS: Protime INR 1.19
[2021-11-14 15:18] LABS: Potassium 3.7 mmol/L (3.5-5.1)
[2021-11-14 17:35] LABS: Anisocytosis 1+; Blood Morphology Comment NOTED (NOT SEEN); Platelet Estimate ADEQ
[2021-11-14 17:36] LABS: Poikilocytosis 1+
[2021-11-16] MEDS ORDERED: Ringers Lactate 1,000 ML IV ONE (08:22)
[2021-11-16] MEDS ORDERED: CEFAZOLIN SODIUM 1 GM/VIAL ONE (08:22)
[2021-11-16] MEDS ORDERED: NS 0.9% VIAL 20 ML ONE ×2 (11:45→13:22)
[2021-11-16] MEDS ORDERED: HEPARIN 5000 UNIT/ML 1 ML VIAL ONE (11:45)
[2021-11-16] MEDS ORDERED: BUPIVACAINE 0.25% PF 10 ML VIAL ONE (11:45)
[2021-11-16] MEDS ORDERED: propofoL 200 MG/20 ML VIAL IV ONE (12:02)
[2021-11-16] MEDS ORDERED: KETOROLAC 30 MG/ML INJ ONE (12:03)
[2021-11-16] MEDS ORDERED: dexAMETHasone 4 MG/ML VIAL ONE (12:03)
[2021-11-16] MEDS ORDERED: FENTANYL CITR 100 MCG/2 ML ONE ×2 (12:03→15:21)
[2021-11-16] MEDS ORDERED: MIDAZOLAM HCL 2 MG/2 ML INJ ONE (12:03)
[2021-11-16] MEDS ORDERED: LIDOCAINE 2% MPF 5 ML VIAL ONE (12:03)
[2021-11-16] MEDS ORDERED: ONDANSETRON 4 MG/2 ML VIAL ONE (12:03)
[2021-11-16] MEDS ORDERED: BUPIVACAINE 0.25% PF 10 ML VIAL IJ ONE ×2 (12:50)
[2021-11-16] MEDS ORDERED: Phenylephrine HCl 10 MG/ML 1 ML VIAL ONE (13:22)
--- NOTE | 2021-11-16 14:04 | P.OP ---
Preoperative diagnosis: Need for chemotherapy Postoperative diagnosis: Need for chemotherapy Primary procedure: Placement of Chemotherapy port a cath Other procedure(s): Ultrasound guidance and flouroscopy utilized Anesthesia: GETA + local Estimated blood loss: 20cc Specimen: none Findings: RIGHT anatomic abnormality Complications: None Implants: Port a cath Transferred to: Recovery Room Condition: Good
[2021-11-16] MEDS ORDERED: ALBUTEROL 2.5 MG/3 ML NEB SOL ONE (14:46)
[2021-11-16 15:15] VITALS: TEMP 98.5; O2SAT 95
--- NOTE | 2021-11-16 15:16 | RAD REPORT ---
EXAM DESCRIPTION: RAD - Chest Single View - 11/16/2021 2:59 pm CLINICAL HISTORY: S/P POST A CATH INSERTION COMPARISON: Chest Single View dated 09/30/2021; Chest Single View dated 08/08/2021; Chest Single View dated 05/10/2020; Chest Single View dated 05/01/2020; Abdomen W Contrast dated 10/25/2021 FINDINGS: Lines: Left subclavian approach Port-A-Cath with tip overlying the SVC . Lungs: Much of the left lung is collapse and/or consolidated. Large left lung mass. Pleural: Left pleural effusion. Cardiac: The heart size is within normal limits. Bones: No acute fractures. Other: IMPRESSION: Port-A-Cath tip overlying the SVC. Known large left lung mass and pleural effusion again identified. No pneumothorax.
[2021-11-16 15:34] VITALS: BP 108/63
--- NOTE | 2021-11-16 18:57 | RAD REPORT ---
EXAM DESCRIPTION: RAD - Fluoroscopy <1 Hour - 11/16/2021 3:11 pm CLINICAL HISTORY: PORT A CATH PLACEMENT COMPARISON: Liver Only dated 10/12/2020; Chest Single View dated 11/16/2021 FINDINGS/IMPRESSION: Twenty intraoperative fluoroscopic images were submitted showing placement of a left subclavian approach Port-A-Cath with tip overlying the SVC. Fluoro time: 6.1 minutes Cumulative dose: 77.6 mGy
--- NOTE | 2021-11-16 23:55 | OP ---
Date of Procedure: 11/16/2021 Surgeon: Rafi Casas MD, Preoperative Diagnosis: Need for chemotherapy. Postoperative Diagnosis: Need for chemotherapy. Procedures: 1.Placement of a chemotherapy Port-A-Cath in the left subclavian position. 2.Ultrasound and fluoroscopy utilized. Anesthesia: General endotracheal plus local with 0.25% Marcaine. Estimated Blood Loss: Less than 20 cc. Specimen: None. Findings: Anatomic abnormality of the right subclavian to superior vena cava, unable to pass wire rosenberg ccessfully despite multiple attempts. Complications: None. Implants: Port-A-Cath. Condition: The patient was transferred to recovery room in good condition. Procedure In Detail: After informed consent was obtained, the patient was brought to the operating r oom and prepped and draped in the usual sterile fashion. After adequate anesthesia was achieved, the patient was placed in steep Trendelenburg position. Cannulation of the right internal jugular vein using ultrasound guidance was performed. However, passage of the wire was difficult at this point. As such, I did not attempt to continue at this point, and I placed pressure on the insertion site aft er the micro needle was removed. I then turned my attention to the right subclavian. The right subc lavian vein was cannulated on the first attempt and a micro wire was advanced at this point. Once ag ain, fluoroscopy confirmed that position of the wire was unable to be passed down into the superior v julee cava and into the correct direction of the heart and as such it kept curling up into the internal jugular vein. I attempted using a standard wire, a J-wire Glidewire and used a torque on the wire t o help direct it, however, for whatever reason, it was unable to be passed down into the appropriate position despite multiple attempts positioning the patient's head, pulling the arm down and multiple attempts were attempted unsuccessfully. As such I opted to place the patient in head up position, re moved the wire at this point, and held pressure on the right chest wall. At this point, sterile dres sings were placed on these 2 sides. I then turned my attention to the left side and I made a left rosenberg bclavian insertion. On the first attempt, I advanced the micro wire at this point, which passed quit e easily into the appropriate anatomic position into the superior vena cava. At this point, a small alessandra incision was made. Introducer sheath was passed at this point using Seldinger technique. Micro wire was removed. Standard wire was then advanced and was found to be in good anatomic position. I then found a spot on the chest wall for the port to be placed using a tunneling device. I passed th e port tubing up through the insertion site and fashioned a pocket using electrocautery down to the p repectoral fascia on the left chest wall. At this point, I placed the introducer sheath into the lef t subclavian vein and advanced the tubing under fluoroscopic guidance for appropriate positioning at the confluence of the SVC. At this point, I then trimmed the catheter appropriately and attached the button with the locked collar on and flushed it quite easily with saline. Fluoroscopy confirmed pos ition at this point. I then secured the catheter to the chest wall using 2-0 Prolene suture. We multi mission helicopter aircrewman iously irrigated the pocket and placed the patient back in neutral position. I then packed the karrie ter with heparin super flush at this point, and closed the insertion site with interrupted 2-0 nylon suture. I then irrigated the chest cavity incision site with the Port-A-Cath in place, closed this w ith simple interrupted 3-0 Vicryl sutures and closed with 4-0 Monocryl in a running fashion. Dermabo nd was placed over top. The patient tolerated the procedure well without any complication and transferred to PACU in good condition. All counts were correct at the end of the case. PRAMOD/SHELTON Voice ID: [id number] Report ID: [id number]
== END 2021-11-16 16:05 | disposition home or self-care (01) ==
LOC: OR 08:11
PROVIDERS: ATTEND Surgery
PROC: 0JH60WZ Insertion of Totally Implantable Vascular Access Device into Chest Subcutaneous Tissue and Fascia, Open Approach (ICD-10-PCS; principal; 2021-11-16 10:15)
DX: C50.919 Malignant neoplasm of unspecified site of unspecified female breast (principal); Z20.822 Contact with and (suspected) exposure to COVID-19
CPT/HCPCS: 85025; 80048; 36415; 85610; 85730; 71045; 76000; 36561; U0003; J2704; J1100; J2370; J1644 ×4; J2250; J3010 ×2; J7120; J2405; J0690; C1788

== ENCOUNTER 2021-11-27 17:33 | Inpatient (IN) | payer OTHER ==
--- OUTSIDE RECORDS SUMMARY | 2021-11-27 17:37 | XMS REPORT | Clinical Summary ---
:1965 Author Organization [facility] MD [facility] Address [address] [place] [address] Care Team Providers Name Role Phone Terrence [...] creatinine raised 05/15/2020 Last Assessment & Plan: Formatting of th is note might be different from the original. Creatinine 1.07. Pretreatment baseline 0 .83. During cycle roberta to 1.20. Patient is advised to limit caffeine intake, and maintain adequate hydration. She will receive 2 days of 2L IV hydration. Electrolyte and fluid disorders not elsewhere classifi ed 05/15/2020 Last Assessment & Plan: Formatting of th is note might be different from the original. Hypokalemia - potassium 3.0. Patient kaci l receive IV replacement as well as prescription for KCL. Will recheck labs on tomorrow. 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 Mucositis during the cycle. Patient to s tart carafate tablets for relief. She will continue salt/soda rinses. Doxorubicin changed to bolus plus zinecard. Elevated liver enzymes level 05/15/2020 Last Assessment & Plan: Formatting of th is note might be different from the original. ALT 106, AST 67, improved. Previous MRI abdomen pelvis demonstrated hepatic steatosis. Will obtain hepatitis for evaluation as well. Febrile neutropenia 05/15/2020 Last Assessment & Plan: Formatting of th is note might be different from the original. Fever during cycle on 05/10. Seen at [facility]. Patient to complete ciprofloxacin as prescribed. 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 Ms. Yas Fischer is a 55 y.o. [...] Hypertensive disorder 01/31/2020 Last Assessment & Plan: Formatting of th is note might be different from the original. BP 149/94 today, on Norvasc and Lisinopr il. Per patient, she is nervous today. BP better controlled at home. 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 01/26/2020 Encounters Date Type Specialty Care Team Description 03/20/2021 Documentation Stem Cell Transplant Pasquale Molina RN LDA cutover after 11/27/2020 Surgical History Surgery Date Site/Laterality Comments TUBAL LIGATION OR MASTECTOMY, PARTIAL 02/18/2020 Breast/Left Procedure : Left JOVANY segmental mastec dawn; Surgeon: Tevin Mauricio MD; Location: [facility]; Service: BREAST OR INTRAOPERATIVE SENTINEL 02/18/2020 Left Proce dure: INTRAOPERATIVE LYMPH NODE ID W DYE INJECTION LY MPHATIC MAPPING; Surgeon: Tevin Mauricio MD; Location: [facility]; Service: BREAST OR IDENTIFY SENTINEL NODE 02/18/2020 Left Proced ure: ISOTOPE INJECTION FOR SENTINEL NOD E BIOPSY; Surgeon: Tevin Mauricio MD; Location: OR; Service: BREAST OR BX/REMV,LYMPH NODE,DEEP 02/18/2020 Axilla/Left Proce dure: SENTINEL NODE AXILL BIOPSY - AXILLA; Surgeon: Tevin Mauricio MD; Location: [facility]; Service: BREAST OR EXCISE BREAST LES W XRAY 02/18/2020 Breast/Right Proc edure: JOVANY guided MARKER EXCISIONAL BIOPS Y OF RIGHT BREAST LESION; Surgeon: Tevin Mauricio MD; Location: [facility]; Service: BREAST OR MASTECTOMY, SIMPLE, 03/17/2020 Breast/Right Procedure : TOTAL [...] Vaccination (1) 1977 Results Not on fileafter 11/27/2020 Advance Directives Code Status Date Activated Date Inactivated Comments Full Code 03/17/2020 1:31 PM 03/18/2020 12:38 PM Full Code 02/18/2020 3:28 PM 02/18/2020 7:32 PM Care Teams Principal Investigator Relationship Specialty Start Date End Date Tyree Eagle PCP - External Referring Obstetrics/Gynecology 1989 MD Terrence [address] [place] [id number] Tevin Mauricio MD PCP - General Breast Surgery 01/26/[address] [place] [id number]
--- OUTSIDE RECORDS SUMMARY | 2021-11-27 17:38 | XMS REPORT | Continuity of Care Document ---
:1965 Author Organization [facility] t Address [address] [place] [address] Care Team Providers Name Role Phone Shahbaz Bryant DO Primary Care Physician ANNE-MARIE Attending Clinician Unavailable Tara MORALES Attending Clinician Unavailable SYSTEM, NOT IN Attending Clinician Unavailable German CHRISTENSEN Attending Clinician TIP GILLILAND Attending Clinician Unavailable LULÚ Attending Clinician Unavailable Priscila HOOVER Attending Clinician Unavailable Will KELLEY Attending Clinician Unavailable Nurse, Surgery Faculty Attending Clinician Unavailable Warren CHRISTENSEN S Attending Clinician Doctor Unassigned, Name Attending Clinician Unavailable IVORY Attending Clinician Unavailable ANGELIA Attending Clinician Unavailable HERMAN Attending Clinician Unavailable ANNE-MARIE Admitting Clinician Unavailable COLBY DYSON Admitting Clinician Unavailable Payers Payer Name Policy Type Policy Number Effective Date Expiration Date S ource GENERIC [id number] 2019 00:00:00 [facility] [id number] 2021 00:00:00 MULTIPLAN GENERIC [id number] 2019 00:00:00 Problems Condition Condition Condition Status Onset Resolution Last Treating Co mments Source Name Details Category Date Date Treatment Clinician Date Lung mass Lung mass Disease Active [facility] 4-10 [facility] 00:00: of 00 Medicin e Malignant Malignant Disease Active [facility] neoplasm neoplasm 9-10 [facility] e [facility] [place] 00:00: of portion of portion of 00 Me dicin right right e female female breast breast (HCCode) (HCCode) Anxiety Anxiety Disease Active [facility] 8-10 College 00:00: of 00 Medicin e Hypertensi Hypertensi Disease Active Overview : [facility] ve ve 8- [facility] disorder disorder 00:00: g of this of note Medicin might be e different from the original. Last Assessmen t & Plan: Formattin g of this note might be different from the original. BP 149/94 today, on Norvasc and Lisinopri l. Per patient, she is nervous today. BP better controlle d at home. Malignant Malignant Disease Active [facility] neoplasm neoplasm 01-25 Colleg e of of 00:00: of upper-inne upper-inne 00 Me dicin r quadrant r quadrant e of left of left female female breast breast (HCCode) (HCCode) No known No known Disease Unive rs active active ity of problems problems [facility] Allergies, Adverse Reactions, Alerts Allergy Allergy Status Severity Reaction(s) Onset Inactive Treating Comm ents Source Name Type Date Date Clinician Adhesive Drug Active Other - See redness Un katie Allergy comments 02-17 ity of 00:00: [facility] Branch Latex, Drug Active Rash Univers Natural Intolera 02-17 ity of Rubber nce 00:00: [facility] ADHESIVE Drug Active Other-Cmnt Univ ers Class 02-17 ity of 00:00: [facility] LATEX, Drug Active Low Rash 2019- Univers NATURAL Class 02-17 ity of RUBBER 00:00: [facility] Adhesive Propensi Active Other (See Redness [facility] ty to Comments) 02-17 and skin Colle ge adverse 00:00: irritatio of reaction 00 n Medicin s to e substanc e Latex Propensi Active Rash [facility] ty to 02-17 College adverse 00:00: of reaction 00 Medicin s to e substanc e NO KNOWN Drug Active Univers ALLERGIE Class ity of S [facility] NO KNOWN Allergy Active [facility] Social History Social Habit Start Date Stop Date Quantity Comments Source History [facility] ge of Alcohol Std Medicine Drinks History [facility] ge of Alcohol Binge Medicine History [facility] ge of Alcohol Comment Medicine Exposure to Not sure University of SARS-CoV-2 [facility] (event) Branch Alcohol intake 2021-11-01 2021-11-01 Lifetime [facility] Col lege of 00:00:00 00:00:00 non-drinker Medicine (finding) Cigarette 2021-10-11 2021-10-11 [facility] of pack-years 00:00:00 00:00:00 Medicine Tobacco use and 2021-10-11 2021-10-11 Smokeless tobacco [facility] College of exposure 00:00:00 00:00:00 non-user Medicine History SDOH 2021-10-11 2021-10-11 1 [facility] Colle ge of Alcohol Frequency 00:00:00 00:00:00 Medicin e Sex [birth year] [facility] llege of 00:00:00 00:00:00 Medicine Smoking Status Start Date Stop Date Source Never smoked tobacco [facility] Charles ege of Medicine Unknown if ever smoked [facility] Medications Ordered Filled Start Stop Current Ordering Indication Dosage Frequency Signature Comments Components Source Medication Medication Date Date Medication? Clinician (SIG) Name Name anastrozole Yes 1mg Take 1 mg [facility] (ARIMIDEX) -21 by mouth Colle ge 1 MG tablet 14:13: daily. of 00 Medicin e Aspirin 81 Yes 81mg Take 81 mg [facility] MG tablet -21 by mouth Colleg e 14:13: daily. of 00 Medicin e busPIRone Yes 15mg Take 15 mg [facility] (BUSPAR) 15 4-21 by mouth Charles ege MG tablet 14:13: two times of 00 daily. Medicin e Calcium Yes 1{tbl} Take 1 [facility] Carbonate-V -21 Tablet by Col lege itamin D 14:13: mouth two of (OYSTER 00 times Medicin SHELL daily. e CALCIUM/D) 500-200 MG-UNIT TABS lisinopril Yes 40mg Take 40 mg [facility] (PRINIVIL, -21 by mouth Colle ge ZESTRIL) 40 14:13: daily. of MG tablet 00 Medicin e pantoprazol Yes 20mg Take 20 mg [facility] e 4-21 by mouth College (PROTONIX) 14:13: daily. of 20 MG 00 Medicin tablet e anastrozole Yes 1mg Take 1 mg [facility] (ARIMIDEX) 4-21 by mouth Colle ge 1 MG tablet 14:13: daily. of Medicin e Aspirin 81 Yes 81mg Take 81 mg [facility] MG tablet 4-21 by mouth Colleg e 14:13: daily. of Medicin e busPIRone Yes 15mg Take 15 mg [facility] (BUSPAR) 15 4-21 by mouth Charles e[facility] MG tablet 14:13: two times of 00 daily. Medicin e Calcium Yes 1{tbl} Take 1 [facility] Carbonate-V 4-21 Tablet by Col lege itamin D 14:13: mouth two of (OYSTER 00 times Medicin SHELL daily. e CALCIUM/D) 500-200 MG-UNIT TABS lisinopril Yes 40mg Take 40 mg [facility] (PRINIVIL, 4-21 by mouth Colle ge ZESTRIL) 40 14:13: daily. of MG tablet 00 Medicin e pantoprazol Yes 20mg Take 20 mg [facility] e 4-21 by mouth College (PROTONIX) 14:13: daily. of 20 MG 00 Medicin tablet e pantoprazol Yes 20mg Take 20 mg Univers e 3-16 by mouth ity of (PROTONIX) 18:35: daily. [place] 20 mg EC 19 Medical tablet Branch BABY Yes Take by Univers ASPIRIN 3-16 mouth. ity of ORAL 18:35: [address] pantoprazol Yes 20mg Take 20 mg Univers e 3-16 by mouth ity of (PROTONIX) 18:35: daily. [place] 20 mg EC 19 Medical tablet Branch BABY Yes Take by Univers ASPIRIN 3-16 mouth. ity of ORAL 18:35: [address] busPIRone Yes 10mg Take 10 mg Un katie 10 mg 3-16 by mouth. ity of tablet 18:27: [address] amLODIPine Yes 10mg Take 10 mg U nivers 10 mg 3-16 by mouth. ity of tablet 18:27: [address] multivitami Yes 1{tbl} Take 1 Un katie n tablet 3-16 tablet by ity of 18:27: mouth. [address] busPIRone Yes 10mg Take 10 mg Un katie 10 mg 3-16 by mouth. ity of tablet 18:27: [address] amLODIPine Yes 10mg Take 10 mg U nivers 10 mg 3-16 by mouth. ity of tablet 18:27: [address] multivitami Yes 1{tbl} Take 1 Un katie n tablet 3-16 tablet by ity of 18:27: mouth. [address] [facility] Yes 2{tbl} Take 2 Un katie docusate 0-26 tablets by ity o f sodium 00:00: mouth. [place] 8.6-50 mg 00 Medical per tablet Branch [facility]- 2019-06 Yes 2{tbl} Take 2 Un katie docusate 0-26 tablets by ity o f sodium 00:00: mouth. [place] 8.6-50 mg 00 Medical per tablet [place] Vital Signs Vital Name Observation Time Observation Value Comments Source Systolic blood 2021-11-01 15:40:00 122 mm[Hg] [facility] pressure Medicine Diastolic blood 2021-11-01 15:40:00 83 mm[Hg] [facility] Medicine Heart rate 2021-11-01 15:40:00 96 /min [facility] Body temperature 2021-11-01 15:40:00 36.61 Zahra [facility] Body height 2021-11-01 15:40:[address] [facility] Body weight 2021-11-01 15:40:[address] [facility] BMI 2021-11-01 15:40:00 30.47 kg/m2 [facility] Systolic blood 2021-10-11 19:04:00 102 mm[Hg] [facility] of pressure Medicine Diastolic blood 2021-10-11 19:04:00 71 mm[Hg] [facility] Medicine Heart rate 2021-10-11 19:04:00 104 /min [facility] Body temperature 2021-10-11 19:04:00 37.06 Zahra [facility] Body height 2021-10-11 19:04:[address] [facility] Body weight 2021-10-11 19:04:[address] [facility] BMI 2021-10-11 19:04:00 32.61 kg/m2 [facility] HEIGHT 2021-09-30 14:50:00 152.4 cm WEIGHT 2021-09-30 14:50:00 77.111 kg HEIGHT 2021-09-30 14:50:00 152.4 cm WEIGHT 2021-09-30 14:50:00 77.111 kg Body height 2020-09-22 18:37:00 165.1 cm [facility] Body weight 2020-09-22 18:37:00 84.278 kg [facility] BMI 2020-09-22 18:37:00 30.92 kg/m2 [facility] HEIGHT 2020-01-27 10:48:00 154 cm WEIGHT 2020-01-27 10:48:00 82.1 kg Procedures Procedure Date / Time Performed Performing Clinician [facility] e CONSENT/REFUSAL FOR 2020-09-05 18:06:24 Doctor Unassigned, No Un [facility] DIAGNOSIS AND Name Medical Branch TREATMENT Plan of Care Planned Activity Planned Date Details Comments Source Future Scheduled 2021-11-10 TETANUS SHOT (ADULT) [facility] Test 10:40:18 [code = TETANUS SHOT of Medi cine (ADULT)] Future Scheduled 2021-11-10 BMI FOLLOW UP PLAN [facility] College Test 10:40:18 [code = BMI FOLLOW UP of Med icine PLAN] Future Scheduled 2021-11-10 Hepatitis C screening [facility] Test 10:40:18 (procedure) [code = of Medic ine 001970775] Future Scheduled 2021-11-10 Human immunodeficiency B [facility] Test 10:40:18 virus screening of Medicine (procedure) [code = 839680421] Future Scheduled 2021-11-10 Screening for malignant [facility] Test 10:40:18 neoplasm of cervix of Medici ne (procedure) [code = 717731640] Future Scheduled 2021-11-10 ZOSTER VACCINE (1 of 2) [facility] Test 10:40:18 [code = ZOSTER VACCINE of Me dicine (1 of 2)] Future Scheduled 2021-11-10 FLU VACCINE > 6 MONTHS [facility] Test 10:40:18 [code = FLU VACCINE > 6 of M edicine MONTHS] Future Scheduled 2021-11-10 Screening for malignant [facility] College Test 10:40:18 neoplasm of colon of Medicin e (procedure) [code = 290104062] Future Scheduled 2021-11-10 Screening for malignant [facility] Test 10:40:18 neoplasm of breast of Medici ne (procedure) [code = 376997280] Future Scheduled 2021-11-10 COVID-19 Vaccine (#1) [facility] Test 10:40:18 [code = COVID-19 of Medicine Vaccine (#1)] Future Scheduled 2021-10-17 Screening for malignant [facility] [employer] Test 12:53:46 neoplasm of colon of Medicin e (procedure) [code = 971919524] Future Scheduled 2021-10-17 Screening for malignant [facility] Test 12:53:46 neoplasm of breast of Medici ne (procedure) [code = 188982122] Future Scheduled 2021-10-17 COVID-19 Vaccine (1) [facility] Test 12:53:46 [code = COVID-19 of Medicine Vaccine (1)] Future Scheduled 2021-10-17 TETANUS SHOT (ADULT) [place] [facility] Test 12:53:46 [code = TETANUS SHOT of Medi cine (ADULT)] Future Scheduled 2021-10-17 BMI FOLLOW UP PLAN [facility] Test 12:53:46 [code = BMI FOLLOW UP of Med icine PLAN] Future Scheduled 2021-10-17 Hepatitis C screening [facility] Test 12:53:46 (procedure) [code = of Medic ine 387455093] Future Scheduled 2021-10-17 Human immunodeficiency [facility] [employer] Test 12:53:46 virus screening of Medicine (procedure) [code = 381689071] Future Scheduled 2021-10-17 Screening for malignant [facility] [employer] Test 12:53:46 neoplasm of cervix of Medici ne (procedure) [code = 954612842] Future Scheduled 2021-10-17 ZOSTER VACCINE (1 of 2) [facility] [employer] Test 12:53:46 [code = ZOSTER VACCINE of Me dicine (1 of 2)] Future Scheduled 2021-10-17 FLU VACCINE > 6 MONTHS [facility] [employer] Test 12:53:46 [code = FLU VACCINE > 6 of M edicine MONTHS] Future Scheduled 2021-10-11 MRI BRAIN W WO CONTRAST 1 Occurrences [facility] Test 15:31:32 [code = 91593-1] starting of Medicine 10/11/2021 until 10/11/2022 Future Scheduled 2021-10-11 NM LUNG VENTILATION 1 Occurrences [facility] Test 15:29:34 PERFUSION [code = starting of Medicin e 92454] 10/11/2021 until 04/12/2023 Future Scheduled 2021-10-11 COMPLETE PFT WITHOUT 1 Occurrences [facility] [employer] Test 15:29:34 BRONCHODILATOR [code = starting of Me dicine 60466] 10/11/2021 until 10/11/2022 Diagnostic Test 2021-10-11 ECHO, COMPLETE [code = Expected: [facility] Pending 00:00:00 09907] 10/11/2021, of Medicine Expires: 04/12/2022 Encounters Start End Encounter Admission Attending Care Care Encounter Source Date/Time Date/Time Type Type Clinicians Facility Department ID 2020-02-07 Outpatient WADE XIE Breast Kwadwo [id number] 12:19:36 NAVEED hansen 2020-02-02 Outpatient BIA MORALES MDA MDA [id number] 13:19:19 ESTHER hansen 2020-01-21 Outpatient WADE MCCLOUD MDA [id number] 16:39:13 PROVIDER Valdo hansen 2021-11-01 2021-11-01 Office TARYN Porter [id number] [place] [address] 10:30:00 10:45:00 Visit Jamari AMBULATOR 350.1.13.21 College Y 0.2.7.2.686 of [id number] [facility] luis e 810 e 2021-10-26 2021-10-26 Outpatient YURI KOEHLER [facility] [id number] [facility] 10:56:31 23:59:00 GURDEEP 2021-10-26 2021-10-26 Outpatient YURI KOEHLER [facility] [id number] SLE 10:37:05 10:55:00 GURDEEP 2021-10-26 2021-10-26 Outpatient YURI KOEHLER [facility] [id number] [facility] 00:00:00 10:36:00 GURDEEP 2021-10-26 2021-10-26 Outpatient BCM [facility] [id number] [facility] 08:56:20 10:23:06 Colleg e of Medicin e 2021-10-11 2021-10-11 Office TARYN Porter [id number] [facility] 13:30:00 13:45:00 Visit Jamari AMBULATOR 350.1.13.21 College Y 0.2.7.2.686 [id number] Medi luis e 810 e 2021-09-30 2021-10-03 Inpatient ER SNEHA [facility] [id number] [facility] 14:38:00 13:05:00 CHEMA bishop 2021-09-30 2021-09-30 [facility] [id number] [facility] 00:00:00 23:59:00 Colleg e of Medicin e 2021-02-13 2021-02-13 Outpatient Rosetta KELLEY [facility] [id number] Univers 13:00:00 13:00:00 DANA [id number] [facility] 2021-02-13 2021-02-13 Outpatient Rosetta KELLEY [facility] [id number] Univers 13:00:00 13:00:00 DANA [facility] 2020-09-29 2020-09-29 Nurse Nurse, [facility] Surgery Faculty RUST [id number] Univers 10:02:54 10:21:25 Visit Dana Kelley [place] 350.1.13.10 [facility] 4.2.7.2.686 [facility] Professio [id number] Tn [address] 2020-09-29 2020-09-29 Outpatient R [facility] [id number] Univers 08:00:00 08:00:00 [id number] [facility] 2020-09-29 2020-09-29 [facility] [id number] Univers 08:00:00 08:00:00 DANA [facility] 2020-09-22 2020-09-22 Nurse Nurse, [facility] Surgery Faculty RUST [id number] Univers 13:30:06 14:03:57 Visit Dana Kelley 350.1.13.10 ity [facility] 4.2.7.2.686 [place] Profess[place] [id number] Tn dical [address] 2020-09-22 2020-09-22 Outpatient R [facility] [id number] Univers 14:00:00 14:00:00 [id number] ity [facility] 2020-09-22 2020-09-22 Outpatient R [facility] [id number] Univers 14:00:00 14:00:00 ity [facility] 2020-09-05 2020-09-05 Outpatient R WARREN [facility] [id number] Univers 13:30:00 13:30:00 DANA [facility] 2020-09-05 2020-09-05 Orders Doctor MIKE [id number] Univers 00:00:00 00:00:00 Only Unassigned, ESTHELA 350.1.13.10 ity of [facility] 4.2.7.2.686 Michael as [phone] [address] 2020-03-02 2020-03-02 Outpatient BIA DODSON, MDA MDA [id number] 00:00:00 00:00:00 KUSH hansen 2020-02-17 2020-02-17 Outpatient EL IRENEUTU, MDA MDA [id number] 00:00:00 00:00:00 DESTINI hansen 2020-02-17 2020-02-17 Outpatient EL IRENEUTU, MDA MDA [id number] 00:00:00 00:00:00 DESTINI hansen 2020-02-17 2020-02-17 Outpatient EL IRENEUTU, MDA MDA [id number] MD 00:00:00 00:00:00 DESTINI hansen 2020-02-17 2020-02-17 Outpatient EL IRENEUTU, MDA MDA [id number] MD 00:00:00 00:00:00 DESTINI hansen 2020-02-17 2020-02-17 Outpatient EL ANGELIA, MDA MDA [id number] MD 00:00:00 00:00:00 DESTINI hansen 2020-02-16 2020-02-16 Outpatient EL HERMAN, MDA MDA [id number] MD 00:00:00 00:00:00 CLARE hansen 2020-02-10 2020-02-10 Outpatient EL MIGGINS, MDA MDA [id number] MD 00:00:00 00:00:00 NAVEED Lyle o jade 2020-02-10 2020-02-10 Outpatient EL MIGGINS, MDA MDA [id number] MD 00:00:00 00:00:00 NAVEED Lyle o jade 2020-02-02 2020-02-02 Outpatient HERMAN, MDA MDA [id number] MD 00:00:00 00:00:00 CLARE hansen 2020-01-28 2020-01-28 Outpatient EL ANGELIA, MDA MDA [id number] MD 13:00:16 13:00:16 DESTINI hansen 2020-01-27 2020-01-27 Outpatient EL MIGGINS, MDA MDA [id number] MD 10:35:15 12:08:54 NAVEED hansen 2020-01-27 2020-01-27 Outpatient EL MDA MDA [id number] MD 10:31:52 10:32:00 Valdo hansen 2020-01-26 2020-01-26 Outpatient EL MDA MDA [id number] MD 12:35:52 12:35:52 Valdo hansen 2020-01-26 2020-01-26 Outpatient EL MIGGINS, MDA MDA [id number] MD 12:31:31 12:31:31 NAVEED Lyle o jade 2020-01-26 2020-01-26 Outpatient EL MIGGINS, MDA MDA [id number] MD 12:31:27 12:31:27 NAVEED Lyle o jade 2020-01-26 2020-01-26 Outpatient EL MIGGINS, MDA MDA [id number] MD 12:31:19 12:31:19 NAVEED Lyle o jade 2020-01-26 2020-01-26 Outpatient EL MIGGINS, MDA MDA [id number] MD 12:31:13 12:31:13 NAVEED Lyle o jade 2020-01-26 2020-01-26 Outpatient [facility] MDA [id number] 11:32:56 11:32:56 Valdo o n 2020-01-26 2020-01-26 Outpatient [facility] MDA [id number] 11:32:31 11:32:39 Valdo o n 2020-01-26 2020-01-26 Outpatient [facility] MDA [id number] 00:00:00 00:00:00 Valdo o n 2020-01-24 2020-01-24 Outpatient [facility] MDA [id number] 18:16:51 18:16:51 Valdo o n Results Test Description Test Test Comments Results Result Sourc e Time Comments MR, BRAIN, WITH 2021-10- Left upper Lobe 07 lung mass. To r/[facility] 08:07:00 [facility] Reason for Exam - LATA GRACE Click Yes and : 1965 Enter Reason Sex: Below->YesUnliste F d Reason for Exam->Mass of FINAL upper lobe of REPORT PATIENT ID: left lung [id number] MR, BRAIN, WITH (R91.8); Pre-op \\T\\ WITHOUT CONTRAST exam INDICATION: Unlisted (Z01.818)Anesthes Reason for ExamMass of ia:->NoneDoes the upper lobe of left lung patient have an (R91.8); Pre-op exam implanted (Z01.818) Technique: electronic Multiplanar, device?->No multisequence MRI images of the brain were obtained before and after demonstration of intravenous contrast. COMPARISON: None FINDINGS:Brain parenchyma is normal in morphology. Midline structures are normally developed. No restricted diffusion to suggest recent ischemic insult. No abnormal susceptibility. Susceptibility artifact noted in the right temporal lobe related to extracranial metal. Scattered T2/FLAIR hyperintense foci within the periventricular and subcortical white matter are nonspecific, however, statistically represent chronic microvascular ischemic changes. No hydrocephalus. Orbits are within normal limits. No obstructive paranasal sinus disease. Additional findings: None. IMPRESSION: No acute infarct, intracranial hemorrhage, or mass. Signed: Edwin Troy MDReport Verified Date/Time: 10/27/2021 08:07:34 ONARY QUANT 2021-10- Planning for Left DIFFERENTIAL 06 pneumonectomy Per FUNCT WITH 15:18:00 Dr. Jamari Porter [facility] [place] : 1965 Sex: F FINAL REPORT PROCEDURE: perfusion LUNG SCAN w/differential function CPT CODE: 45201 INDICATION: Left lung malignancy, evaluation prior to surgery. Shortness of breath. PROTOCOL: 2.2 mCi of Tc-99m MAA was injected intravenously, and static perfusion images were obtained in multiple projections. Relative tracer distribution was determined using the geometric mean method for the anterior and posterior projections. FINDINGS: Perfusion: Tracer distribution is markedly asymmetric, with normal perfusion to the right lung and near-absent perfusion to the left lung. Pulmonary artery flow is divided 5.3% to the left lung (0.9, 2.7, and 1.7% to the upper, mid, and lower lung alvarado respectively) and 95.4% to the right lung (14.9, 68.3, and 11.5% to the upper, mid, and lower lung alvarado respectively). IMPRESSION: Differential pulmonary perfusion as reported above. Notably, there is now near-absent perfusion to the left lung, which may represent significant worsening of pulmonary artery narrowing compared to the prior CT scan from 09/30/2021. Signed: Carolyn Chew Verified Date/Time: 10/26/2021 15:18:37 UE EXAM 2021-09- Surgical Pathology 20 Report 13:03:56 Case: [id number] Authorizing Provider: Dinah Dyson MD Collected: 10/02/2021 08:31 AM Ordering Location: [address] Received: 10/02/2021 03:27 PM Service Pathologist: Kaylyn Hoff MD Specimen: Lung, Left Upper Lobe A. 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 The case was reviewed with Drs. Cross and Gunjan (section of breast pathology). Their opinion is that given the nonspecific histology and immunoprofile, possibility of metastatic tumor from prior phyllodes tumor cannot be ruled in (or) ruled out. Based on the immunoprofile, sarcomatoid carcinoma seems less likely. Tissue is exhausted to work up for possibility of other sarcomas. Additional biopsy may be considered for further characterization of the tumor, if clinically feasible.[id number] x[age] y.o. 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 Found to have new large ATILIO mass concerning for new primary lung malignancy.A. Lung, Left Upper Lobe.Received in formalin labeled with the patient's name, medical record number and "lung, left upper lobe" and consists of multiple simpson-pink irregular, minute soft tissue fragments (2.4 x 2.1 x 0.1 cm in aggregate). The specimen is submitted in toto in A1.ARON Jeff studentSections show malignant spindle cell proliferation in a prominent vascular background and forming no definite pattern. No epithelial component or heterologous elements are seen. The cells are plasmacytoid in some areas, but are largely undifferentiated. Nuclear atypia is moderate. Mitoses are at least 4/10 HPF. No necrosis is seen. Immunostains for epithelial markers (CAM5.2, AE1/AE3, TTF-1, p40), vascular markers (CD31, CD34), breast markers (Mammaglobin, GCDFP, ER, UT, Her2-barbara) are negative. PARAMJIT-3 and SMA show rare, focal positivity which is nonspecific. The interpretation of this case included the use of immunohistochemistry or special stains.Control Slides Examined: In-house known positive controls were evaluated along with the test tissue. These control slides run alongside of the patients sample show appropriate staining. Internal positive and negative controls when available are evaluated Immunohistochemistry technical testing was performed at [facility], Pathology Laboratory where it was developed and its performance characteristics were determined. It has not been cleared or approved by the U.S. Food and Drug Administration. The FDA has determined that such clearance or approval is not necessary. The test is used for clinical purposes. It should not be regarded as investigational or for research. This laboratory is certified under the Clinical Laboratory Improvement Amendments of 1988 (CLIA-88) as qualified to perform high complexity clinical laboratory testing. BLOOD CULTURE 2021-10-07 14:00:55 Test Item Value Reference Range Interpretation Comme nts CULTURE (BEAKER) (test code = 1095) No growth in 5 days The specimen volume collected for this blood culture was below the optimum (10 mL per bottle or 20 mL total). Use of lower volumes may adversely affect recovery and/or detection times of some organisms.BLOOD [id number] 14:00:55 Test Item Value Reference Range Interpretation Comments CULTURE (BEAKER) (test No growth in 5 days code = 1095) The specimen volume collected for this blood culture was below the optimum (10 mL per bottle or 20 mL total). Use of lower volumes may adversely affect recovery and/or detection times of some organisms.CT, BIOPSY, [id number] 14:13:00[facility] CENTERName: LATA GRACE : 1965 Sex: FFINAL REPORT History: Left chest mass. PROCEDURE: Following informed w ritten consent, the patient was placed in a prone position on the CT table and limited noncontrast CT of the chest was performed. A skin site was identified, prepped and draped in the usual sterile manner. 2% lidocaine was given locally for anesthesia. Additionally, the patient received 1 mg IV Versedand 50 mcg IV fentanyl for conscious sedation and pain control. Vital signs were monitored and remained stable. Conscious sedation and continuous patient monitoring were provided by the attending radiologist and a registered nurse for 15 minutes during the procedure. Using a posterior approach, CT fluoroscopic guidance and a 19/20 gauge coaxial core biopsy system, a total of four 20-gauge core tissue samples were obtained from the patient's large left chest mass described above and submitted in formalin to pathology for evaluation. At the conclusion of the procedure, the percutaneous tract was embolized through the 19-gauge access needle using a Gelfoam slurry. Overall, the patient tolerated the procedure well without immediate complications and was discharged from the department in stable condition. FINDINGS: Noncontrast CT of the chest performed prior to, during and following the procedure demonstrates a large 13 cm x 7.8 cm mass in the medial aspect of the left chest abutting the aorta and mediastinal structures. During the biopsy, needle tip is noted to lie within this lesion. After the biopsy, a small amount of gas is present in the lesion consistent with postbiopsy change in the Gelfoamembolization described above. There is no fluid in the chest or evidence for active hemorrhage. IMPRESSION: 1. Successful uncomplicated CT- guided core biopsy of the patient's large left chest mass as described above. This exam was performed according to our departmental dose optimization program which includes automated exposure control, adjustment of the mA and/or KV according to the patient's size and/or use of iterative reconstruction technique. Signed: Mike Leger MDReport Verified Date/Time: 10/03/2021 14:13:09 Reading Location: [place] [address] Angio Body Reading Room BASIC METABOLIC [id number] 04:21:20 Test Item Value Reference Range Interpretation Comments SODIUM (BEAKER) 135 meq/L 136-145 L (test code = 381) POTASSIUM (BEAKER) 3.7 meq/L 3.5-5.1 (test code = 379) CHLORIDE (BEAKER) 100 meq/L 98-107 (test code = 382) CO2 (BEAKER) (test 23 meq/L 22-29 code = 355) BLOOD UREA NITROGEN 11 mg/dL 7-21 (BEAKER) (test code = 354) CREATININE (BEAKER) 0.86 mg/dL 0.57-1.25 (test code = 358) GLUCOSE RANDOM 107 mg/dL 70-105 H (BEAKER) (test code = 652) CALCIUM (BEAKER) 8.9 mg/dL 8.4-10.2 (test code = 697) EGFR (BEAKER) (test 68 mL/min/1.73 ESTIMA DOREEN GFR IS code = 1092) sq m NOT ACCURATE CREATININE CLEARANCE IN PREDICTING GLOMERULAR FILTRATION RATE . ESTIMATED GFR I S NOT APPLICABLE FOR DIALYSIS PATIEN TS. Cooperative Manager ID - BSLACTIC ACID, [id number] 04:16:43 Test Item Value Reference Range Interpretation Comments LACTATE BLOOD VENOUS (2) (BEAKER) 0.86 mmol/L 0.50-2.20 (test code = 2872) Cooperative Manager ID - BSCBC W/PLT COUNT & AUTO [id number] 03:57:05 Test Item Value Reference Range Interpretation Comments WHITE BLOOD CELL COUNT (BEAKER) 12.3 K/ L 3.5-10.5 H (test code = 775) RED BLOOD CELL COUNT (BEAKER) 4.25 M/ L 3.93-5.22 (test code = 761) HEMOGLOBIN (BEAKER) (test code = 12.1 GM/DL 11.2-15.7 410) HEMATOCRIT (BEAKER) (test code = 37.9 % 34.1-44.9 411) MEAN CORPUSCULAR VOLUME (BEAKER) 89.2 fL 79.4-94.8 (test code = 753) MEAN CORPUSCULAR HEMOGLOBIN 28.5 pg 25.6-32.2 (BEAKER) (test code = 751) MEAN CORPUSCULAR HEMOGLOBIN CONC 31.9 GM/DL 32.2-35.5 L (BEAKER) (test code = 752) RED CELL DISTRIBUTION WIDTH 14.2 % 11.7-14.4 (BEAKER) (test code = 412) PLATELET COUNT (BEAKER) (test 223 K/CU MM 150-450 code = 756) MEAN PLATELET VOLUME (BEAKER) 9.8 fL 9.4-12.3 (test code = 754) NUCLEATED RED BLOOD CELLS 0 /100 WBC 0-0 (BEAKER) (test code = 413) NEUTROPHILS RELATIVE PERCENT 84 % (BEAKER) (test code = 429) LYMPHOCYTES RELATIVE PERCENT 9 % (BEAKER) (test code = 430) MONOCYTES RELATIVE PERCENT 7 % (BEAKER) (test code = 431) EOSINOPHILS RELATIVE PERCENT 0 % (BEAKER) (test code = 432) BASOPHILS RELATIVE PERCENT 0 % (BEAKER) (test code = 437) NEUTROPHILS ABSOLUTE COUNT 10.27 K/ L 1.56-6.13 H (BEAKER) (test code = 670) LYMPHOCYTES ABSOLUTE COUNT 1.12 K/ L 1.18-3.74 L (BEAKER) (test code = 414) MONOCYTES ABSOLUTE COUNT (BEAKER) 0.80 K/ L 0.24-0.36 H (test code = 415) EOSINOPHILS ABSOLUTE COUNT 0.03 K/ L 0.04-0.36 L (BEAKER) (test code = 416) BASOPHILS ABSOLUTE COUNT (BEAKER) 0.02 K/ L 0.01-0.08 (test code = 417) IMMATURE GRANULOCYTES-RELATIVE 1 % 0-1 PERCENT (BEAKER) (test code = 2801) LACTIC ACID, [id number] 22:09:13 Test Item Value Reference Range Interpretation Comments LACTATE BLOOD VENOUS 1.11 mmol/L 0.50-2.20 Specime n slightly (2) (BEAKER) (test hemolyzed code = 2872) Cooperative Manager ID - [id number] 18:11:46 Test Item Value Reference Range Interpretation Comments PROCALCITONIN (BEAKER) (test code 0.55 ng/mL <0.05 H = 3036) SEPSIS RISK (ng/mL)Low: 0.05-0.50Intermediate: 0.51-2.00High: >=2.01LACTIC ACID, [id number] 18:00:06 Test Item Value Reference Range Interpretation Comments LACTATE BLOOD VENOUS (2) (BEAKER) 1.28 mmol/L 0.50-2.20 (test code = 2872) Cooperative Manager ID - BSURINALYSIS W/ REFLEX URINE [id number] 15:12:41 Test Item Value Reference Range Interpretation Comments COLOR (BEAKER) (test code = 470) Yellow CLARITY (BEAKER) (test code = 469) Clear SPECIFIC GRAVITY UA (BEAKER) (test 1.037 1.001-1.035 H code = 468) PH UA (BEAKER) (test code = 467) 6.0 5.0-8.0 PROTEIN UA (BEAKER) (test code = 70 mg/dL Negative A 464) GLUCOSE UA (BEAKER) (test code = Negative Negative 365) KETONES UA (BEAKER) (test code = 40 mg/dL Negative A 371) BILIRUBIN UA (BEAKER) (test code = Positive Negative A 462) BLOOD UA (BEAKER) (test code = 461) Trace Negative A NITRITE UA (BEAKER) (test code = Negative Negative 465) LEUKOCYTE ESTERASE UA (BEAKER) Negative Negative (test code = 466) UROBILINOGEN UA (BEAKER) (test code 2.0 mg/dL 0.2-1.0 H = 463) RBC UA (BEAKER) (test code = 519) 2 /HPF WBC UA (BEAKER) (test code = 520) 1 /HPF BACTERIA (BEAKER) (test code = 517) None Seen MUCUS (BEAKER) (test code = 1574) Moderate SQUAMOUS EPITHELIAL (BEAKER) (test < /HPF code = 516) HYALINE CASTS (BEAKER) (test code = 3 /LPF 514) CRYSTALS, URINE (BEAKER) (test code None Seen = 1521) SOURCE(BEAKER) (test code = 2795) Cooperative Manager ID - [auto]Cooperative Manager ID - techBASIC METABOLIC [id number] 07:54:54 Test Item Value Reference Range Interpretation Comments SODIUM (BEAKER) 136 meq/L 136-145 (test code = 381) POTASSIUM (BEAKER) 4.0 meq/L 3.5-5.1 (test code = 379) CHLORIDE (BEAKER) 99 meq/L 98-107 (test code = 382) CO2 (BEAKER) (test 23 meq/L 22-29 code = 355) BLOOD UREA NITROGEN 16 mg/dL 7-21 (BEAKER) (test code = 354) CREATININE (BEAKER) 1.14 mg/dL 0.57-1.25 (test code = 358) GLUCOSE RANDOM 93 mg/dL 70-105 (BEAKER) (test code = 652) CALCIUM (BEAKER) 9.8 mg/dL 8.4-10.2 (test code = 697) EGFR (BEAKER) (test 49 mL/min/1.73 ESTIMA DOREEN GFR IS code = 1092) sq m NOT ACCURATE CREATININE CLEARANCE IN PREDICTING GLOMERULAR FILTRATION RATE . ESTIMATED GFR I S NOT APPLICABLE FOR DIALYSIS PATIEN TS. Cooperative Manager ID - BSCBC W/PLT COUNT & AUTO [id number] 06:01:07 Test Item Value Reference Range Interpretation Comments WHITE BLOOD CELL COUNT (BEAKER) 13.9 K/ L 3.5-10.5 H (test code = 775) RED BLOOD CELL COUNT (BEAKER) 4.58 M/ L 3.93-5.22 (test code = 761) HEMOGLOBIN (BEAKER) (test code = 13.1 GM/DL 11.2-15.7 410) HEMATOCRIT (BEAKER) (test code = 40.7 % 34.1-44.9 411) MEAN CORPUSCULAR VOLUME (BEAKER) 88.9 fL 79.4-94.8 (test code = 753) MEAN CORPUSCULAR HEMOGLOBIN 28.6 pg 25.6-32.2 (BEAKER) (test code = 751) MEAN CORPUSCULAR HEMOGLOBIN CONC 32.2 GM/DL 32.2-35.5 (BEAKER) (test code = 752) RED CELL DISTRIBUTION WIDTH 14.2 % 11.7-14.4 (BEAKER) (test code = 412) PLATELET COUNT (BEAKER) (test 238 K/CU MM 150-450 code = 756) MEAN PLATELET VOLUME (BEAKER) 10.2 fL 9.4-12.3 (test code = 754) NUCLEATED RED BLOOD CELLS 0 /100 WBC 0-0 (BEAKER) (test code = 413) NEUTROPHILS RELATIVE PERCENT 82 % (BEAKER) (test code = 429) LYMPHOCYTES RELATIVE PERCENT 9 % (BEAKER) (test code = 430) MONOCYTES RELATIVE PERCENT 9 % (BEAKER) (test code = 431) EOSINOPHILS RELATIVE PERCENT 0 % (BEAKER) (test code = 432) BASOPHILS RELATIVE PERCENT 0 % (BEAKER) (test code = 437) NEUTROPHILS ABSOLUTE COUNT 11.38 K/ L 1.56-6.13 H (BEAKER) (test code = 670) LYMPHOCYTES ABSOLUTE COUNT 1.19 K/ L 1.18-3.74 (BEAKER) (test code = 414) MONOCYTES ABSOLUTE COUNT (BEAKER) 1.18 K/ L 0.24-0.36 H (test code = 415) EOSINOPHILS ABSOLUTE COUNT 0.03 K/ L 0.04-0.36 L (BEAKER) (test code = 416) BASOPHILS ABSOLUTE COUNT (BEAKER) 0.03 K/ L 0.01-0.08 (test code = 417) IMMATURE GRANULOCYTES-RELATIVE 1 % 0-1 PERCENT (BEAKER) (test code = 2801) HCG, QUANTITATIVE, [id number] 05:38:37 Test Item Value Reference Range Interpretation Comments GONADOTROPIN, CHORIONIC (HCG) QUANT < mIU/mL 0-10 (BEAKER) (test code = 649) Non- Females: <10 mIU/mL Females: Gestation Age Reference Range(mIU/mL) 0.2-1 Week 5-50 1-2 Weeks 50-500 2-3 Weeks 100-5,000 3-4Weeks 500-10,000 4-5 Weeks 1,000-50,000 5-6 Weeks 10,000-100,000 6-8 Weeks 15,000-200,000 2-3 Months 10,000-100,000 Cooperative Manager ID - DBALPHA FETOPROTEIN (AFP), TUMOR [id number] 04:40:30 Test Item Value Reference Range Interpretation Comments ALPHA-FETOPROTEIN (BEAKER) (test 4.4 ng/mL <10.0 code = 1094) Cooperative Manager ID - DBLACTATE DEHYDROGENASE (LDH)2021-10-01 04:38:54 Test Item Value Reference Range Interpretation Comments LACTATE DEHYDROGENASE (BEAKER) (test 229 U/L 125-220 H code = 635) Cooperative Manager ID - QUAN LBASIC METABOLIC [id number] 04:38:53 Test Item Value Reference Range Interpretation Comments SODIUM (BEAKER) 137 meq/L 136-145 (test code = 381) POTASSIUM (BEAKER) 3.4 meq/L 3.5-5.1 L (test code = 379) CHLORIDE (BEAKER) 98 meq/L 98-107 (test code = 382) CO2 (BEAKER) (test 27 meq/L 22-29 code = 355) BLOOD UREA NITROGEN 14 mg/dL 7-21 (BEAKER) (test code = 354) CREATININE (BEAKER) 1.11 mg/dL 0.57-1.25 (test code = 358) GLUCOSE RANDOM 102 mg/dL 70-105 (BEAKER) (test code = 652) CALCIUM (BEAKER) 9.6 mg/dL 8.4-10.2 (test code = 697) EGFR (BEAKER) (test 51 mL/min/1.73 ESTIMA DOREEN GFR IS code = 1092) sq m NOT ACCURATE CREATININE CLEARANCE IN PREDICTING GLOMERULAR FILTRATION RATE . ESTIMATED GFR I S NOT APPLICABLE FOR DIALYSIS PATIEN TS. Cooperative Manager ID - QUAN [id number] 04:38:53 Test Item Value Reference Range Interpretation Comments MAGNESIUM (BEAKER) (test code = 2.0 mg/dL 1.6-2.6 627) Cooperative Manager ID - QUAN LPROTHROMBIN TIME/[id number] 04:34:11 Test Item Value Reference Range Interpretation Comments PROTIME (BEAKER) 15.0 seconds 11.9-14.2 H (test code = 759) INR (BEAKER) (test 1.20 See_Comment [Automat ed message] code = 370) The system [employer] generated this result transmitted ref erence range: <=5.90. The reference range was not used to int erpret this result as normal/abnormal . RECOMMENDED COUMADIN/WARFARIN INR THERAPY RANGESSTANDARD DOSE: 2.0 - 3.0 Includes: PROPHYLAXIS forvenous thrombosis, systemic embolization; TREATMENT for venous thrombosis and/or pulmonary embolus.HIGH RISK: Target INR is 2.5-3.5 for patients with mechanical heart valves.CBC W/PLT COUNT & AUTO DIFFERENTIAL 2021-10-01 04:32:29 Test Item Value Reference Range Interpretation Comments WHITE BLOOD CELL COUNT (BEAKER) 11.4 K/ L 3.5-10.5 H (test code = 775) RED BLOOD CELL COUNT (BEAKER) 4.62 M/ L 3.93-5.22 (test code = 761) HEMOGLOBIN (BEAKER) (test code = 13.3 GM/DL 11.2-15.7 410) HEMATOCRIT (BEAKER) (test code = 41.4 % 34.1-44.9 411) MEAN CORPUSCULAR VOLUME (BEAKER) 89.6 fL 79.4-94.8 (test code = 753) MEAN CORPUSCULAR HEMOGLOBIN 28.8 pg 25.6-32.2 (BEAKER) (test code = 751) MEAN CORPUSCULAR HEMOGLOBIN CONC 32.1 GM/DL 32.2-35.5 L (BEAKER) (test code = 752) RED CELL DISTRIBUTION WIDTH 13.9 % 11.7-14.4 (BEAKER) (test code = 412) PLATELET COUNT (BEAKER) (test 240 K/CU MM 150-450 code = 756) MEAN PLATELET VOLUME (BEAKER) 10.2 fL 9.4-12.3 (test code = 754) NUCLEATED RED BLOOD CELLS 0 /100 WBC 0-0 (BEAKER) (test code = 413) NEUTROPHILS RELATIVE PERCENT 79 % (BEAKER) (test code = 429) LYMPHOCYTES RELATIVE PERCENT 10 % (BEAKER) (test code = 430) MONOCYTES RELATIVE PERCENT 10 % (BEAKER) (test code = 431) EOSINOPHILS RELATIVE PERCENT 1 % (BEAKER) (test code = 432) BASOPHILS RELATIVE PERCENT 0 % (BEAKER) (test code = 437) NEUTROPHILS ABSOLUTE COUNT 8.96 K/ L 1.56-6.13 H (BEAKER) (test code = 670) LYMPHOCYTES ABSOLUTE COUNT 1.18 K/ L 1.18-3.74 (BEAKER) (test code = 414) MONOCYTES ABSOLUTE COUNT (BEAKER) 1.13 K/ L 0.24-0.36 H (test code = 415) EOSINOPHILS ABSOLUTE COUNT 0.07 K/ L 0.04-0.36 (BEAKER) (test code = 416) BASOPHILS ABSOLUTE COUNT (BEAKER) 0.02 K/ L 0.01-0.08 (test code = 417) IMMATURE GRANULOCYTES-RELATIVE 0 % 0-1 PERCENT (BEAKER) (test code = 2801) SARS-COV2/RT-PCR ([facility])2021-10-01 03:47:54 Test Item Value Reference Range Interpretation Comments SARS-COV2/RT-PCR (test Negative Not Detected, Negative, code = 6681348) See external report for linked test SARS-COV-2 PERFORMING LAB [facility] (test code = 7667365) Negative result for this test determines that SARS-CoV-2 RNA was not present in the specimen above the Limit of Detection (LOD). However, Negative results do not preclude SARS-CoV-2 infection and should not be used as the sole basis for treatment or patient management decisions. Negative results mustbe combined with clinical observations, patient history, and epidemiological information. A false negative result may occur if a specimen is improperly collected, transported or handled. A false negative result should be considered if patient's recent exposures or clinical presentation indicate that COVID-19 (SARS-CoV-2) is likely and diagnostic tests for other causes of illness are negative. Re-testing should be considered in cases of suspected false negatives.The limit of detection for this assay is 800 copies/mL.This SARS CoV-2 test is a real-time RT-PCR test intended for the qualitative detection of nucleic acid from SARS-CoV-2 in a nasopharyngeal swab specimen collected from individuals susp ected of COVID-19 by their healthcare provider.This test has not been Food and Drug Administration (FDA) cleared or approved. This is a modified version of an approved Emergency Use Authorization (EUA) and is in the process of review by the FDA. Once authorized by the FDA, the issued EUA will be effective until the declaration that circumstances exist justifying the authorization of the emergency use of in vitro diagnostic tests for detection and/or diagnosis of COVID-19 is terminated under Section 564(b)(2) of the Act or the EUA is revoked under Section 564(g) of the Act.Fact Sheet for Healthcare Providers:https://www.[employer]/sites/default/files/product/documents/Fact_Shedenise x_TD_Dbxtdxuyq_Qczo_XJXI-IeY-6.pdfFact Sheet for Healthcare Patients:https://www.[employer]/sites/default/files/product/ documents/Ugnr_Atuzi_Qxtpzmje_Fsuo_HHZO-KbN-5.pdfPerforming Laboratory:[place] [address] [place], [place] [address]UNQIFCJ FUNCTION [id number] 16:56:20 Test Item Value Reference Range Interpretation Comments TOTAL PROTEIN (BEAKER) (test code = 8.1 gm/dL 6.0-8.3 770) ALBUMIN (BEAKER) (test code = 1145) 4.2 g/dL 3.5-5.0 BILIRUBIN TOTAL (BEAKER) (test code 0.6 mg/dL 0.2-1.2 = 377) BILIRUBIN DIRECT (BEAKER) (test 0.3 mg/dL 0.1-0.5 code = 706) ALKALINE PHOSPHATASE (BEAKER) (test 88 U/L 40-150 code = 346) AST (SGOT) (BEAKER) (test code = 19 U/L 5-34 353) ALT (SGPT) (BEAKER) (test code = 24 U/L 6-55 347) Cooperative Manager ID - DBBASIC METABOLIC [id number] 16:56:20 Test Item Value Reference Range Interpretation Comments SODIUM (BEAKER) 137 meq/L 136-145 (test code = 381) POTASSIUM (BEAKER) 3.1 meq/L 3.5-5.1 L (test code = 379) CHLORIDE (BEAKER) 96 meq/L 98-107 L (test code = 382) CO2 (BEAKER) (test 26 meq/L 22-29 code = 355) BLOOD UREA NITROGEN 11 mg/dL 7-21 (BEAKER) (test code = 354) CREATININE (BEAKER) 0.98 mg/dL 0.57-1.25 (test code = 358) GLUCOSE RANDOM 109 mg/dL 70-105 H (BEAKER) (test code = 652) CALCIUM (BEAKER) 10.0 mg/dL 8.4-10.2 (test code = 697) EGFR (BEAKER) (test 59 mL/min/1.73 ESTIMA DOREEN GFR IS code = 1092) sq m NOT ACCURATE CREATININE CLEARANCE IN PREDICTING GLOMERULAR FILTRATION RATE . ESTIMATED GFR I S NOT APPLICABLE FOR DIALYSIS PATIEN TS. Cooperative Manager ID - [id number] 16:56:20 Test Item Value Reference Range Interpretation Comments MAGNESIUM (BEAKER) (test code = 2.1 mg/dL 1.6-2.6 627) Cooperative Manager ID - DBPROTHROMBIN TIME/[id number] 16:37:51 Test Item Value Reference Range Interpretation Comments PROTIME (BEAKER) 14.5 seconds 11.9-14.2 H (test code = 759) INR (BEAKER) (test 1.15 See_Comment [Automat ed message] code = 370) The system [employer] generated this result transmitted ref erence range: <=5.90. The reference range was not used to int erpret this result as normal/abnormal . RECOMMENDED COUMADIN/WARFARIN INR THERAPY RANGESSTANDARD DOSE: 2.0 - 3.0 Includes: PROPHYLAXIS forvenous thrombosis, systemic embolization; TREATMENT for venous thrombosis and/or pulmonary embolus.HIGH RISK: Target INR is 2.5-3.5 for patients with mechanical heart valves.CBC W/PLT COUNT & AUTO DIFFERENTIAL 2021-09-30 16:30:04 Test Item Value Reference Range Interpretation Comments WHITE BLOOD CELL COUNT (BEAKER) 13.0 K/ L 3.5-10.5 H (test code = 775) RED BLOOD CELL COUNT (BEAKER) 4.86 M/ L 3.93-5.22 (test code = 761) HEMOGLOBIN (BEAKER) (test code = 14.2 GM/DL 11.2-15.7 410) HEMATOCRIT (BEAKER) (test code = 42.9 % 34.1-44.9 411) MEAN CORPUSCULAR VOLUME (BEAKER) 88.3 fL 79.4-94.8 (test code = 753) MEAN CORPUSCULAR HEMOGLOBIN 29.2 pg 25.6-32.2 (BEAKER) (test code = 751) MEAN CORPUSCULAR HEMOGLOBIN CONC 33.1 GM/DL 32.2-35.5 (BEAKER) (test code = 752) RED CELL DISTRIBUTION WIDTH 13.8 % 11.7-14.4 (BEAKER) (test code = 412) PLATELET COUNT (BEAKER) (test 270 K/CU MM 150-450 code = 756) MEAN PLATELET VOLUME (BEAKER) 9.9 fL 9.4-12.3 (test code = 754) NUCLEATED RED BLOOD CELLS 0 /100 WBC 0-0 (BEAKER) (test code = 413) NEUTROPHILS RELATIVE PERCENT 85 % (BEAKER) (test code = 429) LYMPHOCYTES RELATIVE PERCENT 9 % (BEAKER) (test code = 430) MONOCYTES RELATIVE PERCENT 5 % (BEAKER) (test code = 431) EOSINOPHILS RELATIVE PERCENT 0 % (BEAKER) (test code = 432) BASOPHILS RELATIVE PERCENT 0 % (BEAKER) (test code = 437) NEUTROPHILS ABSOLUTE COUNT 11.05 K/ L 1.56-6.13 H (BEAKER) (test code = 670) LYMPHOCYTES ABSOLUTE COUNT 1.14 K/ L 1.18-3.74 L (BEAKER) (test code = 414) MONOCYTES ABSOLUTE COUNT (BEAKER) 0.70 K/ L 0.24-0.36 H (test code = 415) EOSINOPHILS ABSOLUTE COUNT 0.01 K/ L 0.04-0.36 L (BEAKER) (test code = 416) BASOPHILS ABSOLUTE COUNT (BEAKER) 0.03 K/ L 0.01-0.08 (test code = 417) IMMATURE GRANULOCYTES-RELATIVE 1 % 0-1 PERCENT (BEAKER) (test code = 4543)
--- NOTE | 2021-11-27 18:49 | RAD REPORT ---
EXAM DESCRIPTION: RAD - Chest Single View - 11/27/2021 6:33 pm CLINICAL HISTORY: AMS, s/p chemo, tachypnea Chest pain. COMPARISON: Chest Single View dated 11/16/2021; Chest Single View dated 09/30/2021; Chest Single View dated 08/08/2021; Chest Single View dated 05/10/2020 FINDINGS: Portable technique limits examination quality. Complete opacification left hemithorax is noted. The patient has known left-sided malignancy. The hea rt is normal in size. Left sided port catheter tip in the SVC.
--- NOTE | 2021-11-27 18:53 | RAD REPORT ---
EXAM DESCRIPTION: CT - Head Brain Wo Cont - 11/27/2021 6:37 pm CLINICAL HISTORY: Mental status change, unknown cause Headache, drowsiness COMPARISON: No comparisons TECHNIQUE: All CT scans are performed using dose optimization technique as appropriate and may inclu de automated exposure control or mA/KV adjustment according to patient size. FINDINGS: No intracranial hemorrhage, hydrocephalus or extra-axial fluid collection.No areas of brai n edema or evidence of midline shift. The paranasal sinuses and mastoids are clear. The calvarium is intact. IMPRESSION: No acute intracranial abnormality.
--- NOTE | 2021-11-27 19:55 | RAD REPORT ---
EXAM DESCRIPTION: CT - Thorax Wo Con CLINICAL HISTORY: Chest pain dyspnea, AMS, known cancer, large pleural effusion COMPARISON: Chest For Pe Angio dated 10/03/2017; Chest Single View dated 11/27/2021; Abdomen W Contrast dated 10/25/2021; Angio Aorta For Dissection dated 09/30/2021; Chest Single View dated 09/30/2021; Live r Only dated 10/12/2020; Chest Abdomen Pelvis W Cont dated 11/03/2020; 3D DIAG [place] BILAT W/CAD dated ; Follow Up Breast Axilla Comp dated 01/05/2020 FINDINGS: There is a very large left-sided intrathoracic mass present with small moderate amount of pleural fluid. There is mild mass effect on the cardiomediastinal structures to the right present. Th e right lung is grossly clear. No pneumothorax. Moderate mass effect by the large left-sided tumor is seen on the tracheobronchial tree on the left. Subacute to chronic right-sided anterior lower rib fractures noted. No gross upper abdominal finding. All CT scans are performed using dose optimization technique as appropriate and may include automated exposure control or mA/KV adjustment according to patient size. IMPRESSION: Large soft tissue mass is present filling the majority of the left hemithorax in causing mild [id number] midline shift of the cardiomediastinal structures.
[2021-11-27] MEDS ORDERED: NA CHLORIDE 0.9% 500 ML ONE (20:27)
[2021-11-27] MEDS ORDERED: NA CHLORIDE 0.9% 1,000 ML ONE (20:27)
[2021-11-27 20:35] LABS: Absolute Lymphocytes (CBC) 0.3 K/uL (0.7-4.9); Lymphocytes % 1.4 % (15.3-44.8); MPV 7.8 fL (7.6-11.3); RBC Red Blood Cell Count 3.01 M/uL (3.86-4.86)
[2021-11-27 20:44] LABS: Protime INR 1.51
[2021-11-27 20:52] LABS: AST/SGOT 14 U/L (15-37); Albumin 1.9 g/dL (3.4-5.0); Alkaline Phosphatase 72 U/L (45-117); BUN Blood Urea Nitrogen 66 mg/dL (7-18); Bicarbonate 24 mmol/L (21-32); Bilirubin Total 0.7 mg/dL (0.2-1.0); Glomerular Filtration Rate 45 ml/min (=/>90); Glucose Level 129 mg/dL (74-106); Potassium 3.4 mmol/L (3.5-5.1); Protein, Total 6.5 g/dL (6.4-8.2); Sodium Level 141 mmol/L (136-145)
[2021-11-27 21:10] LABS: ALT/SGPT < 10 U/L (12-78)
--- NOTE | 2021-11-27 21:20 | EDPHYS ---
Physician Documentation [facility] Name: Yas Fischer Age: 56 yrs Sex: Female : 1965 Arrival Date: 11/27/2021 Time: 17:38 Bed 5 Private MD: ED Physician Freddie Ramirez HPI: 11/27 18:19 This 56 yrs old Female presents to ER via EMS with complaints of Altered rn Mental Status. 18:19 The patient presents with decreased mental status, decreased responsiveness. Onset: The rn symptoms/episode began/occurred today. Possible causes: unknown. Associated signs and symptoms: Pertinent positives: weakness, Pertinent negatives: abdominal pain, chest pain, diarrhea, seizure, vomiting. Current symptoms: In the emergency department the patient's symptoms are unchanged from the initial presentation. It is unknown whether or not the patient has had similar symptoms in the past. The patient has been recently seen by a physician:. Family reports generalized weakness, decreased responsiveness and depressed mental status that began today, had chemo infusion yesterday, they think for breast cancer, possible recurrence. Reports not eating/drinking lately, is very depressed, but got worse today to the point that she does not want to speak. NO seizure activity. . Historical: - Allergies: 17:40 Amoxicillin; bp - Home Meds: 17:40 amlodipine 10 mg tab 1 tab once daily [Active]; aspirin 81 mg Oral chew 1 tab once bp daily [Active]; lisinopril 20 mg Oral tab 1 tab once daily [Active]; pantoprazole 40 mg oral TbEC 1 tab once daily [Active]; - PMHx: 17:40 Anxiety; Hypertension; right breast cancer; bp - PSHx: 17:40 R mastectomy; bp - Immunization history:: Adult Immunizations up to date. - Social history:: Smoking status: Patient denies any tobacco usage or history of. - Family history:: not pertinent. - Hospitalizations: : No recent hospitalization is reported. ROS: 18:19 Unable to obtain ROS due to altered mental status. rn Exam: 18:19 Constitutional: This is a well developed, well nourished patient who is somnolent but rn opens eyes to voice Head/Face: Normocephalic, atraumatic. Eyes: Pupils equal round and reactive to light, Periorbital areas with no swelling, redness, or edema. ENT: very dry MM with cracked lips Cardiovascular: tachycardic, regular Respiratory: + tachypnea, no retractions Abdomen/GI: Soft, non-tender, non-distended Skin: Warm, dry MS/ Extremity: Pulses equal, no cyanosis. Neuro: Somnolent, opens eyes to voice, moves all 4 extremities, does not attempt to speak, no seizure activity noted. Vital Signs: 17:38 BP 100 / 66; Pulse 98; Resp 30; Temp 98; Pulse Ox 98% ; Weight 72.57 kg; bp 18:30 BP 106 / 76; Pulse 95; Resp 17; Pulse Ox 95% ; bp 19:34 BP 96 / 64; Pulse 99; Resp 26; as6 19:37 Pulse Ox 96% on R/A; as6 21:32 BP 116 / 73; Pulse 97; Resp 22 S; Pulse Ox 97% on R/A; as6 NIH Stroke Scale Scores: 17:40 NIHSS Score: 8 bp MDM: 17:42 Patient medically screened. rn 18:59 Transition of care: After a detail discussion of the patient's case, care is rn transferred to Freddie Ramirez MD. 21:16 Differential Diagnosis: electrolyte abnormality, hypoglycemia, intracranial bleed, mh7 volume depletion. Data reviewed: vital signs, nurses notes, old medical records, lab test result(s), CBC, electrolytes, EKG, radiologic studies, CT scan, plain films. Data interpreted: Pulse oximetry: on room air is 96 %. Interpretation: normal. Counseling: I had a detailed discussion with the patient and/or guardian regarding: the historical points, exam findings, and any diagnostic results supporting the discharge/admit diagnosis, lab results, radiology results, the need for further work-up and treatment in the hospital. Response to treatment: the patient's symptoms have mildly improved after treatment. 11/27 18:04 Order name: Blood Culture Adult (2) rn 11/27 18:04 Order name: CBC with Diff; Complete Time: 20:53 rn 11/27 18:04 Order name: CMP; Complete Time: 21:15 rn 11/27 18:04 Order name: Lactate; Complete Time: 21:05 rn 11/27 18:04 Order name: Protime (+inr); Complete Time: 20:53 rn 11/27 18:04 Order name: Ptt, Activated; Complete Time: 20:53 rn 11/27 18:04 Order name: XRAY Chest (1 view); Complete Time: 18:55 rn 11/27 18:04 Order name: Urine Culture rn 11/27 18:04 Order name: Urine Microscopic Only rn 11/27 18:04 Order name: CT Head Brain wo Cont; Complete Time: 18:55 rn 11/27 18:04 Order name: Procalcitonin rn 11/27 21:53 Order name: SARS-COV-2 RT PCR EDMS 11/27 22:13 Order name: Urine Dipstick-Ancillary EDMS 11/27 18:04 Order name: Accucheck; Complete Time: 18:28 rn 11/27 18:04 Order name: Cardiac monitoring; Complete Time: 18:28 rn 11/27 18:04 Order name: EKG - Nurse/Tech; Complete Time: 18:28 rn 11/27 18:04 Order name: IV Saline Lock - Large Bore; Complete Time: 18:28 rn 11/27 18:04 Order name: Labs collected and sent; Complete Time: 18:28 rn 11/27 18:04 Order name: O2 Per Protocol; Complete Time: 18:12 rn 11/27 18:04 Order name: O2 Sat Monitoring; Complete Time: 18:12 rn 11/27 19:24 Order name: Thorax Wo Con; Complete Time: 20:22 EDMS Administered Medications: 18:15 Drug: NS 0.9% (20 ml/kg) 20 ml/kg Route: IV; Rate: 1 bolus; Site: right hand; bp 23:44 Follow up: Response: No adverse reaction; IV Status: Completed infusion; IV Intake: as6 1451.4ml Disposition Summary: 11/27/21 21:19 Hospitalization Ordered Hospitalization Status: Inpatient Admission [facility] Provider: Austin Daigle [facility] Location: Telemetry/MedSurg (Inpatient) [facility] Condition: Stable [facility] Problem: an ongoing problem [facility] Symptoms: have improved [facility] Bed/Room Type: Standard [facility] Room Assignment: 431(11/27/21 23:03) bb Diagnosis - Altered mental status, unspecified [facility] - Dehydration [facility] - Adult failure to thrive [facility] - Lung Mass, known malignancy [facility] Forms: - Medication Reconciliation Form [facility] - SBAR form [facility] NIH Stroke Scale - NIH Stroke Score Date: 11/27/2021 Time: 17:40 Total Score = 8 1a. Level of Consciousness (LOC) - 1(Not Alert) 1b. Level of Consciousness (LOC) (Month \T\ Age) - 2(Neither) 1c. LOC Commands (Open \T\ Closes Eyes/Park Maintainer) - 2(Neither) 2. Best Gaze (Lateral Gaze Paresis) - 0(Normal) 3. Visual Field Loss - 0(No visual loss) 4. Facial Palsy - 0(Normal) 5a. Left Arm: Motor (10-second hold) - 0(No drift) 5b. Right Arm: Motor (10-second hold) - 0(No drift) 6a. Left Leg: Motor (5-second hold - always test supine) - 0(No drift) 6b. Right Leg: Motor (5-second hold - always test supine) - 0(No drift) 7. Limb Ataxia (finger/nose \T\ heel/sanchez - test with eyes open) - 0(Absent) 8. Sensory Loss (pinprick arms/legs/face) - 0(Normal) 9. Best Language: Aphasia (description/naming/reading) - 3(Mute, global aphasia) 10. Dysarthria (speech clarity - read or repeat words) - 0(Normal) 11. Extinction and Inattention (visual/tactile/auditory/spatial/personal) - 0(No abnormality) Initials: bp Signatures: Dispatcher [employer] EDMS Emely Gillette RN RN bb Papito Estrella MD MD rn [place], AUTOMATIC TRIMMING SEWER-C AUTOMATIC TRIMMING SEWER-Cla1 Shawn Anand RN RN bp Freddie Ramirez MD MD 7 Michael Neal RN as6 Corrections: (The following items were deleted from the chart) 19:24 18:47 Chest For PE Angio+CT.RAD.BRZ ordered. EDMS EDMS 21:53 21:18 COVID-19/FLU A+B+MOL.LAB.BRZ ordered. EDMS EDMS 23:03 21:19 bin yadav
--- NOTE | 2021-11-27 21:20 | ER ---
Nurse's Notes [facility] Name: Yas Fischer Age: 56 yrs Sex: Female : 1965 Arrival Date: 11/27/2021 Time: 17:38 Bed 5 Private MD: Diagnosis: Altered mental status, unspecified;Dehydration;Adult failure to thrive;Lung Mass, known malignancy Presentation: 11/27 17:38 Chief complaint: EMS states: AMS STARTING THIS AM, FIRST CHEMO Y/D. Coronavirus screen: bp At this time, the client does not indicate any symptoms associated with coronavirus-19. Ebola Screen: No symptoms or risks identified at this time. Initial Sepsis Screen: Does the patient meet any 2 criteria? No. Patient's initial sepsis screen is negative. Does the patient have a suspected source of infection? No. Patient's initial sepsis screen is negative. Risk Assessment: Do you want to hurt yourself or someone else? Patient reports no desire to harm self or others. Onset of symptoms was November 27, 2021. Care prior to arrival: Medication(s) given: zofran 4 mg, IV initiated. 22 GA, in the right hand, Glucose check: 150. 17:38 Method Of Arrival: EMS: [facility] bp 17:38 Acuity: STARLA 3 bp Triage Assessment: 17:40 General: Appears distressed, uncomfortable, Behavior is anxious. Pain: Unable to use bp pain scale. Does not appear to understand pain scale. EENT: No deficits noted. Neuro: Level of Consciousness is awake, confused, Oriented to none. Cardiovascular: Rhythm is sinus rhythm. Respiratory: No deficits noted. GI: No signs and/or symptoms were reported involving the gastrointestinal system. : No signs and/or symptoms were reported regarding the genitourinary system. Derm: No deficits noted. Musculoskeletal: No deficits noted. Historical: - Allergies: 17:40 Amoxicillin; bp - Home Meds: 17:40 amlodipine 10 mg tab 1 tab once daily [Active]; aspirin 81 mg Oral chew 1 tab once bp daily [Active]; lisinopril 20 mg Oral tab 1 tab once daily [Active]; pantoprazole 40 mg oral TbEC 1 tab once daily [Active]; - PMHx: 17:40 Anxiety; Hypertension; right breast cancer; bp - PSHx: 17:40 R mastectomy; bp - Immunization history:: Adult Immunizations up to date. - Social history:: Smoking status: Patient denies any tobacco usage or history of. - Family history:: not pertinent. - Hospitalizations: : No recent hospitalization is reported. Screenin:42 Abuse screen: Denies threats or abuse. Denies injuries from another. Nutritional bp screening: No deficits noted. Tuberculosis screening: No symptoms or risk factors identified. Fall Risk None identified. Assessment: 17:42 General: SEE TRIAGE NOTE. bp 18:32 Reassessment: PT TO CT. bp 19:36 Neuro: Level of Consciousness is confused. Respiratory: Respiratory effort is even, as6 unlabored, Respiratory pattern is regular, symmetrical. 21:30 General: Kin updated family on pt condition . as6 Vital Signs: 17:38 BP 100 / 66; Pulse 98; Resp 30; Temp 98; Pulse Ox 98% ; Weight 72.57 kg; bp 18:30 BP 106 / 76; Pulse 95; Resp 17; Pulse Ox 95% ; bp 19:34 BP 96 / 64; Pulse 99; Resp 26; as6 19:37 Pulse Ox 96% on R/A; as6 21:32 BP 116 / 73; Pulse 97; Resp 22 S; Pulse Ox 97% on R/A; as6 NIH Stroke Scale Scores: 17:40 NIHSS Score: 8 bp ED Course: 17:38 Patient arrived in ED. kj1 17:38 Shawn Anand, RN is Primary Nurse. bp 17:40 Triage completed. bp 17:40 Arm band placed on. bp 17:42 Papito Estrella MD is Attending Physician. rn 17:42 Patient has correct armband on for positive identification. Bed in low position. Call bp light in reach. Side rails up X2. Client placed on continuous cardiac and pulse oximetry monitoring. NIBP monitoring applied. 17:42 Maintain EMS IV. Dressing intact. Good blood return noted. Site clean \T\ dry. Gauge \T\ bp site: 22 G R HAND. 18:34 XRAY Chest (1 view) In Process Unspecified. EDMS 18:39 CT Head Brain wo Cont In Process Unspecified. EDMS 19:02 Attending Physician role handed off by Papito Estrella MD 7 19:02 Freddie Ramirez MD is Attending Physician. mh7 19:46 Thorax Wo Con In Process Unspecified. EDMS 20:20 Inserted saline lock: 20 gauge in left forearm, using aseptic technique. Blood as6 collected. 21:17 Austin Daigle MD is Hospitalizing Provider. [facility] 22:11 Straight cath inserted, using sterile technique, Specimen obtained. Returned elizabeth zm urine. Patient tolerated well. 23:43 No provider procedures requiring assistance completed. Patient admitted, IV remains in as6 place. Administered Medications: 18:15 Drug: NS 0.9% (20 ml/kg) 20 ml/kg Route: IV; Rate: 1 bolus; Site: right hand; bp 23:44 Follow up: Response: No adverse reaction; IV Status: Completed infusion; IV Intake: as6 1451.4ml Medication: 17:42 VIS not applicable for this client. bp Intake: 23:44 IV: 1451ml; Total: 1451ml. as6 Output: 22:08 Urine: 850ml (Straight Cath); Total: 850ml. as6 Outcome: 21:19 Decision to Hospitalize by Provider. [facility] 23:43 Admitted to Tele accompanied by demetrius, family with patient, via stretcher, room 431, as6 with chart, Report called to Micah GARCIA 23:43 Condition: stable 23:43 Instructed on the need for admit. 23:45 Patient left the ED. as6 NIH Stroke Scale - NIH Stroke Score Date: 11/27/2021 Time: 17:40 Total Score = 8 1a. Level of Consciousness (LOC) - 1(Not Alert) 1b. Level of Consciousness (LOC) (Month \T\ Age) - 2(Neither) 1c. LOC Commands (Open \T\ Closes Eyes/Heavy Truck Technician) - 2(Neither) 2. Best Gaze (Lateral Gaze Paresis) - 0(Normal) 3. Visual Field Loss - 0(No visual loss) 4. Facial Palsy - 0(Normal) 5a. Left Arm: Motor (10-second hold) - 0(No drift) 5b. Right Arm: Motor (10-second hold) - 0(No drift) 6a. Left Leg: Motor (5-second hold - always test supine) - 0(No drift) 6b. Right Leg: Motor (5-second hold - always test supine) - 0(No drift) 7. Limb Ataxia (finger/nose \T\ heel/sanchez - test with eyes open) - 0(Absent) 8. Sensory Loss (pinprick arms/legs/face) - 0(Normal) 9. Best Language: Aphasia (description/naming/reading) - 3(Mute, global aphasia) 10. Dysarthria (speech clarity - read or repeat words) - 0(Normal) 11. Extinction and Inattention (visual/tactile/auditory/spatial/personal) - 0(No abnormality) Initials: bp Signatures: Dispatcher [employer] EDMS Papito Estrella MD MD rn Peltier, Brian, RN RN Ladi Maguire kj1 Ferddie Ramirez MD MD 7 Shayy Morales tw5 Michael Neal RN RN as6 Kristin Mclain Corrections: (The following items were deleted from the chart) 18:12 17:38 BP 100 / 66; Pulse 98bpm; Resp 30bpm; Pulse Ox 98%; Temp 98F; bp bp 19:36 19:06 General: Per provider leave peg tube open. tw5 as6
[2021-11-27 22:12] LABS: Urine Blood Trace-intact (Negative); Urine Glucose Negative (Negative); Urine Protein Negative (Negative); Urine Specific Gravity 1.015 (1.005-1.030)
--- NOTE | 2021-11-27 22:34 | P.HP ---
Certification for Inpatient Patient admitted to: Inpatient With expected LOS: >2 Midnights Patient will require the following post-hospital care: Hospice Practitioner: I am a practitioner with admitting privileges, knowledge of patient current condition, hospital course, and medical plan of care. Services: Services provided to patient in accordance with Admission requirements found in Title 42 Section 412.3 of the Code of Federal Regulations Patient History Date of Service: 11/27/21 Reason for admission: Altered mental status, left lung mass History of Present Illness: 56-year-old female history of breast cancer, sarcoma/mass of the left chest who just began chemotherapy this week on Friday presents emergency department for altered mental status, dehydration and shortness of breath. Patient was evaluated here in the emergency department her labs were significant for leukocytosis, microcytic anemia, hypokalemia, acute kidney injury she had a CT of her chest performed which demonstrated large soft tissue mass is present filling the majority of the left hemithorax causing mild left to right midline shift of the cardiomediastinal structures. Discussed case with patient's oncologist Dr. Goldstein mass has grown significantly in size over a very short period of time oncology recommends hospice for this patient she is not amendable for any further surgical or medical treatments per oncology/hematology. This was discussed at length with family will admit for hydration, hopefully to help with altered mental status which is deemed likely to be related to metabolic encephalopathy given that her head CT was negative in the emergency department will likely need to transition to hospice in the next day. Allergies amoxicillin Allergy (Verified 11/15/21 08:16) Hives Home Medications: Buspirone HCl [Buspar] 10 mg PO BID 10/04/17 Lisinopril/Hydrochlorothiazide [Lisinopril-Hctz 20-12.5 mg Tab] 2 tab PO DAILY 10/04/17 Pantoprazole [Protonix Tab*] 40 mg PO DAILY 10/04/17 Anastrozole 1 tab PO DAILY 11/14/21 - Past Medical/Surgical History Diabetic: No -: Generalized Anxiety -: Hypertension -: Breast cancer -: Sarcoma left lung -: Tubal Ligation Psychosocial/ Personal History: Patient lives at home with family - Family History Mother -: Hypertension Father -: Hypertension Brother -: Hypertension - Social History Smoking Status: Unknown if ever smoked Alcohol use: Yes CD- Drugs: No Caffeine use: No Place of Residence: Home Review of Systems is unable to be obtained Physical Examination - Physical Exam General: Alert, In no apparent distress, Confused HEENT: Atraumatic, PERRLA, Other ( mucous membranes very dry), EOMI, Sclerae nonicteric Neck: Supple, 2+ carotid pulse no bruit, No LAD Respiratory: Other (Absent breath sounds left side, diminished on the right) Cardiovascular: Regular rate/rhythm, Normal S1 S2 Capillary refill: <2 Seconds Gastrointestinal: Normal bowel sounds, No tenderness Musculoskeletal: No tenderness Integumentary: No rashes Neurological: Normal tone, Other (Eyes open, moving all extremities not responding verbally) - Studies Laboratory Data (last 24 hrs) 11/27/21 20:10: PT 16.8 H, INR 1.51, APTT 27.8 11/27/21 20:10: Sodium 141, Potassium 3.4 L, BUN 66 H, Creatinine 1.37 H, Glucose 129 H, Total Bilirubin 0.7, AST 14 L, ALT < 10 L, Alkaline Phosphatase 72 11/27/21 20:10: WBC 21.2 H* D, Hgb 7.5 L, Hct 24.0 L, Plt Count 255 Assessment and Plan - Plan Assessment: Altered mental status suspect metabolic encephalopathy Large left lung masssarcoma Acute kidney injury Hypokalemia Anemia of chronic/metastatic disease Plan: Altered mental status suspect metabolic encephalopathy: Continue IV fluids overnight to help with acute kidney injury/suspected metabolic encephalopathy patient eyes open, moves extremities but not communicating verbally at this time does not seem to understand was going on around her. CT head negative for metastatic lesions. Large left lung masssarcoma: Discussed at length with the patient's oncologist Dr. Goldstein as well as family given rapid progression and current size of mass she is not a candidate for any kind of surgical intervention or further medical treatment. Oncology recommends hospice this was discussed at length with family who understand and are willing to consider. We will have social science professor discussed with patient family tomorrow. Dr. Goldstein also reports she is available for further discussion with family/attending physician. Patient will benefit with hospice. Acute kidney injury: Continue IV fluids attempt to improve mental status the patient can better understand what is going on. Hypokalemia: Protocol in place. Anemia of chronic/metastatic disease: Monitor hemoglobin daily if hemoglobin drops below 7 will need to discuss further plan of care with patient/family to determine possible benefit of blood transfusion versus not. DVT PPX: Lovenox Code status: Undeterminedfull code for tonight we will likely transition to hospice tomorrow patient altered cannot decide for herself no MPOA at this time family not wanting to decide tonight. Discharge Plan: Other (Hospice) Plan to discharge in: 48 Hours - Advance Directives Does patient have a Living Will: No Does patient have a Durable POA for Healthcare: No - Code Status/Comfort Care Code Status Assessed: Yes Critical Care: No Time Spent Managing Pts Care (In Minutes): 70
[2021-11-28] MEDS ORDERED: ONDANSETRON 4 MG/2 ML VIAL IV PRN (00:10)
[2021-11-28] MEDS ORDERED: LORazepam 2 MG/ML VIAL IV PRN (00:10)
[2021-11-28 00:40] VITALS: BMI 30.2
[2021-11-28] MEDS: NA CHLORIDE 0.9% 1,000 ML IV SCH ×3 (00:47→13:29)
[2021-11-28 03:59] LABS: Absolute Lymphocytes (CBC) 0.3 K/uL (0.7-4.9); Hematocrit 21.7 % (36.0-45.0); MPV 7.6 fL (7.6-11.3); RBC Red Blood Cell Count 2.68 M/uL (3.86-4.86)
[2021-11-28 04:08] LABS: ALT/SGPT < 10 U/L (12-78); AST/SGOT 10 U/L (15-37); Albumin 1.7 g/dL (3.4-5.0); Alkaline Phosphatase 60 U/L (45-117); BUN Blood Urea Nitrogen 57 mg/dL (7-18); Bicarbonate 23 mmol/L (21-32); Bilirubin Total 0.5 mg/dL (0.2-1.0); Glomerular Filtration Rate 58 ml/min (=/>90); Glucose Level 114 mg/dL (74-106); Potassium 3.4 mmol/L (3.5-5.1); Protein, Total 5.6 g/dL (6.4-8.2); Sodium Level 144 mmol/L (136-145)
[2021-11-28] MEDS ORDERED: NA CHLORIDE 0.9% 250 ML IV SCH (05:00)
--- NOTE | 2021-11-28 07:54 | EKG ---
Test Date: 2021-11-27 Test Time: 18:20:51 Scrubbing Machine Operator: BP MEASUREMENT RESULTS: Intervals: Rate: 94 NM: 122 QRSD: 80 QT: 342 QTc: 427 [place]: P: 61 NM: 122 QRS: 32 T: 48 INTERPRETIVE STATEMENTS: Normal sinus rhythm Nonspecific T wave abnormality Abnormal ECG Compared to ECG 09/30/2021 09:52:14 T-wave abnormality now present Sinus tachycardia no longer present Left-axis deviation no longer present Myocardial infarct finding no longer present Electronically Signed On 11-28-21 07:52:31 CDT by Nima Kathleen
[2021-11-28] MEDS ORDERED: NA CHLORIDE 0.9% 250 ML ONE (08:11)
[2021-11-28] MEDS: MORPHINE 2 MG/ML SYR IV PRN ×2 (08:19→12:50)
[2021-11-28] MEDS: ENOXAPARIN 40 MG/0.4 ML SQ SCH ×2 (08:20→08:34)
[2021-11-28] MEDS: KCL 20 MEQ/100 mL IVPB 20 MEQ/100 ML BAG IV SCH ×2 (11:47→15:12)
[2021-11-28 14:29] LABS: Hematocrit 26.8 % (36.0-45.0)
[2021-11-28] MEDS ORDERED: HYDROMORPHONE HCL 0.5 MG/0.5 ML INJ IV PRN (14:48)
[2021-11-28 16:40] VITALS: BP 103/62; TEMP 97.3
[2021-11-28 16:54] VITALS: O2SAT 94
--- NOTE | 2021-11-28 17:29 | P.PN ---
Subjective Date of Service: 11/28/21 Chief Complaint: Altered mental status, left lung mass Subjective: Worsening Physical Examination - Vital Signs Temperature: 97.3 F Blood Pressure: 103/62 Pulse: 100 Respirations: 20 Pulse Ox (%): 94 - Physical Exam General: Alert HEENT: Atraumatic, Normocephalic - Studies Laboratory Data (last 24 hrs) 11/27/21 20:10: PT 16.8 H, INR 1.51, APTT 27.8 11/27/21 20:10: Sodium 141, Potassium 3.4 L, BUN 66 H, Creatinine 1.37 H, Glucose 129 H, Total Bilirubin 0.7, AST 14 L, ALT < 10 L, Alkaline Phosphatase 72 11/27/21 20:10: WBC 21.2 H* D, Hgb 7.5 L, Hct 24.0 L, Plt Count 255
[2021-11-28] MEDS ORDERED: HYDROMORPHONE HCL 2 MG/ML inj IV PRN (18:40)
[2021-11-28] MEDS ORDERED: LORAZEPAM 1 MG TABLET PO PRN (18:42)
[2021-11-28] MEDS ORDERED: FENTANYL 25 MCG/PATCH TD ONE (19:00)
[2021-11-28] MEDS ORDERED: HYDROMORPHONE HCL 2 MG/ML inj IV ONE (19:00)
== END 2021-11-28 20:00 | disposition hospice, inpatient (51) | DRG 180 ==
LOC: ER 17:33 → ERHOLD 22:05 → 4TH 23:14
PROVIDERS: ADMIT Internal Medicine Nephrology; ATTEND Internal Medicine Nephrology
DX: C34.92 Malignant neoplasm of unspecified part of left bronchus or lung (principal); G93.41 Metabolic encephalopathy; N17.9 Acute kidney failure, unspecified; I10 Essential (primary) hypertension; E87.6 Hypokalemia; D63.0 Anemia in neoplastic disease; E86.0 Dehydration; Z85.3 Personal history of malignant neoplasm of breast; Z88.0 Allergy status to penicillin; Z20.822 Contact with and (suspected) exposure to COVID-19
CPT/HCPCS: 36415; 36430; 51702; 70450; 71045; 71250; 80053; 81003; 83605; 84145; 85014; 85018; 85025; 85610; 85730; 86850; 86900; 86901; 86922; 87040; 93005; 96360; 96361; 96367; 96375; 96413; 96415; 96417; 99285; J1100; J1170; J1453; J1642; J1650; J2270; J2469; J3480; J7030; J7040; J7050; J9000; J9208; P9016; U0003

== ENCOUNTER 2021-11-28 20:02 | Inpatient (IN) | payer OTHER ==
--- OUTSIDE RECORDS SUMMARY | 2021-11-28 20:07 | XMS REPORT | Clinical Summary ---
:1965 Author Organization [facility] MD [facility] Address [address] [place] [address] Care Team Providers Name Role Phone Terrence [...] Fever during cycle on 05/10. Seen at [facility]. Patient to complete ciprofloxacin as prescribed. Malignant [...] Transplant Pasquale Molina RN LDA cutover after 11/28/2020 Surgical History Surgery Date Site/Laterality Comments TUBAL LIGATION MN MASTECTOMY, PARTIAL 02/18/2020 Breast/Left Procedure : Left JOVANY segmental mastec dawn; Surgeon: Tevin Mauricio MD; Location: [facility]; Service: BREAST MN INTRAOPERATIVE SENTINEL 02/18/2020 Left Proce dure: INTRAOPERATIVE LYMPH NODE ID W DYE INJECTION LY MPHATIC MAPPING; Surgeon: Tevin Mauricio MD; Location: [facility]; Service: BREAST MN IDENTIFY SENTINEL NODE 02/18/2020 Left Proced ure: ISOTOPE INJECTION FOR SENTINEL NOD E BIOPSY; Surgeon: Tevin Mauricio MD; Location: OR; Service: BREAST MN BX/REMV,LYMPH NODE,DEEP 02/18/2020 Axilla/Left Proce dure: SENTINEL NODE AXILL BIOPSY - AXILLA; Surgeon: Tevin Mauricio MD; Location: [facility] R; Service: BREAST MN EXCISE BREAST LES W XRAY 02/18/2020 Breast/Right Proc edure: JOVANY guided MARKER EXCISIONAL BIOPS Y OF RIGHT BREAST LESION; Surgeon: Tevin Mauricio MD; Location: [facility]; Service: BREAST MN MASTECTOMY, SIMPLE, 03/17/2020 Breast/Right Procedure : TOTAL [...] Vaccination (1) 1977 Results Not on fileafter 11/28/2020 Advance Directives Code Status Date Activated Date Inactivated Comments Full Code 03/17/2020 1:31 PM 03/18/2020 12:38 PM Full Code 02/18/2020 3:28 PM 02/18/2020 7:32 PM Care Teams Jackhammer Operator Relationship Specialty Start Date End Date Tyree Eagle PCP - External Referring Obstetrics/Gynecology 1989 MD Terrence [address] [place] [id number] Tevin Mauricio MD PCP - General Breast Surgery 01/26/[address] [place] [id number]
--- OUTSIDE RECORDS SUMMARY | 2021-11-28 20:08 | XMS REPORT | Continuity of Care Document ---
:1965 Author Organization [facility] t Address [address] [place] [address] Care Team Providers Name Role Phone Shahbaz [...] Effective Date Expiration Date S ource GENERIC [id number] 2019 00:00:00 [facility] [id number] 2021 00:00:00 MULTIPLAN GENERIC [id number] 2019 00:00:00 Problems Condition Condition Condition Status Onset Resolution Last Treating Co mments Source Name Details Category Date Date Treatment Clinician Date Lung mass Lung mass Disease Active [place] [facility] 4-10 [employer] 00:00: of 00 Medicin e Malignant Malignant Disease Active [facility] neoplasm neoplasm 9-10 [facility] [place] 00:00: of portion of portion of 00 Me dicin right right e female female breast breast (HCCode) (HCCode) Anxiety Anxiety Disease Active [facility] 8-10 College 00:00: of 00 Medicin e Hypertensi Hypertensi Disease Active Overview : [facility] ve ve 8- [facility] disorder disorder 00:00: g of this of 00 note Medicin might be e different from the original. Last Assessmen t & Plan: Formattin g of this note might be different from the original. BP 149/94 today, on Norvasc and Lisinopri l. Per patient, she is nervous today. BP better controlle d at home. Malignant Malignant Disease Active [facility] neoplasm neoplasm 01-25 Colleg e of of 00:00: of upper-inne upper-inne 00 Me dicin r quadrant r quadrant e of left of left female female breast breast (HCCode) (HCCode) No known No known Disease Unive rs active active ity of problems problems [facility] Allergies, Adverse Reactions, Alerts Allergy Allergy Status Severity Reaction(s) Onset Inactive Treating Comm ents Source Name Type Date Date Clinician Latex, Drug Active Rash Univers Natural Intolera 02-17 ity of Rubber nce 00:00: Medical Branch ADHESIVE Drug Active Other-Cmnt Univ ers Class 02-17 ity of 00:00: [facility] LATEX, Drug Active Low Rash 2019- Univers NATURAL Class 02-17 ity of RUBBER 00:00: [facility] Adhesive Propensi Active Other (See 2019-0 Redness [facility] to Comments) 02-17 and skin Colle ge adverse 00:00: irritatio of reaction 00 n Medicin s to e substanc e Latex Propensi Active Rash [facility] ty to 02-17 College adverse 00:00: of reaction 00 Medicin s to e substanc e Adhesive Drug Active Other - See 2020-0 redness Un katie Allergy comments 02-17 ity of 00:00: Medical Branch NO KNOWN Drug Active Univers ALLERGIE Class ity of S [facility] NO KNOWN Allergy Active [facility] Social History Social Habit Start Date Stop Date Quantity Comments Source History [facility] ge of Alcohol Std Medicine Drinks History [facility] ge of Alcohol Binge Medicine History [facility] ge of Alcohol Comment Medicine Exposure to Not sure University of SARS-CoV-2 [facility] (event) Branch Alcohol intake 2021-11-01 2021-11-01 Lifetime [facility] Col lege of 00:00:00 00:00:00 non-drinker Medicine (finding) Cigarette 2021-10-11 2021-10-11 [facility] of pack-years 00:00:00 00:00:00 Medicine Tobacco use and 2021-10-11 2021-10-[address] [facility] College of exposure 00:00:00 00:00:00 non-user Medicine History SDOH 2021-10-11 2021-10-11 1 [facility] Colle ge of Alcohol Frequency 00:00:00 00:00:00 Medicin e Sex Ass[birth year] [facility] llege of 00:00:00 00:00:00 Medicine Smoking Status Start Date Stop Date Source Never smoked tobacco [facility] Charles ege of Medicine Unknown if ever smoked [facility] Medications Ordered Filled Start Stop Current Ordering [...] ASPIRIN 3-16 mouth. ity of ORAL 18:35: [address] pantoprazol Yes 20mg Take 20 mg Univers e 3-16 by mouth ity of (PROTONIX) 18:35: daily. [place] 20 mg EC 19 Medical tablet Branch BABY Yes Take by Univers ASPIRIN 3-16 mouth. ity of ORAL 18:35: [address] busPIRone Yes 10mg Take 10 mg Un katie 10 mg 3-16 by mouth. ity of tablet 18:27: [address] amLODIPine Yes 10mg Take 10 mg U nivers 10 mg 3-16 by mouth. ity of tablet 18:27: [address] multivitami Yes 1{tbl} Take 1 Un katie n tablet 3-16 tablet by ity of 18:27: mouth. [address] busPIRone Yes 10mg Take 10 mg Un katie 10 mg 3-16 by mouth. ity of tablet 18:27: [address] amLODIPine Yes 10mg Take 10 mg U nivers 10 mg 3-16 by mouth. ity of tablet 18:27: [address] multivitami Yes 1{tbl} Take 1 Un katie n tablet 3-16 tablet by ity of 18:27: mouth. [address] [facility] Yes 2{tbl} Take 2 Un katie docusate 0-26 tablets by ity o f sodium 00:00: mouth. [place] 8.6-50 mg 00 Medical per tablet Branch [facility]- 2019-06 Yes 2{tbl} Take 2 Un katie docusate 0-26 tablets by ity o f sodium 00:00: mouth. [place] 8.6-50 mg 00 Medical per tablet [place] Vital Signs Vital Name Observation Time Observation Value Comments Source Systolic blood 2021-11-01 15:40:00 122 mm[Hg] [facility] pressure Medicine Diastolic blood 2021-11-01 15:40:00 83 mm[Hg] [facility] Medicine Heart rate 2021-11-01 15:40:00 96 /min [facility] Body temperature 2021-11-01 15:40:00 36.61 [facility] Body height 2021-11-01 15:40:00 152.4 cm [facility] Body weight 2021-11-01 15:40:00 70.761 kg [facility] BMI 2021-11-01 15:40:00 30.47 kg/m2 [facility] Systolic blood 2021-10-11 19:04:00 102 mm[Hg] [facility] of pressure Medicine Diastolic blood 2021-10-11 19:04:00 71 mm[Hg] [facility] Medicine Heart rate 2021-10-11 19:04:00 104 /min [facility] Body temperature 2021-10-11 19:04:00 37.06 [facility] Body height 2021-10-11 19:04:00 152.4 cm [facility] Body weight 2021-10-11 19:04:00 75.751 kg [facility] BMI 2021-10-11 19:04:00 32.61 kg/m2 [facility] HEIGHT 2021-09-30 14:50:00 152.4 cm WEIGHT 2021-09-30 14:50:00 77.111 kg HEIGHT 2021-09-30 14:50:00 152.4 cm WEIGHT 2021-09-30 14:50:00 77.111 kg Body height 2020-09-22 18:37:00 165.1 cm [facility] Body weight 2020-09-22 18:37:00 84.278 kg [facility] BMI 2020-09-22 18:37:00 30.92 kg/m2 [facility] HEIGHT 2020-01-27 10:48:00 154 cm WEIGHT 2020-01-27 10:48:00 82.1 kg Procedures Procedure Date / Time Performed Performing Clinician [facility] e CONSENT/REFUSAL FOR 2020-09-05 18:06:24 Doctor Unassigned, No Un [facility] DIAGNOSIS AND Name [facility] Branch TREATMENT Plan of Care Planned Activity Planned Date Details Comments Source Future Scheduled 2021-11-10 Screening for malignant [facility] Test 10:40:18 neoplasm of colon of Medicin e (procedure) [code = 715537690] Future Scheduled 2021-11-10 Screening for malignant [facility] Test 10:40:18 neoplasm of breast of Medici ne (procedure) [code = 159488828] Future Scheduled 2021-11-10 COVID-19 Vaccine (#1) [employer] Test 10:40:18 [code = COVID-19 of Medicine Vaccine (#1)] Future Scheduled 2021-11-10 TETANUS SHOT (ADULT) [place] [facility] Test 10:40:18 [code = TETANUS SHOT of Medi cine (ADULT)] Future Scheduled 2021-11-10 BMI FOLLOW UP PLAN [employer] Test 10:40:18 [code = BMI FOLLOW UP of Med icine PLAN] Future Scheduled 2021-11-10 Hepatitis C screening [employer] Test 10:40:18 (procedure) [code = of Medic ine 891575745] Future Scheduled 2021-11-10 Human immunodeficiency [employer] Test 10:40:18 virus screening of Medicine (procedure) [code = 360695986] Future Scheduled 2021-11-10 Screening for malignant [employer] Test 10:40:18 neoplasm of cervix of Medici ne (procedure) [code = 835544535] Future Scheduled 2021-11-10 ZOSTER VACCINE (1 of 2) [employer] Test 10:40:18 [code = ZOSTER VACCINE of Me dicine (1 of 2)] Future Scheduled 2021-11-10 FLU VACCINE > 6 MONTHS [employer] Test 10:40:18 [code = FLU VACCINE > 6 of M edicine MONTHS] Future Scheduled 2021-10-17 Screening for malignant [facility] Test 12:53:46 neoplasm of colon of Medicin e (procedure) [code = 086084772] Future Scheduled 2021-10-17 Screening for malignant [facility] Test 12:53:46 neoplasm of breast of Medici ne (procedure) [code = 250392536] Future Scheduled 2021-10-17 COVID-19 Vaccine (1) [facility] Test 12:53:46 [code = COVID-19 of Medicine Vaccine (1)] Future Scheduled 2021-10-17 TETANUS SHOT (ADULT) [place] [employer] Test 12:53:46 [code = TETANUS SHOT of Medi cine (ADULT)] Future Scheduled 2021-10-17 [facility] FOLLOW UP PLAN [facility] Test 12:53:46 [code = BMI FOLLOW UP of Med icine PLAN] Future Scheduled 2021-10-17 Hepatitis C screening [facility] [employer] Test 12:53:46 (procedure) [code = of Medic ine 344827657] Future Scheduled 2021-10-17 [facility] Test 12:53:46 virus screening of Medicine (procedure) [code = 247610287] Future Scheduled 2021-10-17 Screening for malignant [facility] College Test 12:53:46 neoplasm of cervix of Medici ne (procedure) [code = 967473850] Future Scheduled 2021-10-17 ZOSTER VACCINE (1 of 2) [employer] Test 12:53:46 [code = ZOSTER VACCINE of Me dicine (1 of 2)] Future Scheduled 2021-10-17 FLU VACCINE > 6 MONTHS [employer] Test 12:53:46 [code = FLU VACCINE > 6 of M edicine MONTHS] Future Scheduled 2021-10-11 MRI BRAIN W WO CONTRAST 1 Occurrences [facility] Test 15:31:32 [code = 17503-5] starting of Medicine 10/11/2021 until 10/11/2022 Future Scheduled 2021-10-11 NM LUNG VENTILATION 1 Occurrences [facility] Test 15:29:34 PERFUSION [code = starting of Medicin e 29115] 10/11/2021 until 04/12/2023 Future Scheduled 2021-10-11 COMPLETE PFT WITHOUT 1 Occurrences [employer] Test 15:29:34 BRONCHODILATOR [code = starting of Me dicine 75269] 10/11/2021 until 10/11/2022 Diagnostic Test 2021-10-11 ECHO, COMPLETE [code = Expected: [employer] Pending 00:00:00 19368] 10/11/2021, of Medicine Expires: 04/12/2022 Encounters Start End Encounter Admission Attending Care Care Encounter Source Date/Time Date/Time Type Type Clinicians Facility Department ID 2020-02-07 Outpatient WADE XIE Breast Kwadwo [id number] 12:19:36 NAVEED hansen 2020-02-02 Outpatient BIA MORALES MDA MDA [id number] 13:19:19 ESTHER hansen 2020-01-21 Outpatient WADE MCCLOUD MDA [id number] 16:39:13 PROVIDER Valdo hansen 2021-11-01 2021-11-01 Office TARYN Porter [id number] [place] [address] 10:30:00 10:45:00 Visit Jamari AMBULATOR 350.1.13.21 College Y 0.2.7.2.686 of [id number] [facility] luis e 810 e 2021-10-26 2021-10-26 Outpatient YURI KOEHLER [facility] [id number] [facility]H 10:56:31 23:59:00 GURDEEP 2021-10-26 2021-10-26 Outpatient YURI KOEHLER [facility] [id number] SLE 10:37:05 10:55:00 GURDEEP 2021-10-26 2021-10-26 Outpatient YURI KOEHLER [facility] [id number] [facility] 00:00:00 10:36:00 GURDEEP 2021-10-26 2021-10-26 Outpatient [facility] [id number] [facility] 08:56:20 10:23:06 Colleg e of Medicin e 2021-10-11 2021-10-11 Office TARYN Porter [id number] [facility] 13:30:00 13:45:00 Visit Jamari AMBULATOR 350.1.13.21 College Y 0.2.7.2.686 [id number] Medi luis e 810 e 2021-09-30 2021-10-03 Inpatient ER SNEHA [facility] Cardiothora [id number] [facility] 14:38:00 13:05:00 CHEMA bishop 2021-09-30 2021-09-30 [facility] [id number] [facility] 00:00:00 23:59:00 Colleg e of Medicin e 2021-02-13 2021-02-13 Outpatient Rosetta KELLEY [facility] [id number] Univers 13:00:00 13:00:00 DANA [id number] [facility] 2021-02-13 2021-02-13 Outpatient Rosetta KELLEY [facility] [id number] Univers 13:00:00 13:00:00 DANA [facility] 2020-09-29 2020-09-29 Nurse Nurse, [facility] [id number] Univers 10:02:54 10:21:25 Visit Dana Kelley [place] 350.1.13.10 [facility] 4.2.7.2.686 [facility] [id number] [place] [address] 2020-09-29 2020-09-29 Outpatient R [facility] [id number] Univers 08:00:00 08:00:00 [id number] [facility] 2020-09-29 2020-09-29 [facility] [id number] Univers 08:00:00 08:00:00 DANA [facility] 2020-09-22 2020-09-22 Nurse Nurse, [facility] [id number] [id number] Univers 13:30:06 14:03:57 Visit Dana Kelley 350.1.13.10 ity [facility] 4.2.7.2.686 [place] [id number] [place] dical [address] 2020-09-22 2020-09-22 Outpatient R [facility] [id number] Univers 14:00:00 14:00:00 [id number] ity [facility] 2020-09-22 2020-09-22 Outpatient R [facility] [id number] Univers 14:00:00 14:00:00 ity [facility] 2020-09-05 2020-09-05 Outpatient R WARREN [facility] [id number] Univers 13:30:00 13:30:00 DANA [facility] 2020-09-05 2020-09-05 Orders Doctor MIKE 1.2.840.114 [id number] Univers 00:00:00 00:00:00 Only Unassigned, ESTHELA 350.1.13.10 ity of [facility] 4.2.7.2.686 Michael as [id number] [address] 2020-03-02 2020-03-02 Outpatient BIA DODSON, MDA MDA [id number] 00:00:00 00:00:00 KUSH hansen 2020-02-17 2020-02-17 Outpatient EL IRENEUTU, MDA MDA [id number] 00:00:00 00:00:00 DESTINI hansen 2020-02-17 2020-02-17 Outpatient EL IRENEUTU, MDA MDA [id number] 00:00:00 00:00:00 DESTINI hansen 2020-02-17 2020-02-17 Outpatient EL IRENEUTU, MDA MDA [id number] MD 00:00:00 00:00:00 DESTINI hansen 2020-02-17 2020-02-17 Outpatient EL IRENEUTU, MDA MDA [id number] MD 00:00:00 00:00:00 DESTINI hansen 2020-02-17 2020-02-17 Outpatient EL ANGELIA, MDA MDA [id number] MD 00:00:00 00:00:00 DESTINI hansen 2020-02-16 2020-02-16 Outpatient EL HERMAN, MDA MDA [id number] MD 00:00:00 00:00:00 CLARE hansen 2020-02-10 2020-02-10 Outpatient EL MIGGINS, MDA MDA [id number] MD 00:00:00 00:00:00 NAVEED Lyle o jade 2020-02-10 2020-02-10 Outpatient EL MIGGINS, MDA MDA [id number] MD 00:00:00 00:00:00 NAVEED Lyle o jade 2020-02-02 2020-02-02 Outpatient HERMAN, MDA MDA [id number] MD 00:00:00 00:00:00 CLARE hansen 2020-01-28 2020-01-28 Outpatient EL ANGELIA, MDA MDA [id number] MD 13:00:16 13:00:16 DESTINI hansen 2020-01-27 2020-01-27 Outpatient EL MIGGINS, MDA MDA [id number] MD 10:35:15 12:08:54 NAVEED hansen 2020-01-27 2020-01-27 Outpatient EL MDA MDA [id number] MD 10:31:52 10:32:00 Valdo hansen 2020-01-26 2020-01-26 Outpatient EL MDA MDA [id number] MD 12:35:52 12:35:52 Valdo hansen 2020-01-26 2020-01-26 Outpatient EL MIGGINS, MDA MDA [id number] MD 12:31:31 12:31:31 NAVEED Lyle o jade 2020-01-26 2020-01-26 Outpatient EL MIGGINS, MDA MDA [id number] MD 12:31:27 12:31:27 NAVEED Lyle o jade 2020-01-26 2020-01-26 Outpatient EL MIGGINS, MDA MDA [id number] MD 12:31:19 12:31:19 NAVEED Lyle o jade 2020-01-26 2020-01-26 Outpatient EL MIGGINS, MDA MDA [id number] MD 12:31:13 12:31:13 NAVEED Lyle o jade 2020-01-26 2020-01-26 Outpatient [facility] MDA [id number] 11:32:56 11:32:56 Valdo o n 2020-01-26 2020-01-26 Outpatient [facility] MDA [id number] 11:32:31 11:32:39 Valdo o n 2020-01-26 2020-01-26 Outpatient [facility] MDA [id number] 00:00:00 00:00:00 Valdo o n 2020-01-24 2020-01-24 Outpatient [facility] MDA [id number] 18:16:51 18:16:51 Valdo o n Results Test Description Test Test Comments Results Result Sourc e Time Comments MR, BRAIN, WITH 2021-10- Left upper Lobe 07 lung mass. To r/[facility] 08:07:00 [facility]: Reason for Exam - LATA GRACE Click Yes and : 1965 Enter Reason Sex: Below->YesUnliste F d Reason for Exam->Mass of FINAL upper lobe of REPORT PATIENT ID: left lung [id number] MR, BRAIN, WITH (R91.8); Pre-op \\T\\ WITHOUT [...] FUNCT WITH 15:18:00 Dr. Jam[facility] [place] : 1965 Sex: F FINAL REPORT PROCEDURE: perfusion LUNG SCAN w/differential function CPT CODE: 42740 INDICATION: Left lung malignancy, evaluation prior to [...] 2021-09- Surgical Pathology 20 Report 13:03:56 Case: [id number] Authorizing Provider: Dinah Dyson MD Collected: 10/02/2021 08:31 AM Ordering Location: [address] Received: 10/02/2021 03:27 PM Service Pathologist: Kaylyn Hoff MD Specimen: Lung, Left Upper Lobe A. LUNG, LEFT UPPER LOBE, CT GUIDED BIOPSY: - MALIGNANT SPINDLE CELL NEOPLASM, NOT FURTHER CHARACTERIZED (SEE COMMENT) Signing Pathologist Direct Phone Line: [phone] ly signed by Kaylyn Hoff MD on 10/10/2021 at 1:03 PMThe current tumor is compared with prior breast biopsy from 2019 ([id number]). The case was reviewed with Drs. Cross [...] further characterization of the tumor, if clinically feasible.[id number] x[age] y.o. 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 [...] (CD31, CD34), breast markers (Mammaglobin, GCDFP, ER, [place], Her2-barbara) are negative. PARAMJIT-3 and SMA show [...] evaluated Immunohistochemistry technical testing was performed at [facility], Pathology Laboratory where it was developed and [...] recovery and/or detection times of some organisms.BLOOD [id number] 14:00:55 Test Item Value Reference Range Interpretation Comments CULTURE (BEAKER) (test No growth in 5 days code = 1095) The specimen volume collected for this blood culture was below the optimum (10 mL per bottle or 20 mL total). Use of lower volumes may adversely affect recovery and/or detection times of some organisms.CT, BIOPSY, [id number] 14:13:00[facility] : 1965 Sex: FFINAL [...] MDReport Verified Date/Time: 10/03/2021 14:13:09 Reading Location: [place] [address] Angio Body Reading Room BASIC METABOLIC [id number] 04:21:20 Test Item Value Reference Range Interpretation [...] S NOT APPLICABLE FOR DIALYSIS PATIEN TS. Tax Collector ID - BSLACTIC ACID, [id number] 04:16:43 Test Item Value Reference Range Interpretation Comments LACTATE BLOOD VENOUS (2) (BEAKER) 0.86 mmol/L 0.50-2.20 (test code = 2872) Tax Collector ID - BSCBC W/PLT COUNT & AUTO [id number] 03:57:05 Test Item Value Reference Range Interpretation [...] (BEAKER) (test code = 2801) LACTIC ACID, [id number] 22:09:13 Test Item Value Reference Range Interpretation Comments LACTATE BLOOD VENOUS 1.11 mmol/L 0.50-2.20 Specime n slightly (2) (BEAKER) (test hemolyzed code = 2872) Tax Collector ID - [id number] 18:11:46 Test Item Value Reference Range Interpretation Comments PROCALCITONIN (BEAKER) (test code 0.55 ng/mL <0.05 H = 3036) SEPSIS RISK (ng/mL)Low: 0.05-0.50Intermediate: 0.51-2.00High: >=2.01LACTIC ACID, [id number] 18:00:06 Test Item Value Reference Range Interpretation Comments LACTATE BLOOD VENOUS (2) (BEAKER) 1.28 mmol/L 0.50-2.20 (test code = 2872) Tax Collector ID - BSURINALYSIS W/ REFLEX URINE [id number] 15:12:41 Test Item Value Reference Range Interpretation [...] = 1521) SOURCE(BEAKER) (test code = 2795) Tax Collector ID - [auto]Tax Collector ID - techBASIC METABOLIC [id number] 07:54:54 Test Item Value Reference Range Interpretation [...] S NOT APPLICABLE FOR DIALYSIS PATIEN TS. Tax Collector ID - BSCBC W/PLT COUNT & AUTO [id number] 06:01:07 Test Item Value Reference Range Interpretation [...] (BEAKER) (test code = 2801) HCG, QUANTITATIVE, [id number] 05:38:37 Test Item Value Reference Range Interpretation Comments GONADOTROPIN, CHORIONIC (HCG) QUANT < mIU/mL 0-10 (BEAKER) (test code = 649) Non- Females: <10 mIU/mL Females: Gestation Age Reference Range(mIU/mL) 0.2-1 Week 5-50 1-2 Weeks 50-500 2-3 Weeks 100-5,000 3-4Weeks 500-10,000 4-5 Weeks 1,000-50,000 5-6 Weeks 10,000-100,000 6-8 Weeks 15,000-200,000 2-3 Months 10,000-100,000 Tax Collector ID - DBALPHA FETOPROTEIN (AFP), TUMOR [id number] 04:40:30 Test Item Value Reference Range Interpretation Comments ALPHA-FETOPROTEIN (BEAKER) (test 4.4 ng/mL <10.0 code = 1094) Tax Collector ID - DBLACTATE DEHYDROGENASE (LDH)2021-10-01 04:38:54 Test Item Value Reference Range Interpretation Comments LACTATE DEHYDROGENASE (BEAKER) (test 229 U/L 125-220 H code = 635) Tax Collector ID - QUAN LBASIC METABOLIC [id number] 04:38:53 Test Item Value Reference Range Interpretation [...] S NOT APPLICABLE FOR DIALYSIS PATIEN TS. Tax Collector ID - QUAN [id number] 04:38:53 Test Item Value Reference Range Interpretation Comments MAGNESIUM (BEAKER) (test code = 2.0 mg/dL 1.6-2.6 627) Tax Collector ID - QUAN LPROTHROMBIN [id number] 04:34:11 Test Item Value Reference Range Interpretation Comments PROTIME (BEAKER) 15.0 seconds 11.9-14.2 H (test code = 759) INR (BEAKER) (test 1.20 See_Comment [Automat ed message] code = 370) The system [employer] generated this result transmitted ref erence range: [...] PERCENT (BEAKER) (test code = 2801) SARS-COV2/RT-PCR ([facility])2021-10-01 03:47:54 Test Item Value Reference Range Interpretation Comments SARS-COV2/RT-PCR (test Negative Not Detected, Negative, code = 1002331) See external report for linked test SARS-COV-2 PERFORMING LAB [facility] (test code = 2430800) Negative result for this test determines that [...] 564(g) of the Act.Fact Sheet for Healthcare Providers:https://www.[employer]/sites/default/files/product/documents/Fact_Shedenise m_WB_Uofomeedk_Smyd_UUVQ-YqG-4.pdfFact Sheet for Healthcare Patients:https://www.[employer]/sites/default/files/product/ documents/Fpne_Eezbz_Unsnrrjb_Orlf_RNZQ-BoT-4.pdfPerforming Laboratory:[place] [address] [address] [place], [place] [address]BGDAJKD FUNCTION [id number] 16:56:20 Test Item Value Reference Range Interpretation [...] (test code = 24 U/L 6-55 347) Tax Collector ID - DBBASIC METABOLIC [id number] 16:56:20 Test Item Value Reference Range Interpretation [...] S NOT APPLICABLE FOR DIALYSIS PATIEN TS. Tax Collector ID - [id number] 16:56:20 Test Item Value Reference Range Interpretation Comments MAGNESIUM (BEAKER) (test code = 2.1 mg/dL 1.6-2.6 627) Tax Collector ID - DBPROTHROMBIN [id number] 16:37:51 Test Item Value Reference Range Interpretation Comments PROTIME (BEAKER) 14.5 seconds 11.9-14.2 H (test code = 759) INR (BEAKER) (test 1.15 See_Comment [Automat ed message] code = 370) The system [employer] generated this result transmitted ref erence range: [...] % 0-1 PERCENT (BEAKER) (test code = 9594)
[2021-11-28 20:26] VITALS: BP 121/51; TEMP 97.1
[2021-11-28] MEDS ORDERED: HYDROMORPHONE HCL 2 MG/ML inj IV PRN (20:42)
[2021-11-28] MEDS ORDERED: LORazepam 2 MG/ML VIAL IV PRN (20:45)
[2021-11-28] MEDS ORDERED: ACETAMINOPHEN 650MG/RECT SUPP PR PRN (20:47)
[2021-11-28] MEDS ORDERED: BISACODYL 10 MG RECTAL SUPP PR PRN (20:49)
[2021-11-28] MEDS ORDERED: ONDANSETRON 4 MG/2 ML VIAL IV PRN (20:50)
[2021-11-28] MEDS ORDERED: LORazepam 2 MG/ML VIAL IV SCH (21:00)
[2021-11-28 21:37] VITALS: BMI 31.1
[2021-11-28 21:53] VITALS: O2SAT 93
[2021-11-28] MEDS ORDERED: SCOPOLAMINE HYDROBROMIDE PATCH TD ONE (22:42)
[2021-11-28] MEDS ORDERED: SCOPOLAMINE HYDROBROMIDE PATCH TD SCH (22:45)
[2021-11-28] MEDS ORDERED: NA CHLORIDE 0.9% 500 ML ONE (23:23)
[2021-12-01] MEDS ORDERED: FENTANYL 25 MCG/PATCH TD SCH (09:00)
== END 2021-11-28 23:35 | disposition hospice, home (50) | DRG 951 ==
LOC: 4TH 20:02
PROVIDERS: ADMIT Internal Medicine Hematology & Oncology; ATTEND Internal Medicine Hematology & Oncology
DX: Z51.5 Encounter for palliative care (principal); C34.90 Malignant neoplasm of unspecified part of unspecified bronchus or lung
CPT/HCPCS: J1170; J7040